=== PATIENT | female | born 1975 | race Caucasian/White ===

== ENCOUNTER → 2016-04-17 | Outpatient (REF) | payer OTHER | END | disposition home or self-care (01) | LOC: M SFHCCAPE 16:25 | PROVIDERS: ATTEND Physician Assistant | DX: G43.009 Migraine without aura, not intractable, without status migrainosus (principal) ==

== ENCOUNTER → 2016-04-24 | Outpatient (REF) | payer OTHER ==
[2016-04-24 10:05] LABS: BASO # 0.1 K/mm3 (0.0-0.2); BASO % 0.6 % (0.0-1.0); EOS # 0.4 K/mm3 (0.0-0.50); EOS % 4.2 % (0.0-3.0); LARGE UNSTAINED CELL # 0.1 K/mm3 (0.0-0.4); LARGE UNSTAINED CELL % 1.1 % (0.0-4.0); LYMPH # 2.1 K/mm3 (1.5-4.5); LYMPH % 18.8 % (24.0-44.0); MEAN CORPUSCULAR HEMOGLOBIN 28.7 pg (27.0-33.0); MEAN CORPUSCULAR HGB CONC 32.6 g/dl (32.0-36.5); MONO # 0.6 K/mm3 (0.0-0.8); MONO % 5.7 % (0.0-5.0); NEUTROPHILS # 7.2 K/mm3 (1.8-7.7); NEUTROPHILS % 69.6 % (36.0-66.0); PLATELET COUNT, AUTOMATED 357 k/mm3 (150-450); RED CELL DISTRIBUTION WIDTH 14.1 % (11.5-14.5); WHITE BLOOD COUNT 10.4 K/mm3 (4.0-10.0)
[2016-04-24 10:17] LABS: ALBUMIN 3.7 GM/DL (3.2-5.2); ALBUMIN/GLOBULIN RATIO 1.09 (1.00-1.93); ALKALINE PHOSPHATASE 107 U/L (45-117); ALT/SGPT 29 U/L (12-78); ANION GAP 7 MEQ/L (8-16); AST/SGOT 13 U/L (15-37); BILIRUBIN,TOTAL 0.2 MG/DL (0.2-1.0); BLOOD UREA NITROGEN 11 MG/DL (7-18); CARBON DIOXIDE LEVEL 26 MEQ/L (21-32); CHLORIDE LEVEL 108 MEQ/L (98-107); CREATININE FOR GFR 0.68 MG/DL (0.55-1.02); GLOMERULAR FILTRATION RATE > 60.0 (>58); GLUCOSE, FASTING 119 MG/DL (70-105); POTASSIUM SERUM 4.3 MEQ/L (3.5-5.1); SODIUM LEVEL 141 MEQ/L (136-145); TOTAL PROTEIN 7.1 GM/DL (6.4-8.2)
[2016-04-24 11:00] LABS: ERYTHROCYTE SEDIMENTATION RATE 12 mm/hr (0-20)
== END ==
LOC: M LABNEURO 09:04
PROVIDERS: ATTEND Psychiatry & Neurology Neurology
DX: R51 Headache (principal)

== ENCOUNTER → 2016-06-12 | Outpatient (REF) | payer OTHER ==
[2016-06-12 20:11] LABS: ALBUMIN 3.8 GM/DL (3.2-5.2); ALBUMIN/GLOBULIN RATIO 1.12 (1.00-1.93); ALKALINE PHOSPHATASE 99 U/L (45-117); ALT/SGPT 27 U/L (12-78); ANION GAP 8 MEQ/L (8-16); AST/SGOT 14 U/L (15-37); BILIRUBIN,TOTAL 0.3 MG/DL (0.2-1.0); BLOOD UREA NITROGEN 11 MG/DL (7-18); CALCIUM LEVEL 8.9 MG/DL (8.5-10.1); CARBON DIOXIDE LEVEL 25 MEQ/L (21-32); CHLORIDE LEVEL 108 MEQ/L (98-107); CHOLESTEROL LEVEL 189 MG/DL (<200); CREATININE FOR GFR 0.76 MG/DL (0.55-1.02); FREE T4 1.07 NG/DL (0.76-1.46); GLOMERULAR FILTRATION RATE > 60.0 (>58); GLUCOSE, FASTING 133 MG/DL (70-105); POTASSIUM SERUM 4.5 MEQ/L (3.5-5.1); SODIUM LEVEL 141 MEQ/L (136-145); TOTAL PROTEIN 7.2 GM/DL (6.4-8.2); TRIGLYCERIDES LEVEL 131 MG/DL (<150)
[2016-06-12 20:19] LABS: VITAMIN B12 LEVEL 796 PG/ML (247-911)
[2016-06-15 00:07] LABS: Lyme Disease IgG/IgM Antibodie <0.91 ISR (0.00-0.90); Lyme Disease IgM Ab Quantitati <0.80 index (0.00-0.79)
== END ==
LOC: M SFHCCAPE 07:46
PROVIDERS: ATTEND Physician Assistant
DX: E11.9 Type 2 diabetes mellitus without complications (principal); R41.3 Other amnesia

== ENCOUNTER → 2016-06-27 | Outpatient (CLI) | payer OTHER ==
--- NOTE | 2016-06-28 03:36 | REP ---
Clinical: Lumbago.. Technique: AP, lateral, bilateral oblique and coned-down views of the lumbosacral spine. Findings: Alignment and lordosis maintained. No acute fracture / compression injury or subluxation. Moderate degenerative disc osteophyte complex at the L5-L1 level and to a lesser extent the L4-5 level. Remainder examination appears relatively normal for age. No evidence for spondylolysis or spondylolisthesis. Impression: Age-related to moderate degenerative changes primarily involving the L5-L1 and L4-5 levels. Signed by Alvarez Newman MD 06/28/2016 12:44 A
--- NOTE | 2016-06-28 03:37 | REP ---
Clinical: Bilateral hip pain. Technique: AP view of the pelvis with neutral and frog lateral views of the right and left hip. Findings: Mild age-related changes including subtle increased sclerosis to the acetabular roof with marginal spurring identified bilaterally (right greater than left). No further arthritic degenerative changes noted. No acute fracture or dislocation. Impression: Mild age-related degenerative changes suggested. Signed by Alvarez Newman MD 06/28/2016 02:28 A
== END ==
LOC: M CLY 13:34
PROVIDERS: ATTEND Physician Assistant
DX: M54.42 Lumbago with sciatica, left side (principal); M54.41 Lumbago with sciatica, right side; M16.0 Bilateral primary osteoarthritis of hip; M47.816 Spondylosis without myelopathy or radiculopathy, lumbar region

== ENCOUNTER → 2016-10-02 | Outpatient (REF) | payer OTHER ==
[2016-10-02 18:19] LABS: ALBUMIN 3.7 GM/DL (3.2-5.2); ALBUMIN/GLOBULIN RATIO 1.03 (1.00-1.93); ALKALINE PHOSPHATASE 110 U/L (45-117); ALT/SGPT 34 U/L (12-78); ANION GAP 7 MEQ/L (8-16); AST/SGOT 15 U/L (15-37); BILIRUBIN,TOTAL 0.2 MG/DL (0.2-1.0); BLOOD UREA NITROGEN 12 MG/DL (7-18); CALCIUM LEVEL 8.5 MG/DL (8.5-10.1); CARBON DIOXIDE LEVEL 26 MEQ/L (21-32); CHLORIDE LEVEL 106 MEQ/L (98-107); CREATININE FOR GFR 0.81 MG/DL (0.55-1.02); GLOMERULAR FILTRATION RATE > 60.0 (>58); GLUCOSE, FASTING 137 MG/DL (70-105); POTASSIUM SERUM 4.5 MEQ/L (3.5-5.1); SODIUM LEVEL 139 MEQ/L (136-145); TOTAL PROTEIN 7.3 GM/DL (6.4-8.2)
== END ==
LOC: M SFHCCAPE 07:51
PROVIDERS: ATTEND Physician Assistant
DX: Z01.812 Encounter for preprocedural laboratory examination (principal); E11.9 Type 2 diabetes mellitus without complications

== ENCOUNTER → 2017-05-29 | Outpatient (REF) | payer OTHER ==
[2017-06-01 14:16] LABS: HPV LOW VOL RFLX Negative (Negative)
== END ==
LOC: M LAB REF 14:28
DX: Z12.4 Encounter for screening for malignant neoplasm of cervix (principal)

== ENCOUNTER → 2017-06-05 | Outpatient (CLI) | payer OTHER | LOC: M RAD 11:16 | DX: Z12.31 Encounter for screening mammogram for malignant neoplasm of breast (principal) | CPT/HCPCS: 77067 ==

== ENCOUNTER 2017-08-24 06:32 | Day surgery (SDC) | payer OTHER ==
[2017-08-24 07:04] LABS: HEMATOCRIT 40.8 % (36.0-47.0); HEMOGLOBIN 13.3 g/dl (12.0-15.5); MEAN CORPUSCULAR HEMOGLOBIN 27.9 pg (27.0-33.0); MEAN CORPUSCULAR HGB CONC 32.6 g/dl (32.0-36.5); MEAN CORPUSCULAR VOLUME 85.7 fl (80.0-96.0); PLATELET COUNT, AUTOMATED 367 10^3/uL (150-450); RED BLOOD COUNT 4.76 10^6/uL (4.00-5.40); RED CELL DISTRIBUTION WIDTH 13.3 % (11.5-14.5)
[2017-08-24 07:09] LABS: CONTROL LINE UCG INT CTR LINE PRESENT; URINE PREG TEST NEGATIVE (NEGATIVE)
[2017-08-24] MEDS ORDERED: PROPOFOL 200 MG/20 ML VIAL As Ordered (07:13)
[2017-08-24] MEDS ORDERED: KETOROLAC 60 MG/2 ML VIAL (J1885) As Ordered (07:13)
[2017-08-24] MEDS ORDERED: LIDOCAINE 2% INJ 100 MG/5 ML SDV (FOR ANES.) As Ordered (07:13)
[2017-08-24] MEDS ORDERED: ROCURONIUM BROMIDE 50 MG/5 ML VIAL As Ordered (07:13)
[2017-08-24] MEDS ORDERED: GLYCOPYRROLATE INJ 0.2 MG/ML 2 ML VIAL As Ordered (07:13)
[2017-08-24] MEDS ORDERED: dexameTHASONE 4 MG/ML 1ML VIAL (J1100) As Ordered (07:13)
[2017-08-24] MEDS ORDERED: NEOSTIGMINE 10 MG/10 ML VIAL (J2710) As Ordered (07:13)
[2017-08-24] MEDS ORDERED: ONDANSETRON 4MG/2ML VIAL (J2405) As Ordered (07:13)
[2017-08-24] MEDS ORDERED: HYDROmorphone HCL 2 MG/ML 1ML VIAL (J1170) As Ordered (07:14)
[2017-08-24] MEDS ORDERED: fentaNYL 100 MCG/2 ML INJECTION (J3010) As Ordered ×2 (07:14→08:33)
[2017-08-24] MEDS ORDERED: MIDAZOLAM INJ 2 MG/2 ML VIAL (J2250) As Ordered (07:14)
[2017-08-24] MEDS: LR 1,000 ML IV ×4 (07:15→17:19)
[2017-08-24] MEDS: METHYLENE BLUE 0.5% (5MG/ML) 10 ML AMP (PROVAYBLUE)(Q9968 PER 1MG) As Ordered (08:46)
[2017-08-24] MEDS ORDERED: LABETALOL HCL 100 MG/20 ML VIAL As Ordered ×2 (08:48→10:10)
[2017-08-24] MEDS: BUPIVACAINE HCL 0.25% 10 ML VIAL As Ordered (09:10)
[2017-08-24] MEDS ORDERED: PERCOCET 5MG/325MG TAB PO (10:00)
[2017-08-24] MEDS ORDERED: MORPHINE 4 MG/ML 1ML VIAL/SYRINGE (J2270) IV (10:00)
[2017-08-24] MEDS ORDERED: ONDANSETRON 4MG/2ML VIAL (J2405) IV ×2 (10:00→10:15)
[2017-08-24] MEDS ORDERED: HYDROMORPHONE HCL 0.5 MG/ 0.5 ML SYRINGE (J1170 PER 1) IV (10:00)
[2017-08-24] MEDS ORDERED: fentaNYL 100 MCG/2 ML INJECTION (J3010) IV (10:00)
[2017-08-24] MEDS: LABETALOL HCL 100 MG/20 ML VIAL IV (10:16)
[2017-08-24] MEDS: DOCUSATE SODIUM 100 MG CAP PO ×2 (11:20→21:26)
[2017-08-24] MEDS ORDERED: KETOROLAC 30 MG/ML VIAL (J1885) IV (13:00)
[2017-08-24 16:59] LABS: BEDSIDE GLUCOSE 267 MG/DL (70-105)
[2017-08-24 17:26] LABS: BASO % 0.1 % (0.0-1.0); HEMATOCRIT 36.5 % (36.0-47.0); HEMOGLOBIN 11.9 g/dl (12.0-15.5); IMMATURE GRANULOCYTE % 0.8 % (0-3.0); LYMPH # 1.2 10^3/uL (1.5-4.5); LYMPH % 5.3 % (24.0-44.0); MEAN CORPUSCULAR HEMOGLOBIN 27.9 pg (27.0-33.0); MEAN CORPUSCULAR HGB CONC 32.6 g/dl (32.0-36.5); MEAN CORPUSCULAR VOLUME 85.5 fl (80.0-96.0); MONO # 0.8 10^3/uL (0.0-0.8); MONO % 3.7 % (0.0-5.0); NEUTROPHILS # 19.7 10^3/uL (1.8-7.7); NEUTROPHILS % 90.1 % (36.0-66.0); PLATELET COUNT, AUTOMATED 337 10^3/uL (150-450); RED BLOOD COUNT 4.27 10^6/uL (4.00-5.40); RED CELL DISTRIBUTION WIDTH 13.2 % (11.5-14.5); WHITE BLOOD COUNT 21.9 10^3/uL (4.0-10.0)
[2017-08-24 17:57] LABS: FIBRINOGEN 382 MG/DL (221-452); INR 1.02; PARTIAL THROMBOPLASTIN TIME 26.9 SECONDS (26.8-37.9); PROTHROMBIN TIME 13.5 SECONDS (12.4-14.5)
[2017-08-24 17:58] LABS: ALBUMIN 3.4 GM/DL (3.2-5.2); ALKALINE PHOSPHATASE 123 U/L (45-117); ALT/SGPT 63 U/L (12-78); ANION GAP 12 MEQ/L (8-16); AST/SGOT 41 U/L (7-37); BILIRUBIN,TOTAL 0.4 MG/DL (0.2-1.0); BLOOD UREA NITROGEN 11 MG/DL (7-18); CARBON DIOXIDE LEVEL 21 MEQ/L (21-32); CHLORIDE LEVEL 103 MEQ/L (98-107); GLOMERULAR FILTRATION RATE > 60.0 (>58); GLUCOSE, FASTING 259 MG/DL (70-100); POTASSIUM SERUM 4.2 MEQ/L (3.5-5.1); SODIUM LEVEL 136 MEQ/L (136-145); TOTAL PROTEIN 6.8 GM/DL (6.4-8.2)
[2017-08-24] MEDS: PERCOCET 5MG/325MG TAB PO (22:36)
[2017-08-25] MEDS: LR 1,000 ML IV (02:00)
[2017-08-25] MEDS: DOCUSATE SODIUM 100 MG CAP PO (09:29)
[2017-08-25] MEDS: PERCOCET 5MG/325MG TAB PO (09:30)
== END 2017-08-25 09:35 | disposition home or self-care (01) ==
LOC: M SDC 06:32 → M PED 11:10
DX: N92.0 Excessive and frequent menstruation with regular cycle (principal); N72 Inflammatory disease of cervix uteri; D25.0 Submucous leiomyoma of uterus; E66.01 Morbid (severe) obesity due to excess calories; F17.210 Nicotine dependence, cigarettes, uncomplicated
CPT/HCPCS: 58571

== ENCOUNTER → 2017-10-25 | Outpatient (REF) | payer OTHER ==
[2017-10-25 16:24] LABS: BASO # 0.1 10^3/uL (0.0-0.2); BASO % 0.7 % (0.0-1.0); EOS # 0.5 10^3/uL (0.0-0.50); EOS % 4.4 % (0.0-3.0); HEMATOCRIT 39.2 % (36.0-47.0); HEMOGLOBIN 12.7 g/dl (12.0-15.5); IMMATURE GRANULOCYTE % 0.5 % (0-3.0); LYMPH # 2.6 10^3/uL (1.5-4.5); LYMPH % 24.6 % (24.0-44.0); MEAN CORPUSCULAR HGB CONC 32.4 g/dl (32.0-36.5); MEAN CORPUSCULAR VOLUME 86.3 fl (80.0-96.0); MONO # 0.7 10^3/uL (0.0-0.8); MONO % 6.6 % (0.0-5.0); NEUTROPHILS # 6.7 10^3/uL (1.8-7.7); NEUTROPHILS % 63.2 % (36.0-66.0); PLATELET COUNT, AUTOMATED 353 10^3/uL (150-450); RED BLOOD COUNT 4.54 10^6/uL (4.00-5.40); RED CELL DISTRIBUTION WIDTH 14.4 % (11.5-14.5); WHITE BLOOD COUNT 10.6 10^3/uL (4.0-10.0)
[2017-10-25 16:42] LABS: ESTIMATED AVERAGE GLUCOSE 200 MG/DL (60-110); HEMOGLOBIN A1c 8.6 %
[2017-10-25 16:43] LABS: TOTAL 25(OH) VITAMIN D 20.8 NG/ML (30.0-100.0)
[2017-10-25 16:44] LABS: ALBUMIN 3.5 GM/DL (3.2-5.2); ALBUMIN/GLOBULIN RATIO 0.95 (1.00-1.93); ALKALINE PHOSPHATASE 121 U/L (45-117); ALT/SGPT 22 U/L (12-78); ANION GAP 10 MEQ/L (8-16); AST/SGOT 11 U/L (7-37); BILIRUBIN,TOTAL 0.3 MG/DL (0.2-1.0); BLOOD UREA NITROGEN 15 MG/DL (7-18); CALCIUM LEVEL 8.2 MG/DL (8.5-10.1); CARBON DIOXIDE LEVEL 22 MEQ/L (21-32); CHLORIDE LEVEL 105 MEQ/L (98-107); CHOLESTEROL LEVEL 178 MG/DL (<200); CHOLESTEROL RISK RATIO 6.592 (<5); CREATININE FOR GFR 0.85 MG/DL (0.55-1.30); GLOMERULAR FILTRATION RATE > 60.0 (>58); GLUCOSE, FASTING 256 MG/DL (70-100); HDL CHOLESTEROL 27 MG/DL (>40); LDL CHOLESTEROL 112.6 MG/DL (<100); NON-HDL-C 151 MG/DL; POTASSIUM SERUM 4.3 MEQ/L (3.5-5.1); SODIUM LEVEL 137 MEQ/L (136-145); TOTAL PROTEIN 7.2 GM/DL (6.4-8.2); TRIGLYCERIDES LEVEL 192 MG/DL (<150)
[2017-10-25 17:22] LABS: MALB URINE SIEMENS 27.8 MG/L; MAU/CREAT RATIO 14.5 MCG/MG (0.0-30.0)
== END ==
LOC: M SFHCCAPE 07:23
DX: I10 Essential (primary) hypertension (principal); E11.9 Type 2 diabetes mellitus without complications; E78.2 Mixed hyperlipidemia; E55.9 Vitamin D deficiency, unspecified

== ENCOUNTER 2017-12-08 12:20 | Emergency (ER) | payer OTHER | END 2017-12-08 13:57 | disposition home or self-care (01) | LOC: M ED 12:20 | DX: M25.511 Pain in right shoulder (principal); I10 Essential (primary) hypertension; R51 Headache; E78.00 Pure hypercholesterolemia, unspecified; F17.210 Nicotine dependence, cigarettes, uncomplicated | CPT/HCPCS: 99282 ==

== ENCOUNTER → 2017-12-17 | Outpatient (REF) | payer OTHER ==
[2017-12-17 16:47] LABS: BASO # 0.1 10^3/uL (0.0-0.2); BASO % 0.5 % (0.0-1.0); EOS # 0.4 10^3/uL (0.0-0.50); EOS % 3.3 % (0.0-3.0); HEMATOCRIT 39.9 % (36.0-47.0); HEMOGLOBIN 12.9 g/dl (12.0-15.5); IMMATURE GRANULOCYTE % 0.3 % (0-3.0); LYMPH # 2.4 10^3/uL (1.5-4.5); LYMPH % 22.1 % (24.0-44.0); MEAN CORPUSCULAR HEMOGLOBIN 28.2 pg (27.0-33.0); MEAN CORPUSCULAR HGB CONC 32.3 g/dl (32.0-36.5); MEAN CORPUSCULAR VOLUME 87.3 fl (80.0-96.0); MONO # 0.6 10^3/uL (0.0-0.8); MONO % 5.7 % (0.0-5.0); NEUTROPHILS # 7.3 10^3/uL (1.8-7.7); NEUTROPHILS % 68.1 % (36.0-66.0); PLATELET COUNT, AUTOMATED 359 10^3/uL (150-450); RED BLOOD COUNT 4.57 10^6/uL (4.00-5.40); RED CELL DISTRIBUTION WIDTH 14.2 % (11.5-14.5); WHITE BLOOD COUNT 10.7 10^3/uL (4.0-10.0)
[2017-12-17 16:55] LABS: ESTIMATED AVERAGE GLUCOSE 183 MG/DL (60-110)
[2017-12-17 17:02] LABS: ALBUMIN 3.6 GM/DL (3.2-5.2); ALBUMIN/GLOBULIN RATIO 1.03 (1.00-1.93); ALKALINE PHOSPHATASE 114 U/L (45-117); ALT/SGPT 25 U/L (12-78); ANION GAP 8 MEQ/L (8-16); AST/SGOT 13 U/L (7-37); BILIRUBIN,TOTAL 0.2 MG/DL (0.2-1.0); BLOOD UREA NITROGEN 12 MG/DL (7-18); CALCIUM LEVEL 8.2 MG/DL (8.5-10.1); CARBON DIOXIDE LEVEL 24 MEQ/L (21-32); CHLORIDE LEVEL 109 MEQ/L (98-107); CREATININE FOR GFR 0.97 MG/DL (0.55-1.30); GLOMERULAR FILTRATION RATE > 60.0 (>58); GLUCOSE, FASTING 138 MG/DL (70-100); POTASSIUM SERUM 4.3 MEQ/L (3.5-5.1); SODIUM LEVEL 141 MEQ/L (136-145); THYROID STIMULATING HORMONE 0.765 uIU/ML (0.358-3.740); TOTAL PROTEIN 7.1 GM/DL (6.4-8.2)
== END ==
LOC: M SFHCCAPE 09:56
DX: I10 Essential (primary) hypertension (principal); E11.9 Type 2 diabetes mellitus without complications

== ENCOUNTER → 2018-03-18 | Outpatient (REF) | payer OTHER ==
[~2018-03-18] MED LIST: ATOR1TAB19; IBUP80TA PO; LISI10TA4; OMEP20CA3; OXYB10TA; PERC5TAB12 PO; PERCOCET PO; STEG5TAB; VITA50005
[2018-03-18 18:24] LABS: ALT/SGPT 21 U/L (12-78); BASO # 0.1 10^3/uL (0.0-0.2); BASO % 0.5 % (0.0-1.0); BILIRUBIN,TOTAL 0.4 MG/DL (0.2-1.0); BLOOD UREA NITROGEN 16 MG/DL (7-18); CALCIUM LEVEL 8.7 MG/DL (8.5-10.1); CARBON DIOXIDE LEVEL 23 MEQ/L (21-32); CHLORIDE LEVEL 105 MEQ/L (98-107); CHOLESTEROL LEVEL 129 MG/DL (<200); CHOLESTEROL RISK RATIO 4.777 (<5); CREATININE FOR GFR 0.81 MG/DL (0.55-1.30); EOS # 0.5 10^3/uL (0.0-0.50); EOS % 4.4 % (0.0-3.0); GLOMERULAR FILTRATION RATE > 60.0 (>58); GLUCOSE, FASTING 161 MG/DL (70-100); HDL CHOLESTEROL 27 MG/DL (>40); HEMATOCRIT 41.6 % (36.0-47.0); HEMOGLOBIN 13.3 g/dl (12.0-15.5); LDL CHOLESTEROL 73 MG/DL (<100); LYMPH # 2.2 10^3/uL (1.5-4.5); LYMPH % 20.3 % (24.0-44.0); MEAN CORPUSCULAR VOLUME 90.6 fl (80.0-96.0); MONO # 0.7 10^3/uL (0.0-0.8); MONO % 6.6 % (0.0-5.0); NEUTROPHILS # 7.2 10^3/uL (1.8-7.7); NEUTROPHILS % 67.9 % (36.0-66.0); NON-HDL-C 102 MG/DL; PLATELET COUNT, AUTOMATED 368 10^3/uL (150-450); POTASSIUM SERUM 4.2 MEQ/L (3.5-5.1); RED BLOOD COUNT 4.59 10^6/uL (4.00-5.40); SODIUM LEVEL 140 MEQ/L (136-145); TOTAL PROTEIN 7.4 GM/DL (6.4-8.2); TRIGLYCERIDES LEVEL 144 MG/DL (<150); WHITE BLOOD COUNT 10.6 10^3/uL (4.0-10.0)
[2018-03-18 19:08] LABS: HEMOGLOBIN A1c 6.9 %
[2018-03-18 19:32] LABS: CREATININE, URINE 20.3 MG/DL; MALB URINE SIEMENS < 5.0 MG/L; MAU/CREAT RATIO 24.6 MCG/MG (0.0-30.0)
== END ==
LOC: M SFHCCAPE 07:24
PROVIDERS: ATTEND Physician Assistant
DX: E11.9 Type 2 diabetes mellitus without complications (principal)

== ENCOUNTER → 2018-05-27 | Outpatient (REF) | payer OTHER ==
[2018-05-30 00:09] LABS: HPV HYBRID CAPTURE II Negative (Negative)
== END ==
LOC: M LAB REF 19:24
PROVIDERS: ATTEND Advanced Practice Midwife
DX: Z01.411 Encounter for gynecological examination (general) (routine) with abnormal findings (principal)

== ENCOUNTER → 2018-05-27 | Outpatient (CLI) | payer OTHER | LOC: M LAB 10:36 | PROVIDERS: ATTEND Advanced Practice Midwife | DX: Z13.71 Encounter for nonprocreative screening for genetic disease carrier status (principal) ==

== ENCOUNTER → 2018-06-06 | Outpatient (CLI) | payer OTHER ==
--- NOTE | 2018-06-06 12:44 | REPMRS ---
Patient History The patient states she had a clinical breast exam in May 2018. Family history of colorectal cancer under age 50 in paternal aunt. 3D TOMOSYNTHESIS WAS PERFORMED. Digital Mammo Screening Bilat: June 06, 2018 - Exam #: [id number] Bilateral CC and MLO view(s) were taken. Technologist: Erica Willis, Technologist Prior study comparison: June 05, 2017, bilateral digital mammo screening bilat performed at [facility]. FINDINGS: The breast tissue is heterogeneously dense. This may lower the sensitivity of mammography. There has been no change in the appearance of the mammogram from the prior studies. There is a moderate amount of residual fibroglandular tissue which is fairly symmetric. There is no interval development of dominant mass, areas of architectural distortion, or clustered microcalcification typical of malignancy. Assessment: BI-RADS/ACR category 1 mammogram. Negative Mammogram. Recommendation Routine screening mammogram in 1 year (for women over age 40). This mammogram was interpreted with the aid of an FDA-approved computer-aided dectection system. Electronically Signed By: Tani Awad MD 06/06/18 1606
== END ==
LOC: M RAD 12:09
PROVIDERS: ATTEND Specialist
DX: Z12.31 Encounter for screening mammogram for malignant neoplasm of breast (principal)

== ENCOUNTER → 2018-12-06 | Outpatient (REF) | payer OTHER ==
[~2018-12-06] MED LIST changes: -OMEP20CA3; +OMEP20CA4; -OXYB10TA; +OXYB10TA2
[2018-12-06 12:18] LABS: BASO # 0.1 10^3/uL (0.0-0.2); BASO % 0.7 % (0.0-1.0); EOS # 0.5 10^3/uL (0.0-0.5); EOS % 4.1 % (0.0-3.0); HEMATOCRIT 42.5 % (36.0-47.0); HEMOGLOBIN 13.9 g/dl (12.0-15.5); LYMPH # 2.7 10^3/uL (1.5-5.0); LYMPH % 24.2 % (24.0-44.0); MEAN CORPUSCULAR HEMOGLOBIN 30.4 pg (27.0-33.0); MEAN CORPUSCULAR HGB CONC 32.7 g/dl (32.0-36.5); MONO # 0.8 10^3/uL (0.0-0.8); MONO % 6.9 % (0.0-5.0); NEUTROPHILS # 7.1 10^3/uL (1.5-8.5); NEUTROPHILS % 63.6 % (36.0-66.0); PLATELET COUNT, AUTOMATED 336 10^3/uL (150-450); RED BLOOD COUNT 4.57 10^6/uL (4.00-5.40); WHITE BLOOD COUNT 11.1 10^3/uL (4.0-10.0)
[2018-12-06 13:03] LABS: TOTAL 25(OH) VITAMIN D 19.3 NG/ML (30.0-100.0)
[2018-12-06 13:06] LABS: ALBUMIN 3.7 GM/DL (3.2-5.2); ALT/SGPT 26 U/L (12-78); BILIRUBIN,TOTAL 0.4 MG/DL (0.2-1.0); BLOOD UREA NITROGEN 13 MG/DL (7-18); CALCIUM LEVEL 8.7 MG/DL (8.5-10.1); CARBON DIOXIDE LEVEL 26 MEQ/L (21-32); CHLORIDE LEVEL 103 MEQ/L (98-107); CHOLESTEROL LEVEL 134 MG/DL (<200); CHOLESTEROL RISK RATIO 4.466 (<5); CREATININE FOR GFR 0.75 MG/DL (0.55-1.30); GLOMERULAR FILTRATION RATE > 60.0 (>58); GLUCOSE, FASTING 212 MG/DL (70-100); HDL CHOLESTEROL 30 MG/DL (>40); LDL CHOLESTEROL 63 MG/DL (<100); NON-HDL-C 104 MG/DL; POTASSIUM SERUM 4.5 MEQ/L (3.5-5.1); SODIUM LEVEL 136 MEQ/L (136-145); THYROID STIMULATING HORMONE 0.729 uIU/ML (0.358-3.740); TOTAL PROTEIN 7.1 GM/DL (6.4-8.2); TRIGLYCERIDES LEVEL 206 MG/DL (<150)
[2018-12-06 13:44] LABS: HEMOGLOBIN A1c 8.1 %
== END ==
LOC: M SFHCCLAY 07:29
PROVIDERS: ATTEND Physician Assistant
DX: E11.9 Type 2 diabetes mellitus without complications (principal); E78.2 Mixed hyperlipidemia; E55.9 Vitamin D deficiency, unspecified

== ENCOUNTER → 2019-03-12 | Outpatient (REF) | payer OTHER ==
[~2019-03-12] MED LIST changes: +OMEP-172; -OMEP20CA4
[2019-03-12 17:04] LABS: BASO # 0.1 10^3/uL (0.0-0.2); BASO % 0.6 % (0.0-1.0); EOS # 0.7 10^3/uL (0.0-0.5); EOS % 7.2 % (0.0-3.0); HEMATOCRIT 42.8 % (36.0-47.0); HEMOGLOBIN 13.5 g/dl (12.0-15.5); LYMPH # 2.8 10^3/uL (1.5-5.0); LYMPH % 27.6 % (24.0-44.0); MEAN CORPUSCULAR HEMOGLOBIN 29.7 pg (27.0-33.0); MEAN CORPUSCULAR HGB CONC 31.5 g/dl (32.0-36.5); MEAN CORPUSCULAR VOLUME 94.1 fl (80.0-96.0); MONO # 0.7 10^3/uL (0.0-0.8); MONO % 7.2 % (0.0-5.0); NEUTROPHILS # 5.7 10^3/uL (1.5-8.5); NEUTROPHILS % 57.1 % (36.0-66.0); PLATELET COUNT, AUTOMATED 345 10^3/uL (150-450); RED BLOOD COUNT 4.55 10^6/uL (4.00-5.40)
[2019-03-12 17:05] LABS: ALBUMIN 3.9 GM/DL (3.2-5.2); ALT/SGPT 25 U/L (12-78); BILIRUBIN,TOTAL 0.3 MG/DL (0.2-1.0); BLOOD UREA NITROGEN 10 MG/DL (7-18); CARBON DIOXIDE LEVEL 22 MEQ/L (21-32); CHLORIDE LEVEL 110 MEQ/L (98-107); CREATININE FOR GFR 0.72 MG/DL (0.55-1.30); GLOMERULAR FILTRATION RATE > 60.0 (>58); GLUCOSE, FASTING 97 MG/DL (70-100); POTASSIUM SERUM 4.5 MEQ/L (3.5-5.1); SODIUM LEVEL 141 MEQ/L (136-145); TOTAL PROTEIN 7.2 GM/DL (6.4-8.2)
[2019-03-12 17:52] LABS: HEMOGLOBIN A1c 6.3 %
== END ==
LOC: M SFHCCAPE 07:24
PROVIDERS: ATTEND Physician Assistant
DX: D72.829 Elevated white blood cell count, unspecified (principal); E11.69 Type 2 diabetes mellitus with other specified complication

== ENCOUNTER 2019-07-05 17:57 | Emergency (ER) | payer OTHER ==
[~2019-07-05] VITALS: Ht 154.9 cm; Wt 85.9 kg
[~2019-07-05 17:57] MED LIST changes: -OMEP-172; +OMEP1CAP73; -OXYB10TA2; +OXYB10TA23
[2019-07-05] MEDS ORDERED: diphenhydrAMINE 50MG/ML VIAL (J1200) IV STA (18:56)
[2019-07-05] MEDS ORDERED: METOCLOPRAMIDE INJ 10MG/2ML VIAL (J2765 PER 1) IV ONE (19:00)
--- NOTE | 2019-07-05 19:27 | REP ---
Clinical: Chest pain and tightness . Comparison: 03/20/2015 Technique: PA and lateral. Findings: The mediastinum and cardiac silhouette are normal. The lung rowley are clear and without acute consolidation, effusion, or pneumothorax. The skeletal structures are intact and normal. Impression: 1. No acute cardiopulmonary process. Electronically Signed by Alvarez Newman MD 07/05/2019 07:18 P
[2019-07-05 19:28] LABS: BASO # 0.1 10^3/uL (0.0-0.2); BASO % 0.6 % (0.0-1.0); EOS # 0.5 10^3/uL (0.0-0.5); EOS % 4.4 % (0.0-3.0); HEMATOCRIT 41.6 % (36.0-47.0); HEMOGLOBIN 13.6 g/dl (12.0-15.5); MEAN CORPUSCULAR HGB CONC 32.7 g/dl (32.0-36.5); MEAN CORPUSCULAR VOLUME 91.8 fl (80.0-96.0); MONO # 0.9 10^3/uL (0.0-0.8); MONO % 7.3 % (0.0-5.0); NEUTROPHILS # 7.5 10^3/uL (1.5-8.5); NEUTROPHILS % 62.2 % (36.0-66.0); PLATELET COUNT, AUTOMATED 367 10^3/uL (150-450); RED BLOOD COUNT 4.53 10^6/uL (4.00-5.40); WHITE BLOOD COUNT 12.1 10^3/uL (4.0-10.0)
[2019-07-05] MEDS ORDERED: TRUL0.5I SC (19:33)
--- NOTE | 2019-07-05 19:44 | ECGEPIP ---
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
[2019-07-05 19:50] LABS: ERYTHROCYTE SEDIMENTATION RATE 11 mm/hr (0-20)
[2019-07-05 19:59] LABS: BLOOD UREA NITROGEN 11 MG/DL (7-18); C REACTIVE PROTEIN QUANTITATIV 0.33 MG/DL (0.00-0.30); CARBON DIOXIDE LEVEL 27 MEQ/L (21-32); CHLORIDE LEVEL 107 MEQ/L (98-107); CK-MB VALUE MASS < 1.0 NG/ML (<3.6); CPK CREATINE PHOSPHOKINASE 43 U/L (26-192); CREATININE FOR GFR 0.74 MG/DL (0.55-1.30); GLOMERULAR FILTRATION RATE > 60.0 (>58); GLUCOSE, FASTING 89 MG/DL (70-100); MB/CK RELATIVE INDEX 2.33 (< OR =4); SODIUM LEVEL 140 MEQ/L (136-145); TROPONIN I < 0.02 NG/ML (< 0.10)
[2019-07-05] MEDS ORDERED: ISOVUE-370 76% 100ML VIAL As Ordered ONE (20:14)
[2019-07-05] MEDS ORDERED: NS 1,000 ML IV ONE (20:15)
--- NOTE | 2019-07-05 21:01 | REPVR ---
PROCEDURE INFORMATION: Exam: CT Head Without Contrast Exam date and time: 07/05/2019 8:22 PM Age: 43 years old Clinical indication: Pain; Headache; Additional info: Dizziness, headache TECHNIQUE: Imaging protocol: Computed tomography of the head without contrast. Radiation optimization: All CT scans at this facility use at least one of these dose optimization techniques: automated exposure control; mA and/or kV adjustment per patient size (includes targeted exams where dose is matched to clinical indication); or iterative reconstruction. COMPARISON: No relevant prior studies available. FINDINGS: Brain: No intracranial mass, mass effect or midline shift. No acute intracranial hemorrhage. No CT evidence of acute cortical infarct. Ventricles: Ventricles, cisterns, and sulci are normal in size for age. Bones/joints: No calvarial fracture or destructive process. Sinuses: Imaged paranasal sinuses are clear. Mastoid air cells: Mastoid air cells are normally aerated. Orbits: Imaged orbits are unremarkable. Soft tissues: No focal extracranial soft tissue swelling. IMPRESSION: No acute or concerning focal intracranial abnormality. Electronically signed by: Jaren Camacho On 07/05/2019 21:01:03 PM
--- NOTE | 2019-07-05 21:02 | REPVR ---
PROCEDURE INFORMATION: Exam: CT Angiography Neck With Contrast Exam date and time: 07/05/2019 8:22 PM Age: 43 years old Clinical indication: Pain; Headache; Additional info: Dizziness, headache TECHNIQUE: Imaging protocol: Computed tomography angiography of the neck with intravenous contrast. 3D rendering: MIP and/or 3D reconstructed images were created by the technologist. Radiation optimization: All CT scans at this facility use at least one of these dose optimization techniques: automated exposure control; mA and/or kV adjustment per patient size (includes targeted exams where dose is matched to clinical indication); or iterative reconstruction. Contrast material: ISO 370; Contrast volume: 100 ml; Contrast route: IV; COMPARISON: No relevant prior studies available. FINDINGS: Right common carotid, cervical ICA and proximal ECA demonstrate contrast opacification with no occlusion, flow limiting stenosis, or intimal flap to suggest dissection. Left common carotid, cervical ICA and proximal ECA demonstrate contrast opacification, with no occlusion, flow limiting stenosis, or intimal flap to suggest dissection. Negligible calcified plaque, left carotid bulb. Vertebral arteries demonstrate normal course to the level of the skull base and show no occlusion, flow limiting stenosis or dissection. No flow limiting stenosis or anomaly of the great vessel origins. No concerning asymmetric neck soft tissue abnormality. Posterior nasopharynx soft tissues are unremarkable. Parapharyngeal soft tissue planes are normal and symmetric bilaterally. Parotid and minor salivary glands show no focal mass or asymmetry. Floor of the mouth and tongue base soft tissues are unremarkable. IMPRESSION: Unremarkable CT Angiogram of the neck. REFERENCES: NASCET CRITERIA. The degree of internal carotid artery stenosis is based on NASCET criteria. Normal is no stenosis. Mild is less than 50% stenosis. Moderate is 50-69% stenosis. Severe is 70% to 99% stenosis. Total occlusion is no detectable patent lumen. Electronically signed by: Jaren Camacho On 07/05/2019 21:02:18 PM
--- NOTE | 2019-07-05 21:05 | REPVR ---
PROCEDURE INFORMATION: Exam: CT Angiography Head With Contrast Exam date and time: 07/05/2019 8:22 PM Age: 43 years old Clinical indication: Pain; Headache; Additional info: Dizziness, headache TECHNIQUE: Imaging protocol: Computed tomography angiography of the head with intravenous contrast. 3D rendering: MIP and/or 3D reconstructed images were created by the technologist. Radiation optimization: All CT scans at this facility use at least one of these dose optimization techniques: automated exposure control; mA and/or kV adjustment per patient size (includes targeted exams where dose is matched to clinical indication); or iterative reconstruction. Contrast material: ISO 370; Contrast volume: 100 ml; Contrast route: IV COMPARISON: No relevant prior studies available. FINDINGS: Ventricles, cisterns and sulci are symmetric and appropriate for age. No intracranial mass or focal mass effect. No intracranial hemorrhage, midline shift or acute territorial infarct. Anterior circulation: Normal contrast opacification and luminal caliber in the petrous, cavernous and supraclinoid internal carotid arteries. Normal appearance of the anterior cerebral artery branches and middle cerebral artery branches through the MCA trifurcations. No occlusion, high-grade focal stenosis or dissection. No aneurysm. Posterior circulation: Normal distal vertebral arteries, with patent normal caliber basilar artery, and normal superior cerebellar and posterior cerebral arteries. No occlusion, high-grade stenosis or aneurysm. Dural sinuses enhance normally. Bony structures show no acute fracture or destructive process. IMPRESSION: Unremarkable CT Angiogram of the head and [place] of [place]. Electronically signed by: Jaren Camacho On 07/05/2019 21:05:11 PM
[2019-07-05 22:20] VITALS: BP 142/68
== END 2019-07-05 22:33 | disposition home or self-care (01) ==
LOC: M ED 17:57
DX: R42 Dizziness and giddiness (principal); I95.1 Orthostatic hypotension; E11.9 Type 2 diabetes mellitus without complications; I10 Essential (primary) hypertension; E78.9 Disorder of lipoprotein metabolism, unspecified; F17.210 Nicotine dependence, cigarettes, uncomplicated; Z88.5 Allergy status to narcotic agent; Z88.8 Allergy status to other drugs, medicaments and biological substances; Z79.899 Other long term (current) drug therapy; Z20.828 Contact with and (suspected) exposure to other viral communicable diseases
CPT/HCPCS: 70450; 70496; 70498; 71046; 80048; 82550; 82553; 85025; 85652; 86140; 93005; 96361; 96374; 96375; 99284; C9803; J1200; J2765; Q9967; U0002

== ENCOUNTER → 2019-07-16 | Outpatient (REF) | payer OTHER ==
[~2019-07-16] MED LIST changes: +TRUL0.5I SC
[2019-07-16 11:53] LABS: BASO # 0.1 10^3/uL (0.0-0.2); BASO % 0.5 % (0.0-1.0); EOS # 0.5 10^3/uL (0.0-0.5); EOS % 4.6 % (0.0-3.0); HEMATOCRIT 38.4 % (36.0-47.0); HEMOGLOBIN 12.3 g/dl (12.0-15.5); LYMPH # 2.7 10^3/uL (1.5-5.0); LYMPH % 25.2 % (24.0-44.0); MEAN CORPUSCULAR HEMOGLOBIN 29.9 pg (27.0-33.0); MEAN CORPUSCULAR VOLUME 93.4 fl (80.0-96.0); NEUTROPHILS # 6.4 10^3/uL (1.5-8.5); PLATELET COUNT, AUTOMATED 342 10^3/uL (150-450); RED BLOOD COUNT 4.11 10^6/uL (4.00-5.40); WHITE BLOOD COUNT 10.7 10^3/uL (4.0-10.0)
[2019-07-16 12:25] LABS: ALBUMIN 3.8 GM/DL (3.2-5.2); ALT/SGPT 30 U/L (12-78); BILIRUBIN,TOTAL 0.2 MG/DL (0.2-1.0); BLOOD UREA NITROGEN 15 MG/DL (7-18); CALCIUM LEVEL 8.9 MG/DL (8.5-10.1); CARBON DIOXIDE LEVEL 23 MEQ/L (21-32); CHLORIDE LEVEL 109 MEQ/L (98-107); CHOLESTEROL LEVEL 144 MG/DL (<200); CHOLESTEROL RISK RATIO 4.114 (<5); CREATININE FOR GFR 0.68 MG/DL (0.55-1.30); GLOMERULAR FILTRATION RATE > 60.0 (>58); GLUCOSE, FASTING 112 MG/DL (70-100); HDL CHOLESTEROL 35 MG/DL (>40); LDL CHOLESTEROL 82 MG/DL (<100); NON-HDL-C 109 MG/DL; POTASSIUM SERUM 4.5 MEQ/L (3.5-5.1); SODIUM LEVEL 139 MEQ/L (136-145); THYROID STIMULATING HORMONE 0.672 uIU/ML (0.358-3.740); TOTAL 25(OH) VITAMIN D 63.9 NG/ML (30.0-100.0); TOTAL PROTEIN 7.1 GM/DL (6.4-8.2); TRIGLYCERIDES LEVEL 137 MG/DL (<150)
[2019-07-16 12:32] LABS: CREATININE, URINE 58.1 MG/DL; MALB URINE SIEMENS < 5.0 MG/L; MAU/CREAT RATIO 8.6 MCG/MG (0.0-30.0)
[2019-07-16 13:18] LABS: HEMOGLOBIN A1c 6.6 %
== END ==
LOC: M SFHCCLAY 08:19
PROVIDERS: ATTEND Physician Assistant
DX: E11.69 Type 2 diabetes mellitus with other specified complication (principal); E66.9 Obesity, unspecified; E55.9 Vitamin D deficiency, unspecified

== ENCOUNTER → 2020-02-03 | Outpatient (CLI) | payer OTHER ==
[~2020-02-03] MED LIST changes: +DULO1CAP6 PO; +FAMO20TA PO; +LISI10TA4 PO; +MECL1TAB31 PO; +METH750T2 PO; +OXYB10TA23 PO; +PREG100CA PO; +VITA50005 PO
== END ==
LOC: M LABSMTC 12:07
PROVIDERS: ATTEND Family Medicine
DX: Z20.828 Contact with and (suspected) exposure to other viral communicable diseases (principal)

== ENCOUNTER → 2020-03-09 | Outpatient (REF) | payer BC, OTHER ==
[2020-03-09 11:30] LABS: BASO # 0.1 10^3/uL (0.0-0.2); BASO % 0.9 % (0.0-1.0); EOS # 0.5 10^3/uL (0.0-0.5); EOS % 5.2 % (0.0-3.0); HEMATOCRIT 39.3 % (36.0-47.0); HEMOGLOBIN 12.8 g/dl (12.0-15.5); LYMPH # 2.9 10^3/uL (1.5-5.0); LYMPH % 27.6 % (24.0-44.0); MEAN CORPUSCULAR HEMOGLOBIN 30.3 pg (27.0-33.0); MEAN CORPUSCULAR HGB CONC 32.6 g/dl (32.0-36.5); MEAN CORPUSCULAR VOLUME 93.1 fl (80.0-96.0); MONO # 0.8 10^3/uL (0.0-0.8); MONO % 7.9 % (0.0-5.0); NEUTROPHILS % 57.9 % (36.0-66.0); PLATELET COUNT, AUTOMATED 322 10^3/uL (150-450); RED BLOOD COUNT 4.22 10^6/uL (4.00-5.40); WHITE BLOOD COUNT 10.4 10^3/uL (4.0-10.0)
[2020-03-09 11:45] LABS: HEMOGLOBIN A1c 7.5 %
[2020-03-09 12:08] LABS: ALBUMIN 3.9 GM/DL (3.2-5.2); ALT/SGPT 27 U/L (12-78); BILIRUBIN,TOTAL 0.3 MG/DL (0.2-1.0); BLOOD UREA NITROGEN 17 MG/DL (7-18); CALCIUM LEVEL 9.1 MG/DL (8.5-10.1); CARBON DIOXIDE LEVEL 26 MEQ/L (21-32); CHLORIDE LEVEL 106 MEQ/L (98-107); CHOLESTEROL LEVEL 150 MG/DL (<200); CHOLESTEROL RISK RATIO 4.687 (<5); CREATININE FOR GFR 0.73 MG/DL (0.55-1.30); FREE T4 1.08 NG/DL (0.76-1.46); GLOMERULAR FILTRATION RATE > 60.0 (>58); GLUCOSE, FASTING 161 MG/DL (70-100); HDL CHOLESTEROL 32 MG/DL (>40); LDL CHOLESTEROL 83 MG/DL (<100); MAU/CREAT RATIO 7.6 MCG/MG (0.0-30.0); NON-HDL-C 118 MG/DL; POTASSIUM SERUM 4.4 MEQ/L (3.5-5.1); SODIUM LEVEL 137 MEQ/L (136-145); TOTAL 25(OH) VITAMIN D 25.6 NG/ML (30.0-100.0); TOTAL PROTEIN 7.1 GM/DL (6.4-8.2); TRIGLYCERIDES LEVEL 177 MG/DL (<150)
== END ==
LOC: M SFHCCLAY 07:35
PROVIDERS: ATTEND Physician Assistant
DX: D72.829 Elevated white blood cell count, unspecified (principal); I10 Essential (primary) hypertension; E11.69 Type 2 diabetes mellitus with other specified complication; E55.9 Vitamin D deficiency, unspecified

== ENCOUNTER → 2020-06-24 | Outpatient (REF) | payer BC, OTHER ==
[~2020-06-24] MED LIST changes: +LISI10TA22; +LISI10TA22 PO; -LISI10TA4; -LISI10TA4 PO; +METH-1165 PO; -METH750T2 PO
[2020-06-24 16:24] LABS: BASO # 0.1 10^3/uL (0.0-0.2); EOS # 0.7 10^3/uL (0.0-0.5); EOS % 5.8 % (0.0-3.0); HEMATOCRIT 43.4 % (36.0-47.0); HEMOGLOBIN 13.7 g/dl (12.0-15.5); LYMPH # 2.4 10^3/uL (1.5-5.0); LYMPH % 21.9 % (24.0-44.0); MEAN CORPUSCULAR HEMOGLOBIN 29.6 pg (27.0-33.0); MEAN CORPUSCULAR HGB CONC 31.6 g/dl (32.0-36.5); MEAN CORPUSCULAR VOLUME 93.7 fl (80.0-96.0); MONO # 0.7 10^3/uL (0.0-0.8); MONO % 6.6 % (2.0-8.0); NEUTROPHILS # 7.2 10^3/uL (1.5-8.5); NEUTROPHILS % 64.3 % (36.0-66.0); PLATELET COUNT, AUTOMATED 368 10^3/uL (150-450); RED BLOOD COUNT 4.63 10^6/uL (4.00-5.40); WHITE BLOOD COUNT 11.2 10^3/uL (4.0-10.0)
[2020-06-24 16:31] LABS: HEMOGLOBIN A1c 8.1 %
[2020-06-24 16:56] LABS: ALBUMIN 3.9 GM/DL (3.2-5.2); ALT/SGPT 46 U/L (12-78); BILIRUBIN,TOTAL 0.4 MG/DL (0.2-1.0); BLOOD UREA NITROGEN 16 MG/DL (7-18); CALCIUM LEVEL 9.1 MG/DL (8.5-10.1); CARBON DIOXIDE LEVEL 26 MEQ/L (21-32); CHLORIDE LEVEL 104 MEQ/L (98-107); CHOLESTEROL LEVEL 175 MG/DL (<200); CHOLESTEROL RISK RATIO 5.147 (<5); CREATININE FOR GFR 0.66 MG/DL (0.55-1.30); GLOMERULAR FILTRATION RATE > 60.0 (>58); GLUCOSE, FASTING 203 MG/DL (70-100); HDL CHOLESTEROL 34 MG/DL (>40); LDL CHOLESTEROL 97 MG/DL (<100); NON-HDL-C 141 MG/DL; POTASSIUM SERUM 4.4 MEQ/L (3.5-5.1); SODIUM LEVEL 135 MEQ/L (136-145); THYROID STIMULATING HORMONE 0.464 uIU/ML (0.358-3.740); TOTAL 25(OH) VITAMIN D 49.2 NG/ML (30.0-100.0); TOTAL PROTEIN 7.3 GM/DL (6.4-8.2); TRIGLYCERIDES LEVEL 222 MG/DL (<150)
== END ==
LOC: M SFHCCAPE 07:00
PROVIDERS: ATTEND Physician Assistant
DX: E78.2 Mixed hyperlipidemia (principal); E11.69 Type 2 diabetes mellitus with other specified complication; E55.9 Vitamin D deficiency, unspecified

== ENCOUNTER → 2020-08-12 | Outpatient (REF) | payer BC, MEDICAID ==
[2020-08-12 16:37] LABS: BASO # 0.1 10^3/uL (0.0-0.2); BASO % 0.7 % (0.0-1.0); EOS # 0.5 10^3/uL (0.0-0.5); EOS % 5.1 % (0.0-3.0); HEMATOCRIT 41.5 % (36.0-47.0); HEMOGLOBIN 13.5 g/dl (12.0-15.5); LYMPH # 2.4 10^3/uL (1.5-5.0); MEAN CORPUSCULAR HGB CONC 32.5 g/dl (32.0-36.5); MEAN CORPUSCULAR VOLUME 92.2 fl (80.0-96.0); MONO # 0.7 10^3/uL (0.0-0.8); MONO % 7.1 % (2.0-8.0); NEUTROPHILS # 6.2 10^3/uL (1.5-8.5); NEUTROPHILS % 62.5 % (36.0-66.0); PLATELET COUNT, AUTOMATED 364 10^3/uL (150-450); WHITE BLOOD COUNT 9.9 10^3/uL (4.0-10.0)
[2020-08-12 17:03] LABS: ALBUMIN 3.9 GM/DL (3.2-5.2); ALT/SGPT 38 U/L (12-78); BILIRUBIN,TOTAL 0.3 MG/DL (0.2-1.0); BLOOD UREA NITROGEN 16 MG/DL (7-18); CALCIUM LEVEL 8.8 MG/DL (8.5-10.1); CARBON DIOXIDE LEVEL 25 MEQ/L (21-32); CHLORIDE LEVEL 106 MEQ/L (98-107); CHOLESTEROL LEVEL 134 MG/DL (<200); CHOLESTEROL RISK RATIO 4.322 (<5); CREATININE FOR GFR 0.68 MG/DL (0.55-1.30); GLOMERULAR FILTRATION RATE > 60.0 (>58); GLUCOSE, FASTING 205 MG/DL (70-100); HDL CHOLESTEROL 31 MG/DL (>40); LDL CHOLESTEROL 68 MG/DL (<100); NON-HDL-C 103 MG/DL; POTASSIUM SERUM 4.6 MEQ/L (3.5-5.1); SODIUM LEVEL 138 MEQ/L (136-145); TOTAL PROTEIN 7.3 GM/DL (6.4-8.2); TRIGLYCERIDES LEVEL 175 MG/DL (<150)
[2020-08-12 17:09] LABS: TOTAL 25(OH) VITAMIN D 59.8 NG/ML (30.0-100.0)
[2020-08-12 20:12] LABS: HEMOGLOBIN A1c 9.7 %
== END ==
LOC: M SFHCCAPE 07:16
PROVIDERS: ATTEND Physician Assistant
DX: I10 Essential (primary) hypertension (principal); E11.69 Type 2 diabetes mellitus with other specified complication; E78.2 Mixed hyperlipidemia; E55.9 Vitamin D deficiency, unspecified

== ENCOUNTER → 2020-10-06 | Outpatient (CLI) | payer BC, MEDICAID ==
[~2020-10-06] MED LIST changes: +ERGO500029 PO; -VITA50005 PO
== END ==
LOC: M SLEEP HO 10:39
PROVIDERS: ATTEND Internal Medicine Cardiovascular Disease
DX: G47.9 Sleep disorder, unspecified (principal); R06.83 Snoring; R60.9 Edema, unspecified

== ENCOUNTER → 2020-11-15 | Outpatient (REF) | payer BC, MEDICAID ==
[2020-11-15 15:54] LABS: BASO # 0.1 10^3/uL (0.0-0.2); BASO % 0.8 % (0.0-1.0); EOS # 0.5 10^3/uL (0.0-0.5); EOS % 4.5 % (0.0-3.0); HEMATOCRIT 40.1 % (36.0-47.0); HEMOGLOBIN 12.9 g/dl (12.0-15.5); LYMPH # 2.8 10^3/uL (1.5-5.0); LYMPH % 23.5 % (24.0-44.0); MEAN CORPUSCULAR HEMOGLOBIN 30.4 pg (27.0-33.0); MEAN CORPUSCULAR HGB CONC 32.2 g/dl (32.0-36.5); MEAN CORPUSCULAR VOLUME 94.6 fl (80.0-96.0); MONO # 0.7 10^3/uL (0.0-0.8); MONO % 5.9 % (2.0-8.0); NEUTROPHILS # 7.6 10^3/uL (1.5-8.5); NEUTROPHILS % 64.9 % (36.0-66.0); PLATELET COUNT, AUTOMATED 403 10^3/uL (150-450); RED BLOOD COUNT 4.24 10^6/uL (4.00-5.40); WHITE BLOOD COUNT 11.7 10^3/uL (4.0-10.0)
[2020-11-15 17:07] LABS: MAU/CREAT RATIO 7.8 MCG/MG (0.0-30.0)
[2020-11-15 17:23] LABS: ALBUMIN 3.5 GM/DL (3.2-5.2); ALT/SGPT 33 U/L (12-78); BILIRUBIN,TOTAL 0.3 MG/DL (0.2-1.0); BLOOD UREA NITROGEN 14 MG/DL (7-18); CALCIUM LEVEL 8.7 MG/DL (8.5-10.1); CARBON DIOXIDE LEVEL 25 MEQ/L (21-32); CHLORIDE LEVEL 107 MEQ/L (98-107); CHOLESTEROL LEVEL 119 MG/DL (<200); CREATININE FOR GFR 0.79 MG/DL (0.55-1.30); GLOMERULAR FILTRATION RATE > 60.0 (>58); GLUCOSE, FASTING 183 MG/DL (70-100); HDL CHOLESTEROL 34 MG/DL (>40); LDL CHOLESTEROL 60 MG/DL (<100); NON-HDL-C 85 MG/DL; POTASSIUM SERUM 4.4 MEQ/L (3.5-5.1); SODIUM LEVEL 139 MEQ/L (136-145); TRIGLYCERIDES LEVEL 127 MG/DL (<150)
[2020-11-15 17:25] LABS: HEMOGLOBIN A1c 7.2 %; TOTAL 25(OH) VITAMIN D 78.3 NG/ML (30.0-100.0)
== END ==
LOC: M SFHCCAPE 07:17
PROVIDERS: ATTEND Physician Assistant
DX: E78.2 Mixed hyperlipidemia (principal); E55.9 Vitamin D deficiency, unspecified; E11.69 Type 2 diabetes mellitus with other specified complication; R74.8 Abnormal levels of other serum enzymes

== ENCOUNTER → 2020-12-16 | Outpatient (REF) | payer BC, MEDICAID | LOC: M LAB REF 17:01 | PROVIDERS: ATTEND Otolaryngology | DX: H60.8X1 Other otitis externa, right ear (principal) ==

== ENCOUNTER 2021-01-05 09:58 | Emergency (ER) | payer BC, MEDICAID ==
[~2021-01-05] VITALS: Ht 154.9 cm; Wt 96.8 kg
--- OUTSIDE RECORDS SUMMARY | 2021-01-05 10:06 | CCD ---
Author Author [facility] [employer] Organization [facility] [employer] Address Unknown Phone Unavailable Care Team Providers Care Creeler Name Role Phone Zoe Fletcher Unavailable PROBLEMS Type Condition ICD9-CM Code SLJ22-WV Code Onset Dates Condition S tatus W/U Status Risk SNOMED Code Notes Problem BMI 38.0-38.9,adult Z68.38 Active confirmed 294397889 Problem Essential hypertension I10 Active confirmed 02386758 Problem Migraine without aura and without status migrain osus, not intractable G43.009 Active confirmed 376382154 Problem Mixed hyperlipidemia E78.2 Active confirmed 761219497 Problem Lumbago with sciatica, left side M54.42 Active confirmed 324532910 Problem BMI 39.0-39.9,adult Z68.39 Active confirmed 647970635 Problem Gastroesophageal reflux disease, esophagitis pre sence not specified K21.9 Active confirmed 273815678 Problem Allergic rhinitis, unspecified seasonality, unspecifie d trigger J30.9 Active confirmed 97077661 Problem Type 2 diabetes mellitus with other specified complication E11.69 Active confirmed 70822414 Problem Type 2 diabetes mellitus wit h hyperglycemia, without long-term current use of insulin E11.65 Active confirmed 02810731 Problem Other chronic pain G89.29 Active confirmed 8 3584081 Problem Vitamin D insufficiency E55.9 Active confirmed 65593850 Problem Lumbago with sciatica, right side M54.41 Active confirmed 351528169 Problem Vitamin D deficiency E55.9 Active confirmed 45174132 Problem Leukocytosis, unspecified type D72.829 Active confi rmed 753439045 Problem Arthritis of left ankle M19.072 Active confirmed 3976931975115062 Problem Cigarette nicotine dependence without complication F17.210 Active confirmed 92599988 ALLERGIES Allergen (clinical drug ingredient) Drug/Non Drug Allergy do cumented on EMR Reaction Allergy Type Onset Date Status ertugliflozin Steglatro([facility] Code:[address]-05) yeast infections Drug Allergy Active metformin Metformin HCl([facility] Code:[address]-13) diarrhea/headach es Drug Allergy Active codeine Codeine Hives Drug Allergy Active meloxicam Meloxicam([facility] Code:[address]-96) Hives Drug Allergy Active gabapentin Gabapentin([facility] Code:[address]-14) Fatig ue/ "sleepiness"/ "unable to function" Drug Allergy Active ENCOUNTERS from 1975 to 2021-01-03 Encounter Location Date Provider Diagnosis [address] [place] [address] 12 Dec, 2020 Zoe Fletcher Non-recurrent acute serous otitis media of right ear H65.01 and Postauricular pain R51.9 IMMUNIZATIONS Vaccine Route Administration Date Status Influenza 6mo & up Fluzone Unknown Jan 03, 2016 Refus ed SOCIAL HISTORY Tobacco Use: Social History Observation Description Date Details (start date - stop date) Current Smoker Sex Assigned At : Social History Observation Description Sex Assigned At Unknown Taoist: Question Answer Notes Taoist No episcopal prefere nces that would impact healthcare Sexual Hx: Question Answer Notes Had sex in the last 12 months (vaginal, oral, or anal)? Yes LMP: 09/29/2016 Have you ever had an STD? No with Men only Use protection? No Alcohol Screening: Question Answer Notes Did you have a drink containing alcohol in the past year? No Points 0 Interpretation Negative BMI Care Goal Follow-Up Question Answer Notes Above Normal BMI Follow-Up Dietary management educatio n, guidance, and counseling Tobacco Use: Question Answer Notes Are you a: current smoker Additional Findings: Tobacco User none Smoking Cessation Information Given 03/15/2020 Patient counseled on the dangers of tobacco use and urged to quit: 03/15/2020 How many cigarettes a day do you smoke? 6-10 Are you interested in quitting? Not ready to quit Counseled the patient on smoking effects, education provided 03/15/2020 REASON FOR REFERRAL No Information VITAL SIGNS Weight 217 lbs lbs Dec, Weight-kg 98.43 kg Dec, Height 62 in Dec, BMI 39.69 kg/m2 Dec, Heart Rate 91 /min Dec, Respiratory Rate 18 /min Dec, Temperature 98.4 degrees Fahrenheit Dec, Oximetry 97%ra Dec, Blood pressure systolic 133 mm Hg Dec, Blood pressure diastolic 79 mm Hg Dec, MEDICATIONS Medication SIG (Take, Route, Frequency, Duration) Notes Start Da te End Date Status FreeStyle Ezra [place] - as directed subcutaneously f our times a day for 90 day(s) Aug, Active Alcohol Prep 70 % as directed Three times a day as needed Active Debrox 6.5 % 5 drops into affected ear Otic Twice a day for 4 day(s) May, Active Pen [place] 31G X 5 MM as directed subcutaneously daily for 90 d ay(s) Aug, Active Meclizine HCl 25 mg 1 tablet as needed Orally three times daily for 90 days Active Nitroglycerin 0.3 MG as directed Sublingual 1 tab sublingually, may repeat in 5 minutes. May have three tabs in 15 minutes for 10 day(s) prn Mar Active Omeprazole 20 MG 1 capsule Orally Once a day for 90 days Active Glucometer as directed Three times a day Active Famotidine 20 MG 1 tablet at bedtime as needed Orally Once a day for 90 days Active Amoxicillin-Pot Clavulanate 875-125 MG 1 tablet Orally every 12 hrs for 10 day(s) Dec, Active Lisinopril 10 MG 1 tablet Orally Once a day Active [place] 6 MG/0.5ML prn headache Subcutaneous Ma x dose is 2 doses in 24 hours for 2 days prn Apr, Active Blood Glucose Test - as directed In Vitro twice daily for 90 days Not-Taking Blood Glucose Test - as directed In Vitro Three times daily as needed Active OmniPod Dash System - as directed for 90 day(s) Sep, Active Lyrica 100 MG 1 capsule Orally bid A ctive Atorvastatin Calcium 20 MG 1 tablet Orally Once a day Active OmniPod Dash 5 Pack Pods - as directed Replace pod car tridge every 72 hours 6 packs of 5 per 90 days for 90 day(s) Sep, Active FreeStyle Ezra Sensor System - as directed subcutaneo usly Check blood sugars Four times a day, Change sensor every 14 days for 90 days Aug Active Ventolin HFA 108 (90 Base) MCG/ACT 1-2 puffs as needed Inhalation every 6 hrs for 30 day(s) Feb, Active Vitamin D (Ergocalciferol) 39999 UNIT 1 capsule Orally once weekly Active CeleBREX 100 MG 1 capsule with food Orally Twice a day Active Lancets - as directed Three times a day as needed for 90 day(s) Dec, Not-Taking Lantus SoloStar 100 UNIT/ML Take 18 units QHS Subcutaneous Daily Aug, Active Trulicity 3 MG/0.5ML 3 mg once weekly Subcutaneous Once a week Active Amlodipine Besylate 5 MG 1 tablet Orally Once a day Jun Active Aleve 220 MG 1 tablet as needed Orally every 12 hrs Not-Taking PROCEDURES No Information RESULTS No Results REASON FOR VISIT continued right ear pain MEDICAL (GENERAL) HISTORY Type Description Date Medical History migraine headache Medical History diabetes mallitus Medical History Sciatica of left side Medical History Tobacco use Medical History Obesity Medical History Hypertension Medical History Shingles Medical History Echocardiogram 05/24/2015 Medical History treadmill stress test 05/04/2015 Medical History Noc Ox 04/21/2015 Medical History Chronic Right Shoulder Pain S/P RC repair x 2, ACJ fusion, and subsequent OZ Medical History Right shoulder bone lesion followed by [facility] Oncology 12/2017 Medical History Diabetic Eye Exam- 04/2020 Medical History Diabetic Foot Exam 06/28/20 Surgical History Tubal ligation 1997 Surgical History right elbow: ulnar neurve release 2001 Surgical History right carpal tunnel release 2001 Surgical History Gallbladder removal 2005 Surgical History right shoulder surgery 2010 Surgical History TVH, both ovaries remain: Dr. Soliz 2017 Surgical History left ankle repair 11/2020 Hospitalization History Surgery related Goals Section No Information Health Concerns No Information MEDICAL EQUIPMENT No Information MENTAL STATUS No Information FUNCTIONAL STATUS No Information ASSESSMENTS Encounter Date Diagnosis Assessment Notes Treatment Notes Treatm ent Clinical Notes Dec, Non-recurrent acute serous o titis media of right ear (ICD-10 - H65.01) Patient education was given regarding differential diagnosis, diagnosis, medications, treatments, and expected outcomes. Parent educated on risks, SE/AE, benefits, alternatives of regimen.Patient advised to return to clinic or call office for further evaluation if if symptoms persist, worsen, do not improve with the use of medication, or if he/she experiences any issues with prescribed medication. Discussed warning signs and symptoms to seek immediate/emergent medical attention for. Patient expressed an understanding of these recommendations. All questions answered. Dec, Postauricular pain (ICD-10 - R51.9) Recrrent ear pain. Referral to ENT. PLAN OF TREATMENT Medication Medication Name Sig Start Date Stop Date Amoxicillin-Pot Clavulanate 875-125 MG 1 tablet Orally every 12 hrs for 10 day(s) Dec, Treatment Notes Assessment Notes Clinical Notes Non-recurrent acute serous otitis media of right ear Patient education was given regarding differential diagnosis, diagnosis, medications, treatments, and expected outcomes. Parent educated on risks, SE/AE, benefits, alternatives of regimen.Patient advised to return to clinic or call office for further evaluation if if symptoms persist, worsen, do not improve with the use of medication, or if he/she experiences any issues with prescribed medication. Dis cussed warning signs and symptoms to seek immediate/emergent medical attention for. Patient expressed an understanding of these recommendations. All questions answered. Postauricular pain Recrrent ear pain. R eferral to ENT. Next Appt Details 1 Week Reason: Provider Name:Erica Ayala, 2021-01-06 01:00:00 PM, [address] [facility], , [place], [address], Provider Name:Zoe Fletcher, 2021-02 07:15:00 AM, [address] [place] [address], , [place], [address], Provider Name:Zoe Fletcher, 2021-02 08:00:00 AM, [address] [place] [address], , [place], [address], Insurance Providers Payer Name Payer Address Payer Phone Insured Name Patient Relati onship to Insured Coverage Start Date Coverage End Date MEDICAID [employer] [address] [place] [id number] COLT RENNER self [phone] [facility] [address] COLT RENNER [id number]
--- OUTSIDE RECORDS SUMMARY | 2021-01-05 10:06 | CCD | Continuity of Care Document ---
Author Author Donita VILLAR MD Organization Unknown Address [address] [facility], [address] [place] [address] Phone [phone] Care Team Providers Care Saloon Keeper Name Role Phone Zoe Fletcher-Mauricoi AUTM Problems Active Problems Provider Date Right temporomendibular joint disorder Elmo Villar MD O nset: 12/16/2020 Chronic otitis externa Elmo Villar MD Onset: 12/16/2020 Social History Type Date Description Comments Sex Unknown ETOH Use Never used alcohol Recreational Drug Use Denies Drug Use Tobacco Use Start: Unknown Patient is a current smoker, smo kes every day Tobacco Use Start: Unknown Smokes 1/2 Pack A Day Exercise Type/Frequency Does not exercise Allergies and adverse reactions Description No Known Drug Allergies Medications Active Medications SIG Qnty Indications Ordering Provide r Date Levofloxacin 500mg Tablets 1 by mouth every day for 4 days 7tabs H60.8x1 Elmo Villar MD 12/23/2020 Ciprofloxacin-Dexamethasone 0.3-0.1% Suspension instill 4 drops into affected ear twice daily for 7 days 7.500ml H60.8x1 Elmo Villar MD 12/16/2020 Levofloxacin 500mg Tablets 1 by mouth every day for 7 dyas 7tabs H60.8x1 Elmo Villar MD 12/16/2020 Oxybutynin Chloride ER 10mg Tablets ER 24HR 1 by mouth every day 30tabs Sukumar Soliz MD 04/2017 Lisinopril 10mg Tablets Zoe Fletcher, P.A. Vitamin D (Ergocalciferol) 1.25mg (24655 Ut) Capsules Zoe Fletcher, P.A. Famotidine 20mg Tablets Zoe Fletcher, P.A. Trulicity 3mg/0.5ML Solution Pen-Inject Zoe Fletcher, P.A. Pregabalin 150mg Capsules Anila Barakat WOOL CARDER Meclizine HCL 25mg Tablets Zoe Fletcher, P.A. Omeprazole 20mg Capsules Zoe Lyman, P.A. Lantus Solostar 100U nit/ML Solution Pen-Inject 20 unites/ night Zoe Fletcher, P.A . Celecoxib 100mg Capsules Anila Barakat WOOL CARDER Duloxetine HCL 60mg Caps Anila Herrera WOOL CARDER Amlodipine Besylate 5mg Tablets Zoe Fletcher, P.A. Atorvastatin Calcium 40mg Tablets Christian Silva M.D. Amoxicillin/Clavulanate Potassium 875-125mg Tablets Zoe Fletcher, P.A. Immunizations Description No Information Available Vital Signs Date Vital Result Comment 12/23/2020 3:31pm BP Systolic 124 mmHg BP Diastolic 72 mmHg Heart Rate 94 /min O2 % BldC Oximetry 98 % Height 61 inches 5'1" Weight 214.00 lb BMI (Body Mass Index) 40.4 kg/m2 [place] Body Weight 105 lb Weight 97.070 kg BSA (Body Surface Area) 1.94 m2 12/16/2020 3:32pm BP Systolic 133 mmHg BP Diastolic 86 mmHg Heart Rate 94 /min O2 % BldC Oximetry 96 % Height 61 inches 5'1" Weight 213.00 lb BMI (Body Mass Index) 40.2 kg/m2 [place] Body Weight 105 lb Weight 96.617 kg BSA (Body Surface Area) 1.94 m2 Results Test Acquired Date Facility Test Result H/L Range Note Laboratory test finding 12/16/2020 [facility] Main Lab 0 [place] [address] [phone] Ear Culture FULL REPORT IN L <SEE NOTE> Normal 1 1 FULL REPORT IN LAB NOTES (eC W and Medent). NORMAL LISA PRESENT ORGANISM 1: STAPHYLOCOCCUS AUREUS QUANTITY OF GROWTH MODERATE ORGANISM 1: STAPHYLOCOCCUS AUREUS STAPHYLOCOCCUS AUREUS: REACTION ICR (INDUCIBLE CC RESISTANCE) IV ICR TEST RESULT TETRACYCLINE PO 250 mg qid <=1 S PENICILLIN G IV 1 mu q6H >=0.5 R PENICILLIN G IV 1 mu q6h >=0.5 R PENICILLIN G PO 250mg q6h fasting >=0.5 R TRIMETHOPRIM/SULFAMETHOXAZOLE IV 160mg TMP & 800mg SMXq6h <=10 S TRIMETHOPRIM/SULFAMETHOXAZOLE PO Bactrim DS Bid <=10 S ERYTHROMYCIN IV 500mg q6h <=0.25 S ERYTHROMYCIN PO 500mg q6h <=0.25 S GENTAMICIN IV 80mg q8h <=0.5 S CLINDAMYCIN IV 600mg q6h 0.25 S CLINDAMYCIN PO 150mg q6h 0.25 S OXACILLIN IV 500mg q6h 0.5 S VANCOMYCIN IV 500mg q8h <=0.5 S LINEZOLID (ZYVOX) IV 600MG Q12HR 2 S LINEZOLID (ZYVOX) PO 600MG Q12HR 2 S An isolate with a (+) POSITIVE ICR test is considered CLINDAMYCIN RESISTANT; however, clindamycin may still be effective in some patients. An isolate with a (-) NEGATIVE ICR test is considered CLIDAMYCIN SENSITIVE. Oxacillin result predicts susceptibility to all penicillinase-stable penicillins (Nafcillin, Dicloxacilin), Cephalosporins, Carbapenems, Amoxicillin/Clavulanate & Ampicillin/Sulbactam per CSLI standards. Procedures Date Code Description Status 12/23/2020 20714 Office/Outpatient Established Lo w MDM 20-29 Min Completed 12/16/2020 46999 Office/Outpatient New Moderate M DM 45-59 Minutes Completed 06/06/2018 [id number] Mammogram Completed 06/05/2017 [id number] Mammogram Completed Medical Devices Description No Information Available Encounters Type Date Location Provider Dx Diagnosis Office Visit 12/23/2020 3:45p [facility] Elian Field H60.8x1 Other otitis externa, right ear Assessments Date Code Description Provider 12/23/2020 H60.8x1 Other otitis externa, right ear Elmo Villar MD 12/16/2020 H60.8x1 Other otitis externa, right ear Elmo Villar MD 12/16/2020 M26.601 Right temporomandibular joint di sorder, unspecified Elmo Villar MD Plan of Treatment Future Appointment(s):* 12/30/2020 1:30 pm - Mateo Ayala II, PA-C at [facility] Functional Status Description No Information Available Mental Status Description No Information Available Referrals Refer to Dr Reason for Referral Status Appt Elmo Villar M.D. urgent referral for otitis media in t he right ear Scheduled 12/16/2020 [address] [facility] [address] [place] [address] [phone]
--- OUTSIDE RECORDS SUMMARY | 2021-01-05 10:06 | CCD | Continuity of Care Document ---
Author Author Donita AYALA II-C Organization Unknown Address [address] [facility], [address] [place] [address] Phone [phone] Care Team Providers Care Certified Veterinary Technician Name Role Phone Zoe Fletcher P.A.-C AUTM Problems Active Problems Provider Date Right [...] Zoe Fletcher, P.A. Vitamin D (Ergocalciferol) 1.25mg (47887 Ut) Capsules Zoe Fletcher, P.A. Famotidine 20mg Tablets Zoe Fletcher, P.A. Trulicity 3mg/0.5ML Solution Pen-Inject Zoe Fletcher, P.A. Pregabalin 150mg Capsules Anila Barakat DERRICK BARGE OPERATOR Meclizine HCL 25mg Tablets Zoe Fletcher, P.A. Omeprazole 20mg Capsules Zoe Lyman, P.A. Lantus Solostar 100U nit/ML Solution Pen-Inject 20 unites/ night Zoe Fletcher, P.A . Celecoxib 100mg Capsules Anila Barakat DERRICK BARGE OPERATOR Duloxetine HCL 60mg Caps Anila Herrera NP Amlodipine Besylate 5mg Tablets Zoe Fletcher, P.A. Atorvastatin Calcium 40mg Tablets Christian Silva M.D. Amoxicillin/Clavulanate Potassium 875-125mg Tablets Zoe Fletcher, P.A. Immunizations Description No Information Available Vital Signs Date Vital Result Comment 12/30/2020 1:37pm Height 61 inches 5'1" Weight 214.00 lb BMI (Body Mass Index) 40.4 kg/m2 [place] Body Weight 105 lb Weight 97.070 kg BSA (Body Surface Area) 1.94 m2 12/23/2020 3:31pm BP Systolic 124 mmHg BP Diastolic 72 mmHg Heart Rate 94 /min O2 % BldC Oximetry 98 % Height 61 inches 5'1" Weight 214.00 lb BMI (Body Mass Index) 40.4 kg/m2 [place] Body Weight 105 lb Weight 97.070 kg BSA (Body Surface Area) 1.94 m2 Results Test Acquired Date Facility Test Result H/L Range Note Laboratory test finding 12/16/2020 [facility] Main Lab [address] [place] [address] [phone] Ear Culture FULL REPORT IN L <SEE [...] standards. Procedures Date Code Description Status 12/23/2020 53869 Office/Outpatient Established Lo w MDM 20-29 Min Completed 12/16/2020 13014 Office/Outpatient New Moderate M DM 45-59 Minutes Completed 06/06/2018 [id number] Mammogram Completed 06/05/2017 [id number] Mammogram Completed Medical Devices Description No Information Available Encounters Type Date Location Provider Dx Diagnosis Office Visit 12/23/2020 3:45p [facility] Elian Field H60.8x1 Other otitis externa, right ear Assessments Date Code Description Provider 12/30/2020 H60.8x1 Other otitis externa, right ear Mateo Ayala II, PA-C 12/30/2020 M26.601 Right temporomandibular joint di sorder, unspecified Mateo Ayala II, PA-C 12/23/2020 H60.8x1 Other otitis externa, right ear Elmo Villar MD 12/16/2020 H60.8x1 Other otitis externa, right ear Elmo Villar MD 12/16/2020 M26.601 Right temporomandibular joint di sorder, unspecified Elmo Villar MD Plan of Treatment 12/30/2020 - Mateo Ayala II, PA-C* H60.8x1 Other otitis externa, right ear* Comments:* Resolved. Normal exam of the ear. No evidence of abscess. Return if there are concerns * Follow up:* PRN * M26.601 Right temporomandibular joint disorder, unspecified Functional Status Description No Information Available Mental Status Description No Information Available Referrals Refer to Reason for Referral Status Appt Date Elmo Villar M.D. urgent referral for otitis media in t he right ear Closed 12/16/[address] [address] [phone]
--- OUTSIDE RECORDS SUMMARY | 2021-01-05 10:06 | CCD | Continuity of Care Document ---
Author Author Donita AYALA II-C Organization Unknown Address [address] [facility], [address] [place] [address] Phone [phone] Care Team Providers Care Bakeshop Cleaner Name Role Phone Zoe Fletcher P.A.-C AUTM [phone] Problems Active Problems Provider Date Right temporomendibular joint disorder Elmo Villar MD O nset: 12/16/2020 Chronic otitis externa Elmo Vlilar MD Onset: 12/16/2020 Social History Type Date [...] SIG Qnty Indications Ordering Provide r Date Oxybutynin Chloride ER 10mg Tablets ER 24HR 1 by mouth every day 30tabs Sukumar Soliz MD 04/2017 Amoxicillin/Clavulanate Potassium 875-125mg Tablets Zoe Fletcher, P.A. Lisinopril 10mg Tablets Zoe Fletcher, P.A. Vitamin D (Ergocalciferol) 1.25mg (81208 Ut) Capsules Zoe Fletcher, P.A. Famotidine 20mg Tablets Zoe Fletcher, P.A. Trulicity 3mg/0.5ML Solution Pen-Inject Zoe Fletcher, P.A. Pregabalin 150mg Capsules Anila Barakat NP Meclizine HCL 25mg Tablets Zoe Fletcher, P.A. Omeprazole 20mg Capsules Zoe Lyman, P.A. Lantus Solostar 100U nit/ML Solution Pen-Inject 20 unites/ night Zoe Fletcher, P.A . Celecoxib 100mg Capsules Anila Barakat DETONATOR ASSEMBLER Duloxetine HCL 60mg Caps Anila Herrera DETONATOR ASSEMBLER Amlodipine Besylate 5mg Tablets Zoe Fletcher, P.A. Atorvastatin Calcium 40mg Tablets Christian Silva M.D. History Medications Levofloxacin 500mg Tablets 1 by mouth every day for 4 days 7tabs H60.8x1 Elmo Villar MD 12/23/2020 - 12/31/2020 Ciprofloxacin-Dexamethasone 0.3-0.1% Suspension instill 4 drops into affected ear twice daily for 7 days 7.500ml H60.8x1 Elmo Villar MD 12/16/2020 - 12/31/2020 Levofloxacin 500mg Tablets 1 by mouth every day for 7 dyas 7tabs H60.8x1 Elmo Villar MD 12/16/2020 - 12/31/2020 Immunizations Description No Information Available Vital Signs Date Vital Result Comment 12/30/2020 1:37pm Height 61 inches 5'1" Weight 214.00 lb BMI (Body Mass Index) 40.4 kg/m2 [place] Body Weight 105 lb Weight 97.070 kg BSA (Body Surface Area) 1.94 m2 12/23/2020 3:31pm BP Systolic 124 mmHg BP Diastolic 72 mmHg Heart Rate 94 /min O2 % BldC Oximetry 98 % Height 61 inches 5'1" Weight 214.00 lb BMI (Body Mass Index) 40.4 kg/m2 [place] Body Weight 105 lb Weight 97.070 kg BSA (Body Surface Area) 1.94 m2 Results Test Acquired Date Facility Test Result H/L Range Note Laboratory test finding 12/16/2020 [facility] Main Lab 0 [place], [place] [id number] [phone] Ear Culture FULL REPORT IN L <SEE [...] CSLI standards. Procedures Date Code Description Status 12/30/2020 65070 Office/Outpatient Established Lo w MDM 20-29 Min Completed 12/23/2020 66611 Office/Outpatient Established Lo w MDM 20-29 Min Completed 12/16/2020 32513 Office/Outpatient New Moderate M DM 45-59 Minutes Completed 06/06/2018 [id number] Mammogram Completed 06/05/2017 [id number] Mammogram Completed Medical Devices Description No Information Available Encounters Type Date Location Provider Dx Diagnosis Office Visit 12/30/2020 1:30p [facility] Mateo Ayala II, PA-C H60.8x1 Other otitis externa, right ear M26.601 Right temporomandibular join t disorder, unspecified Office Visit 12/23/2020 3:45p [facility] Elian Field H60.8x1 Other [...] ear* Comments:* Resolved. Normal exam of the ear with no evidence of abscess or folliculitis if of the canal. Return if there are concerns * Follow up:* PRN * M26.601 Right temporomandibular joint disorder, unspecified Functional Status Description No Information Available Mental Status Description No Information Available Referrals Refer to Reason for Referral Status Appt Elmo Babin M.D. urgent referral for otitis media in t he right ear Closed 12/16/[address] [address] [phone]
--- OUTSIDE RECORDS SUMMARY | 2021-01-05 10:06 | CCD | Continuity of Care Document ---
Author Author Donita AYALA II-C Organization Unknown Address [address] [facility], [address] [place] [address] Phone [phone] Care Team Providers Care Boring Machine Operator Vertical Name Role Phone Zoe Fletcher P.A.-C AUTM [...] Zoe Fletcher, P.A. Vitamin D (Ergocalciferol) 1.25mg (24072 Ut) Capsules Zoe Fletcher, P.A. Famotidine 20mg Tablets Zoe Fletcher, P.A. Trulicity 3mg/0.5ML Solution Pen-Inject Zoe Fletcher, P.A. Pregabalin 150mg Capsules Anila Barakat MARKETING COMMUNICATIONS ASSISTANT Meclizine HCL 25mg Tablets Zoe Fletcher, P.A. Omeprazole 20mg Capsules Zoe Lyman, P.A. Lantus Solostar 100U nit/ML Solution Pen-Inject 20 unites/ night Zoe Fletcher, P.A . Celecoxib 100mg Capsules Anila Barakat MARKETING COMMUNICATIONS ASSISTANT Duloxetine HCL 60mg Caps Anila Herrera NP Amlodipine Besylate 5mg Tablets Zoe Fletcher, P.A. Atorvastatin Calcium 40mg Tablets Christian Silva M.D. Amoxicillin/Clavulanate Potassium 875-125mg Tablets Zoe Fletcher, P.A. Immunizations Description No Information Available Vital Signs Date Vital Result Comment 12/30/2020 1:37pm Height 61 inches 5'1" Weight 214.00 lb BMI (Body Mass Index) 40.4 kg/m2 [place] Body Weight 105 lb Weight 97.070 kg BSA (Body Surface Area) 1.94 m2 12/23/2020 3:31pm BP Systolic 124 mmHg BP Diastolic 72 mmHg Heart Rate 94 /min O2 % BldC Oximetry 98 % Height 61 inches 5'1" Weight 214.00 lb BMI (Body Mass Index) 40.4 kg/m2 [place] Body Weight 105 lb Weight 97.070 kg BSA (Body Surface Area) 1.94 m2 Results Test Acquired Date Facility Test Result H/L Range Note Laboratory test finding 12/16/2020 [facility] Main Lab [address] [place] [address] [phone] Ear Culture FULL REPORT IN L <SEE [...] standards. Procedures Date Code Description Status 12/23/2020 15010 Office/Outpatient Established Lo w MDM 20-29 Min Completed 12/16/2020 87630 Office/Outpatient New Moderate M DM 45-59 Minutes Completed 06/06/2018 [id number] Mammogram Completed 06/05/2017 [id number] Mammogram Completed Medical Devices Description No Information Available Encounters Type Date Location Provider Dx Diagnosis Office Visit 12/23/2020 3:45p [facility] Elian Field H60.8x1 Other otitis [...] t he right ear Closed 12/16/[address] [address] [phone]
--- OUTSIDE RECORDS SUMMARY | 2021-01-05 10:06 | CCD | Continuity of Care Document ---
Author Author Donita AYALA II-C Organization Unknown Address [address] [facility], [address] [place] [address] Phone [phone] Care Team Providers Care Supervisor Beehive Kiln Name Role Phone Zoe Fletcher P.A.-C AUTM [...] Zoe Fletcher, P.A. Vitamin D (Ergocalciferol) 1.25mg (31851 Ut) Capsules Zoe Fletcher, P.A. Famotidine 20mg Tablets Zoe Fletcher, P.A. Trulicity 3mg/0.5ML Solution Pen-Inject Zoe Fletcher, P.A. Pregabalin 150mg Capsules Anila Barakat HOOK AND EYE SEWING MACHINE OPERATOR Meclizine HCL 25mg Tablets Zoe Fletcher, P.A. Omeprazole 20mg Capsules Zoe Lyman, P.A. Lantus Solostar 100U nit/ML Solution Pen-Inject 20 unites/ night Zoe Fletcher, P.A . Celecoxib 100mg Capsules Anila Barakat HOOK AND EYE SEWING MACHINE OPERATOR Duloxetine HCL 60mg Caps Anila Herrera NP Amlodipine Besylate 5mg Tablets Zoe Fletcher, P.A. Atorvastatin Calcium 40mg Tablets Christian Silva M.D. Amoxicillin/Clavulanate Potassium 875-125mg Tablets Zoe Fletcher, P.A. Immunizations Description No Information Available Vital Signs Date Vital Result Comment 12/30/2020 1:37pm Height 61 inches 5'1" Weight 214.00 lb BMI (Body Mass Index) 40.4 kg/m2 [place] Body Weight 105 lb Weight 97.070 kg BSA (Body Surface Area) 1.94 m2 12/23/2020 3:31pm BP Systolic 124 mmHg BP Diastolic 72 mmHg Heart Rate 94 /min O2 % BldC Oximetry 98 % Height 61 inches 5'1" Weight 214.00 lb BMI (Body Mass Index) 40.4 kg/m2 [place] Body Weight 105 lb Weight 97.070 kg BSA (Body Surface Area) 1.94 m2 Results Test Acquired Date Facility Test Result H/L Range Note Laboratory test finding 12/16/2020 [facility] Main Lab [address] [place] [address] [phone] Ear Culture FULL REPORT IN L <SEE [...] standards. Procedures Date Code Description Status 12/23/2020 07801 Office/Outpatient Established Lo w MDM 20-29 Min Completed 12/16/2020 60401 Office/Outpatient New Moderate M DM 45-59 Minutes Completed 06/06/2018 [id number] Mammogram Completed 06/05/2017 [id number] Mammogram Completed Medical Devices Description No Information Available Encounters Type Date Location Provider Dx Diagnosis Office Visit 12/23/2020 3:45p [facility] Elian Field H60.8x1 Other [...] t he right ear Closed 12/16/[address] [address] [phone]
--- OUTSIDE RECORDS SUMMARY | 2021-01-05 10:06 | CCD | Continuity of Care Document ---
Author Author Donita VILLAR MD Organization Unknown Address [address] [facility], [address] [place] [address] Phone [phone] Care Team Providers Care Family Law Legal Assistant Name Role Phone Zoe Fletcher-Mauricio AUTM [phone] Problems Active Problems Provider Date Right [...] Zoe Fletcher, P.A. Vitamin D (Ergocalciferol) 1.25mg (17226 Ut) Capsules Zoe Fletcher, P.A. Famotidine 20mg Tablets Zoe Fletcher, P.A. Trulicity 3mg/0.5ML Solution Pen-Inject Zoe Fletcher, P.A. Pregabalin 150mg Capsules Anila Barakat REDUCTION FURNACE OPERATOR HELPER Meclizine HCL 25mg Tablets Zoe Fletcher, P.A. Omeprazole 20mg Capsules Zoe Lyman, P.A. Lantus Solostar 100U nit/ML Solution Pen-Inject 20 unites/ night Zoe Fletcher, P.A . Celecoxib 100mg Capsules Anila Barakat REDUCTION FURNACE OPERATOR HELPER Duloxetine HCL 60mg Caps Anila Herrera REDUCTION FURNACE OPERATOR HELPER Amlodipine Besylate 5mg Tablets Zoe Fletcher, P.A. [...] lb BMI (Body Mass Index) 40.4 kg/m2 [place] Body Weight 105 lb Weight 97.070 kg BSA (Body Surface Area) 1.94 m2 12/16/2020 3:32pm BP Systolic 133 mmHg BP Diastolic 86 mmHg Heart Rate 94 /min O2 % BldC Oximetry 96 % Height 61 inches 5'1" Weight 213.00 lb BMI (Body Mass Index) 40.2 kg/m2 [place] Body Weight 105 lb Weight 96.617 kg BSA (Body Surface Area) 1.94 m2 Results Test Acquired Date Facility Test Result H/L Range Note Laboratory test finding 12/16/2020 [facility] Main Lab [address] [place] [address] [phone] Ear Culture FULL REPORT IN L <SEE [...] standards. Procedures Date Code Description Status 12/23/2020 52620 Office/Outpatient Established Lo w MDM 20-29 Min Completed 12/16/2020 76504 Office/Outpatient New Moderate M DM 45-59 Minutes Completed 06/06/2018 [id number] Mammogram Completed 06/05/2017 [id number] Mammogram Completed Medical Devices Description No Information Available Encounters Type Date Location Provider Dx Diagnosis Office Visit 12/23/2020 3:45p [facility] Elian Field H60.8x1 Other otitis externa, right ear Assessments Date Code Description Provider 12/23/2020 H60.8x1 Other otitis externa, right ear Elmo Villar MD 12/16/2020 H60.8x1 Other otitis externa, right ear Elmo Villar MD 12/16/2020 M26.601 Right temporomandibular joint di sorder, unspecified Elmo Villar MD Plan of Treatment Future Appointment(s):* 12/30/2020 1:30 pm - Mateo Ayala II, PA-C at [facility] Functional Status Description No Information Available Mental Status Description No Information Available Referrals Refer to Dr Reason for Referral Status Appt Date Elmo Villar M.D. urgent referral for otitis media in t he right ear Closed 12/16/2020 [address] [facility] [address] [place] [address] [phone]
--- OUTSIDE RECORDS SUMMARY | 2021-01-05 10:06 | CCD | Continuity of Care Document ---
Author Author Donita VILLAR MD Organization Unknown Address [address] [facility], [address] [place] [address] Phone [phone] Care Team Providers Care Contract Engineer Name Role Phone Zoe Fletcher-Mauricio AUTM [phone] Problems Active Problems Provider Date Right temporomendibular [...] Zoe Fletcher, P.A. Vitamin D (Ergocalciferol) 1.25mg (70638 Ut) Capsules Zoe Fletcher, P.A. Famotidine 20mg Tablets Zoe Fletcher, P.A. Trulicity 3mg/0.5ML Solution Pen-Inject Zoe Fletcher, P.A. Pregabalin 150mg Capsules Anila Barakat EKG MANAGER Meclizine HCL 25mg Tablets Zoe Fletcher, P.A. Omeprazole 20mg Capsules Zoe Lyman, P.A. Lantus Solostar 100U nit/ML Solution Pen-Inject 20 unites/ night Zoe Fletcher, P.A . Celecoxib 100mg Capsules Anila Barakat EKG MANAGER Duloxetine HCL 60mg Caps Anila Herrera EKG MANAGER Amlodipine Besylate 5mg Tablets Zoe Fletcher, P.A. [...] lb BMI (Body Mass Index) 40.4 kg/m2 [place] Body Weight 105 lb Weight 97.070 kg BSA (Body Surface Area) 1.94 m2 12/16/2020 3:32pm BP Systolic 133 mmHg BP Diastolic 86 mmHg Heart Rate 94 /min O2 % BldC Oximetry 96 % Height 61 inches 5'1" Weight 213.00 lb BMI (Body Mass Index) 40.2 kg/m2 [place] Body Weight 105 lb Weight 96.617 kg BSA (Body Surface Area) 1.94 m2 Results Test Acquired Date Facility Test Result H/L Range Note Laboratory test finding 12/16/2020 [facility] Main Lab [address] [place] [address] [phone] Ear Culture FULL REPORT IN L <SEE [...] standards. Procedures Date Code Description Status 12/23/2020 91587 Office/Outpatient Established Lo w MDM 20-29 Min Completed 12/16/2020 40201 Office/Outpatient New Moderate M DM 45-59 Minutes Completed 06/06/2018 [id number] Mammogram Completed 06/05/2017 [id number] Mammogram Completed Medical Devices Description No Information Available Encounters Type Date Location Provider Dx Diagnosis Office Visit 12/23/2020 3:45p [facility] Elian Field H60.8x1 Other otitis externa, right ear Assessments Date Code Description Provider 12/23/2020 H60.8x1 Other otitis externa, right ear Elmo Villar MD 12/16/2020 H60.8x1 Other otitis externa, right ear Elmo Villar MD 12/16/2020 M26.601 Right temporomandibular joint di sorder, unspecified Elmo Villar MD Plan of Treatment Future Appointment(s):* 12/30/2020 1:30 pm - Mateo Ayala II, PA-C at [facility] Functional Status Description No Information Available Mental Status Description No Information Available Referrals Refer to Dr Reason for Referral Status Appt Date Elmo Villar M.D. urgent referral for otitis media in t he right ear Closed 12/16/2020 826 [facility] [address] [place] [address] [phone]
--- OUTSIDE RECORDS SUMMARY | 2021-01-05 10:06 | CCD | Continuity of Care Document ---
Author Author Donita AYALA II-C Organization Unknown Address [address], [address] [place] [address] Phone [phone] Care Team Providers Care Baffle Mounter Name Role Phone Zoe Fletcher P.A.-C AUTM [...] Zoe Fletcher, P.A. Vitamin D (Ergocalciferol) 1.25mg (48984 Ut) Capsules Zoe Fletcher, P.A. Famotidine 20mg Tablets Zoe Fletcher, P.A. Trulicity 3mg/0.5ML Solution Pen-Inject Zoe Fletcher, P.A. Pregabalin 150mg Capsules Anila Barakat NP Meclizine HCL 25mg Tablets Zoe Fletcher, P.A. Omeprazole 20mg Capsules Zoe Lyman, P.A. Lantus Solostar 100U nit/ML Solution Pen-Inject 20 unites/ night Zoe Fletcher, P.A . Celecoxib 100mg Capsules Anila Barakat EAP CLINICIAN Duloxetine HCL 60mg Caps Anila Herrera EAP CLINICIAN Amlodipine Besylate 5mg Tablets Zoe Fletcher, P.A. [...] lb BMI (Body Mass Index) 40.4 kg/m2 [place] Body Weight 105 lb Weight 97.070 kg BSA (Body Surface Area) 1.94 m2 12/23/2020 3:31pm BP Systolic 124 mmHg BP Diastolic 72 mmHg Heart Rate 94 /min O2 % BldC Oximetry 98 % Height 61 inches 5'1" Weight 214.00 lb BMI (Body Mass Index) 40.4 kg/m2 [place] Body Weight 105 lb Weight 97.070 kg BSA (Body Surface Area) 1.94 m2 Results Test Acquired Date Facility Test Result H/L Range Note Laboratory test finding 12/16/2020 [facility] Main Lab 0 [place], [place] [id number] [phone] Ear Culture FULL REPORT IN L <SEE [...] standards. Procedures Date Code Description Status 12/30/2020 47233 Office/Outpatient Established Lo w MDM 20-29 Min Completed 12/23/2020 38593 Office/Outpatient Established Lo w MDM 20-29 Min Completed 12/16/2020 39801 Office/Outpatient New Moderate M DM 45-59 Minutes Completed 06/06/2018 [id number] Mammogram Completed 06/05/2017 [id number] Mammogram Completed Medical Devices Description No Information Available Encounters Type Date Location Provider Dx Diagnosis Office Visit 12/30/2020 1:30p [facility] Mateo Ayala II, PA-C H60.8x1 Other otitis externa, right ear M26.601 Right temporomandibular join t disorder, unspecified Office Visit 12/23/2020 3:45p [facility] [...] M26.601 Right temporomandibular joint di sorder, unspecified lEmo Villar MD Plan of Treatment 12/30/2020 - [...] t he right ear Closed 12/16/[address] [address] [phone]
--- OUTSIDE RECORDS SUMMARY | 2021-01-05 10:07 | CCD ---
Author Author [facility] [employer] [facility] Organization [facility] [employer] [facility] Address Unknown Phone Unavailable Care Team Providers Care Chair Name Role Phone Zoe Fletcher Unavailable PROBLEMS Type Condition ICD9-CM Code [id number] Code Onset Dates Condition S tatus W/U Status Risk SNOMED Code Notes Problem BMI 38.0-38.9,adult Z68.38 Active confirmed 525325874 Problem Essential hypertension I10 Active confirmed 40138758 Problem Migraine without aura and without status migrain osus, not intractable G43.009 Active confirmed 871145257 Problem Mixed hyperlipidemia E78.2 Active confirmed 380484861 Problem Lumbago with sciatica, left side M54.42 Active confirmed 722265556 Problem BMI 39.0-39.9,adult Z68.39 Active confirmed 410283735 Problem Gastroesophageal reflux disease, esophagitis pre sence not specified K21.9 Active confirmed 246346456 Problem Allergic rhinitis, unspecified seasonality, unspecifie d trigger J30.9 Active confirmed 61348736 Problem Type 2 diabetes mellitus with other specified complication E11.69 Active confirmed 15319056 Problem Type 2 diabetes mellitus wit h hyperglycemia, without long-term current use of insulin E11.65 Active confirmed 76628055 Problem Other chronic pain G89.29 Active confirmed 8 2510210 Problem Vitamin D insufficiency E55.9 Active confirmed 51580562 Problem Lumbago with sciatica, right side M54.41 Active confirmed 685910128 Problem Vitamin D deficiency E55.9 Active confirmed 99392061 Problem Leukocytosis, unspecified type D72.829 Active confi rmed 394049509 Problem Arthritis of left ankle M19.072 Active confirmed 3000952069954766 Problem Cigarette nicotine dependence without complication F17.210 Active confirmed 31022074 ALLERGIES Allergen (clinical drug ingredient) Drug/Non Drug Allergy do cumented on EMR Reaction Allergy Type Onset Date Status gabapentin Gabapentin([facility] Code:[address]-95) Fatig ue/ "sleepiness"/ "unable to function" Drug Allergy Active ertugliflozin Steglatro([facility] Code:[address]-19) yeast infections Drug Allergy Active metformin Metformin HCl([facility] Code:[address]-12) diarrhea/headach es Drug Allergy Active meloxicam Meloxicam([facility] Code:[address]-84) Hives Drug Allergy Active codeine Codeine Hives Drug Allergy Active ENCOUNTERS from 1975 to 2020-11-15 Encounter Location Date Provider Diagnosis [address] [place] [address] 08 Nov, 2020 Zoe Fletcher Mixed hyperlipidemia E78.2 ; Essential hypertension I10 ; Vitamin D insufficiency E55.9 ; Type 2 diabetes mellitus with other specified complication E11.69 and Elevated alkaline phosphatase level R74 .8 IMMUNIZATIONS Vaccine Route Administration Date Status Influenza 6mo & up Fluzone Unknown Jan 03, 2016 Refus ed SOCIAL HISTORY Tobacco Use: Social History Observation Description Date Details (start date - stop date) Current Smoker Sex Assigned At : Social History Observation Description Sex Assigned At Unknown Scientology: Question Answer Notes Scientology No islam prefere nces that would impact healthcare Sexual [...] REASON FOR REFERRAL No Information VITAL SIGNS No information MEDICATIONS Medication SIG (Take, Route, Frequency, Duration) Notes Start Da te End Date Status Omeprazole 20 MG 1 capsule Orally Once a day for 90 days Active Glucometer as directed Three times a day Active OmniPod Dash System - as directed for 90 day(s) Sep, Active Alcohol Prep 70 % as directed Three times a day as needed Active Nitroglycerin 0.3 MG as directed Sublingual 1 tab sublingually, may repeat in 5 minutes. May have three tabs in 15 minutes for 10 day(s) prn Mar Active Ventolin HFA 108 (90 Base) MCG/ACT 1-2 puffs as needed Inhalation every 6 hrs for 30 day(s) Feb, Active Lyrica 100 MG 1 capsule Orally bid A ctive Debrox 6.5 % 5 drops into affected ear Otic Twice a day for 4 day(s) May, Active CeleBREX 100 MG 1 capsule with food Orally Twice a day Active Atorvastatin Calcium 20 MG 1 tablet Orally Once a day for 90 days Active OmniPod [employer]atech 5 Pack Pods - as directed Replace pod car tridge every 72 hours 6 packs of 5 per 90 days for 90 day(s) Sep, Active FreeStyle Ezra Pierce - as directed subcutaneously f our times a day for 90 day(s) Aug, Active Lisinopril 10 MG 1 tablet Orally Once a day for 90 days Active Blood Glucose Test - as directed In Vitro Three times daily as needed Active Trulicity 3 MG/0.5ML 3 mg once weekly Subcutaneous Once a week for 30 days Active FreeStyle Ezra Sensor System - as directed subcutaneo usly Check blood sugars Four times a day, Change sensor every 14 days for 90 days Aug Active Alsuma 6 MG/0.5ML prn headache Subcutaneous Ma x dose is 2 doses in 24 hours for 2 days prn Apr, Active Amlodipine Besylate 5 MG 1 tablet Orally Once a day for 90 days Jun, Active Aleve 220 MG 1 tablet as needed Orally every 12 hrs Not-Taking Pen [place] 31G X 5 MM as directed subcutaneously daily for 90 d ay(s) Aug, Active Lancets - as directed Three times a day as needed for 90 day(s) Dec, Not-Taking Blood Glucose Test - as directed In Vitro twice daily for 90 days Not-Taking Famotidine 20 MG 1 tablet at bedtime as needed Orally Once a day for 90 days Active Lantus SoloStar 100 UNIT/ML Take 18 units QHS Subcutaneous Daily for 30 Days Aug, Active Meclizine HCl 25 mg 1 tablet as needed Orally three times daily for 90 days Active Vitamin D (Ergocalciferol) 78375 UNIT 1 capsule Orally once weekly for 90 days Active PROCEDURES No Information RESULTS No Results REASON FOR VISIT lab orders MEDICAL (GENERAL) HISTORY Type Description Date Medical [...] Notes Treatment Notes Treatm ent Clinical Notes Nov, Mixed hyperlipidemia (ICD-10 - E78.2) Nov, Essential hypertension (ICD-10 - I10) Nov, Vitamin D insufficiency (ICD-10 - E55.9) Nov, Type 2 diabetes mellitus wit h other specified complication (ICD-10 - E11.69) Nov, Elevated alkaline phosphatase level (ICD-10 - R7 4.8) PLAN OF TREATMENT Medication Medication Name Sig Start Date Stop Date FreeStyle Ezra Pierce - as directed subcutaneously f our times a day for 90 day(s) Aug, Lantus SoloStar 100 UNIT/ML Take 18 units QHS Subcutaneous D aily for 30 Days Aug, OmniPod Dash 5 Pack Pods - as directed Replace pod car tridge every 72 hours 6 packs of 5 per 90 days for 90 day(s) Sep, Trulicity 3 MG/0.5ML 3 mg once weekly Subcutaneous Once a week f or 30 days Pen [place] 31G X 5 MM as directed subcutaneously daily for 90 day(s) Aug, FreeStyle Ezra Sensor System - as directed subcutaneo usly Check blood sugars Four times a day, Change sensor every 14 days for 90 days Aug, Amlodipine Besylate 5 MG 1 tablet Orally Once a day for 90 days Jun, OmniPod Dash System - as directed for 90 day(s) Sep, Treatment Notes Test Name Order Date HEMOGLOBIN A1c 2020-11-10 VITAMIN D 25-HYDROXY 2020-11-10 Comprehensive Metabolic Profile (CMP) 2020-11-10 GAMMA GLUTAMYLTRANSPEPTIDASE 2020-11-10 MICROALBUMIN RANDOM 2020-11-10 TSH 2020-11-10 LIPID PANEL (CARDIAC RISK) 2020-11-10 CBC with Differential 2020-11-10 Next Appt Details Provider Name:Zoe Fletcher, 2020-11 01:30:00 PM, [address] [place] [address], , [place], [address], Insurance Providers Payer Name Payer Address Payer Phone Insured Name Patient Relati onship to Insured Coverage Start Date Coverage End Date BCBS [place] PPO [id number] MAN [facility] [employer] [facility] [place] [address] [address] [id number] [facility] [address] [facility] [address] [address] [place] self
--- OUTSIDE RECORDS SUMMARY | 2021-01-05 10:07 | CCD | Continuity of Care Document ---
Author Author Donita VILLAR MD Organization Unknown Address [address] [facility] [address], [address] [place] [address] Phone [phone] Care Team Providers Care Recruiting Internship Name Role Phone Zoe Fletcher P.A.-C AUTM [...] SIG Qnty Indications Ordering Provide r Date Ciprofloxacin-Dexamethasone 0.3-0.1% Suspension instill 4 drops into affected ear twice daily for 7 days 7.500ml H60.8x1 Elmo Villar MD 12/16/2020 Levofloxacin 500mg Tablets 1 by mouth every day for 7 dyas 7tabs H60.8x1 Elmo Villar MD 12/16/2020 Oxybutynin Chloride ER 10mg Tablets ER 24HR 1 by mouth every day 30tabs Sukumar Soliz MD 04/2017 Amoxicillin/Clavulanate Potassium 875-125mg Tablets Zoe Fletcher, P.A. Atorvastatin Calcium 40mg Tablets Christian Silva M.D. Amlodipine Besylate 5mg Tablets Zoe Fletcher, P.A. Duloxetine HCL 60mg Caps Anila Herrera NP Celecoxib 100mg Capsules Anila Barakat CARPET OR RUG LAYER HELPER Lantus Solostar 100U nit/ML Solution Pen-Inject 20 unites/ night Zoe Fletcher, P.A . Omeprazole 20mg Capsules Zoe Lyman, P.A. Meclizine HCL 25mg Tablets Zoe Fletcher, P.A. Pregabalin 150mg Capsules Anila Barakat CARPET OR RUG LAYER HELPER Trulicity 3mg/0.5ML Solution Pen-Inject Zoe Fletcher, P.A. Famotidine 20mg Tablets Zoe Fletcher, P.A. Vitamin D (Ergocalciferol) 1.25mg (51587 Ut) Capsules Zoe Fletcher, P.A. Lisinopril 10mg Tablets Zoe Fletcher, P.A. Immunizations Description No Information Available Vital Signs Date Vital Result Comment 12/16/2020 3:32pm BP Systolic 133 mmHg BP Diastolic 86 mmHg Heart Rate 94 /min O2 % BldC Oximetry 96 % Height 61 inches 5'1" Weight 213.00 lb BMI (Body Mass Index) 40.2 kg/m2 [place] Body Weight 105 lb Weight 96.617 kg BSA (Body Surface Area) 1.94 m2 05/27/2018 9:59am BP Systolic 118 mmHg BP Diastolic 78 mmHg Height 61 inches 5'1" Weight 214.00 lb BMI (Body Mass Index) 40.4 kg/m2 [place] Body Weight 105 lb Weight 97.070 kg BSA (Body Surface Area) 1.94 m2 Results Test Acquired Date Facility Test Result H/L Range Note Laboratory test finding 12/16/2020 [facility] Main Lab 0 [place] [address] [phone] Ear Culture <pending> Procedures Date Code Description Status 12/16/2020 30317 Office/Outpatient New Moderate M DM 45-59 Minutes Completed 06/06/2018 [id number] Mammogram Completed 06/05/2017 [id number] Mammogram Completed Medical Devices Description No Information Available Encounters Type Date Location Provider Dx Diagnosis Office Visit 12/16/2020 3:45p [facility] Elian Field H60.8x1 Other otitis externa, right ear M26.601 Right temporomandibular join t disorder, unspecified Assessments Date Code Description Provider 12/16/2020 H60.8x1 Other otitis externa, right ear Elmo Villar MD 12/16/2020 M26.601 Right temporomandibular joint di sorder, unspecified Elmo Villar MD Plan of Treatment Future Appointment(s):* 12/23/2020 3:45 pm - Elmo Villar MD at [facility] Functional Status Description No Information Available Mental Status Description No Information Available Referrals Refer to Dr Reason for Referral Status Appt Elmo Villar M.D. urgent referral for otitis media in t he right ear Scheduled 12/16/[address] [address] [phone]
--- OUTSIDE RECORDS SUMMARY | 2021-01-05 10:07 | CCD ---
Author Author [facility] Organization [facility] Address Unknown Phone Unavailable Care Team Providers Care Glassware Defect Repairer Name Role Phone Zoe Fletcher Unavailable PROBLEMS Type Condition ICD9-CM Code YYP88-PM Code Onset Dates Condition S tatus W/U Status Risk SNOMED Code Notes Problem BMI 38.0-38.9,adult Z68.38 Active confirmed 086400047 Problem Essential hypertension I10 Active confirmed 77538533 Problem Migraine without aura and without status migrain osus, not intractable G43.009 Active confirmed 171560281 Problem Mixed hyperlipidemia E78.2 Active confirmed 146484448 Problem Lumbago with sciatica, left side M54.42 Active confirmed 120602809 Problem BMI 39.0-39.9,adult Z68.39 Active confirmed 091862629 Problem Gastroesophageal reflux disease, esophagitis pre sence not specified K21.9 Active confirmed 506680748 Problem Allergic rhinitis, unspecified seasonality, unspecifie d trigger J30.9 Active confirmed 70342650 Problem Type 2 diabetes mellitus with other specified complication E11.69 Active confirmed 06432496 Problem Type 2 diabetes mellitus wit h hyperglycemia, without long-term current use of insulin E11.65 Active confirmed 01675439 Problem Other chronic pain G89.29 Active confirmed 8 4615188 Problem Vitamin D insufficiency E55.9 Active confirmed 30631646 Problem Lumbago with sciatica, right side M54.41 Active confirmed 931316463 Problem Vitamin D deficiency E55.9 Active confirmed 46049012 Problem Leukocytosis, unspecified type D72.829 Active confi rmed 209048614 Problem Arthritis of left ankle M19.072 Active confirmed 0093858785187363 Problem Cigarette nicotine dependence without complication F17.210 Active confirmed 19938123 ALLERGIES Allergen (clinical drug ingredient) Drug/Non Drug Allergy do cumented on EMR Reaction Allergy Type Onset Date Status Codeine Codeine Hives Non Drug Allergy Active ertugliflozin Steglatro([facility] Code:[address]-87) yeast infections Drug Allergy Active metformin Metformin HCl([facility] Code:[address]-67) diarrhea/headach es Drug Allergy Active meloxicam Meloxicam([facility] Code:[address]-34) Hives Drug Allergy Active gabapentin Gabapentin([facility] Code:[address]-00) Fatig ue/ "sleepiness"/ "unable to function" Drug Allergy Active ENCOUNTERS from 1975 to 2020-12-06 Encounter Location Date Provider Diagnosis [address] [place] [address] Nov, Zoe Fletcher Mixed hyperlipidemia E78.2 ; Essential [...] History Observation Description Sex Assigned At Unknown Latter Day: Question Answer Notes Latter Day No jewish prefere nces that would impact healthcare Sexual [...] Information VITAL SIGNS Weight 217 lbs lbs Nov, Weight-kg 98.43 kg Nov, Height 62 in Nov, BMI 39.69 kg/m2 Nov, Heart Rate 87 /min Nov, Respiratory Rate 18 /min Nov, Temperature 99.1 degrees Fahrenheit Nov, Oximetry 97%ra Nov, Blood pressure systolic 125 mm Hg Nov, Blood pressure diastolic 81 mm Hg Nov, MEDICATIONS Medication SIG (Take, Route, Frequency, Duration) Notes Start Da te End Date Status Blood Glucose Test - as directed In Vitro Three times daily as needed Active Atorvastatin Calcium 20 MG 1 tablet Orally Once a day Active Debrox 6.5 % 5 drops into affected ear Otic Twice a day for 4 day(s) May, Active Lantus SoloStar 100 UNIT/ML Take 18 units QHS Subcutaneous Daily Aug, Active Vitamin D (Ergocalciferol) 42820 UNIT 1 capsule Orally once weekly Active Lisinopril 10 MG 1 tablet Orally Once a day Active Glucometer as directed Three times a day Active Omeprazole 20 MG 1 capsule Orally Once a day for 90 days Active Alcohol Prep 70 % as directed Three times a day as needed Active Blood Glucose Test - as directed In Vitro twice daily for 90 days Not-Taking CeleBREX 100 MG 1 capsule with food Orally Twice a day Active Nitroglycerin 0.3 MG as directed Sublingual 1 tab sublingually, may repeat in 5 minutes. May have three tabs in 15 minutes for 10 day(s) prn Mar Active Lancets - as directed Three times a day as needed for 90 day(s) Dec, Not-Taking Trulicity 3 MG/0.5ML 3 mg once weekly Subcutaneous Once a week Active Alsuma 6 MG/0.5ML prn headache Subcutaneous Ma x dose is 2 doses in 24 hours for 2 days prn Apr, Active Lyrica 100 MG 1 capsule Orally bid A ctive Famotidine 20 MG 1 tablet at bedtime as needed Orally Once a day for 90 days Active Meclizine HCl 25 mg 1 tablet as needed Orally three times daily for 90 days Active OmniPod Dash 5 Pack Pods - as directed Replace pod car tridge every 72 hours 6 packs of 5 per 90 days for 90 day(s) Sep, Active Ventolin HFA 108 (90 Base) MCG/ACT 1-2 puffs as needed Inhalation every 6 hrs for 30 day(s) Feb, Active Aleve 220 MG 1 tablet as needed Orally every 12 hrs Not-Taking OmniPod Dash System - as directed for 90 day(s) Sep, Active Amlodipine Besylate 5 MG 1 tablet Orally Once a day Jun Active FreeStyle Ezra Sensor System - as directed subcutaneo usly Check blood sugars Four times a day, Change sensor every 14 days for 90 days Aug Active Pen [place] 31G X 5 MM as directed subcutaneously daily for 90 d ay(s) Aug, Active FreeStyle Ezra Morris - as directed subcutaneously f our times a day for 90 day(s) Aug, Active PROCEDURES No Information RESULTS No Results REASON FOR VISIT 3 month follow up after labs MEDICAL (GENERAL) HISTORY Type Description Date Medical [...] Right shoulder bone lesion followed by [facility] 12/2017 Medical History Diabetic Eye Exam- [...] h other specified complication (ICD-10 - E11.69) 14 Nov, 2020 Elevated alkaline phosphatase level (ICD-10 - R7 4.8) PLAN OF TREATMENT Medication Medication Name Sig Start Date Stop Date Vitamin D (Ergocalciferol) 70693 UNIT 1 capsule Orally once week ly Amlodipine Besylate 5 MG 1 tablet Orally Once a day Jun, Lantus SoloStar 100 UNIT/ML Take 18 units QHS Subcutaneous Daily 15 Aug, 2020 Trulicity 3 MG/0.5ML 3 mg once weekly Subcutaneous Once a week Lisinopril 10 MG 1 tablet Orally Once a day Atorvastatin Calcium 20 MG 1 tablet Orally Once a day Next Appt Details 3 Months Reason: Provider Name:Zoe Fletcher, 2021-02 07:15:00 AM, [address] [place] [address], , [place], [address], Provider Name:Zoe Fletcher, 2021-02 08:00:00 AM, [address] [place] [address], , [place], [address], Insurance Providers Payer Name Payer Address Payer Phone Insured Name Patient Relati onship to Insured Coverage Start Date Coverage End Date [facility] [id number] [facility] [id number] [address] [id number] MEDICAID [facility] [address] [facility] [address] [address] [place] self
--- OUTSIDE RECORDS SUMMARY | 2021-01-05 10:07 | CCD | Continuity of Care Document ---
Author Author Donita VILLAR MD Organization Unknown Address [address] [facility], [address] [place] [address] Phone [phone] Care Team Providers Care Blade Worker Name Role Phone Zoe Fletcher P.A.-C AUTM [phone] Problems Active Problems Provider Date Right temporomendibular [...] Herrera NP Celecoxib 100mg Capsules Anila Barakat MATERIALS RECYCLER Lantus Solostar 100U nit/ML Solution Pen-Inject 20 unites/ night Zoe Fletcher, P.A . Omeprazole 20mg Capsules Zoe Lyman, P.A. Meclizine HCL 25mg Tablets Zoe Fletcher, P.A. Pregabalin 150mg Capsules Anila Barakat MATERIALS RECYCLER Trulicity 3mg/0.5ML Solution Pen-Inject Zoe Fletcher, P.A. Famotidine 20mg Tablets Zoe Fletcher, P.A. Vitamin D (Ergocalciferol) 1.25mg (06739 Ut) Capsules Zoe Fletcher, P.A. Lisinopril 10mg Tablets Zoe Fletcher, P.A. Immunizations Description No Information Available Vital Signs Date Vital Result Comment 12/16/2020 3:32pm BP Systolic 133 mmHg BP Diastolic 86 mmHg Heart Rate 94 /min O2 % BldC Oximetry 96 % Height 61 inches 5'1" Weight 213.00 lb BMI (Body Mass Index) 40.2 kg/m2 [place] Body Weight 105 lb Weight 96.617 kg BSA (Body Surface Area) 1.94 m2 05/27/2018 9:59am BP Systolic 118 mmHg BP Diastolic 78 mmHg Height 61 inches 5'1" Weight 214.00 lb BMI (Body Mass Index) 40.4 kg/m2 [place] Body Weight 105 lb Weight 97.070 kg BSA (Body Surface Area) 1.94 m2 Results Test Acquired Date Facility Test Result H/L Range Note Laboratory test finding 12/16/2020 [facility] Main Lab 0 [place] [address] [phone] Ear Culture <pending> Procedures Date Code Description Status 12/16/2020 43277 Office/Outpatient New Moderate M DM 45-59 Minutes Completed 06/06/2018 [id number] Mammogram Completed 06/05/2017 [id number] Mammogram Completed Medical Devices Description No Information Available Encounters Type Date Location Provider Dx Diagnosis Office Visit 12/16/2020 3:45p [facility] Elian Field H60.8x1 Other otitis externa, right ear M26.601 Right temporomandibular join t disorder, unspecified Assessments Date Code Description Provider 12/16/2020 H60.8x1 Other otitis externa, right ear Elmo Villar MD 12/16/2020 M26.601 Right temporomandibular joint di sorder, unspecified Elmo Villar MD Plan of Treatment Future Appointment(s):* 12/23/2020 3:45 pm - Elmo Villar MD at [facility] Functional Status Description No Information Available Mental Status Description No Information Available Referrals Refer to Dr Reason for Referral Status Appt Elmo Villar M.D. urgent referral for otitis media in t he right ear Scheduled 12/16/[address] [address] [phone]
--- OUTSIDE RECORDS SUMMARY | 2021-01-05 10:07 | CCD | Continuity of Care Document ---
Author Author Donita VILLAR MD Organization Unknown Address [address] [facility] [facility] [address], [address] [place] [address] Phone [phone] Care Team Providers Care Greensman Name Role Phone Zoe Fletcher-Mauricio AUTM Problems Active Problems Provider Date Right [...] Zoe Fletcher, P.A. Vitamin D (Ergocalciferol) 1.25mg (09399 Ut) Capsules Zoe Fletcher, P.A. Famotidine 20mg Tablets Zoe Fletcher, P.A. Trulicity 3mg/0.5ML Solution Pen-Inject Zoe Fletcher, P.A. Pregabalin 150mg Capsules Anila Barakat OPERATOR TECHNICIAN Meclizine HCL 25mg Tablets Zoe Fletcher, P.A. Omeprazole 20mg Capsules Zoe Lyman, P.A. Lantus Solostar 100U nit/ML Solution Pen-Inject 20 unites/ night Zoe Fletcher, P.A . Celecoxib 100mg Capsules Anila Barakat OPERATOR TECHNICIAN Duloxetine HCL 60mg Caps Anila Herrera OPERATOR TECHNICIAN Amlodipine Besylate 5mg Tablets Zoe Fletcher, P.A. [...] lb BMI (Body Mass Index) 40.4 kg/m2 [place] Body Weight 105 lb Weight 97.070 kg BSA (Body Surface Area) 1.94 m2 12/16/2020 3:32pm BP Systolic 133 mmHg BP Diastolic 86 mmHg Heart Rate 94 /min O2 % BldC Oximetry 96 % Height 61 inches 5'1" Weight 213.00 lb BMI (Body Mass Index) 40.2 kg/m2 [place] Body Weight 105 lb Weight 96.617 kg BSA (Body Surface Area) 1.94 m2 Results Test Acquired Date Facility Test Result H/L Range Note Laboratory test finding 12/16/2020 [facility] [address] [place] [address] [phone] Ear Culture FULL REPORT IN L <SEE [...] standards. Procedures Date Code Description Status 12/23/2020 96809 Office/Outpatient Established Lo w MDM 20-29 Min Completed 12/16/2020 72230 Office/Outpatient New Moderate M DM 45-59 Minutes Completed 06/06/2018 [id number] Mammogram Completed 06/05/2017 [id number] Mammogram Completed Medical Devices Description No Information Available Encounters Type Date Location Provider Dx Diagnosis Office Visit 12/23/2020 3:45p [facility] Elian Field H60.8x1 Other otitis externa, right ear Assessments Date Code Description Provider 12/23/2020 H60.8x1 Other otitis externa, right ear Elmo Villar MD 12/16/2020 H60.8x1 Other otitis externa, right ear Elmo Villar MD 12/16/2020 M26.601 Right temporomandibular joint di sorder, unspecified Elmo Villar MD Plan of Treatment Future Appointment(s):* 12/30/2020 1:30 pm - Mateo Ayala II, PA-C at [facility] ENT [facility] Functional Status Description No Information Available Mental Status Description No Information Available Referrals Refer to Dr Reason for Referral Status Appt Elmo Villar M.D. urgent referral for otitis media in t he right ear Scheduled 12/16/2020 [address] [facility] [address] [place] [address] [phone]
--- OUTSIDE RECORDS SUMMARY | 2021-01-05 10:07 | CCD | Continuity of Care Document ---
Author Author Donita VILLAR MD Organization Unknown Address [address] [facility], [address] [place] [address] Phone [phone] Care Team Providers Care Operational Intelligence Officer Name Role Phone Zoe Fletcher P.A.-C AUTM [...] Herrera NP Celecoxib 100mg Capsules Anila Barakat VISCOSITY INSPECTOR Lantus Solostar 100U nit/ML Solution Pen-Inject 20 unites/ night Zoe Fletcher, P.A . Omeprazole 20mg Capsules Zoe Lyman, P.A. Meclizine HCL 25mg Tablets Zoe Fletcher, P.A. Pregabalin 150mg Capsules Anila Barakat VISCOSITY INSPECTOR Trulicity 3mg/0.5ML Solution Pen-Inject Zoe Fletcher, P.A. Famotidine 20mg Tablets Zoe Fletcher, P.A. Vitamin D (Ergocalciferol) 1.25mg (41996 Ut) Capsules Zoe Fletcher, P.A. Lisinopril 10mg Tablets Zoe Fletcher, P.A. Immunizations Description No Information Available Vital Signs Date Vital Result Comment 12/16/2020 3:32pm BP Systolic 133 mmHg BP Diastolic 86 mmHg Heart Rate 94 /min O2 % BldC Oximetry 96 % Height 61 inches 5'1" Weight 213.00 lb BMI (Body Mass Index) 40.2 kg/m2 [place] Body Weight 105 lb Weight 96.617 kg BSA (Body Surface Area) 1.94 m2 05/27/2018 9:59am BP Systolic 118 mmHg BP Diastolic 78 mmHg Height 61 inches 5'1" Weight 214.00 lb BMI (Body Mass Index) 40.4 kg/m2 [place] Body Weight 105 lb Weight 97.070 kg BSA (Body Surface Area) 1.94 m2 Results Test Acquired Date Facility Test Result H/L Range Note Laboratory test finding 12/16/2020 [facility] Main [facility] [address] [place] [address] [phone] Ear Culture <pending> Procedures Date Code Description Status 12/16/2020 44007 Office/Outpatient New Moderate M DM 45-59 Minutes Completed 06/06/2018 [id number] Mammogram Completed 06/05/2017 [id number] Mammogram Completed Medical Devices Description No Information Available Encounters Type Date Location Provider Dx Diagnosis Office Visit 12/16/2020 3:45p [facility] Elian Filed H60.8x1 Other otitis externa, right ear M26.601 Right temporomandibular join t disorder, unspecified Assessments Date Code Description Provider 12/16/2020 H60.8x1 Other otitis externa, right ear Elmo Villar MD 12/16/2020 M26.601 Right temporomandibular joint di sorder, unspecified Elmo Villar MD Plan of Treatment Future Appointment(s):* 12/23/2020 3:45 pm - Elmo Villar MD at [facility] Functional Status Description No Information Available Mental Status Description No Information Available Referrals Refer to Dr Reason for Referral Status Appt Elmo Villar M.D. urgent referral for otitis media in t he right ear Scheduled 12/16/[address] [address] [phone]
--- OUTSIDE RECORDS SUMMARY | 2021-01-05 10:07 | CCD | Summary of Care ---
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 Pes planus of both feet Posterior tibial tendinitis of left lower extremity Scheduling Instructions L1902 PTTD Brace Electronically signed by Tani CASANOVA at * Physical Therapy (Routine) Referred By Contact Referred To Contact Status Reason Specialty Diagnoses / Procedures Tani Ryan PA [address] [place] [address] Email: [email or web address] Open Diagnoses 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 Pes planus of both feet Posterior tibial tendinitis of left lower extremity P rocedures Physical Therapy Electronically signed by Tani CASANOVA at Reason for Visit * Reason Comments Follow-up left ankle pain Encounter Details Care Team Description Date Type Department Tani Ryan PA [address] [place], [place] [id number] Arthritis of ankle (Primary Dx); Osteochondral defect of talus; Pes planus of both feet; Posterior tibial tendinitis of left lower extremity 11/29/2020 Office Visit [facility] [address] [phone] Allergies Comments Active Allergy Reactions Severity Noted Date Other reaction(s): Vomiting Codeine Hives, Nausea 11/27/2018 Only Codeine Phosphate Hives, Nausea 10/27/2014 And Vomiting Other reaction(s): Fatigue/ "sleepiness"/ "unable to function" Gabapentin 08/16/2020 Meloxicam Hives Medium 04/10/2012 Other reaction(s): diarrhea/headaches Metformin Hcl 08/16/2020 documented as of this encounter (statuses as of 11/29/2020) Medications End Date Status Medication Sig Dispensed Refills Start Date Active atorvastatin (LIPITOR) 10 Take 10 mg by 2 12/04 MG tablet mouth daily 8 Active oxybutynin (DITROPAN-XL) 0 10 MG 24 hr tablet 8 Active lisinopril Take 10 mg by 5 (PRINIVIL,ZESTRIL) 10 MG mouth daily 8 tablet Active omeprazole (PRILOSEC) 20 0 MG capsule 8 Active celecoxib (CELEBREX) 100 Take 100 mg 0 MG capsule by mouth Two Times Daily Active Vitamin D 0 (Ergocalciferol) 1.25 MG 0 (53465 UT) Oral Capsule (ERGOCALCIFEROL) Active DULoxetine HCl 60 MG Oral Take 60 mg by 0 03/06 Capsule Delayed Release mouth daily 0 Particles (CYMBALTA) Active Alcohol Prep Pad TEST THREE 0 TIMES A DAY 0 NEEDED DIRECTED Active Famotidine 20 MG Oral famotidine 0 Tablet (PEPCID) 20 mg tabs Active Meclizine HCl 25 MG Oral TAKE ONE 0 09/15 Tablet (ANTIVERT) TABLET BY 0 MOUTH THREE TIMES A DAY NEEDED FOR 10 DAYS Active Pregabalin 150 MG Oral TAKE ONE 0 02 Capsule (LYRICA) CAPSULE BY 0 MOUTH THREE TIMES A DAY MAX 3CAPS.DAY Active Albuterol Sulfate HFA 108 INHALE 1 2 0 /0 (90 Base) MCG/ACT PUFFS BY 0 Inhalation Aerosol MOUTH EVERY 6 Solution (PROVENTIL HFA) HOURS NEEDED Active Trulicity 1.5 MG/0.5ML INJECT 0 02 Subcutaneous Solution DIRECTED ONCE 1 Pen-injector WEEKLY UNDER THE SKIN Active Acetaminophen 500 MG Oral Take by mouth 0 09/02 Tablet (TYLENOL) 1 Active amLODIPine Besylate 5 MG 0 Oral Tablet (NORVASC) 1 Active Aspirin 325 MG Oral aspirin 325 0 Tablet Delayed Release mg tablet,delaye d release TAKE ONE TABLET BY MOUTH EVERY DAY Active FreeStyle Ezra 14 Day 0 [place] Device 1 Active FreeStyle Ezra 14 Day 0 Sensor 1 Active Blood Glucose Test In as directed 0 Vitro Strip Active OmniPod Dash 5 Pack Pods 0 1 Active Lantus SoloStar 100 0 UNIT/ML Subcutaneous 1 Solution Pen-injector Active PenTips 31G X 5 MM Use as 0 directed. 1 documented as of this encounter (statuses as of 11/29/2020) Active Problems Problem Noted Date Right shoulder pain 02/12/2012 documented as of this encounter (statuses as of 11/29/2020) Immunizations Name Administration Dates Next Due documented as of this encounter Social History Date Tobacco Use Types Packs/Day Years Used Current Every Day Smoker 0.5 24 Smokeless Tobacco: Never Used Comments Alcohol Use Standard Drinks/Week No 0 (1 standard drink = 0.6 o z pure alcohol) Sex Assigned at Date Recorded Not on file Industry Job Start Date Occupation Not on file Not on file Not on file Date Recorded COVID-19 Exposure Response 11/29/2020 11:03 AM EDT In the last month, have you been in contact with No / Unsure someone who was confirmed or suspected to have Coronavirus / COVID-19? documented as of this encounter Last Filed Vital Signs Not on filedocumented in this encounter Progress Notes * Tani Ryan PA - 11/29/2020 11:15 AM EDT Chief Complaint Patient presents with Follow-up left ankle pain HPI: Donita was seen on behalf of Dr. Conklin for follow up evaluation of their left ankle. Patient comes in for routine follow-up. I last saw her 6 wee ks ago. She is status post remote arthroscopy debridement microfracture about 8 months ago. She was doing relatively well until she had a tension jim from an awning hit her in her ankle. Since that time she has had increased pain. Pains on the medial anterior and portions of the ankle as well as dorsum of the foot. States the boot did help initially. But just does not think it is helping now. She denies numbness, tingling. No mechanical complaints. PHYSICAL EXAM: Medical history, family history, social history and review of sys tems are documented in the chart and reviewed today with Donita. Vitals: There were no vitals taken for this visit. alert oriented x3 in no acute distress. Left ankle shows no substantial swelling. There is exquisite tenderness over th e anterior aspect of the ankle joint. There is tenderness over the post tib ten don. Decent motion with no crepitus. Pain with resisted plantarflexion and inv ersion. Calf is soft and supple XRAYS: Multiple views of the left ankle were Reviewed in the office today. Norm al x-rays ASSESSMENT: Left ankle pain in the setting of prior microfracture for OCD lesion with post tib tendinitis and anterior ankle joint pain PLAN: Treatment options were discussed. The natural history of the patient's pr oblem was discussed with Donita. I offered her an injection. I offered her phy sical therapy. I offered her an airlift brace. She like to try the brace and t herapy. She can ice and take anti-inflammatories. We will check her back in th e office in 2 months to assess her progress. patient will call the office for any increasing troubles. F/U Xrays: none "This document was dictated using StyleChat by [employer] software. A reasonable attempt at proof reading has been made to minimize errors. Please c all our office if you have any questions." * Selina rPater - 11/29/2020 11:15 AM EDT Left Lower Extremity Orthosis Patient was prescribed a pttd brace for this visit's encounter diagnosis. The p atient is ambulatory but has weakness and/or instability of their LEFT LOWER EXT REMITY which requires stabilization from this semi-rigid/rigid orthosis to impro ve their function. documented in this encounter Plan of Treatment Care Team Description Date Type Specialty Tani Ryan PA [address] [place] [address] [phone] 01/26/2021 Office Visit Orthopedic Surgery Order Schedule Name Type Priority Associated Diag noses Ordered: 11/29/2020 PTTD Brace Outpatient Routine Arthritis of an kle Referral Osteochondral defect of talus Pes planus of both feet Posterior tibial tendinitis of left lower extremity Health Maintenance Due Date Last Done Comments MMR Vaccines (1 of - 09/22/1976 Standard series) Varicella Vaccines (1 of 09/22/1976 2 - 2-dose childhood series) Pneumococcal Vaccine: 65+ 09/22/1981 Years (1 of 2 - PPSV23) Pneumococcal Vaccine: 09/22/1981 Pediatrics (0 to 5 Years) and At-Risk Patients (6 to 64 Years) (1 of 2 - PPSV23) DTaP,Tdap,and Td Vaccines 09/22/1982 (1 - Tdap) HIV Screening 09/22/1988 Cervical Cancer Screening 09/22/1996 5 years Influenza Vaccine 12/03/2020 COVID-19 Vaccine Completed 06/02/2020, 05/12/2020 HIB Vaccines Aged Out No longer eligible based on patient's age to complete this topic Hepatitis A Vaccines Aged Out No longer eligibl e based on patient's age to complete this topic Hepatitis B Vaccines Aged Out No longer eligibl e based on patient's age to complete this topic IPV Vaccines Aged Out No longer eligible based on patient's age to complete this topic documented as of this encounter Results Not on filedocumented in this encounter Visit Diagnoses Diagnosis Arthritis of ankle - Primary Unspecified arthropathy, ankle and foot Osteochondral defect of talus Acquired musculoskeletal deformity of o ther specified site Pes planus of both feet Posterior tibial tendinitis of left low er extremity documented in this encounter
--- OUTSIDE RECORDS SUMMARY | 2021-01-05 10:07 | CCD | Continuity of Care Document ---
Author Author Donita PINEDA Organization Unknown Address [address] [facility], [place] [address] Phone [phone] Care Team Providers Care Business Services Analyst Name Role Phone Zoe Fletcher PA-C AUTM [phone] Problems Active Problems Provider Date Precordial pain Christian Silva MD Onset: 04/16/2015 Dyspnea Christian Silva MD Onset: 04/16/2015 Palpitations Christian Silva MD Onset: 04/16/2015 Essential hypertension Christian Silva MD Onset: 04/16/2015 Disturbance in sleep behavior Christian Silva MD Onset: 02/2016 Obesity Christian Silva MD Onset: 04/16/2015 Dizziness and giddiness Christian Silva MD Onset: 6 Edema Christian Silva MD Onset: 09/13/2020 Heart murmur Christian Silva MD Onset: 09/13/2020 Benign hypertensive heart disease without congestive h eart failure Christian Silva MD Onset: 09/13/2020 Hyperlipidemia Christian Silva MD Onset: 09/13/2020 Social History Type Date Description Comments Sex Unknown ETOH Use Does not consume alcohol Tobacco Use Start: Unknown Patient is a current smoker, smo kes every day started at age 16, at most 1/2 ppd Smoking Status Reviewed: 09/13/20 Patient is a current smoker, smokes every day started at age 16, at most 1/2 ppd Exercise Type/Frequency Does not exercise curren tly Exercise Limitations Joint Pain left ankle Allergies, Adverse Reactions, Alerts Active Allergies Criticality Reaction | Severity Comments Date Codeine Unable to assess criticality 04/16/2015 Medications Active Medications SIG Qnty Indications Ordering Provide r Date Atorvastatin Calcium 40mg Tablets 1 by mouth every night at bedtime 30tabs Christian Silva MD 09/13/2020 Lisinopril 10mg Tablets 1 by mouth every day Unknown 09/12/2020 Aspirin 325mg Tablets 1 by mouth every day Unknown 09/12/2020 Acetaminophen Extra Strength 500mg Tablets 1-2 by mouth at bedtime Unknown 09/02 Meclizine HCL 25mg Tablets 1 by mouth three times daily as needed Unknown 09/02 Pregabalin 150mg Capsules 1 by mouth tid Unknown 09/12/2020 Amlodipine Besylate 5mg Tablets 1 by mouth every day Unknown 09/12/2020 Celebrex 100mg Capsules 1 by mouth twice a day Unknown 09/12/2020 Vitamin D (Ergocalciferol) 1.25mg (23551 Ut) Capsules 1 by mouth every weekly Unknown 09/[address] 1 by mouth every day Unknown 09/12/2020 Famotidine 20mg Tablets 1 tab by mouth every day at bedtime Unknown 09/12/2020 Duloxetine HCL 60mg Caps DR Part 1 by mouth every day Unknown 09/12/2020 Lantus Solostar 100U nit/ML Solution Pen-Inject as directed by primary Unknown 09/12 Trulicity 3mg/0.5ML Solution Pen-I nject 1 injection weekly as directed Unknown 01/2021 Nitrostat 0.3mg Tablets Sub 1 tab s/l every 5 min. when necessary for chest discomfort Unknown 04/15/2015 History Medications Atorvastatin Calcium 20mg Tablets 1 by mouth every night at bedtime Unknown 01/2021 - 09/13/2020 Immunizations Description No Information Available Vital Signs Date Vital Result Comment 09/13/2020 9:42am Weight 220.00 lb Height 61 inches 5'1" BMI (Body Mass Index) 41.6 kg/m2 Heart Rate 80 /min regular Respiratory Rate 18 /min BP Systolic Sitting 140 mmHg large cuff, Ra; 135/ 80 LA BP Diastolic Sitting 82 mmHg large cuff, Ra; 135 /80 LA BP Systolic Lying Down 136 mmHg Ra BP Diastolic Lying Down 76 mmHg Ra 04/16/2015 9:03am Weight 213.00 lb Home Weight 214lb Height 61 inches 5'1" BMI (Body Mass Index) 40.2 kg/m2 Heart Rate 80 /min regular Respiratory Rate 18 /min BP Systolic Sitting 142 mmHg Ra; 134/74 LA BP Diastolic Sitting 80 mmHg Ra; 134/74 LA BP Systolic Lying Down 146 mmHg Medium cuff, Ra BP Diastolic Lying Down 82 mmHg Medium cuff, Ra Results Test Acquired Date Facility Test Result H/L Range Note CMP 06/24/2020 [facility] - not interfaced (315)- - Albumin Serum/Plasma 3.9 Alt - SGPT 46 Calcium Ser/Plasma Mass/Vol 9.1 Carbon Dioxide Ser/Plasm 26 Chloride Serum/Plasma 104 Alkaline Phosphatase 124 Potassium 4.4 Protein Total 7.3 Sodium 135 Ast - Sgot 30 BUN - Urea Nitrogen 16 Glucose 203 High 70-100 Creatinine For GFR 0.66 Lipid Profile/Cardiac Risk Pro 06/24/2020 [facility] - not interfaced (315)- - Triglycerides 222 High <150 Cholesterol 175 <200 HDL 34 Low >40.0 LDL Cholesterol 97 Chol/HDL Ratio 5.147 High <5 Laboratory test finding 06/24/2020 [facility] - not interf aced (315)- - Thyroid Stimulating Hormone 0.464 Hemoglobin A1c 06/24/2020 [facility] - not interfaced (315)- - Hemoglobin A1c 8.1 CBC without Differential 06/24/2020 [facility] - not inter faced (315)- - White Blood Count 11.2 High 4.0-10.0 Red Blood Count 4.63 4.00-5.40 Platelets 368 150-450 Hemoglobin 13.7 Hematocrit 43.4 Procedures Date Code Description Status 11/30/2020 65265 Echocardiogram 2-D Doppler Color Completed 09/13/2020 33054 Office/Outpatient New Moderate M DM 45-59 Minutes Completed 09/13/2020 98619 ECG 12-Lead Completed Medical Devices Description No Information Available Encounters Type Date Location Provider Dx Diagnosis Office Visit 09/13/2020 9:30a Main Office Christian Silva MD R07.2 Precordial pain R06.02 Shortness of breath I11.9 Hypertensive heart disease w ithout heart failure R60.0 Localized edema R01.1 Cardiac murmur, unspecified G47.9 Sleep disorder, unspecified E78.5 Hyperlipidemia, unspecified Assessments Date Code Description Provider 11/30/2020 R06.02 Shortness of breath ECHO 11/30/2020 R94.31 Abnormal electrocardiogram [ECG] [EKG] ECHO 11/30/2020 R07.2 Precordial pain ECHO 09/13/2020 R07.2 Precordial pain Christian Silva MD 09/13/2020 R06.02 Shortness of breath Christian villaseñor MD 09/13/2020 I11.9 Hypertensive heart disease witho ut heart failure Christian Silva MD 09/13/2020 R60.0 Localized edema Christian Silva MD 09/13/2020 R01.1 Cardiac murmur, unspecified Carlito Silva MD 09/13/2020 G47.9 Sleep disorder, unspecified Carlito Silva MD 09/13/2020 E78.5 Hyperlipidemia, unspecified Carlito Silva MD 07/19/2020 R07.2 Precordial pain Christian Silva MD 07/19/2020 I10 Essential (primary) hypertension Christian Silva MD Plan of Treatment 09/13/2020 - Christian Silva MD* R07.2 Precordial pain* Recommendations:* From her description, she provides multiple nonanginal features and has chest wall tenderness in keeping with costochondritis as well as intercostal muscle stra in. Also has a history of gastroesophageal reflux. However, in light of her multiple coronary risk factors, it would be prudent to reassess her coronary prognosis objectively. In light of her prior treadmill study showing ST/T wave abnormalities, we have recommended a follow-up treadmill supplemented by myocardial perfusion imaging. Emphasized the importance of smoking cessation. Currently taking protective combination lisinopril, atorvastatin, and aspirin. Has Tylenol and Celebrex for use as necessary. Also encouraged compliance with antireflux measures including avoiding caffeinated beverages, nicotine, and alcohol as well as avoiding eating or drinking within 3 hours of lying down. Remains on combination omeprazole and famotidine. * R06.02 Shortness of breath* Recommendations:* Suspected to be on the basis of her weight problem, physical deconditioning, and long-standing smoking. However, prior echocardiogram did show a degree of left ventricular diastolic dysfunction with enlarged left atrium. Have requested a follow-up echocardiogram/Doppler study to reassess cardiac chamber sizes and function. Pulmonary uptake of Cardiolite is related to pulmonary venous pressure. If a component of dyspnea is cardiogenic we would expect increased pulmonary uptake immediately post exercise with treadmill Cardiolite heart scan. Weight redu ction and regular graded aerobic exercise has been encouraged along with smoking cessation. * I11.9 Hypertensive heart disease without heart failure* Recommendations:* As per assessment #2. Her current blood pressure would be considered reasonably well controlled. Blood work last June showed electrolyte balance with normal renal function. Again encouraged dietary measures including salt and caloric restriction along with low level aerobic exercise i.e. walking at her own pace for at least 30 minutes daily. For the time being no change has been made to her combination lisinopril and amlodipine. * R60.0 Localized edema* Recommendations:* In light of her current normal neck vein elevation, I suspect this is related to a degree of peripheral venous insufficiency with her weight problem as well as Celebrex and amlodipine. Her echocardiogram/Doppler study will allow us to assess right heart chamber sizes, pulmonary arterial as well as central venous pressures. * R01.1 Cardiac murmur, unspecified* Recommendations:* Believed to be a flow phenomenon but with her chest discomfort and edema, a follow-up echocardiogram/Doppler study has been ordered abdomen will allow us to rule out any structural or functional valvular abnormality in addition to other pot ential cardiac causes of chest pain including pericarditis and pulmonary hypertension. * G47.9 Sleep disorder, unspecified* Recommendations:* With her weight problem, sleep disturbance and dependent edema, we have requested a home sleep study to rule out obstructive sleep apnea. * E78.5 Hyperlipidemia, unspecified* Recommendations:* In light of her weight problem, diabetes, and recent lipid profile, have recommended increasing her atorvastatin dosage to 40 mg daily. The crucial importance of smoking cessation has again been emphasized along with her dietary measures. * All * New Medication:* Atorvastatin Calcium 40 mg - 1 by mouth every night at bedtime * Comments:* I will ensure that the aforementioned test findings are reported to you along with any further recommendations. Thank you for allowing me to participate in the care of your patient. Best regards. * Follow up:* Clinic visit post testing Functional Status Functional Condition Comment Date Status Independent with all ADL's Activ e Mental Status Description No Information Available Referrals Refer to Reason for Referral Status Appt Date Christian Silva MD ECHO AUTH EMR-EXPIRES 12/21/20. [place] Created [address], [facility] [id number] [phone] Christian Silva MD [facility] auth emr-expires 10/14/20. [place] Created [address] [facility] [address] [phone]
--- OUTSIDE RECORDS SUMMARY | 2021-01-05 10:07 | CCD | Continuity of Care Document ---
Author Author Donita VILLAR MD Organization Unknown Address [address] [facility], [address] [place] [address] Phone [phone] Care Team Providers Care Lead Caregiver Name Role Phone Zoe Fletcher P.A.-C AUTM [...] Herrera NP Celecoxib 100mg Capsules Anila Barakat PET WALKER Lantus Solostar 100U nit/ML Solution Pen-Inject 20 unites/ night Zoe Fletcher, P.A . Omeprazole 20mg Capsules Zoe Lyman, P.A. Meclizine HCL 25mg Tablets Zoe Fletcher, P.A. Pregabalin 150mg Capsules Anila Barakat PET WALKER Trulicity 3mg/0.5ML Solution Pen-Inject Zoe Fletcher, P.A. Famotidine 20mg Tablets Zoe Fletcher, P.A. Vitamin D (Ergocalciferol) 1.25mg (64217 Ut) Capsules Zoe Fletcher, P.A. Lisinopril 10mg Tablets Zoe Fletcher, P.A. Immunizations Description No Information Available Vital Signs Date Vital Result Comment 12/16/2020 3:32pm BP Systolic 133 mmHg BP Diastolic 86 mmHg Heart Rate 94 /min O2 % BldC Oximetry 96 % Height 61 inches 5'1" Weight 213.00 lb BMI (Body Mass Index) 40.2 kg/m2 [place] Body Weight 105 lb Weight 96.617 kg BSA (Body Surface Area) 1.94 m2 05/27/2018 9:59am BP Systolic 118 mmHg BP Diastolic 78 mmHg Height 61 inches 5'1" Weight 214.00 lb BMI (Body Mass Index) 40.4 kg/m2 [place] Body Weight 105 lb Weight 97.070 kg BSA (Body Surface Area) 1.94 m2 Results Test Acquired Date Facility Test Result H/L Range Note Laboratory test finding 12/16/2020 [facility] Main Lab [address] [place] [address] [phone] Ear Culture <pending> Procedures Date Code Description Status 12/16/2020 94770 Office/Outpatient New Moderate M DM 45-59 Minutes Completed 06/06/2018 82906487 Mammogram Completed 06/05/2017 99267872 Mammogram Completed Medical Devices Description No Information Available Encounters Type Date Location Provider Dx Diagnosis Office Visit 12/16/2020 3:45p [facility] Elian Field H60.8x1 Other otitis externa, right ear M26.601 Right temporomandibular join t disorder, unspecified Assessments Date Code Description Provider 12/16/2020 H60.8x1 Other otitis externa, right ear Elmo Villar MD 12/16/2020 M26.601 Right temporomandibular joint di sorder, unspecified Elmo Villar MD Plan of Treatment Future Appointment(s):* 12/23/2020 3:45 pm - Elmo Villar MD at [facility] Functional Status Description No Information Available Mental Status Description No Information Available Referrals Refer to Dr Reason for Referral Status Appt Elmo Villar M.D. urgent referral for otitis media in t he right ear Scheduled 12/16/[address] [address] [phone]
--- OUTSIDE RECORDS SUMMARY | 2021-01-05 10:07 | CCD ---
Author Author [facility] [employer] Organization [facility] [employer] Address Unknown Phone Unavailable Care Team Providers Care Mailroom Clerk Name Role Phone Zoe Fletcher Unavailable PROBLEMS Type Condition ICD9-CM Code VFH19-KM Code Onset Dates Condition S tatus W/U Status Risk SNOMED Code Notes Problem BMI 38.0-38.9,adult Z68.38 Active confirmed 476535821 Problem Essential hypertension I10 Active confirmed 80921973 Problem Migraine without aura and without status migrain osus, not intractable G43.009 Active confirmed 292169942 Problem Mixed hyperlipidemia E78.2 Active confirmed 126637776 Problem Lumbago with sciatica, left side M54.42 Active confirmed 282668516 Problem BMI 39.0-39.9,adult Z68.39 Active confirmed 555375580 Problem Gastroesophageal reflux disease, esophagitis pre sence not specified K21.9 Active confirmed 677662149 Problem Allergic rhinitis, unspecified seasonality, unspecifie d trigger J30.9 Active confirmed 25326773 Problem Type 2 diabetes mellitus with other specified complication E11.69 Active confirmed 71179303 Problem Type 2 diabetes mellitus wit h hyperglycemia, without long-term current use of insulin E11.65 Active confirmed 73711314 Problem Other chronic pain G89.29 Active confirmed 8 9057250 Problem Vitamin D insufficiency E55.9 Active confirmed 90282406 Problem Lumbago with sciatica, right side M54.41 Active confirmed 674847795 Problem Vitamin D deficiency E55.9 Active confirmed 03584689 Problem Leukocytosis, unspecified type D72.829 Active confi rmed 887874898 Problem Arthritis of left ankle M19.072 Active confirmed 2883804384793558 Problem Cigarette nicotine dependence without complication F17.210 Active confirmed 87278702 ALLERGIES Allergen (clinical drug ingredient) Drug/Non Drug Allergy do cumented on EMR Reaction Allergy Type Onset Date Status Codeine Codeine Hives Non Drug Allergy Active ertugliflozin Steglatro([facility] Code:[address]-06) yeast infections Drug Allergy Active metformin Metformin HCl([facility] Code:[address]-28) diarrhea/headach es Drug Allergy Active meloxicam Meloxicam([facility] Code:[address]-04) Hives Drug Allergy Active gabapentin Gabapentin([facility] Code:[address]-20) Fatig ue/ "sleepiness"/ "unable to function" Drug Allergy Active ENCOUNTERS from 1975 to 2020-12-03 Encounter Location Date Provider Diagnosis [place] [address] [facility] [phone] [place] [address] 30 Nov, 2020 Zoe Fletcher IMMUNIZATIONS Vaccine Route Administration Date Status Influenza 6mo & up Fluzone Unknown Jan 03, 2016 Refus ed SOCIAL HISTORY Tobacco Use: Social History Observation Description Date Details (start date - stop date) Current Smoker Sex Assigned At : Social History Observation Description Sex Assigned At Unknown Judaism: Question Answer Notes Judaism No synagogue prefere nces that would impact healthcare Sexual [...] Notes Start Da te End Date Status Ventolin HFA 108 (90 Base) MCG/ACT 1-2 puffs as needed Inhalation every 6 hrs for 30 day(s) Feb, Active Atorvastatin Calcium 20 MG 1 tablet Orally Once a day for 90 days Active Lancets - as directed Three times a day as needed for 90 day(s) Dec, Not-Taking Meclizine HCl 25 mg 1 tablet as needed Orally three times daily for 90 days Active Blood Glucose Test - as directed In Vitro Three times daily as needed Active Lisinopril 10 MG 1 tablet Orally Once a day for 90 days Active Debrox 6.5 % 5 drops into affected ear Otic Twice a day for 4 day(s) May, Active Omeprazole 20 MG 1 capsule Orally Once a day for 90 days Active Glucometer as directed Three times a day Active Aleve 220 MG 1 tablet as needed Orally every 12 hrs Not-Taking Al[place] 6 MG/0.5ML prn headache Subcutaneous Ma x dose is 2 doses in 24 hours for 2 days prn Apr, Active Amlodipine Besylate 5 MG 1 tablet Orally Once a day for 90 days Jun, Active Blood Glucose Test - as directed In Vitro twice daily for 90 days Not-Taking Vitamin D (Ergocalciferol) 94131 UNIT 1 capsule Orally once weekly for 90 days Active Nitroglycerin 0.3 MG as directed Sublingual 1 tab sublingually, may repeat in 5 minutes. May have three tabs in 15 minutes for 10 day(s) prn Mar Active CeleBREX 100 MG 1 capsule with food Orally Twice a day Active Alcohol Prep 70 % as directed Three times a day as needed Active Famotidine 20 MG 1 tablet at bedtime as needed Orally Once a day for 90 days Active OmniPod Dash System - as directed for 90 day(s) Sep, Active Lyrica 100 MG 1 capsule Orally bid A ctive OmniPod Dash 5 Pack Pods - as directed Replace pod car tridge every 72 hours 6 packs of 5 per 90 days for 90 day(s) Sep, Active Lantus SoloStar 100 UNIT/ML Take 18 units QHS Subcutaneous Daily for 30 Days Aug, Active FreeStyle Ezra Sensor System - as directed subcutaneo usly Check blood sugars Four times a day, Change sensor every 14 days for 90 days Aug Active Trulicity 3 MG/0.5ML 3 mg once weekly Subcutaneous Once a week for 30 days Active Pen [place] 31G X 5 MM as directed subcutaneously daily for 90 d ay(s) Aug, Active FreeStyle Ezra Walls - as directed subcutaneously f our times a day for 90 day(s) Aug, Active PROCEDURES No Information RESULTS No Results REASON FOR VISIT R ear pain MEDICAL (GENERAL) HISTORY Type Description [...] repair x 2, ACJ fusion, and subsequent ZO Medical History Right shoulder bone lesion followed [...] No Information FUNCTIONAL STATUS No Information ASSESSMENTS No Information PLAN OF TREATMENT Next Appt Details Provider Name:Zoe Fletcher, 2021-02 07:15:00 AM, [address] [place] [address], , [place], [address], Provider Name:Zoe Fletcher, 2021-02 08:00:00 AM, [address] [place] [address], , [place], [address], Insurance Providers Payer Name Payer Address Payer Phone Insured Name Patient Relati onship to Insured Coverage Start Date Coverage End Date [employer] PPO [id number] [facility] PodPoster [facility] [place] [id number] [address] JULY [id number] MEDICAID [id number] [address] [facility] [address] [address] [place] self
--- OUTSIDE RECORDS SUMMARY | 2021-01-05 10:07 | CCD | Continuity of Care Document ---
Author Author Donita VILLAR MD Organization Unknown Address [address] [facility], [address] [place] [address] Phone [phone] Care Team Providers Care Power Supply Engineer Name Role Phone Zoe Fletcher-Mauricio AUTM [phone] Problems Active Problems Provider Date Right temporomendibular [...] daily for 7 days 7.500ml H60.8x1 Elmo iVllar MD 12/16/2020 Levofloxacin 500mg Tablets 1 by mouth every day for 7 dyas 7tabs H60.8x1 Elmo Villar MD 12/16/2020 Oxybutynin Chloride ER 10mg Tablets ER 24HR 1 by mouth every day 30tabs Sukumar Soliz MD 04/2017 Lisinopril 10mg Tablets Zoe Fletcher, P.A. Vitamin D (Ergocalciferol) 1.25mg (76889 Ut) Capsules Zoe Fletcher, P.A. Famotidine 20mg Tablets Zoe Fletcher, P.A. Trulicity 3mg/0.5ML Solution Pen-Inject Zoe Fletcher, P.A. Pregabalin 150mg Capsules Anila Barakat CLASSROOM INSTRUCTOR Meclizine HCL 25mg Tablets Zoe Fletcher, P.A. Omeprazole 20mg Capsules Zoe Lyman, P.A. Lantus Solostar 100U nit/ML Solution Pen-Inject 20 unites/ night Zoe Fletcher, P.A . Celecoxib 100mg Capsules Anila Barakat CLASSROOM INSTRUCTOR Duloxetine HCL 60mg Caps Anila Herrera CLASSROOM INSTRUCTOR Amlodipine Besylate 5mg Tablets Zoe Fletcher, P.A. [...] lb BMI (Body Mass Index) 40.4 kg/m2 [place] Body Weight 105 lb Weight 97.070 kg BSA (Body Surface Area) 1.94 m2 12/16/2020 3:32pm BP Systolic 133 mmHg BP Diastolic 86 mmHg Heart Rate 94 /min O2 % BldC Oximetry 96 % Height 61 inches 5'1" Weight 213.00 lb BMI (Body Mass Index) 40.2 kg/m2 [place] Body Weight 105 lb Weight 96.617 kg BSA (Body Surface Area) 1.94 m2 Results Test Acquired Date Facility Test Result H/L Range Note Laboratory test finding 12/16/2020 [facility] Main Lab [address] [place] [address] [phone] Ear Culture FULL REPORT IN L <SEE [...] standards. Procedures Date Code Description Status 12/23/2020 81650 Office/Outpatient Established Lo w MDM 20-29 Min Completed 12/16/2020 86577 Office/Outpatient New Moderate M DM 45-59 Minutes Completed 06/06/2018 54116386 Mammogram Completed 06/05/2017 [id number] Mammogram Completed Medical Devices Description No Information Available Encounters Type Date Location Provider Dx Diagnosis Office Visit 12/23/2020 3:45p [facility] Elian Field H60.8x1 Other otitis externa, right ear Assessments Date Code Description Provider 12/23/2020 H60.8x1 Other otitis externa, right ear Elmo Villar MD 12/16/2020 H60.8x1 Other otitis externa, right ear Elmo Villar MD 12/16/2020 M26.601 Right temporomandibular joint di sorder, unspecified Elmo Villar MD Plan of Treatment Future Appointment(s):* 12/30/2020 1:30 pm - Mateo Ayala II, PA-C at [facility] Functional Status Description No Information Available Mental Status Description No Information Available Referrals Refer to Dr Reason for Referral Status Appt Elom Villar M.D. urgent referral for otitis media in t he right ear Scheduled 12/16/2020 [address] [facility] [address] [place] [address] [phone]
--- OUTSIDE RECORDS SUMMARY | 2021-01-05 10:07 | CCD | Continuity of Care Document ---
Author Author Donita PINEDA Organization Unknown Address [address] [facility], [place] [address] Phone [phone] Care Team Providers Care Didactic Instructor Name Role Phone Zoe Fletcher PA-C AUTM [phone] Problems Active Problems Provider Date Precordial pain [...] day Unknown 09/12/2020 Vitamin D (Ergocalciferol) 1.25mg (62144 Ut) Capsules 1 by mouth every weekly [...] Test Result H/L Range Note CMP 06/24/2020 [facility] - not interfaced (315)- - Albumin Serum/Plasma 3.9 Alt - SGPT 46 Calcium Ser/Plasma Mass/Vol 9.1 Carbon Dioxide Ser/Plasm 26 Chloride Serum/Plasma 104 Alkaline Phosphatase 124 Potassium 4.4 Protein Total 7.3 Sodium 135 Ast - Sgot 30 BUN - Urea Nitrogen 16 Glucose 203 High 70-100 Creatinine For GFR 0.66 Lipid Profile/Cardiac Risk Pro 06/24/2020 [facility] - not interfaced (315)- - Triglycerides 222 High <150 Cholesterol 175 <200 HDL 34 Low >40.0 LDL Cholesterol 97 Chol/HDL Ratio 5.147 High <5 Laboratory test finding 06/24/2020 [facility] - not interf aced (315)- - Thyroid Stimulating Hormone 0.464 Hemoglobin A1c 06/24/2020 [facility] - not interfaced (315)- - Hemoglobin A1c 8.1 CBC without Differential 06/24/2020 [facility] - not inter faced (315)- - White Blood Count 11.2 High 4.0-10.0 Red Blood Count 4.63 4.00-5.40 Platelets 368 150-450 Hemoglobin 13.7 Hematocrit 43.4 Procedures Date Code Description Status 11/30/2020 95102 Echocardiogram 2-D Doppler Color Completed 09/13/2020 08401 Office/Outpatient New Moderate M DM 45-59 Minutes Completed 09/13/2020 33386 ECG 12-Lead Completed Medical Devices Description No [...] MD ECHO AUTH EMR-EXPIRES 12/21/20. [place] Created [address], [facility] [id number] [phone] Christian Silva MD [facility] auth emr-expires 10/14/20. [place] Created [address] [facility] [address] [phone]
--- OUTSIDE RECORDS SUMMARY | 2021-01-05 10:07 | CCD ---
Author Author [facility] Organization [facility] Address Unknown Phone Unavailable Care Team Providers Care Electric Brain Wave Equipment Mechanic Name Role Phone Zoe Fletcher Unavailable PROBLEMS Type Condition ICD9-CM Code [id number] Code Onset Dates Condition S tatus W/U Status Risk SNOMED Code Notes Problem BMI 38.0-38.9,adult Z68.38 Active confirmed 598094596 Problem Essential hypertension I10 Active confirmed 01634636 Problem Migraine without aura and without status migrain osus, not intractable G43.009 Active confirmed 995626215 Problem Mixed hyperlipidemia E78.2 Active confirmed 740645756 Problem Lumbago with sciatica, left side M54.42 Active confirmed 481995102 Problem BMI 39.0-39.9,adult Z68.39 Active confirmed 898604582 Problem Gastroesophageal reflux disease, esophagitis pre sence not specified K21.9 Active confirmed 668700540 Problem Allergic rhinitis, unspecified seasonality, unspecifie d trigger J30.9 Active confirmed 45292739 Problem Type 2 diabetes mellitus with other specified complication E11.69 Active confirmed 98000051 Problem Type 2 diabetes mellitus wit h hyperglycemia, without long-term current use of insulin E11.65 Active confirmed 16835091 Problem Other chronic pain G89.29 Active confirmed 8 6364169 Problem Vitamin D insufficiency E55.9 Active confirmed 02724029 Problem Lumbago with sciatica, right side M54.41 Active confirmed 271021214 Problem Vitamin D deficiency E55.9 Active confirmed 74299988 Problem Leukocytosis, unspecified type D72.829 Active confi rmed 086244376 Problem Arthritis of left ankle M19.072 Active confirmed 8855975338011185 Problem Cigarette nicotine dependence without complication F17.210 Active confirmed 51065115 ALLERGIES Allergen (clinical drug ingredient) Drug/Non Drug Allergy do cumented on EMR Reaction Allergy Type Onset Date Status Codeine Codeine Hives Non Drug Allergy Active ertugliflozin Steglatro([facility] Code:[address]-30) yeast infections Drug Allergy Active metformin Metformin HCl([facility] Code:[address]-21) diarrhea/headach es Drug Allergy Active meloxicam Meloxicam([facility] Code:[address]-21) Hives Drug Allergy Active gabapentin Gabapentin([facility] Code:[address]-84) Fatig ue/ "sleepiness"/ "unable to function" Drug Allergy Active ENCOUNTERS from 1975 to 2020-11-23 Encounter Location Date Provider Diagnosis [address] [place] [address] 13 Nov, 2020 Zoe Fletcher IMMUNIZATIONS Vaccine Route Administration Date Status Influenza 6mo & up Fluzone Unknown Jan 03, 2016 Refus ed SOCIAL HISTORY Tobacco Use: Social History Observation Description Date Details (start date - stop date) Current Smoker Sex Assigned At : Social History Observation Description Sex Assigned At Unknown Yazidi: Question Answer Notes Yazidi No confucianism prefere nces that would impact healthcare Sexual [...] for 90 days Not-Taking Vitamin D (Ergocalciferol) 60238 UNIT 1 capsule Orally once weekly for [...] a week for 30 days Active [place] 31G X 5 MM as directed subcutaneously daily for 90 d ay(s) Aug, Active FreeStyle Ezra [place] - as directed subcutaneously f our times a day for 90 day(s) Aug, Active PROCEDURES No Information RESULTS No Results REASON FOR VISIT labs MEDICAL (GENERAL) HISTORY Type Description Date [...] Details Provider Name:Zoe Fletcher, 2021-02 07:15:00 AM, [address] [place] [address], , [place], [address], Provider Name:Zoe Fletcher, 2021-02 08:00:00 AM, [address] [place] [address], , [place], [address], Insurance Providers Payer Name Payer Address Payer Phone Insured Name Patient Relati onship to Insured Coverage Start Date Coverage End Date [employer] [phone] [facility] LocalView [facility] [place] [address] [place] JULY [id number] MEDICAID [employer] [address] [facility] [id number] [place] self
--- OUTSIDE RECORDS SUMMARY | 2021-01-05 10:10 | CCD ---
Author Author [facility] Organization [facility] Address Unknown Phone Unavailable Care Team Providers Care Heater Engineer Helper Name Role Phone Yadira CARLIN MD Unavailable Unavailable Yadira CARLIN MD Unavailable Unavailable Yadira CARLIN MD Unavailable Unavailable Yadira CARLIN MD Unavailable Unavailable Yadira CARLIN MD Unavailable Unavailable Yadira CARLIN MD Unavailable Unavailable Yadira CARLIN MD Unavailable Unavailable Yadira CARLIN MD Unavailable Unavailable Yadira CARLIN MD Unavailable Unavailable Yadira CARLIN MD Unavailable Unavailable Yadira CARLIN MD Unavailable Unavailable Yadira CARLIN MD Unavailable Unavailable Yadira CARLIN MD Unavailable Unavailable Yadira CARLIN MD Unavailable Unavailable Yadira CARLIN MD Unavailable Unavailable Yadira CARLIN MD Unavailable Unavailable Yadira CARLIN MD Unavailable Unavailable Yadira CARLIN MD Unavailable Unavailable Yadira CARLIN MD Unavailable Unavailable Yadira CARLIN MD Unavailable Unavailable Yadira CARLIN MD Unavailable Unavailable Yadira CARLIN MD Unavailable Unavailable Yadira CARLIN MD Unavailable Unavailable Yadira CARLIN MD Unavailable Unavailable Yadira CARLIN MD Unavailable Unavailable Yadira CARLIN MD Unavailable Unavailable Yadira CARLIN MD Unavailable Unavailable Yadira CARLIN MD Unavailable Unavailable Yadira CARLIN MD Unavailable Unavailable Yadira CARLIN MD Unavailable Unavailable Yadira CARLIN MD Unavailable Unavailable Yadira CARLIN MD Unavailable Unavailable Yadira CARLIN MD Unavailable Unavailable Yadira CARLIN MD Unavailable Unavailable Yadira CARLIN MD Unavailable Unavailable Yadira CARLIN MD Unavailable Unavailable Yadira CARLIN MD Unavailable Unavailable Yadira CARLIN MD Unavailable Unavailable Yadira CARLIN MD Unavailable Unavailable Yadira CARLIN MD Unavailable Unavailable Yadira CARLIN MD Unavailable Unavailable Yadira CARLIN MD Unavailable Unavailable Yadira CARLIN MD Unavailable Unavailable Yadira CARLIN MD Unavailable Unavailable Yadira CARLIN MD Unavailable Unavailable Yadira CARLIN MD Unavailable Unavailable Yadira CALRIN MD Unavailable Unavailable Yadira CARLIN MD Unavailable Unavailable Yadira CARLIN MD Unavailable Unavailable Yadira CARLIN MD Unavailable Unavailable Yadira CARLIN MD Unavailable Unavailable Yadira CARLIN MD Unavailable Unavailable Yadira CARLIN MD Unavailable Unavailable Yadira CARLIN MD Unavailable Unavailable Fletcher, Kitty Zoe PA Unavailable Unavailable Fletcher, Kitty Zoe PA Unavailable Unavailable Fletcher, Kitty Zoe PA Unavailable Unavailable Fletcher, Kitty Zoe PA Unavailable Unavailable Fletcher, Iktty Zoe PA Unavailable Unavailable Fletcher, Kitty Zoe PA Unavailable Unavailable Fletcher, Kitty Zoe PA Unavailable Unavailable Fletcher, Kitty Zoe PA Unavailable Unavailable Fletcher, Kitty Zoe PA Unavailable Unavailable Fletcher, Kitty Zoe PA Unavailable Unavailable Fletcher, Kitty Zoe PA Unavailable Unavailable Fletcher, Kitty Zoe PA Unavailable Unavailable Fletcher, Kitty Zoe PA Unavailable Unavailable Fletcher, Kitty Zoe PA Unavailable Unavailable Fletcher, Kitty Zoe PA Unavailable Unavailable Fletcher, Kitty Zoe PA Unavailable Unavailable Fletcher, Kitty Zoe PA Unavailable Unavailable Fletcher, Kitty Zoe PA Unavailable Unavailable Fletcher, Kitty Zoe PA Unavailable Unavailable Fletcher, Kitty Zoe PA Unavailable Unavailable Fletcher, Kitty Zoe PA Unavailable Unavailable Fletcher, Kitty Zoe PA Unavailable Unavailable Fletcher, Kitty Zoe PA Unavailable Unavailable Fletcher, Kitty Zoe PA Unavailable Unavailable Kitty Fletchere PA Unavailable Unavailable Kitty Fletchere PA Unavailable Unavailable Kitty Fletcher PA Unavailable Unavailable Kitty Fletcher PA Unavailable Unavailable Kitty Fletchere PA Unavailable Unavailable Kitty Fletchere PA Unavailable Unavailable Kitty Fletchere PA Unavailable Unavailable Kitty Fletchere PA Unavailable Unavailable Kitty Fletchere PA Unavailable Unavailable Kitty Fletchere PA Unavailable Unavailable Kitty Fletchere PA Unavailable Unavailable Kitty Fletchere PA Unavailable Unavailable Kitty Fletchere PA Unavailable Unavailable Kitty Fletchere PA Unavailable Unavailable Kitty Fletchere PA Unavailable Unavailable Kitty Fletchere PA Unavailable Unavailable Kitty Fletchere PA Unavailable Unavailable Kitty Fletchere PA Unavailable Unavailable Kitty Fletchere PA Unavailable Unavailable Chance, Kitty Suareze PA Unavailable Unavailable Kitty Fletchere PA Unavailable Unavailable Kitty Fletchere PA Unavailable Unavailable Kitty Fletchere PA Unavailable Unavailable Kitty Fletchere PA Unavailable Unavailable Kitty Fletchere PA Unavailable Unavailable DAVIDSON, R NICOLE FLIGHT KITCHEN MANAGER Unavailable Unavailable DAVIDSON, R NICOLE FLIGHT KITCHEN MANAGER Unavailable Unavailable DAVIDSON, R NICOLE FLIGHT KITCHEN MANAGER Unavailable Unavailable DAVIDSON, R NICOLE FLIGHT KITCHEN MANAGER Unavailable Unavailable DAVIDSON, R NICOLE FLIGHT KITCHEN MANAGER Unavailable Unavailable DAVIDSON, R NICOLE FLIGHT KITCHEN MANAGER Unavailable Unavailable DAVIDSON, R NICOLE FLIGHT KITCHEN MANAGER Unavailable Unavailable DAVIDSON, R NICOLE FLIGHT KITCHEN MANAGER Unavailable Unavailable DAVIDSON, R NICOLE FLIGHT KITCHEN MANAGER Unavailable Unavailable DAVIDSON, R NICOLE FLIGHT KITCHEN MANAGER Unavailable Unavailable DAVIDSON, R NICOLE FLIGHT KITCHEN MANAGER Unavailable Unavailable DAVIDSON, R NICOLE FLIGHT KITCHEN MANAGER Unavailable Unavailable DAVIDSON, R NICOLE FLIGHT KITCHEN MANAGER Unavailable Unavailable DAVIDSON, R NICOLE FLIGHT KITCHEN MANAGER Unavailable Unavailable DAVIDSON, R NICOLE FLIGHT KITCHEN MANAGER Unavailable Unavailable DAVIDSON, R NICOLE FLIGHT KITCHEN MANAGER Unavailable Unavailable DAVIDSON, R NICOLE FLIGHT KITCHEN MANAGER Unavailable Unavailable DAVIDSON, R NICOLE FLIGHT KITCHEN MANAGER Unavailable Unavailable DAVIDSON, R NICOLE FLIGHT KITCHEN MANAGER Unavailable Unavailable DAVIDSON, R NICOLE FLIGHT KITCHEN MANAGER Unavailable Unavailable DAVIDSON, R NICOLE FLIGHT KITCHEN MANAGER Unavailable Unavailable DAVIDSON, R NICOLE FLIGHT KITCHEN MANAGER Unavailable Unavailable DAVIDSON, R NICOLE FLIGHT KITCHEN MANAGER Unavailable Unavailable DAVIDSON, R NICOLE FLIGHT KITCHEN MANAGER Unavailable Unavailable DAVIDSON, R NICOLE FLIGHT KITCHEN MANAGER Unavailable Unavailable DAVIDSON, R NICOLE FLIGHT KITCHEN MANAGER Unavailable Unavailable DAVIDSON, R NICOLE FLIGHT KITCHEN MANAGER Unavailable Unavailable DAVIDSON, R NICOLE FLIGHT KITCHEN MANAGER Unavailable Unavailable DAVIDSON, R NICOLE FLIGHT KITCHEN MANAGER Unavailable Unavailable DAVIDSON, R NICOLE FLIGHT KITCHEN MANAGER Unavailable Unavailable DAVIDSON, R NICOLE FLIGHT KITCHEN MANAGER Unavailable Unavailable DAVIDSON, R NICOLE FLIGHT KITCHEN MANAGER Unavailable Unavailable DAVIDSON, R NICOLE FLIGHT KITCHEN MANAGER Unavailable Unavailable DAVIDSON, R NICOLE FLIGHT KITCHEN MANAGER Unavailable Unavailable DAVIDSON, R NICOLE FLIGHT KITCHEN MANAGER Unavailable Unavailable DAVIDSON, R NICOLE FLIGHT KITCHEN MANAGER Unavailable Unavailable DAVIDSON, R NICOLE FLIGHT KITCHEN MANAGER Unavailable Unavailable DAVIDSON, R NICOLE FLIGHT KITCHEN MANAGER Unavailable Unavailable DAVIDSON, R NICOLE FLIGHT KITCHEN MANAGER Unavailable Unavailable DAVIDSON, R NICOLE FLIGHT KITCHEN MANAGER Unavailable Unavailable DAVIDSON, R NICOLE FLIGHT KITCHEN MANAGER Unavailable Unavailable DAVIDSON, R NICOLE FLIGHT KITCHEN MANAGER Unavailable Unavailable DAVIDSON, R NICOLE FLIGHT KITCHEN MANAGER Unavailable Unavailable DAVIDSON, R NICOLE FLIGHT KITCHEN MANAGER Unavailable Unavailable SYMENOW, G CHRISTOPHER PA Unavailable Unavailable SYMENOW, G CHRISTOPHER PA Unavailable Unavailable SYMENOW, G CHRISTOPHER PA Unavailable Unavailable SYMENOW, G CHRISTOPHER PA Unavailable Unavailable SYMENOW, G CHRISTOPHER PA Unavailable Unavailable SYMENOW, G CHRISTOPHER PA Unavailable Unavailable SYMENOW, G CHRISTOPHER PA Unavailable Unavailable SYMENOW, G CHRISTOPHER PA Unavailable Unavailable SYMENOW, G CHRISTOPHER PA Unavailable Unavailable SYMENOW, G CHRISTOPHER PA Unavailable Unavailable SYMENOW, G CHRISTOPHER PA Unavailable Unavailable SYMENOW, G CHRISTOPHER PA Unavailable Unavailable SYMENOW, G CHRISTOPHER PA Unavailable Unavailable SYMENOW, G CHRISTOPHER PA Unavailable Unavailable SYMENOW, G CHRISTOPHER PA Unavailable Unavailable SYMENOW, G CHRISTOPHER PA Unavailable Unavailable Rydberg, Sammie PA Unavailable Unavailable Rydberg, Sammie PA Unavailable Unavailable Rydberg, Sammie PA Unavailable Unavailable Rydberg, Sammie PA Unavailable Unavailable Rydberg, Sammie PA Unavailable Unavailable Rydberg, Sammie PA Unavailable Unavailable Rydberg, Sammie PA Unavailable Unavailable Rydberg, Sammie PA Unavailable Unavailable Rydberg, Sammie PA Unavailable Unavailable Rydberg, Sammie PA Unavailable Unavailable Rydberg, Sammie PA Unavailable Unavailable Rydberg, Sammie PA Unavailable Unavailable Rydberg, Sammie PA Unavailable Unavailable Rydberg, Sammie PA Unavailable Unavailable Rydberg, Sammie PA Unavailable Unavailable Rydberg, Sammie PA Unavailable Unavailable Rydberg, Sammie PA Unavailable Unavailable Rydberg, Sammie PA Unavailable Unavailable Rydberg, Sammie PA Unavailable Unavailable Rydberg, Sammie PA Unavailable Unavailable Rydberg, Sammie PA Unavailable Unavailable Rydberg, Sammie PA Unavailable Unavailable Rydberg, Sammie PA Unavailable Unavailable MOSQUERA, W VIANCA PA Unavailable Unavailable MOSQUERA, W VIANCA PA Unavailable Unavailable MOSQUERA, W VIANCA PA Unavailable Unavailable MOSQUERA, W VIANCA PA Unavailable Unavailable MOSQUERA, W VIANCA PA Unavailable Unavailable MOSQUERA, W VIANCA PA Unavailable Unavailable MOSQUERA, W VIANCA PA Unavailable Unavailable MOSQUERA, W VIANCA PA Unavailable Unavailable MOSQUERA, W VIANCA PA Unavailable Unavailable MOSQUERA, W VIANCA PA Unavailable Unavailable MOSQUERA, W VIANCA PA Unavailable Unavailable MOSQUERA, W VIANCA PA Unavailable Unavailable MOSQUERA, W VIANCA PA Unavailable Unavailable MOSQUERA, W VIANCA PA Unavailable Unavailable MOSQUERA, W VIANCA PA Unavailable Unavailable Jumalon, M Anila MEDICAL PHYSICS TEACHER Unavailable Unavailable Jumalon, M Anila MEDICAL PHYSICS TEACHER Unavailable Unavailable Jumalon, M Anila MEDICAL PHYSICS TEACHER Unavailable Unavailable Jumalon, M Anila MEDICAL PHYSICS TEACHER Unavailable Unavailable Jumalon, M Anila MEDICAL PHYSICS TEACHER Unavailable Unavailable Jumalon, M Anila MEDICAL PHYSICS TEACHER Unavailable Unavailable Jumalon, M Anila MEDICAL PHYSICS TEACHER Unavailable Unavailable Jumalon, M Anila MEDICAL PHYSICS TEACHER Unavailable Unavailable Jumalon, M Anila MEDICAL PHYSICS TEACHER Unavailable Unavailable Jumalon, M Anila MEDICAL PHYSICS TEACHER Unavailable Unavailable Jumalon, M Anila MEDICAL PHYSICS TEACHER Unavailable Unavailable Jumalon, M Anila MEDICAL PHYSICS TEACHER Unavailable Unavailable Jumalon, M Anila MEDICAL PHYSICS TEACHER Unavailable Unavailable Jumalon, M Anila MEDICAL PHYSICS TEACHER Unavailable Unavailable Jumalon, M Anila MEDICAL PHYSICS TEACHER Unavailable Unavailable Jumalon, M Anila MEDICAL PHYSICS TEACHER Unavailable Unavailable Jumalon, M Anila MEDICAL PHYSICS TEACHER Unavailable Unavailable Jumalon, M Anila MEDICAL PHYSICS TEACHER Unavailable Unavailable Jumalon, M Anila MEDICAL PHYSICS TEACHER Unavailable Unavailable Jumalon, M Anila MEDICAL PHYSICS TEACHER Unavailable Unavailable Jumalon, M Anila MEDICAL PHYSICS TEACHER Unavailable Unavailable Jumalon, M Anila MEDICAL PHYSICS TEACHER Unavailable Unavailable Jumalon, M Anila MEDICAL PHYSICS TEACHER Unavailable Unavailable Jumalon, M Anila MEDICAL PHYSICS TEACHER Unavailable Unavailable Jumalon, M Anila MEDICAL PHYSICS TEACHER Unavailable Unavailable Jumalon, M Anila MEDICAL PHYSICS TEACHER Unavailable Unavailable Jumalon, M Anila MEDICAL PHYSICS TEACHER Unavailable Unavailable Jumalon, M Anila MEDICAL PHYSICS TEACHER Unavailable Unavailable Jumalon, M Anila MEDICAL PHYSICS TEACHER Unavailable Unavailable Jumalon, M Anila MEDICAL PHYSICS TEACHER Unavailable Unavailable DEMARTINI, M MARCY PA Unavailable Unavailable DEMARTINI, M MARCY PA Unavailable Unavailable DEMARTINI, M MARCY PA Unavailable Unavailable DEMARTINI, M MARCY PA Unavailable Unavailable DEMARTINI, M MARCY PA Unavailable Unavailable DEMARTINI, M MARCY PA Unavailable Unavailable DEMARTINI, M MARCY PA Unavailable Unavailable DEMARTINI, M MARCY PA Unavailable Unavailable DEMARTINI, M MARCY PA Unavailable Unavailable DEMARTINI, M MARCY PA Unavailable Unavailable DEMARTINI, M MARCY PA Unavailable Unavailable DEMARTINI, M MARCY PA Unavailable Unavailable DEMARTINI, M MARCY PA Unavailable Unavailable DEMARTINI, M MARCY PA Unavailable Unavailable DEMARTINI, M MARCY PA Unavailable Unavailable DEMARTINI, M MARCY PA Unavailable Unavailable DEMARTINI, M MARCY PA Unavailable Unavailable DEMARTINI, M MARCY PA Unavailable Unavailable DEMARTINI, M MARCY PA Unavailable Unavailable DEMARTINI, M MARCY PA Unavailable Unavailable DEMARTINI, M MARCY PA Unavailable Unavailable DEMARTINI, M MARCY PA Unavailable Unavailable DEMARTINI, M MARCY PA Unavailable Unavailable DEMARTINI, M MARCY PA Unavailable Unavailable DEMARTINI, M MARCY PA Unavailable Unavailable DEMARTINI, M MARCY PA Unavailable Unavailable DEMARTINI, M MARCY PA Unavailable Unavailable DEMARTINI, M MARCY PA Unavailable Unavailable DEMARTINI, M MARCY PA Unavailable Unavailable DEMARTINI, M MARCY PA Unavailable Unavailable DEMARTINI, M MARCY PA Unavailable Unavailable DEMARTINI, M MARCY PA Unavailable Unavailable DEMARTINI, M MARCY PA Unavailable Unavailable DEMARTINI, M MARCY PA Unavailable Unavailable DEMARTINI, M MARCY PA Unavailable Unavailable DEMARTINI, M MARCY PA Unavailable Unavailable DEMARTINI, M MARCY PA Unavailable Unavailable DEMARTINI, M MARCY PA Unavailable Unavailable DEMARTINI, M MARCY PA Unavailable Unavailable DEMARTINI, M MARCY PA Unavailable Unavailable DEMARTINI, M MARCY PA Unavailable Unavailable DEMARTINI, M MARCY PA Unavailable Unavailable DEMARTINI, M MARCY PA Unavailable Unavailable DEMARTINI, M MARCY PA Unavailable Unavailable DEMARTINI, M MARCY PA Unavailable Unavailable FAIZAN, JASON ELPIDIO PA Unavailable Unavailable FAIZAN, JASON EPLIDIO PA Unavailable Unavailable FAIZAN, JASON ELPIDIO PA Unavailable Unavailable FAIZAN, JASON ELPIDIO PA Unavailable Unavailable FAIZAN, JASON ELPIDIO PA Unavailable Unavailable FAIZAN, JASON ELPIDIO PA Unavailable Unavailable FAIZAN, JASON ELPIDIO PA Unavailable Unavailable FAIZAN, JASON ELPIDIO PA Unavailable Unavailable FAIZAN, JASON ELPIDIO PA Unavailable Unavailable FAIZAN, JASON ELPIDIO PA Unavailable Unavailable FAIZAN, JASON ELPIDIO PA Unavailable Unavailable FAIZAN, JASON ELPIDIO PA Unavailable Unavailable FAIZAN, JASON ELPIDIO PA Unavailable Unavailable FAIZAN, JASON ELPIDIO PA Unavailable Unavailable FAIZAN, JASON ELPIDIO PA Unavailable Unavailable FAIZAN, JASON ELPIDIO PA Unavailable Unavailable FAIZAN, JASON ELPIDIO PA Unavailable Unavailable FAIZAN, JASON ELPIDIO PA Unavailable Unavailable FAIZAN, JASON ELPIDIO PA Unavailable Unavailable FAIZAN, JASON ELPIDIO PA Unavailable Unavailable FAIZAN, JASON ELPIDIO PA Unavailable Unavailable FAIZAN, JASON ELPIDIO PA Unavailable Unavailable Lucy II, Mateo PA Unavailable Unavailable Lucy II, Mateo PA Unavailable Unavailable Lucy II, Mateo PA Unavailable Unavailable Lucy II, Mateo PA Unavailable Unavailable Lucy II, Mateo PA Unavailable Unavailable Lucy II, Mateo PA Unavailable Unavailable Lucy II, Mateo PA Unavailable Unavailable Lucy II, Mateo PA Unavailable Unavailable Lucy II, Mateo PA Unavailable Unavailable Lucy II, Mateo PA Unavailable Unavailable Lucy II, Mateo PA Unavailable Unavailable Lucy II, Mateo PA Unavailable Unavailable Lucy II, Mateo PA Unavailable Unavailable Lucy II, Mateo PA Unavailable Unavailable Lucy II, Mateo PA Unavailable Unavailable Lucy II, Mateo PA Unavailable Unavailable Lucy II, Mateo PA Unavailable Unavailable Lucy II, Mateo PA Unavailable Unavailable Lucy II, Mateo PA Unavailable Unavailable Parul, Juanjo Ojedae MEDICAL PHYSICS TEACHER-C Unavailable Unavailabl e Parul, Juanjo Ojedae MEDICAL PHYSICS TEACHER-C Unavailable Unavailabl e Parul, Juanjo Ojedae MEDICAL PHYSICS TEACHER-C Unavailable Unavailabl e Parul, Juanjo Ojedae MEDICAL PHYSICS TEACHER-C Unavailable Unavailabl e Parul, Reggen Newtonyce MEDICAL PHYSICS TEACHER-C Unavailable Unavailabl e Parul, Juanjo W Kelly MEDICAL PHYSICS TEACHER-C Unavailable Unavailabl e Parul, Juanjo W Kelly MEDICAL PHYSICS TEACHER-C Unavailable Unavailabl e Parul, Juanjo W Kelly MEDICAL PHYSICS TEACHER-C Unavailable Unavailabl e Parul, Juanjo W Kelly MEDICAL PHYSICS TEACHER-C Unavailable Unavailabl e Parul, Reggen W Kelly MEDICAL PHYSICS TEACHER-C Unavailable Unavailabl e Parul, Reggen W Kelly MEDICAL PHYSICS TEACHER-C Unavailable Unavailabl e Parul, Juanjo W Kelly MEDICAL PHYSICS TEACHER-C Unavailable Unavailabl e Parul, Juanjo W Kelly MEDICAL PHYSICS TEACHER-C Unavailable Unavailabl e Parul, Juanjo W Kelly MEDICAL PHYSICS TEACHER-C Unavailable Unavailabl e Parul, Juanjo Mendoza MEDICAL PHYSICS TEACHER-C Unavailable Unavailabl e Parul, Juanjo W Kelly MEDICAL PHYSICS TEACHER-C Unavailable Unavailabl e Parul, Juanjo Mendoza MEDICAL PHYSICS TEACHER-C Unavailable Unavailabl e Parul, Juanjo Mendoza MEDICAL PHYSICS TEACHER-C Unavailable Unavailabl e Parul, Juanjo W Kelly MEDICAL PHYSICS TEACHER-C Unavailable Unavailabl e Parul, Juanjo W Kelly MEDICAL PHYSICS TEACHER-C Unavailable Unavailabl e Parul, Juanjo W Kelly MEDICAL PHYSICS TEACHER-C Unavailable Unavailabl e Parul, Juanjo W Kelly MEDICAL PHYSICS TEACHER-C Unavailable Unavailabl e Parul, Regmelissa W Kelly MEDICAL PHYSICS TEACHER-C Unavailable Unavailabl e Parul, Regmelissa W Kelly MEDICAL PHYSICS TEACHER-C Unavailable Unavailabl e Parul, Reggen W Kelly MEDICAL PHYSICS TEACHER-C Unavailable Unavailabl e Parul, Regmelissa W Kelly MEDICAL PHYSICS TEACHER-C Unavailable Unavailabl e Parul, Regmelissa W Kelly MEDICAL PHYSICS TEACHER-C Unavailable Unavailabl e Parul, Regmelissa W Kelly MEDICAL PHYSICS TEACHER-C Unavailable Unavailabl e Parul, Regmelissa W Kelly MEDICAL PHYSICS TEACHER-C Unavailable Unavailabl e Parul, Regmelissa W Kelly MEDICAL PHYSICS TEACHER-C Unavailable Unavailabl e Parul, Regmelissa W Kelly MEDICAL PHYSICS TEACHER-C Unavailable Unavailabl e Parul, Reginah W Kelly MEDICAL PHYSICS TEACHER-C Unavailable Unavailabl e Bolmasoud, Dante Guerrero MD Unavailable Unavailable Bolla, Dante Guerrero MD Unavailable Unavailable Bolla, Dante Guerrero MD Unavailable Unavailable Bolla, Dante Guerrero MD Unavailable Unavailable Bolla, Dante Guerrero MD Unavailable Unavailable Bolla, Dante Guerrero MD Unavailable Unavailable Bolla, Dante Guerrero MD Unavailable Unavailable Bolla, Dante Guerrero MD Unavailable Unavailable Bolla, Dante Guerrero MD Unavailable Unavailable Bolla, Dante Guerrero MD Unavailable Unavailable Bolla, Dante Guerrero MD Unavailable Unavailable Bolla, Dante Guerrero MD Unavailable Unavailable Bolla, Dante Guerrero MD Unavailable Unavailable Bolla, Dante Guerrero MD Unavailable Unavailable Bolla, Dante Guerrero MD Unavailable Unavailable Bolla, Dante Guerrero MD Unavailable Unavailable Bolla, Dante Guerrero MD Unavailable Unavailable [place], Dante Guerrero MD Unavailable Unavailable Bolla, Dante Guerrero MD Unavailable Unavailable Bolla, Dante Guerrero MD Unavailable Unavailable Bolla, Dante Guerrero MD Unavailable Unavailable Bolla, Dante Guerrero MD Unavailable Unavailable Bolla, Dante Guerrero MD Unavailable Unavailable [place], Dante Guerrero MD Unavailable Unavailable Bolla, Dante Guerrero MD Unavailable Unavailable [place], Dante Guerrero MD Unavailable Unavailable Bolla, Dante Guerrero MD Unavailable Unavailable [place], Dante Guerrero MD Unavailable Unavailable Bolla, Dante Guerrero MD Unavailable Unavailable [place], Dante Guerrero MD Unavailable Unavailable [place], Dante Guerrero MD Unavailable Unavailable [place], Dante Guerrero MD Unavailable Unavailable Bolla, Dante Guerrero MD Unavailable Unavailable [place], Dante Guerrero MD Unavailable Unavailable [place], Dante Guerrero MD Unavailable Unavailable Bolla, Dante Guerrero MD Unavailable Unavailable [place], Dante Guerrero MD Unavailable Unavailable [place], Dante Guerrero MD Unavailable Unavailable [place], Dante Guerrero MD Unavailable Unavailable Bolla, Dante Guerrero MD Unavailable Unavailable [place], Dante Guerrero MD Unavailable Unavailable [place], Dante Guerrero MD Unavailable Unavailable [place], Dante Guerrero MD Unavailable Unavailable [place], Dante Guerrero MD Unavailable Unavailable Bolla, Dante Guerrero MD Unavailable Unavailable [place], Dante Guerrero MD Unavailable Unavailable Bolla, Dante Guerrero MD Unavailable Unavailable [place], Dante Guerrero MD Unavailable Unavailable Bolla, Dante Guerrero MD Unavailable Unavailable IDA, Pamler ESCALONA Unavailable Unavailable John Mosquera PA-C Unavailable John Mosquera PA-C Unavailable John Mosquera PA-C Unavailable John Mosquera PA-C Unavailable Chaparro John PA-C Unavailable OZIEL, L KIMBERLY PA Unavailable Unavailable OZIEL, L KIMBERLY PA Unavailable Unavailable OZIEL, L KIMBERLY PA Unavailable Unavailable OZIEL, L KIMBERLY PA Unavailable Unavailable OZIEL, L KIMBERLY PA Unavailable Unavailable OZIEL, L KIMBERLY PA Unavailable Unavailable OZIEL, L KIMBERLY PA Unavailable Unavailable OZIEL, L KIMBERLY PA Unavailable Unavailable OZIEL, L KIMBERLY PA Unavailable Unavailable OZIEL, L KIMBERLY PA Unavailable Unavailable OZIEL, L KIMBERLY PA Unavailable Unavailable OZIEL, L KIMBERLY PA Unavailable Unavailable OZIEL, L KIMBERLY PA Unavailable Unavailable OZIEL, L KIMBERLY PA Unavailable Unavailable OZIEL, L KIMBERLY PA Unavailable Unavailable OZIEL, L KIMBERLY PA Unavailable Unavailable OZIEL, L KIMBERLY PA Unavailable Unavailable OZIEL, L KIMBERLY PA Unavailable Unavailable OZIEL, L KIMBERLY PA Unavailable Unavailable OZIEL, L KIMBERLY PA Unavailable Unavailable OZIEL, L KIMBERLY PA Unavailable Unavailable OZIEL, L KIMBERLY PA Unavailable Unavailable Jackson, W Billy RPA-C Unavailable Unavailable Jackson, W Billy RPA-C Unavailable Unavailable Jackson, W Billy RPA-C Unavailable Unavailable Jackson, W Billy RPA-C Unavailable Unavailable Jackson, W Billy RPA-C Unavailable Unavailable Jackson, W Billy RPA-C Unavailable Unavailable Jackson, W Billy RPA-C Unavailable Unavailable Jackson, W Billy RPA-C Unavailable Unavailable Jackson, W Billy RPA-C Unavailable Unavailable Jackson, W Billy RPA-C Unavailable Unavailable Jackson, W Billy RPA-C Unavailable Unavailable Jackson, W Billy RPA-C Unavailable Unavailable Jackson, W Billy RPA-C Unavailable Unavailable Jackson, W Billy RPA-C Unavailable Unavailable Jackson, W Billy RPA-C Unavailable Unavailable Jackson, W Billy RPA-C Unavailable Unavailable Jackson, W Billy RPA-C Unavailable Unavailable Elian TRUJILLO MD Unavailable Unavailable Elian TRUJILLO MD Unavailable Unavailable CASSANDRA, Elian BLANCO MD Unavailable Unavailable Elian TRUJILLO MD Unavailable Unavailable Elian TRUJILLO MD Unavailable Unavailable Elian TRUJILLO MD Unavailable Unavailable Elian TRUJILLO MD Unavailable Unavailable Elian TRUJILLO MD Unavailable Unavailable VANVALKENBURG, Elian BLANCO MD Unavailable Unavailable VANVALKENBURG, Elian BLANCO MD Unavailable Unavailable VANVALKENBURG, M FRANCIS HAMLIN Unavailable Unavailable VANVALKENBURG, Elian BLANCO MD Unavailable Unavailable VANVALKENBURG, Elian BLANCO MD Unavailable Unavailable VANVALKENBURG, M FRANCIS HAMLIN Unavailable Unavailable VANVALKENBURG, Elian BLANCO MD Unavailable Unavailable VANVALKENBURG, Elian BLANCO MD Unavailable Unavailable VANVALKENBURG, Elian BLANCO MD Unavailable Unavailable VANVALKENBURG, Elian BLANCO MD Unavailable Unavailable VANVALKENBURG, Elian BLANCO MD Unavailable Unavailable VANVALKENBURG, M FRANCIS HAMLIN Unavailable Unavailable VANVALKENBURG, M FRANCIS HAMLIN Unavailable Unavailable VANVALKENBURG, M FRANCIS HAMLIN Unavailable Unavailable VANVALKENBURG, M FRANCIS HAMLIN Unavailable Unavailable VANVALKENBURG, M FRANCIS HAMLIN Unavailable Unavailable VANVALKENBURG, M FRANCIS HAMLIN Unavailable Unavailable VANVALKENBURG, M FRANCIS HAMLIN Unavailable Unavailable VANVALKENBURG, Elian BLANCO MD Unavailable Unavailable VANVALKENBURG, Elian BLANCO MD Unavailable Unavailable VANVALKENBURG, Elian BLANCO MD Unavailable Unavailable VANVALKENBURG, Elian BLANCO MD Unavailable Unavailable VANVALKENBURG, Elian BLANCO MD Unavailable Unavailable VANVALKENBURG, M FRANCIS HAMLIN Unavailable Unavailable VANVALKENBURG, Elian BLANCO MD Unavailable Unavailable VANVALKENBURG, Elian BLANCO MD Unavailable Unavailable VANVALKENBURG, Elian BLANCO MD Unavailable Unavailable VANVALKENBURG, Elian BLANCO MD Unavailable Unavailable VANVALKENBURG, Elian BLANCO MD Unavailable Unavailable VANVALKENBURG, Elian BLANCO MD Unavailable Unavailable VANVALKENBURG, Elian BLANCO MD Unavailable Unavailable VANVALKENBURG, Elian BLANCO MD Unavailable Unavailable VANVALKENBURG, Elian BLANCO MD Unavailable Unavailable VANVALKENBURG, Elian BLANCO MD Unavailable Unavailable VANVALKENBURG, Elian BLANCO MD Unavailable Unavailable VANVALKENBURG, Elian BLANCO MD Unavailable Unavailable VANVALKENBURG, Elian BLANCO MD Unavailable Unavailable VANVALKENBURG, Elian BLANCO MD Unavailable Unavailable VANVALKENBURG, Elian BLANCO MD Unavailable Unavailable VANVALKENBURG, Elian BLANCO MD Unavailable Unavailable VANVALKENBURG, Elian BLANCO MD Unavailable Unavailable VANVALKENBURG, Elian BLANCO MD Unavailable Unavailable VANVALKENBURG, Elian BLANCO MD Unavailable Unavailable VANVALKENBURG, Elian BLANCO MD Unavailable Unavailable VANVALKENBURG, Elian BLANCO MD Unavailable Unavailable VANVALKENBURG, Elian BLANCO MD Unavailable Unavailable VANVALKENBURG, Elina BLANCO MD Unavailable Unavailable VANVALKENBURG, Elian BLANCO MD Unavailable Unavailable VANVALKENBURG, Elian BLANCO MD Unavailable Unavailable VANVALKENBURG, Elian BLANCO MD Unavailable Unavailable VANVALKENBURG, Elian BLANCO MD Unavailable Unavailable VANVALKENBURG, M FRANCIS HAMLIN Unavailable Unavailable VANVALKENBURG, M FRANCIS HAMLIN Unavailable Unavailable VANVALKENBURG, M FRANCIS HAMLIN Unavailable Unavailable VANVALKENBURG, M FRANCIS HAMLIN Unavailable Unavailable VANVALKENBURG, M FRANCIS HAMLIN Unavailable Unavailable VANVALKENBURG, M FRANCIS HAMLIN Unavailable Unavailable VANVALKENBURG, M FRANCIS HAMLIN Unavailable Unavailable VANVALKENBURG, M FRANCIS HAMLIN Unavailable Unavailable VANVALKENBURG, M FRANCIS HAMLIN Unavailable Unavailable VANVALKENBURG, M FRANCIS HAMLIN Unavailable Unavailable VANVALKENBURG, M FRANCIS HAMLIN Unavailable Unavailable VANVALKENBURG, M FRANCIS HAMLIN Unavailable Unavailable Jian, Mauricio Borrego PH.D., M.D. Unavailable Unavailable Jian, Mauricio Borrego PH.D., M.D. Unavailable Unavailable Jian, Mauricio Borrego PH.D., M.D. Unavailable Unavailable Jian, Mauricio Borrego PH.D., M.D. Unavailable Unavailable Jian, Mauricio Borrego PH.D., M.D. Unavailable Unavailable Jian, Mauricio Borrego PH.D., M.D. Unavailable Unavailable Jian, Mauricio Borrego PH.D., M.D. Unavailable Unavailable Jian, Mauricio Borrego PH.D., M.D. Unavailable Unavailable Jian, Mauricio Borrego PH.D., M.D. Unavailable Unavailable Jian, Mauricio Borrego PH.D., M.D. Unavailable Unavailable Jian, Mauricio Borrego PH.D., M.D. Unavailable Unavailable Jian, Mauricio Borrego PH.D., M.D. Unavailable Unavailable Jian, Mauricio Borrego PH.D., M.D. Unavailable Unavailable Jian, Mauricio Borrego PH.D., M.D. Unavailable Unavailable Jian, Mauricio Borrego PH.D., M.D. Unavailable Unavailable Jian, Mauricio Borrego PH.D., M.D. Unavailable Unavailable Jian, Mauricio Borrego PH.D., M.D. Unavailable Unavailable Jian, Mauricio Borrego PH.D., M.D. Unavailable Unavailable Jian, Mauricio Borrego PH.D., M.D. Unavailable Unavailable Jian, Mauricio Borrego PH.D., M.D. Unavailable Unavailable Jian, Mauricio Borrego PH.D., M.D. Unavailable Unavailable Jian, Mauricio Borrego PH.D., M.D. Unavailable Unavailable Jian, Mauricio Borrego PH.D., M.D. Unavailable Unavailable Jian, Mauricio Borrego PH.D., M.D. Unavailable Unavailable Jian, Mauricio Borrego PH.D., M.D. Unavailable Unavailable Jian, C Elmo PH.D., M.D. Unavailable Unavailable Jian, C Elmo PH.D., M.D. Unavailable Unavailable Jian, C Elmo PH.D., M.D. Unavailable Unavailable Jian, C Elmo PH.D., M.D. Unavailable Unavailable Jian, C Elmo PH.D., M.D. Unavailable Unavailable Jian, C Elmo PH.D., M.D. Unavailable Unavailable Jian, C Elmo PH.D., M.D. Unavailable Unavailable Jian, C Elmo PH.D., M.D. Unavailable Unavailable Jian, C Elmo PH.D., M.D. Unavailable Unavailable Jian, C Elmo PH.D., M.D. Unavailable Unavailable Jian, C Elmo PH.D., M.D. Unavailable Unavailable Jian, C Elmo PH.D., M.D. Unavailable Unavailable Jian, C Elmo PH.D., M.D. Unavailable Unavailable Jian, C Elmo PH.D., M.D. Unavailable Unavailable Jian, C Elmo PH.D., M.D. Unavailable Unavailable Jian, C Elmo PH.D., M.D. Unavailable Unavailable Jian, C Elmo PH.D., M.D. Unavailable Unavailable Jian, C Elmo PH.D., M.D. Unavailable Unavailable Jian, C Elmo PH.D., M.D. Unavailable Unavailable Jian, C Elmo PH.D., M.D. Unavailable Unavailable Jian, C Elmo PH.D., M.D. Unavailable Unavailable Jian, C Elmo PH.D., M.D. Unavailable Unavailable Jian, C Elmo PH.D., M.D. Unavailable Unavailable Jian, C Elmo PH.D., M.D. Unavailable Unavailable Jian, C Elmo PH.D., M.D. Unavailable Unavailable Jian, C Elmo PH.D., M.D. Unavailable Unavailable Jian, C Elmo PH.D., M.D. Unavailable Unavailable Jian, C Elmo PH.D., M.D. Unavailable Unavailable Jian, C Elmo PH.D., M.D. Unavailable Unavailable Jian, C Elmo PH.D., M.D. Unavailable Unavailable Jian, C Elmo PH.D., M.D. Unavailable Unavailable Jian, C Elmo PH.D., M.D. Unavailable Unavailable Jian, C Elmo PH.D., M.D. Unavailable Unavailable Jian, C Elmo PH.D., M.D. Unavailable Unavailable Jian, Mauricio Borrego PH.D., M.D. Unavailable Unavailable Jian, Mauricio Borrego PH.D., M.D. Unavailable Unavailable Jian, Mauricio Borrego PH.D., M.D. Unavailable Unavailable Jian, Mauricio Borrego PH.D., M.D. Unavailable Unavailable Jian, Mauricio Borrego PH.D., M.D. Unavailable Unavailable Jian, Mauricio Borrego PH.D., M.D. Unavailable Unavailable Jian, Mauricio Borrego PH.D., M.D. Unavailable Unavailable Jian, Mauricio Borrego PH.D., M.D. Unavailable Unavailable Jian, Mauricio Borrego PH.D., M.D. Unavailable Unavailable Jian, Mauricio Borrego PH.D., M.D. Unavailable Unavailable Jian, Mauricio Borrego PH.D., M.D. Unavailable Unavailable Jian, Mauricio Borrego PH.D., M.D. Unavailable Unavailable Jian, Mauricio Borrego PH.D., M.D. Unavailable Unavailable Jian, Mauricio Borrego PH.D., M.D. Unavailable Unavailable Jian, Mauricio Borrego PH.D., M.D. Unavailable Unavailable Jian, Mauricio Borrego PH.D., M.D. Unavailable Unavailable Jian, Mauricio Borrego PH.D., M.D. Unavailable Unavailable Jian, Mauricio Borrego PH.D., M.D. Unavailable Unavailable Jian, Mauricio Borrego PH.D., M.D. Unavailable Unavailable Jian, Mauricio Borrego PH.D., M.D. Unavailable Unavailable Jian, Mauricio Borrego PH.D., M.D. Unavailable Unavailable Jian, Mauricio Borrego PH.D., M.D. Unavailable Unavailable Jian, Mauricio Borrego PH.D., M.D. Unavailable Unavailable Re-disclosure Warning The records that you are about to access may contain information from federally-assisted alcohol or drug abuse programs. If such information is present, then the following federally mandated warning applies: This information has been disclosed to you from records protected by federal confidentiality rules (42 CFR part 2). The federal rules prohibit you from making any further disclosure of this information unless further disclosure is expressly permitted by the written consent of the person to whom it pertains or as otherwise permitted by 42 CFR part 2. A general authorization for the release of medical or other information is NOT sufficient for this purpose. The Federal rules restrict any use of the information to criminally investigate or prosecute any alcohol or drug abuse patient.The records that you are about to access may contain highly sensitive health information, the redisclosure of which is protected by Article 27-F of the [facility] Public Health law. If you continue you may have access to information: Regarding HIV / AIDS; Provided by facilities licensed or operated by the [facility] Office of Mental Health; or Provided by the [facility] Office for People With Developmental Disabilities. If such information is present, then the following [facility] mandated warning applies: This information has been disclosed to you from confidential records which are protected by state law. State law prohibits you from making any further disclosure of this information without the specific written consent of the person to whom it pertains, or as otherwise permitted by law. Any unauthorized further disclosure in violation of state law may result in a fine or fdc sentence or both. A general authorization for the release of medical or other information is NOT sufficient authorization for further disc losure. Allergies and Adverse Reactions Type Description Substance Reaction Status Data Source(s ) Drug allergy METFORMIN HCL METFORMIN HCL [facility] Propensity to adverse reactions GABAPENTIN GABAPENTIN Family History Family Member Name Family Member Gender Family Member Status Date o f Status Description Data Source(s) Unknown Unknown Problem [facility] ([facility] Unknown Female Problem [facility] Unknown Female Problem [facility] Encounters Encounter Providers Location Date Indications Data Source(s ) Outpatient Attender: MARCY CASANOVA 01/26/2021 12:00: 00 AM [facility] Outpatient Attender: Mateo Shepherd/Lexis/Terrance/Rein dl 12/30/2020 01:30:00 PM EDT [facility] ([facility]) Outpatient Attender: Elmo Villar PH.D., Kendall Shepherd/Lexis/Mnoi rubio/Jefferson 12/23/2020 03:45:00 PM EDT [facility] ([facility]) Outpatient Attender: Elmo Villar PH.Darryn, Kendall Olivarez/Moni rubio/Reinnorris 12/16/2020 03:45:00 PM EDT [facility] ([facility] Outpatient [facility] [address] 12/14/2020 12:00:00 AM EDT eCW1 [facility] Outpatient Attender: Kelly SCHREIBERP-Mauricio 12/02/2020 02:35:0 0 PM [facility] [place] [address] [facility] [address] 12/02/2020 12:00:00 AM EDT eCW1 ([facility]) Outpatient Attender: MARCY CASANOVA [id number] 11/29/2020 12:00:00 AM [facility] Outpatient Attender: NICOLE DAVIDSON NPReferrer: NICOLE DAVIDSON NP 11/17/2020 12:00:00 AM [facility] [place] [address] [facility] [address] 11/16/2020 12:00:00 AM EDT eCW1 ([facility]) [place] [address] [facility] [address] 11/15/2020 12:00:00 AM EDT eCW1 ([facility]) Outpatient Referrer: NICOLE DAVIDSON NP 11/10/2020 1 2:00:00 AM EDT Pain in right shoulder Pain in right shoulder Outpatient Referrer: NICOLE DAVIDSON NP 11/10/2020 12:00:0 0 AM [facility] [place] [address] [facility] [address] 11/10/2020 12:00:00 AM EDT eCW1 ([facility]) Outpatient Referrer: NICOLE DAVIDSON NP 11/10/2020 12:00:0 0 AM [facility] Outpatient Referrer: NICOLE DAVIDSON NP 10/19/2020 1 2:00:00 AM EDT Pain, unspecified Pain, unspecified Outpatient Attender: NICOLE DAVIDSON NP [id number] 10/19/2020 1 2:00:00 AM [facility] Outpatient Attender: MARCY CASANOVA [id number] 10/11/2020 12:00:00 AM EDT Cesar Mahajan MD: [id number], [address], [place] [address], Ph. Attender: Cesar Mahajan MD [place] - [facility] - Main Office 10/04/2020 12:00:00 AM EDT HORACIO ([facility]) Anila Barakat, FLIGHT KITCHEN MANAGER: [address], [address], [place] [address], Ph. Attender: Anila Barakat [facility] - [facility] - [facility] Office 09/20/2020 12:00:00 AM EDT ATHE NA ([facility]) Anila Barakat, FLIGHT KITCHEN MANAGER: [address], [address], [place] [address], Ph. Attender: Anila Barakat [facility] - [facility] - [facility] Office 09/20/2020 12:00:00 AM EDT ATHE NA ([facility]) Outpatient Attender: HILTON CARLIN MD Main Office 09/13/2020 09:30:00 AM EDT [facility] ([facility]) [place] [address] [address] 09/09/2020 12:00:00 AM EDT eCW1 ([facility]) [place] [address] [address] 09/07/2020 12:00:00 AM EDT eCW1 ([facility]) Emergency Attender: John CASANOVA-CReferrer: Zoe CASANOVA 08/31/2020 06:08:00 PM EDT - 08/31/2020 06:48:00 PM EDT [facility] Patient discharged. [place] [address] [address] 08/31/2020 12:00:00 AM EDT eCW1 ([facility]) [place] [address] [address] 08/31/2020 12:00:00 AM EDT eCW1 ([facility]) Anila Barakat, FLIGHT KITCHEN MANAGER: [address], [place] [address], Ph. Attender: Anila Barakat [facility] - [facility] - [facility] 08/30/2020 12:00:00 AM EDT ATHE NA ([facility]) Anila Barakat, FLIGHT KITCHEN MANAGER: [address], [place] [address], Ph. Attender: Anila Barakat [facility] - [facility] 08/30/2020 12:00:00 AM EDT ATHYadira NA ([facility]) Anila Barakat, FLIGHT KITCHEN MANAGER: [address], [place] [address], Ph. Attender: Anila Barakat [facility] - [facility] 08/30/2020 12:00:00 AM EDT ATHE NA ([facility]) [place] [address] [address] 08/17/2020 12:00:00 AM EDT eCW1 ([facility]) [place] [address] [address] 08/16/2020 12:00:00 AM EDT eCW1 ([facility]) Emergency Attender: KIMBERLY Church: Main CASANOVA EMERGENCY ROOM-ER 08/13/2020 09:09:00 AM EDT - 08/13/2020 11:12:00 AM EDT [facility] Patient discharged. [place] [address] [address] 08/12/2020 12:00:00 AM EDT eCW1 ([facility]) [place] [address] [address] 08/11/2020 12:00:00 AM EDT eCW1 ([facility]) [place] [address] [address] 08/03/2020 12:00:00 AM EDT eCW1 ([facility]) [place] [address] [address] 07/15/2020 12:00:00 AM EDT eCW1 ([facility]) Anila Barakat, FLIGHT KITCHEN MANAGER: [address], [place] [address], Ph. Attender: Anila Barakat [facility] 07/14/2020 12:00:00 AM EDT ATHE NA ([facility]) Anilabayron Barakat, FLIGHT KITCHEN MANAGER: [address], [place] [address], Ph. Attender: Anila Barakat [facility] 07/14/2020 12:00:00 AM EDT ATHE NA ([facility]) Anila Barakat, FLIGHT KITCHEN MANAGER: [address], [place] [address], Ph. Attender: Anilayadira Barakat [facility] 07/14/2020 12:00:00 AM EDT ATHE NA ([facility]) Anila Barakat, FLIGHT KITCHEN MANAGER: [address], [place] [address], Ph. 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 Outpatient Attender: MARCY CASANOVA 07/03/2020 04:29: 00 PM [facility] Unknown [address] [address] 06/29/2020 12:00:00 AM EDT eCW1 ([facility]) [place] [address] [address] 06/28/2020 12:00:00 AM EDT eCW1 ([facility]) Outpatient [address] [address] 06/24/2020 12:00:00 AM EDT eCW1 ([facility]) Outpatient Attender: MARCY CASANOVA 06/16/2020 12:00: 00 AM [facility] Outpatient Attender: MARCY CASANOVA 06/15/2020 12:00: 00 AM [facility] Outpatient Attender: MARCY CASANOVA 09:49:00 AM EDT - 06/29/2020 04:29:00 PM [facility] Patient discharged. Cesar Mahajan MD: [address], [place] [address], Ph. Attender: Cesar Mahajan MD [place] - [facility] 05/31/2020 12:00:00 AM EDT HORACIO ([facility]) Cesar Mahajan MD: [address], [place] [address], Ph. Attender: Cesar MOREIRA - [facility] 05/31/2020 12:00:00 AM EDT HORACIO ([facility]) Cesar Mahajan MD: [address], [facility] [place] [address], Ph. Attender: Cesar Mahajan MD [place] - [facility] 05/31/2020 12:00:00 AM EDT HORACIO ([facility]) Cesar Mahajan MD: [address], [place] [address], Ph. Attender: Cesar Mahajan MD [place] - [facility] 05/31/2020 12:00:00 AM EDT HORACIO ([facility]) Cesar Mahajan MD: [address], [place] [address], Ph. Attender: Cesar Mahajan MD [place] - [facility] 05/31/2020 12:00:00 AM EDT HORACIO ([facility]) Unknown [address] [facility] [address] 05/17/2020 12:00:00 AM EDT eCW1 ([facility]) Unknown [address] [facility] [place] [address] 05/17/2020 12:00:00 AM EDT eCW1 ([facility]) Outpatient Attender: MARCY CASANOVA 02:30:00 PM EST - 06/01/2020 09:49:00 AM EDT [facility] Patient discharged. Anila Barakat, FLIGHT KITCHEN MANAGER: [address], [place] [address], Ph. Attender: Anila Barakat [facility] - [facility] 05/11/2020 12:00:00 AM EST ATHE NA ([facility]) Anila Barakat, FLIGHT KITCHEN MANAGER: [address], [place] [address], Ph. Attender: Anila Barakat [facility] - [facility] 05/11/2020 12:00:00 AM EST ATHE NA ([facility]) Anila Barakat, FLIGHT KITCHEN MANAGER: [address], [place] [address], Ph. Attender: Anila Barakat [facility] 05/11/2020 12:00:00 AM EST ATHE NA ([facility]) Anila Barakat, FLIGHT KITCHEN MANAGER: [address], [place] [address], Ph. Attender: Anila Barakat [facility] 05/11/2020 12:00:00 AM EST ATHE NA ([facility]) Anila Barakat, FLIGHT KITCHEN MANAGER: [address], [place] [address], Ph. Attender: Anila Barakat [facility] 05/11/2020 12:00:00 AM EST ATHE NA ([facility]) Anila Barakat, FLIGHT KITCHEN MANAGER: [address], [place] [address], Ph. 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 Attender: Anila Barakat [facility] 04/21/2020 12:00:00 AM EST ATHE NA ([facility]) Anila Barakat, FLIGHT KITCHEN MANAGER: [address], [place] [address], Ph. Attender: Anila Barakat [facility] - [facility] 04/21/2020 12:00:00 AM EST ATHE NA ([facility]) Anila Barakat, FLIGHT KITCHEN MANAGER: [address], [place] [address], Ph. Attender: Anila Barakat [facility] - [facility] 04/21/2020 12:00:00 AM EST ATHE NA ([facility]) Anila Barakat, FLIGHT KITCHEN MANAGER: [address], [facility] [place] [address], Ph. Attender: Anila Barakat [facility] - [facility] 04/21/2020 12:00:00 AM EST ATHE NA ([facility]) Anila Barakat, FLIGHT KITCHEN MANAGER: [address], [place] [address], Ph. Attender: Anila Barakat [facility] - [facility] 04/21/2020 12:00:00 AM EST ATHE NA ([facility]) Anila Barakat, FLIGHT KITCHEN MANAGER: [address], [place] [address], Ph. Attender: Anila Barakat [facility] - [facility] 04/21/2020 12:00:00 AM EST ATHE NA ([facility]) Anila Barakat, FLIGHT KITCHEN MANAGER: [address], [place] [address], Ph. Attender: [facility] 04/21/2020 12:00:00 AM EST ATHE NA ([facility]) Outpatient Attender: FRANCIS TRUJILLO MD [id number] 04/07/2020 12:00:00 AM EST Other [facility] Other specified acquired deformities of musculoskeletal system Cesar Mahajan MD: [address], [place], [place] [address], Ph. Attender: Cesar Mahajan MD [place] - [facility] 04/06/2020 12:00:00 AM EST HORACIO ([facility]) Cesar Mahajan MD: [address], [place] [address], Ph. Attender: Cesar MOREIRA - [facility] 04/06/2020 12:00:00 AM EST HORACIO ([facility]) Cesar Mahajan MD: [address], [place] [address], Ph. Attender: Cesar MOREIRA - [facility] 04/06/2020 12:00:00 AM EST HORACIO ([facility]) Cesar Mahajan MD: [address], [place] [address], Ph. Attender: Cesar Mahajan MD [place] - [facility] 04/06/2020 12:00:00 AM EST HORACIO ([facility]) Cesar Mahajan MD: [address], [place] [address], Ph. Attender: Cesar Mahajan MD [place] - [facility] 04/06/2020 12:00:00 AM EST HORACIO ([facility]) Cesar Mahajan MD: [address] [facility] [address], [place] [address], Ph. Attender: Cesar Mahajan MD [place] - [facility] Office 04/06/2020 12:00:00 AM EST HORACIO ([facility] [facility]) Cesar Mahajan MD: [address], [place] [address], Ph. Attender: Cesar Mahajan MD [place] - [facility] Office 04/06/2020 12:00:00 AM EST HORACIO ([facility]) Cesar Mahajan MD: [id number] [facility] [address], [place] [address], Ph. Attender: Cesar Mahajan MD ME - [facility] 04/06/2020 12:00:00 AM EST HORACIO ([facility]) Unknown [address] [facility] [address] 04/05/2020 12:00:00 AM EST eCW1 ([facility]) Outpatient Attender: POLA PRIETOReferrer: FRANCIS GARCIA MD [id number] 03/19/2020 12:00:00 AM EST - 03/20/2020 12:00:00 AM EST Outpatient [address] [facility] [address] 03/15/2020 12:00:00 AM EST eCW1 ([facility]) Anila Barakat, FLIGHT KITCHEN MANAGER: [address], [place] [address], Ph. [facility]: [facility] 03/10/2020 12:00:00 AM EST ATHE NA ([facility]) Anila Barakat, FLIGHT KITCHEN MANAGER: [address], [place] [address], Ph. Attender: Anila Barakat [facility] - [facility] 03/10/2020 12:00:00 AM EST ATHE NA ([facility]) Anila Barakat, FLIGHT KITCHEN MANAGER: [address], [place] [address], Ph. Attender: Anila Barakat [facility] - [facility] 03/10/2020 12:00:00 AM EST ATHE NA ([facility]) Anila Barakat, FLIGHT KITCHEN MANAGER: [address], [place] [address], Ph. Attender: Anila Barakat [facility] - [facility] 03/10/2020 12:00:00 AM EST ATHE NA ([facility]) Anila Barakat, FLIGHT KITCHEN MANAGER: [address], [place] [address], Ph. Attender: Anila Barakat [facility] - [facility] 03/10/2020 12:00:00 AM EST ATHE NA ([facility]) Anila Barakat, FLIGHT KITCHEN MANAGER: [address], [place] [address], Ph. Attender: Anila Barakat [facility] - [facility] 03/10/2020 12:00:00 AM EST ATHE NA ([facility]) Anila Barakat, FLIGHT KITCHEN MANAGER: [address], [place] [address], Ph. Attender: Anila Barakat [facility] - [facility] 03/10/2020 12:00:00 AM EST ATHE NA ([facility]) Anila Barakat, FLIGHT KITCHEN MANAGER: [address], [place] [address], Ph. Attender: Anila Barakat [facility] - [facility] 03/10/2020 12:00:00 AM EST ATHE NA ([facility]) Anila Barakat, FLIGHT KITCHEN MANAGER: [address], [place] [address], Ph. Attender: Anila Barakat [facility] - [facility] 03/10/2020 12:00:00 AM EST ATHE NA ([facility]) Unknown [address] [facility] [address] 03/08/2020 12:00:00 AM EST eCW1 ([facility]) Outpatient Attender: FRANCIS TRUJILLO MD [id number] 02/25/2020 12:00:00 AM EST Other specified acquired deformities of musculoskeleta l [facility] Other specified acquired deformities of musculoskeletal system Cesar Mahajan MD: [address], [facility] [place] [address], Ph. Attender: Cesar Mahajan MD ME - [facility] 02/17/2020 12:00:00 AM EST HORACIO ([facility]) Cesar Mahajan MD: [address], [place] [address], Ph. Attender: Cesar Mahajan MD [place] - [facility] 02/17/2020 12:00:00 AM EST HORACIO ([facility]) Cesar Mahajan MD: [address], [place] [address], Ph. Attender: Cesar Mahajan MD ME - [facility] 02/17/2020 12:00:00 AM EST HORACIO ([facility]) Cesar Mahajan MD: [address], [place] [address], Ph. Attender: Cesar MOREIRA - [facility] 02/17/2020 12:00:00 AM EST HORACIO ([facility]) Cesar Mahajan MD: [address], [address], [place] [address], Ph. Attender: Cesar MOREIRA - [facility] 02/17/2020 12:00:00 AM EST HORACIO ([facility]) Cesar Mahajan MD: [address], [place] [address], Ph. Attender: Cesar MOREIRA - [facility] 02/17/2020 12:00:00 AM EST HORACIO ([facility]) Cesar Mahajan MD: [address], [place] [address], Ph. Attender: Cesar MOREIRA - [facility] 02/17/2020 12:00:00 AM EST HORACIO ([facility]) Cesar Mahajan MD: [address], [address], [place] [address], Ph. Attender: Cesar MOREIRA - [facility] 02/17/2020 12:00:00 AM EST HORACIO ([facility]) Cesar Mahajan MD: [address], [address], [place] [address], Ph. Attender: Cesar Mahajan MD ME - [facility] 02/17/2020 12:00:00 AM EST HORACIO ([facility]) eCsar Mahajan MD: [address], [place] [address], Ph. Attender: Cesar Mahajan MD ME - [facility] 02/17/2020 12:00:00 AM EST HORACIO ([facility]) Anila Hurdmanjosue, FLIGHT KITCHEN MANAGER: [address], [address], [place] [address], Ph. Attender: Anila Winjosue [facility] 02/11/2020 12:00:00 AM EST ATHE NA ([facility]) Anila Malloy Vannessadavi, FLIGHT KITCHEN MANAGER: [address], [address], [place] [address], Ph. Attender: Anila Winjosue [facility] 02/11/2020 12:00:00 AM EST ATHE NA ([facility]) Anila Barakat, FLIGHT KITCHEN MANAGER: [address], [address], [place] [address], Ph. Attender: Anila Barakat [facility] 02/11/2020 12:00:00 AM EST ATHE NA ([facility]) Anila Barakat, FLIGHT KITCHEN MANAGER: [address], [address], [place] [address], Ph. Attender: Anila Barakat [facility] 02/11/2020 12:00:00 AM EST ATHE NA ([facility]) Anilayadira Barakat, FLIGHT KITCHEN MANAGER: [address], [address], [place] [address], Ph. Attender: Anila Barakat [facility] - [facility] 02/11/2020 12:00:00 AM EST ATHE NA ([facility]) Anila Barakat, FLIGHT KITCHEN MANAGER: [address], [facility] [place] [address], Ph. Attender: Anila Barakat [facility] - [facility] 02/11/2020 12:00:00 AM EST ATHE NA ([facility]) Anila Barakat, FLIGHT KITCHEN MANAGER: [address], [facility] [place] [address], Ph. Attender: Anila Barakat [facility] - [facility] 02/11/2020 12:00:00 AM EST ATHE NA ([facility]) Anila Barakat, FLIGHT KITCHEN MANAGER: [address], [place] [address], Ph. Attender: Anila Barakat [facility] - [facility] 02/11/2020 12:00:00 AM EST ATHE NA ([facility]) Anila Barakat, FLIGHT KITCHEN MANAGER: [address], [facility] [place] [address], Ph. Attender: Anila Barakat [facility] - [facility] 02/11/2020 12:00:00 AM EST ATHE NA ([facility]) Anila Barakat, FLIGHT KITCHEN MANAGER: [address], [place] [address], Ph. Attender: Anila Barakat [facility] - [facility] 02/11/2020 12:00:00 AM EST ATHE NA ([facility]) Anila Barakat, FLIGHT KITCHEN MANAGER: [address], [place] [address], Ph. Attender: Anila Barakat [facility] - [facility] 02/11/2020 12:00:00 AM EST ATHE NA ([facility]) Outpatient [address] [facility] [address] 02/05/2020 12:00:00 AM EST eCW1 ([facility]) Unknown [address] [facility] [address] 02/05/2020 12:00:00 AM EST eCW1 ([facility]) Outpatient Attender: MARCY CASANOVA [id number] 01/28/2020 12:00:00 AM EST Unknown [address] [facility] [place] [address] 01/05/2020 12:00:00 AM EST eCW1 ([facility]) Outpatient Attender: MARCY CASANOVA 01/04/2020 09:39: 00 AM [facility], FLIGHT KITCHEN MANAGER: [address], [place] [address], Ph. Attender: Anila Roshni [facility] 12/24/2019 12:00:00 AM EDT ATHE NA ([facility]) Anila Stuart Roshni, FLIGHT KITCHEN MANAGER: [address], [place] [address], Ph. Attender: Anilabayron Barakat [facility] 12/24/2019 12:00:00 AM EDT ATHE NA ([facility]) [facility]ila [facility], FLIGHT KITCHEN MANAGER: [address], [place] [address], Ph. Attender: Anila Barakat [facility] - [facility] 12/24/2019 12:00:00 AM EDT ATHE NA ([facility]) Anila Barakat, FLIGHT KITCHEN MANAGER: [address], [place] [address], Ph. Attender: Anila Barakat [facility] - [facility] 12/24/2019 12:00:00 AM EDT ATHE NA ([facility]) Anila Barakat, FLIGHT KITCHEN MANAGER: [address], [place] [address], Ph. Attender: Anila Barakat [facility] - [facility] 12/24/2019 12:00:00 AM EDT ATHE NA ([facility]) Anila Barakat, FLIGHT KITCHEN MANAGER: [address], [place] [address], Ph. Attender: Anila Barakat [facility] - [facility] 12/24/2019 12:00:00 AM EDT ATHE NA ([facility]) Anila Barakat, FLIGHT KITCHEN MANAGER: [address], [place] [address], Ph. Attender: Anila Barakat [facility] - [facility] 12/24/2019 12:00:00 AM EDT ATHE NA ([facility]) Anila Barakat, FLIGHT KITCHEN MANAGER: [address], [place] [address], Ph. Attender: Anila Barakat [facility] - [facility] 12/24/2019 12:00:00 AM EDT ATHE NA ([facility]) Anila Malloy Vannessadavi, FLIGHT KITCHEN MANAGER: [address], [place] [address], Ph. Attender: Anila Barakat [facility] 12/24/2019 12:00:00 AM EDT ATHE NA ([facility]) Anila Barakat, FLIGHT KITCHEN MANAGER: [address], [place] [address], Ph. Attender: Anila Barakat [facility] 12/24/2019 12:00:00 AM EDT ATHE NA ([facility]) Anila Barakat, FLIGHT KITCHEN MANAGER: [address], [place] [address], Ph. Attender: Anila Barakat [facility] 12/24/2019 12:00:00 AM EDT ATHE NA ([facility]) Anila Barakat, FLIGHT KITCHEN MANAGER: [address], [place] [address], Ph. 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 Outpatient Referrer: MARCY CASANOVA 12/17/2019 12:00:00 AM EDT Strain of other muscle(s) and tendon(s) at lower leg level, left leg, initial encounter Strain of other muscle(s) and tendon(s) at lower leg level, left leg, initial encounter Outpatient Attender: MARCY CASANOVA 12/17/2019 12:00: 00 AM EDT Outpatient [address] [facility] [address] 12/16/2019 12:00:00 AM EDT eCW1 ([facility]) Unknown [address] [facility] [address] 12/16/2019 12:00:00 AM EDT eCW1 ([facility]) Unknown [address] [facility] [address] 12/16/2019 12:00:00 AM EDT eCW1 ([facility]) Outpatient Attender: MARCY CASANOVA 03:51:00 PM EDT - 12/31/2019 09:39:00 AM [facility] Patient discharged. Outpatient Attender: Sammie CASANOVA 11/24/2019 02:30:00 PM [facility], FLIGHT KITCHEN MANAGER: [address], [place] [address], Ph. Attender: Anila Barakat [facility] 11/12/2019 12:00:00 AM EDT ATHE NA ([facility]) [facility], FLIGHT KITCHEN MANAGER: [address], [place] [address], Ph. [facility]: [facility] 11/12/2019 12:00:00 AM EDT ATHE NA ([facility]) [facility], FLIGHT KITCHEN MANAGER: [address], [place] [address], Ph. Att[facility]: [facility] 11/12/2019 12:00:00 AM EDT ATHE NA ([facility]) [facility], FLIGHT KITCHEN MANAGER: [address], [place] [address], Ph. Attender: Anila Barakat [facility] - [facility] 11/12/2019 12:00:00 AM EDT ATHE NA ([facility]) Anila Barakat, FLIGHT KITCHEN MANAGER: [address], [place] [address], Ph. Attender: Anila Barakat [facility] - [facility] 11/12/2019 12:00:00 AM EDT ATHE NA ([facility]) Anila Barakat, FLIGHT KITCHEN MANAGER: [address], [place] [address], Ph. Attender: Anila Barakat [facility] - [facility] 11/12/2019 12:00:00 AM EDT ATHE NA ([facility]) Anila Barakat, FLIGHT KITCHEN MANAGER: [address], [place] [address], Ph. Attender: Anila Barakat [facility] - [facility] 11/12/2019 12:00:00 AM EDT ATHE NA ([facility]) Anila Barakat, FLIGHT KITCHEN MANAGER: [address], [place] [address], Ph. Attender: Anila Barakat [facility] - [facility] 11/12/2019 12:00:00 AM EDT ATHE NA ([facility]) Anila Barakat, FLIGHT KITCHEN MANAGER: [address], [place] [address], Ph. Attender: Ainla Barakat [facility] - [facility] 11/12/2019 12:00:00 AM EDT ATHE NA ([facility]) Anila Barakat, FLIGHT KITCHEN MANAGER: [address], [place] [address], Ph. Attender: Anila Barakat [facility] 11/12/2019 12:00:00 AM EDT ATHE NA ([facility]) Anila Barakat, FLIGHT KITCHEN MANAGER: [address], [place] [address], Ph. Attender: Anila Barakat [facility] 11/12/2019 12:00:00 AM EDT ATHYadira NA ([facility]) Anila Barakat, FLIGHT KITCHEN MANAGER: [address], [place] [address], Ph. Attender: Anila Barakat [facility] 11/12/2019 12:00:00 AM EDT ATHE NA ([facility]) Anila Barakat, FLIGHT KITCHEN MANAGER: [address], [place] [address], Ph. Attender: Anila Barakat [facility] 11/12/2019 12:00:00 AM EDT ATHE NA ([facility]) Outpatient Attender: MARCY CASANOVA 02:32:00 PM EDT - 12/03/2019 03:51:00 PM EDT [facility] Patient discharged. Emergency Attender: EMILY MADRID PAReferrer: Zoe CASANOVA 10/10/2018 09:28:00 PM EDT - 10/10/2018 10:32:00 PM EDT [facility] Patient discharged. Emergency Attender: EMILY CASANOVA 10/24/2017 05:44:00 PM EDT - 10/24/2017 06:54:00 PM T [facility] Emergency Attender: ELPIDIO CASANOVA 09:05:00 PM EDT - 09/08/2016 04:34:00 PM [facility] Emergency Attender: VIANCA CASANOVA 03/19/19 17 02:31:00 PM EST - 03/19/2016 02:53:00 PM [facility] Emergency Attender: Billy Jackson RPA-C 12:48:00 PM EDT - 10/16/2015 09:25:00 PM [facility] Emergency Attender: VIANCA CASANOVA 10/15/19 16 12:40:00 AM EDT - 09/15/2015 07:42:00 PM [facility] Immunizations Vaccine Date Status Description Data Source(s) COVID-19 VACCINE Pfizer 12/08/2020 12:00:00 AM EDT completed [facility] Vaccine Series Complete: YESThis Data wa s Submitted to [facility] [employer]. COVID-19 VACC, MRNA(GridCure)/PF 12/08/2020 12:00:00 AM EDT completed [facility] COVID-19 VACCINE Pfizer 06/02/2020 12:00:00 AM EDT completed [facility] Vaccine Series Complete: YESThis Data wa s Submitted to [facility] [employer]. COVID-19 VACCINE Pfizer 05/12/2020 12:00:00 AM EST completed [facility] Vaccine Series Complete: NOThis Data was Submitted to [facility] [employer]. Medications Medication Brand Name Start Date Product Form Dose Route Admi nistrative Instructions Pharmacy Instructions Status Indications Reaction Description Data Source(s) Levofloxacin 500 MG Oral Tablet Levofloxacin 12/23/2020 12:00:00 AM E DT ORAL completed [facility] ([facility], ) Levofloxacin 500 MG Oral Tablet Levofloxacin 12/16/2020 12:00:00 AM E DT ORAL completed [facility] ([facility], ) Ciprofloxacin 3 MG/ML / Dexamethasone 1 MG/ML Otic [employer] Ciprofloxacin-Dexamethasone 12/16/2020 12:00:00 AM EDT completed [facility] ([facility], ) Amoxicillin 875 MG / Clavulanate 125 MG Oral Tablet Amoxicillin-Pot Clavulanate 875-125 MG Amoxicillin-Pot Clavulanate 875-125 MG 12/14/2020 12:00:00 AM ED T 1.0 {tablet} active Amoxicillin-Pot Cla vulanate 875-125 MG eCW1 ([facility]) 20 mg 12/02/2020 12:00:00 AM EDT tablet 10 TAKE TWO TABLETS BY MOUTH EVERY DAY WITH FOOD OR MILK FOR 5 DAYS TAKE TWO TABLETS BY MOUTH EVERY DAY WITH FOOD OR MILK FOR 5 DAYS SOLD: 12/02/2020 [facility] methylPREDNISolone acetate (DEPO-MEDROL) injection 40 mg [id number] 10/11/2020 11:45:00 AM EDT 40 mg Intra-articular completed 40 mg, Intra- articular, Once, On Sun10/11/20 at 1145, For 1 dose
DEPO-MEDROL 1 cc - [id number]
Medication administered onsite atorvastatin 40 MG Oral Tablet Atorvastatin Calcium 09/13/2020 1 2:00:00 AM EDT ORAL active [facility] ( [facility]) Acetaminophen 500 MG Oral Tablet Acetaminophen 500 MG Oral Tablet (TYLENOL) Acetaminophen 500 MG Oral Tablet (TYLENOL) 09/12/2020 12:00:00 AM EDT Oral active Take by mouth [facility] 09/12/2020 12:00:00 AM EDT act martin MEDENT ([facility]) Amlodipine 5 MG Oral Tablet Amlodipine Besylate 09/12/2020 12:00:00 A M EDT ORAL active [facility] atorvastatin 20 MG Oral Tablet Atorvastatin Calcium 09/12/2020 1 2:00:00 AM EDT ORAL completed [facility] ([facility]) celecoxib 100 MG Oral Capsule [Celebrex] Celebrex 09/12/2020 12 :00:00 AM EDT ORAL active [facility] ([facility]) Ergocalciferol 27810 UNT Oral Capsule Vitamin D (Ergocalcife rol) 09/12/2020 12:00:00 AM EDT ORAL active M EDENT ([facility]) Omeprazole 20 MG Delayed Release Oral Capsule Omeprazole 09/12/2020 12:00:00 AM EDT ORAL active [facility] ([facility] Famotidine 20 MG Oral Tablet Famotidine 09/12/2020 12:00:00 AM EDT ORAL active [facility] ([facility]) duloxetine 60 MG Delayed Release Oral Capsule Duloxetine HCL 09/12/2020 12:00:00 AM EDT ORAL active [facility] ([facility]) 3 ML Insulin Glargine 100 UNT/ML Pen Injector [Lantus] Lantu s Solostar 09/12/2020 12:00:00 AM EDT active [facility] ([facility]) pregabalin 150 MG Oral Capsule Pregabalin 09/12/2020 12:00:00 AM EDT ORAL active [facility] ([facility]) Acetaminophen 500 MG Oral Tablet Acetaminophen Extra Strengt h 09/12/2020 12:00:00 AM EDT ORAL active M EDENT ([facility]) Meclizine Hydrochloride 25 MG Oral Tablet Meclizine HCL 09/12/2020 12:00:00 AM EDT ORAL active [facility] ([facility]) Lisinopril 10 MG Oral Tablet Lisinopril 09/12/2020 12:00:00 AM EDT ORAL active [facility] ([facility]) Aspirin 325 MG Oral Tablet Aspirin 09/12/2020 12:00:00 AM EDT ORAL active [facility] ([facility]) OmniPod Dash 5 Pack Pods - OmniPod Dash 5 Pack Pods - 2020 12:00:00 AM EDT active OmniPod Dash 5 Pa ck Pods - eCW1 ([facility]) OmniPod Dash System - OmniPod Dash System - 09/09/2020 12:00:00 AM EDT active Om[employer] Dash System - eCW1 ( [facility]) OmniPod Dash System - OmniPod Dash System - 09/09/2020 12:00:00 AM EDT active [employer] Dash System - eCW1 ( [facility]) OmniPod Dash 5 Pack Pods - OmniPod Dash 5 Pack Pods - 2020 12:00:00 AM EDT active OmniPod Dash 5 Pa ck Pods - eCW1 ([facility]) OmniPod Dash System - OmniPod Dash System - 09/09/2020 12:00:00 AM EDT active Om[employer] Dash System - eCW1 ( [facility]) OmniPod Dash 5 Pack Pods - OmniPod Dash 5 Pack Pods - 2020 12:00:00 AM EDT active OmniPod Dash 5 Pa ck Pods - eCW1 ([facility]) OmniPod Dash 5 Pack Pods - OmniPod Dash 5 Pack Pods - 2020 12:00:00 AM EDT active OmniPod Dash 5 Pa ck Pods - eCW1 ([facility]) OmniPod Dash 5 Pack Pods 8507-09/09/2020 12:00:00 AM EDT active [facility] OmniPod Dash System - Om[employer]Pod Dash System - 09/09/2020 12:00:00 AM EDT active Om[employer] Dash System - eCW1 ( [facility]) OmniPod Dash 5 Pack Pods - OmniPod Dash 5 Pack Pods - 2020 12:00:00 AM EDT active OmniPod Dash 5 Pa ck Pods - eCW1 ([facility]) OmniPod Dash System - OmniPod Dash System - 09/09/2020 12:00:00 AM EDT active OmniPod Dash System - eCW1 ( [facility]) OmniPod Dash 5 Pack Pods - OmniPod Dash 5 Pack Pods - 2020 12:00:00 AM EDT active OmniPod Dash 5 Pa ck Pods - eCW1 ([facility]) OmniPod Dash System - OmniPod Dash System - 09/09/2020 12:00:00 AM EDT active OmniPod Dash System - eCW1 ( [facility]) Amlodipine 5 MG Oral Tablet amLODIPine Besylate 5 MG O ral Tablet (NORVASC) amLODIPine Besylate 5 MG Oral Tablet (NORVASC) 09/07/2020 12:00:00 AM EDT active [facility] 3 ML Insulin Glargine 100 UNT/ML Pen Inj maki [Lantus] Lantus SoloStar 100 UNIT/ML Lantus SoloStar 100 UNIT/ML 08/17/2020 12:00:00 AM EDT active Lantus SoloStar 100 UNIT/ML eCW1 ([facility]ly [facility]) 3 ML Insulin Glargine 100 UNT/ML Pen Inj maki [Lantus] Lantus SoloStar 100 UNIT/ML Lantus SoloStar 100 UNIT/ML 08/17/2020 12:00:00 AM EDT active Lantus SoloStar 100 UNIT/ML eCW1 ([facility]ly [facility]) [place] 31G X 5 MM [place] 31G X 5 MM 08/17/2020 12:00:00 AM E DT active [place] 31G X 5 MM eC W1 ([facility]) 3 ML Insulin Glargine 100 UNT/ML Pen Inj maki [Lantus] Lantus SoloStar 100 UNIT/ML Lantus SoloStar 100 UNIT/ML 08/17/2020 12:00:00 AM EDT active Lantus SoloStar 100 UNIT/ML eCW1 ([facility]ly [facility]) 3 ML Insulin Glargine 100 UNT/ML Pen Inj maki [Lantus] Lantus SoloStar 100 UNIT/ML Lantus SoloStar 100 UNIT/ML 08/17/2020 12:00:00 AM EDT active Lantus SoloStar 100 UNIT/ML eCW1 ([facility]ly [facility]) [place] 31G X 5 MM [place] 31G X 5 MM 08/17/2020 12:00:00 AM E DT active [place] 31G X 5 MM eC W1 ([facility]) 3 ML Insulin Glargine 100 UNT/ML Pen Inj maki [Lantus] Lantus SoloStar 100 UNIT/ML Lantus SoloStar 100 UNIT/ML 08/17/2020 12:00:00 AM EDT active Lantus SoloStar 100 UNIT/ML eCW1 ([facility]) 3 ML Insulin Glargine 100 UNT/ML Pen Inj maki [Lantus] Lantus SoloStar 100 UNIT/ML Lantus SoloStar 100 UNIT/ML 08/17/2020 12:00:00 AM EDT active Lantus SoloStar 100 UNIT/ML eCW1 ([facility]) [place] 31G X 5 MM [place] 31G X 5 MM 08/17/2020 12:00:00 AM E DT active [place] 31G X 5 MM eC W1 ([facility]) [place] 31G X 5 MM [place] 31G X 5 MM 08/17/2020 12:00:00 AM E DT active [place] 31G X 5 MM eC W1 ([facility]) [place] 31G X 5 MM [place] 31G X 5 MM 08/17/2020 12:00:00 AM E DT active [place] 31G X 5 MM eC W1 ([facility]) 3 ML Insulin Glargine 100 UNT/ML Pen Inj maki [Lantus] Lantus SoloStar 100 UNIT/ML Lantus SoloStar 100 UNIT/ML 08/17/2020 12:00:00 AM EDT active Lantus SoloStar 100 UNIT/ML eCW1 ([facility]) 3 ML Insulin Glargine 100 UNT/ML Pen Inj maki [Lantus] Lantus SoloStar 100 UNIT/ML Lantus SoloStar 100 UNIT/ML 08/17/2020 12:00:00 AM EDT active Lantus SoloStar 100 UNIT/ML eCW1 ([facility]) PenTips 31G X 5 MM [id number] 08/17/2020 12:00:00 AM EDT active Use as directed. 3 ML Insulin Glargine 100 UNT/ML Pen Inj maki [Lantus] Lantus SoloStar 100 UNIT/ML Subcutaneous Solution Pen-injector Lantus SoloStar 100 UNIT/ML Subcutaneous Solution Pen-injector 08/17/2020 12:00:00 AM EDT active [facility] [place] 31G X 5 MM [place] 31G X 5 MM 08/17/2020 12:00:00 AM E DT active [place] 31G X 5 MM eC W1 ([facility]) 3 ML Insulin Glargine 100 UNT/ML Pen Inj maki [Lantus] Lantus SoloStar 100 UNIT/ML Lantus SoloStar 100 UNIT/ML 08/17/2020 12:00:00 AM EDT active Lantus SoloStar 100 UNIT/ML eCW1 ([facility]) 3 ML Insulin Glargine 100 UNT/ML Pen Inj maki [Lantus] Lantus SoloStar 100 UNIT/ML Lantus SoloStar 100 UNIT/ML 08/17/2020 12:00:00 AM EDT active Lantus SoloStar 100 UNIT/ML eCW1 ([facility]) [place] 31G X 5 MM [place] 31G X 5 MM 08/17/2020 12:00:00 AM E DT active [place] 31G X 5 MM eC W1 ([facility]) 3 ML Insulin Glargine 100 UNT/ML Pen Inj maki [Lantus] Lantus SoloStar 100 UNIT/ML Lantus SoloStar 100 UNIT/ML 08/17/2020 12:00:00 AM EDT active Lantus SoloStar 100 UNIT/ML eCW1 ([facility]) [place] 31G X 5 MM Pen [place] 31G X 5 MM 08/17/2020 12:00:00 AM E DT active [place] 31G X 5 MM eC W1 ([facility]) Pen [place] 31G X 5 MM Pen [place] 31G X 5 MM 08/17/2020 12:00:00 AM E DT active [place] 31G X 5 MM eC W1 ([facility]) Pen [place] 31G X 5 MM Pen [place] 31G X 5 MM 08/17/2020 12:00:00 AM E DT active [place] 31G X 5 MM eC W1 ([facility]) [place] 31G X 5 MM [place] 31G X 5 MM 08/17/2020 12:00:00 AM E DT active [place] 31G X 5 MM eC W1 ([facility]) [employer]Style Ez[employer] Sensor System - [employer]Style Ezra Sensor Syste m - 08/16/2020 12:00:00 AM EDT active [employer] System - eCW1 ([facility]) [employer]ra [place] - [employer] [place] - 08/16/2020 12:00: 00 AM EDT active [employer] [place] - eCW1 ([facility]) [employer] S[employer] System - [employer] Sensor Syste m - 08/16/2020 12:00:00 AM EDT active [employer] System - eCW1 ([facility]) [employer]Style Ezra [place] - [employer] [place] - 08/16/2020 12:00: 00 AM EDT active [employer] [place] - eCW1 ([facility]) [employer] [place] - [employer] [place] - 08/16/2020 12:00: 00 AM EDT active [employer] [place] - eCW1 ([facility]) [employer] Sensor System - [employer]Style Ezra Sensor Syste m - 08/16/2020 12:00:00 AM EDT active [employer] System - eCW1 ([facility]) [employer] [place] - [employer] [place] - 08/16/2020 12:00: 00 AM EDT active [employer] [place] - eCW1 ([facility]) [employer] Sensor System - FreeStyle Ezra Sensor Syste m - 08/16/2020 12:00:00 AM EDT active [employer] S[employer] System - eCW1 ([facility]) [employer] [place] - [employer] [place] - 08/16/2020 12:00: 00 AM EDT active [employer] [place] - eCW1 ([facility]) [employer] Sensor System - [employer]Style Ezra Sensor Syste m - 08/16/2020 12:00:00 AM EDT active [employer]Sty[employer] Ezra Sensor System - eCW1 ([facility]) [employer]Style Ezra [place] - [employer] [place] - 08/16/2020 12:00: 00 AM EDT active [employer] [place] - eCW1 ([facility]) [employer]Style [employer] Sensor System - FreeStyle Ezra Sensor Syste m - 08/16/2020 12:00:00 AM EDT active [employer] System - eCW1 ([facility]) Insulin Glargine 100 UNT/ML Injectable Solution [Lantu s] Lantus 100 UNIT/ML Lantus 100 UNIT/ML 08/16/2020 12:00:00 AM EDT active Lantus 100 UNIT/ML eCW1 ([facility]) [employer] Sensor System - FreeStyle Ezra Sensor Syste m - 08/16/2020 12:00:00 AM EDT active [employer]Sty[employer] System - eCW1 ([facility]) [employer]Style Ez[employer] Sensor System - FreeStyle Ezra Sensor Syste m - 08/16/2020 12:00:00 AM EDT active [employer] System - eCW1 ([facility]) [employer] Sensor System - FreeStyle Ezra Sensor Syste m - 08/16/2020 12:00:00 AM EDT active [employer] System - eCW1 ([facility]) FreeStyle Ezra 14 Day Sensor [id number] 08/16/2020 12:00:00 AM EDT active [facility] FreeStyle Ezra 14 Day [place] Device [id number] 08/16/2020 12:00: 00 AM EDT active [facility] FreeStyle Ezra Sensor System - UNK 08/16/2020 12:00:00 AM EDT active FreeStyle Ezra Sensor System - eCW1 ([facility]) [employer]Style Ez[employer] [place] - [employer] [place] - 08/16/2020 12:00: 00 AM EDT active [employer] Ez[employer] [place] - eCW1 ([facility]) [employer]Style Ez[employer] [place] - [employer] [place] - 08/16/2020 12:00: 00 AM EDT active [employer] [place] - eCW1 ([facility]) [employer] Sensor System - FreeStyle Ezra Sensor Syste m - 08/16/2020 12:00:00 AM EDT active [employer]Sty[employer] Ezra Sensor System - eCW1 ([facility]) [employer]Style Ezra Sensor System - FreeStyle Ezra Sensor Syste m - 08/16/2020 12:00:00 AM EDT active [employer] Sensor System - eCW1 ([facility]) [employer]Style [employer] [place] - [employer] [place] - 08/16/2020 12:00: 00 AM EDT active [employer] [place] - eCW1 ([facility]) FreeStyle Ezra [place] - [employer] [place] - 08/16/2020 12:00: 00 AM EDT active [employer] [place] - eCW1 ([facility]) [employer]Style [employer] [place] - FreeStyle [employer]ra [place] - 08/16/2020 12:00: 00 AM EDT active [employer]Style Ezra [place] - eCW1 ([facility]) FreeStyle Ezra [place] - [employer] [place] - 08/16/2020 12:00: 00 AM EDT active FreeStyle Ezra [place] - eCW1 ([facility]) 100 mg 07/27/2020 12:00:00 AM EDT capsule 60 TAKE ONE CAPSULE BY MOUTH TWICE A DAY NEEDED TAKE ONE CAPSULE BY MOUTH TWICE A DAY NEEDED SOLD: 07/28/2020 [facility] Famotidine 20 MG Oral Tablet FAMOTIDINE 07/25/2020 12:00:00 AM EDT tab let 30 TAKE ONE TABLET BY MOUTH AT BEDTIME NEEDED TAKE ONE TABLET BY MOUTH AT BEDTIME NEEDED SOLD: 07/25/2020 [facility] Meclizine Hydrochloride 25 MG Oral Tablet MECLIZINE HCL 07/16/2020 12:00:00 AM EDT tablet 90 TAKE ONE TABLET BY MOUTH THR EE TIMES A DAY NEEDED TAKE ONE TABLET BY MOUTH THREE TIMES A DAY NEEDED SOLD: 07/17/2020 [facility] 60 mg 07/09/2020 12:00:00 AM EDT capsule,delayed release (DR/EC) 30 TAKE ONE CAPSULE BY MOUTH EVERY DAY TAKE ONE CAPSULE BY MOUTH EVERY DAY SOLD: 07/10/2020 [facility] 1,250 mcg (50,000 unit) 07/08/2020 12:00:00 AM EDT capsule 4 TAKE 1 CAPSULE BY MOUTH ONCE WEEKLY TAKE 1 CAPSULE BY MOUTH ONCE WEEKLY SOLD: 07/10/2020 [facility] Famotidine 20 MG Oral Tablet FAMOTIDINE 06/30/2020 12:00:00 AM EDT tab let 30 TAKE ONE TABLET BY MOUTH AT BEDTIME NEEDED TAKE ONE TABLET BY MOUTH AT BEDTIME NEEDED SOLD: 07/01/2020 [facility] 150 mg 06/30/2020 12:00:00 AM EDT capsule 90 TAKE ONE CAPSULE BY MOUTH THREE TIMES A DAY MAXIMUM DAILY DOSE = 3 CAPSULES TAKE ONE CAPSULE BY MOUTH THREE TIMES A DAY MAXIMUM DAILY DOSE = 3 CAPSULES SOLD: 07/01/2020 [facility] 100 mg 06/30/2020 12:00:00 AM EDT capsule 60 TAKE ONE CAPSULE BY MOUTH TWICE A DAY NEEDED TAKE ONE CAPSULE BY MOUTH TWICE A DAY NEEDED SOLD: 07/01/2020 [facility] 3 mg/0.5 mL 06/29/2020 12:00:00 AM EDT pen injector 2 INJECT 3MG UNDER THE SKIN ONCE A WEEK DIRECTED INJECT 3MG UNDER THE SKIN ONCE A WEEK DIRECTED SOLD: 06/30/2020 [facility] Amlodipine 5 MG Oral Tablet Amlodipine Besylate 5 MG Amlodip ine Besylate 5 MG 06/28/2020 12:00:00 AM EDT 1.0 {tablet} active Amlodipine Besylate 5 MG eCW1 ([facility]) Amlodipine 5 MG Oral Tablet Amlodipine Besylate 5 MG Amlodip ine Besylate 5 MG 06/28/2020 12:00:00 AM EDT 1.0 {tablet} active Amlodipine Besylate 5 MG eCW1 ([facility]) Amlodipine 5 MG Oral Tablet Amlodipine Besylate 5 MG Amlodip ine Besylate 5 MG 06/28/2020 12:00:00 AM EDT 1.0 {tablet} active Amlodipine Besylate 5 MG eCW1 ([facility]) 5 mg 06/28/2020 12:00:00 AM EDT tablet 30 TAKE ONE TABLET BY MOUTH EVERY DAY TAKE ONE TABLET BY MOUTH EVERY DAY SOLD: 07/28/2020 [facility] Amlodipine 5 MG Oral Tablet Amlodipine Besylate 5 MG Amlodip ine Besylate 5 MG 06/28/2020 12:00:00 AM EDT 1.0 {tablet} active Amlodipine Besylate 5 MG eCW1 ([facility]) Amlodipine 5 MG Oral Tablet Amlodipine Besylate 5 MG Amlodip ine Besylate 5 MG 06/28/2020 12:00:00 AM EDT 1.0 {tablet} active Amlodipine Besylate 5 MG eCW1 ([facility]) Amlodipine 5 MG Oral Tablet Amlodipine Besylate 5 MG Amlodip ine Besylate 5 MG 06/28/2020 12:00:00 AM EDT 1.0 {tablet} active Amlodipine Besylate 5 MG eCW1 ([facility]) Amlodipine 5 MG Oral Tablet Amlodipine Besylate 5 MG Amlodip ine Besylate 5 MG 06/28/2020 12:00:00 AM EDT 1.0 {tablet} active Amlodipine Besylate 5 MG eCW1 ([facility]) Amlodipine 5 MG Oral Tablet Amlodipine Besylate 5 MG Amlodip ine Besylate 5 MG 06/28/2020 12:00:00 AM EDT 1.0 {tablet} active Amlodipine Besylate 5 MG eCW1 ([facility]) Amlodipine 5 MG Oral Tablet Amlodipine Besylate 5 MG Amlodip ine Besylate 5 MG 06/28/2020 12:00:00 AM EDT 1.0 {tablet} active Amlodipine Besylate 5 MG eCW1 ([facility]) Amlodipine 5 MG Oral Tablet Amlodipine Besylate 5 MG Amlodip ine Besylate 5 MG 06/28/2020 12:00:00 AM EDT 1.0 {tablet} active Amlodipine Besylate 5 MG eCW1 ([facility]) Amlodipine 5 MG Oral Tablet Amlodipine Besylate 5 MG Amlodip ine Besylate 5 MG 06/28/2020 12:00:00 AM EDT 1.0 {tablet} active Amlodipine Besylate 5 MG eCW1 ([facility]) Amlodipine 5 MG Oral Tablet Amlodipine Besylate 5 MG Amlodip ine Besylate 5 MG 06/28/2020 12:00:00 AM EDT 1.0 {tablet} active Amlodipine Besylate 5 MG eCW1 ([facility]) Amlodipine 5 MG Oral Tablet Amlodipine Besylate 5 MG Amlodip ine Besylate 5 MG 06/28/2020 12:00:00 AM EDT 1.0 {tablet} active Amlodipine Besylate 5 MG eCW1 ([facility]) Amlodipine 5 MG Oral Tablet Amlodipine Besylate 5 MG Amlodip ine Besylate 5 MG 06/28/2020 12:00:00 AM EDT 1.0 {tablet} active Amlodipine Besylate 5 MG eCW1 ([facility]) Amlodipine 5 MG Oral Tablet Amlodipine Besylate 5 MG Amlodip ine Besylate 5 MG 06/28/2020 12:00:00 AM EDT 1.0 {tablet} active Amlodipine Besylate 5 MG eCW1 ([facility]) Amlodipine 5 MG Oral Tablet Amlodipine Besylate 5 MG Amlodip ine Besylate 5 MG 06/28/2020 12:00:00 AM EDT 1.0 {tablet} active Amlodipine Besylate 5 MG eCW1 ([facility]) Amlodipine 5 MG Oral Tablet Amlodipine Besylate 5 MG Amlodip ine Besylate 5 MG 06/28/2020 12:00:00 AM EDT 1.0 {tablet} active Amlodipine Besylate 5 MG eCW1 ([facility]) Amlodipine 5 MG Oral Tablet Amlodipine Besylate 5 MG Amlodip ine Besylate 5 MG 06/28/2020 12:00:00 AM EDT 1.0 {tablet} active Amlodipine Besylate 5 MG eCW1 ([facility]) 20 mg 05/31/2020 12:00:00 AM EDT tablet 30 TAKE ONE TABLET BY MOUTH AT BEDTIME NEEDED TAKE ONE TABLET BY MOUTH AT BEDTIME NEEDED SOLD: [facility] 100 mg 05/27/2020 12:00:00 AM EDT capsule 60 TAKE ONE CAPSULE BY MOUTH TWICE A DAY NEEDED TAKE ONE CAPSULE BY MOUTH TWICE A DAY NEEDED SOLD: 06/04/2020 [facility] Nitroglycerin 0.3 MG Sublingual Tablet NITROGLYCERIN 12:00:00 AM EDT tablet, sublingual 100 PLACE ONE TABLET UND ER THE TONGUE EVERY 5 MINUTES FOR UP TO 3 DOSES NEEDED FOR CHEST PAIN. IF CHEST PAIN STILL PERSISTS CONTACT [address] ONE TABLET UNDER THE TONGUE EVERY 5 MINUTES FOR UP TO 3 DOSES NEEDED FOR CHEST PAIN. IF CHEST PAIN STILL PERSISTS CONTACT 911 SOLD: 05/18/2020 [facility] carbamide peroxide 65 MG/ML Otic Solution [Debrox] Debrox 6. 5 % Debrox 6.5 % 05/17/2020 12:00:00 AM EDT 5.0 {drops_into_affected_ear} active Debrox 6.5 % eCW1 ([facility]) carbamide peroxide 65 MG/ML Otic Solution [Debrox] Debrox 6. 5 % Debrox 6.5 % 05/17/2020 12:00:00 AM EDT 5.0 {drops_into_affected_ear} active Debrox 6.5 % eCW1 ([facility]) carbamide peroxide 65 MG/ML Otic Solution [Debrox] Debrox 6. 5 % Debrox 6.5 % 05/17/2020 12:00:00 AM EDT 5.0 {drops_into_affected_ear} active Debrox 6.5 % eCW1 ([facility]) carbamide peroxide 65 MG/ML Otic Solution [Debrox] Debrox 6. 5 % Debrox 6.5 % 05/17/2020 12:00:00 AM EDT 5.0 {drops_into_affected_ear} active Debrox 6.5 % eCW1 ([facility]) carbamide peroxide 65 MG/ML Otic Solution [Debrox] Debrox 6. 5 % Debrox 6.5 % 05/17/2020 12:00:00 AM EDT 5.0 {drops_into_affected_ear} active Debrox 6.5 % eCW1 ([facility]) carbamide peroxide 65 MG/ML Otic Solution [Debrox] Debrox 6. 5 % Debrox 6.5 % 05/17/2020 12:00:00 AM EDT 5.0 {drops_into_affected_ear} active Debrox 6.5 % eCW1 ([facility]) carbamide peroxide 65 MG/ML Otic Solution [Debrox] Debrox 6. 5 % Debrox 6.5 % 05/17/2020 12:00:00 AM EDT 5.0 {drops_into_affected_ear} active Debrox 6.5 % eCW1 ([facility]) carbamide peroxide 65 MG/ML Otic Solution [Debrox] Debrox 6. 5 % Debrox 6.5 % 05/17/2020 12:00:00 AM EDT 5.0 {drops_into_affected_ear} active Debrox 6.5 % eCW1 ([facility]) carbamide peroxide 65 MG/ML Otic Solution [Debrox] Debrox 6. 5 % Debrox 6.5 % 05/17/2020 12:00:00 AM EDT 5.0 {drops_into_affected_ear} active Debrox 6.5 % eCW1 ([facility]) carbamide peroxide 65 MG/ML Otic Solution [Debrox] Debrox 6. 5 % Debrox 6.5 % 05/17/2020 12:00:00 AM EDT 5.0 {drops_into_affected_ear} active Debrox 6.5 % eCW1 ([facility]) carbamide peroxide 65 MG/ML Otic Solution [Debrox] Debrox 6. 5 % Debrox 6.5 % 05/17/2020 12:00:00 AM EDT 5.0 {drops_into_affected_ear} active Debrox 6.5 % eCW1 ([facility]) carbamide peroxide 65 MG/ML Otic Solution [Debrox] Debrox 6. 5 % Debrox 6.5 % 05/17/2020 12:00:00 AM EDT 5.0 {drops_into_affected_ear} active Debrox 6.5 % eCW1 ([facility]) carbamide peroxide 65 MG/ML Otic Solution [Debrox] Debrox 6. 5 % Debrox 6.5 % 05/17/2020 12:00:00 AM EDT 5.0 {drops_into_affected_ear} active Debrox 6.5 % eCW1 ([facility]) 150 mg 05/17/2020 12:00:00 AM EDT capsule 90 TAKE ONE CAPSULE BY MOUTH THREE TIMES A DAY MAXIMUM DAILY DOSE = 3 CAPSULES TAKE ONE CAPSULE BY MOUTH THREE TIMES A DAY MAXIMUM DAILY DOSE = 3 CAPSULES SOLD: 05/18/2020 [facility] carbamide peroxide 65 MG/ML Otic Solution [Debrox] Debrox 6. 5 % Debrox 6.5 % 05/17/2020 12:00:00 AM EDT 5.0 {drops_into_affected_ear} active Debrox 6.5 % eCW1 ([facility]) carbamide peroxide 65 MG/ML Otic Solution [Debrox] Debrox 6. 5 % Debrox 6.5 % 05/17/2020 12:00:00 AM EDT 5.0 {drops_into_affected_ear} active Debrox 6.5 % eCW1 ([facility]) carbamide peroxide 65 MG/ML Otic Solution [Debrox] Debrox 6. 5 % Debrox 6.5 % 05/17/2020 12:00:00 AM EDT 5.0 {drops_into_affected_ear} active Debrox 6.5 % eCW1 ([facility]) carbamide peroxide 65 MG/ML Otic Solution [Debrox] Debrox 6. 5 % Debrox 6.5 % 05/17/2020 12:00:00 AM EDT 5.0 {drops_into_affected_ear} active Debrox 6.5 % eCW1 ([facility]) carbamide peroxide 65 MG/ML Otic Solution [Debrox] Debrox 6. 5 % Debrox 6.5 % 05/17/2020 12:00:00 AM EDT 5.0 {drops_into_affected_ear} active Debrox 6.5 % eCW1 ([facility]) carbamide peroxide 65 MG/ML Otic Solution [Debrox] Debrox 6. 5 % Debrox 6.5 % 05/17/2020 12:00:00 AM EDT 5.0 {drops_into_affected_ear} active Debrox 6.5 % eCW1 ([facility]) carbamide peroxide 65 MG/ML Otic Solution [Debrox] Debrox 6. 5 % Debrox 6.5 % 05/17/2020 12:00:00 AM EDT 5.0 {drops_into_affected_ear} active Debrox 6.5 % eCW1 ([facility]) 60 mg 05/10/2020 12:00:00 AM EST capsule,delayed release (DR/EC) 30 TAKE ONE CAPSULE BY MOUTH EVERY DAY TAKE ONE CAPSULE BY MOUTH EVERY DAY SOLD: 05/11/2020 [facility] 60 mg 05/10/2020 12:00:00 AM EST capsule,delayed release (DR/EC) 30 TAKE ONE CAPSULE BY MOUTH EVERY DAY TAKE ONE CAPSULE BY MOUTH EVERY DAY SOLD: 06/14/2020 [facility] Famotidine 20 MG Oral Tablet FAMOTIDINE 04/19/2020 12:00:00 AM EST tab let 30 TAKE ONE TABLET BY MOUTH AT BEDTIME NEEDED TAKE ONE TABLET BY MOUTH AT BEDTIME NEEDED SOLD: 04/21/2020 [facility] 0.5 ML dulaglutide 3 MG/ML Auto-Injector [Trulicity] Trulicity 1.5 MG/0.5ML Subcutaneous Solution Pen-injector Trulicity 1.5 MG/0.5ML Subcutaneous Solu tion Pen-injector 04/11/2020 12:00:00 AM EST activ e INJECT DIRECTED ONCE WEEKLY UNDER THE [facility] 150 mg 04/09/2020 12:00:00 AM EST capsule 90 TAKE ONE CAPSULE BY MOUTH THREE TIMES A DAY MAXIMUM DAILY DOSE = 3 TAKE ONE CAPSULE BY MOUTH THREE TIMES A DAY MAXIMUM DAILY DOSE = 3 SOLD: 04/11/2020 [facility] 100 mg 04/06/2020 12:00:00 AM EST capsule 30 TAKE ONE CAPSULE BY MOUTH TWICE A DAY NEEDED TAKE ONE CAPSULE BY MOUTH TWICE A DAY NEEDED SOLD: 04/27/2020 [facility] 100 mg 04/06/2020 12:00:00 AM EST capsule 30 TAKE ONE CAPSULE BY MOUTH TWICE A DAY NEEDED TAKE ONE CAPSULE BY MOUTH TWICE A DAY NEEDED SOLD: 04/06/2020 [facility] 60 mg 04/06/2020 12:00:00 AM EST capsule,delayed release (DR/EC) 30 TAKE ONE CAPSULE BY MOUTH EVERY DAY TAKE ONE CAPSULE BY MOUTH EVERY DAY SOLD: 04/06/2020 [facility] Meclizine Hydrochloride 25 MG Oral Tablet MECLIZINE HCL 04/05/2020 12:00:00 AM EST tablet 90 TAKE ONE TABLET BY MOUTH THR EE TIMES A DAY NEEDED TAKE ONE TABLET BY MOUTH THREE TIMES A DAY NEEDED SOLD: 04/06/2020 [facility] Meclizine Hydrochloride 25 MG Oral Tablet MECLIZINE HCL 04/05/2020 12:00:00 AM EST tablet 90 TAKE ONE TABLET BY MOUTH THR EE TIMES A DAY NEEDED TAKE ONE TABLET BY MOUTH THREE TIMES A DAY NEEDED SOLD: 05/14/2020 [facility] 325 mg 03/22/2020 12:00:00 AM EST tablet,delayed release (DR/EC) 30 TAKE ONE TABLET BY MOUTH EVERY DAY TAKE ONE TABLET BY MOUTH EVERY DAY SOLD: 03/22/2020 [facility] 100 mg 03/22/2020 12:00:00 AM EST capsule 20 TAKE ONE CAPSULE BY MOUTH TWICE A DAY FOR 10 DAYS TAKE ONE CAPSULE BY MOUTH TWICE A DAY FOR 10 DAYS SOLD : 03/22/2020 [facility] Aspirin 325 MG Delayed Release Oral Tabl et Aspirin EC 325 MG Oral Tablet Delayed Release Aspirin EC 325 MG Oral Tablet Delayed Release 03/22/19 12:00:00 AM EST 325 mg Oral active Take 1 tablet by mouth daily for 30 doses 5 mg 03/22/2020 12:00:00 AM EST tablet 30 TAKE ONE TABLET BY MOUTH EVERY 4 HOURS NEEDED FOR UP TO 10 DAYS MAX=6TABS/DAY TAKE ONE TABLET BY MOUTH EVERY 4 HOURS NEEDED FOR UP TO 10 DAYS MAX=6TABS/DAY SOLD: 03/22/2020 [facility] 8 mg 03/22/2020 12:00:00 AM EST tablet 20 TAKE ONE TABLET BY MOUTH EVERY 8 HOURS NEEDED FOR NAUSEA AND VOMITING FOR UP TO 7 DAYS TAKE ONE TABLET BY MOUTH EVERY 8 HOURS NEEDED FOR NAUSEA AND VOMITING FOR UP TO 7 DAYS SOLD: 03/22/2020 [facility] 20 mg 03/18/2020 12:00:00 AM EST tablet 30 TAKE ONE TABLET BY MOUTH AT BEDTIME NEEDED TAKE ONE TABLET BY MOUTH AT BEDTIME NEEDED SOLD: [facility] 1,250 mcg (50,000 unit) 03/15/2020 12:00:00 AM EST capsule 4 TAKE ONE CAPSULE BY MOUTH ONCE WEEKLY TAKE ONE CAPSULE BY MOUTH ONCE WEEKLY SOLD: 05/14/2020 [facility] 1,250 mcg (50,000 unit) 03/15/2020 12:00:00 AM EST capsule 4 TAKE ONE CAPSULE BY MOUTH ONCE WEEKLY TAKE ONE CAPSULE BY MOUTH ONCE WEEKLY SOLD: 03/15/2020 [facility] 1,250 mcg (50,000 unit) 03/15/2020 12:00:00 AM EST capsule 4 TAKE ONE CAPSULE BY MOUTH ONCE WEEKLY TAKE ONE CAPSULE BY MOUTH ONCE WEEKLY SOLD: 04/21/2020 [facility] 1.5 mg/0.5 mL 03/15/2020 12:00:00 AM EST pen injector 2 INJECT DIRECTED ONCE WEEKLY UNDER THE SKIN INJECT DIRECTED ONCE WEEKLY UNDER THE SKIN SOLD: 05/18/2020 [facility] 1.5 mg/0.5 mL 03/15/2020 12:00:00 AM EST pen injector 2 INJECT DIRECTED ONCE WEEKLY UNDER THE SKIN INJECT DIRECTED ONCE WEEKLY UNDER THE SKIN SOLD: 04/11/2020 [facility] 1.5 mg/0.5 mL 03/15/2020 12:00:00 AM EST pen injector 2 INJECT DIRECTED ONCE WEEKLY UNDER THE SKIN INJECT DIRECTED ONCE WEEKLY UNDER THE SKIN SOLD: 03/15/2020 [facility] 150 mg 03/10/2020 12:00:00 AM EST capsule 90 TAKE ONE CAPSULE BY MOUTH THREE TIMES A DAY MAXIMUM DAILY DOSE = 3 CAPS TAKE ONE CAPSULE BY MOUTH THREE TIMES A DAY MAXIMUM DAILY DOSE = 3 CAPS SOLD: 03/11/2020 [facility] 100 mg 03/10/2020 12:00:00 AM EST capsule 60 TAKE ONE CAPSULE BY MOUTH TWICE A DAY NEEDED TAKE ONE CAPSULE BY MOUTH TWICE A DAY NEEDED SOLD: 03/11/2020 [facility] 20 mg 02/09/2020 12:00:00 AM EST tablet 30 TAKE ONE TABLET BY MOUTH AT BEDTIME NEEDED TAKE ONE TABLET BY MOUTH AT BEDTIME NEEDED SOLD: [facility] 200 ACTUAT Albuterol 0.09 MG/ACTUAT Mete red Dose Inhaler [Ventolin] Ventolin HFA 108 (90 Base) MCG/ACT Ventolin HFA 108 (90 Base) MCG/ACT 02/05/2020 12:00:00 AM EST active Ventolin HFA 108 (90 Base) MCG/ACT eCW1 ([facility]) 200 ACTUAT Albuterol 0.09 MG/ACTUAT Mete red Dose Inhaler [Ventolin] Ventolin HFA 108 (90 Base) MCG/ACT Ventolin HFA 108 (90 Base) MCG/ACT 02/05/2020 12:00:00 AM EST active Ventolin HFA 108 (90 Base) MCG/ACT eCW1 ([facility]) 0.3 % 02/05/2020 12:00:00 AM EST drops 5 INSTILL 10 DROPS INTO THE RIGHT EAR ONCE DAILY FOR 7 DAYS INSTILL 10 DROPS INTO THE RIGHT EAR ONCE DAILY FOR 7 DAYS SOLD: 02/05/2020 [facility] 200 ACTUAT Albuterol 0.09 MG/ACTUAT Mete red Dose Inhaler [Ventolin] Ventolin HFA 108 (90 Base) MCG/ACT Ventolin HFA 108 (90 Base) MCG/ACT 02/05/2020 12:00:00 AM EST active Ventolin HFA 108 (90 Base) MCG/ACT eCW1 ([facility]) 200 ACTUAT Albuterol 0.09 MG/ACTUAT Mete red Dose Inhaler [Ventolin] Ventolin HFA 108 (90 Base) MCG/ACT Ventolin HFA 108 (90 Base) MCG/ACT 02/05/2020 12:00:00 AM EST active Ventolin HFA 108 (90 Base) MCG/ACT eCW1 ([facility]) Augmentin 875-125 MG UNK 02/05/2020 12:00:00 AM EST 1.0 {tablet } active Augmentin 875-125 MG eCW1 ([facility]) Augmentin 875-125 MG UNK 02/05/2020 12:00:00 AM EST 1.0 {tab let} suspended Augmentin 875-125 MG eCW1 ([facility]) 875-125 mg 02/05/2020 12:00:00 AM EST tablet 20 TAKE ONE TABLET BY MOUTH EVERY 12 HOURS FOR 10 DAYS TAKE ONE TABLET BY MOUTH EVERY 12 HOURS FOR 10 DAYS SOLD: 02/05/2020 [facility] Augmentin 875-125 MG UNK 02/05/2020 12:00:00 AM EST 1.0 {tablet } active Augmentin 875-125 MG eCW1 ([facility]) Ofloxacin 3 MG/ML Ophthalmic Solution Ofloxacin 0.3 % Ofloxa radha 0.3 % 02/05/2020 12:00:00 AM EST active Ofloxac in 0.3 % eCW1 ([facility]) 200 ACTUAT Albuterol 0.09 MG/ACTUAT Mete red Dose Inhaler [Ventolin] Ventolin HFA 108 (90 Base) MCG/ACT Ventolin HFA 108 (90 Base) MCG/ACT 02/05/2020 12:00:00 AM EST active Ventolin HFA 108 (90 Base) MCG/ACT eCW1 ([facility]) 200 ACTUAT Albuterol 0.09 MG/ACTUAT Mete red Dose Inhaler [Ventolin] Ventolin HFA 108 (90 Base) MCG/ACT Ventolin HFA 108 (90 Base) MCG/ACT 02/05/2020 12:00:00 AM EST active Ventolin HFA 108 (90 Base) MCG/ACT eCW1 ([facility]) 200 ACTUAT Albuterol 0.09 MG/ACTUAT Mete red Dose Inhaler [Ventolin] Ventolin HFA 108 (90 Base) MCG/ACT Ventolin HFA 108 (90 Base) MCG/ACT 02/05/2020 12:00:00 AM EST active Ventolin HFA 108 (90 Base) MCG/ACT eCW1 ([facility]) 200 ACTUAT Albuterol 0.09 MG/ACTUAT Mete red Dose Inhaler [Ventolin] Ventolin HFA 108 (90 Base) MCG/ACT Ventolin HFA 108 (90 Base) MCG/ACT 02/05/2020 12:00:00 AM EST active Ventolin HFA 108 (90 Base) MCG/ACT eCW1 ([facility]) 200 ACTUAT Albuterol 0.09 MG/ACTUAT Mete red Dose Inhaler [Ventolin] Ventolin HFA 108 (90 Base) MCG/ACT Ventolin HFA 108 (90 Base) MCG/ACT 02/05/2020 12:00:00 AM EST active Ventolin HFA 108 (90 Base) MCG/ACT eCW1 ([facility]) 200 ACTUAT Albuterol 0.09 MG/ACTUAT Mete red Dose Inhaler [Ventolin] Ventolin HFA 108 (90 Base) MCG/ACT Ventolin HFA 108 (90 Base) MCG/ACT 02/05/2020 12:00:00 AM EST active Ventolin HFA 108 (90 Base) MCG/ACT eCW1 ([facility]) 90 mcg/actuation 02/05/2020 12:00:00 AM EST HFA aerosol inha ler 18 INHALE 1- 2 PUFFS BY MOUTH EVERY 6 HOURS NEEDED INHALE 1-2 PUFFS BY MOUTH EVERY 6 HOURS NEEDED SOLD: 02/05/2020 [facility] Ofloxacin 3 MG/ML Ophthalmic Solution Ofloxacin 0.3 % Ofloxa radha 0.3 % 02/05/2020 12:00:00 AM EST suspended Oflo xacin 0.3 % eCW1 ([facility]) 200 ACTUAT Albuterol 0.09 MG/ACTUAT Mete red Dose Inhaler [Ventolin] Ventolin HFA 108 (90 Base) MCG/ACT Ventolin HFA 108 (90 Base) MCG/ACT 02/05/2020 12:00:00 AM EST active Ventolin HFA 108 (90 Base) MCG/ACT eCW1 ([facility]) Albuterol Sulfate HFA 108 (90 Base) MCG/ ACT Inhalation Aerosol Solution (PROVENTIL HFA) 8190-4996-26 02/05/2020 12:00:00 AM EST active INHALE 1 2 PUFFS BY MOUTH EVERY 6 HOURS NEEDED 200 ACTUAT Albuterol 0.09 MG/ACTUAT Mete red Dose Inhaler [Ventolin] Ventolin HFA 108 (90 Base) MCG/ACT Ventolin HFA 108 (90 Base) MCG/ACT 02/05/2020 12:00:00 AM EST active Ventolin HFA 108 (90 Base) MCG/ACT eCW1 ([facility]) 200 ACTUAT Albuterol 0.09 MG/ACTUAT Mete red Dose Inhaler [Ventolin] Ventolin HFA 108 (90 Base) MCG/ACT Ventolin HFA 108 (90 Base) MCG/ACT 02/05/2020 12:00:00 AM EST active Ventolin HFA 108 (90 Base) MCG/ACT eCW1 ([facility]) 200 ACTUAT Albuterol 0.09 MG/ACTUAT Mete red Dose Inhaler [Ventolin] Ventolin HFA 108 (90 Base) MCG/ACT Ventolin HFA 108 (90 Base) MCG/ACT 02/05/2020 12:00:00 AM EST active Ventolin HFA 108 (90 Base) MCG/ACT eCW1 ([facility]) 200 ACTUAT Albuterol 0.09 MG/ACTUAT Mete red Dose Inhaler [Ventolin] Ventolin HFA 108 (90 Base) MCG/ACT Ventolin HFA 108 (90 Base) MCG/ACT 02/05/2020 12:00:00 AM EST active Ventolin HFA 108 (90 Base) MCG/ACT eCW1 ([facility]) 200 ACTUAT Albuterol 0.09 MG/ACTUAT Mete red Dose Inhaler [Ventolin] Ventolin HFA 108 (90 Base) MCG/ACT Ventolin HFA 108 (90 Base) MCG/ACT 02/05/2020 12:00:00 AM EST active Ventolin HFA 108 (90 Base) MCG/ACT eCW1 ([facility]) 200 ACTUAT Albuterol 0.09 MG/ACTUAT Mete red Dose Inhaler [Ventolin] Ventolin HFA 108 (90 Base) MCG/ACT Ventolin HFA 108 (90 Base) MCG/ACT 02/05/2020 12:00:00 AM EST active Ventolin HFA 108 (90 Base) MCG/ACT eCW1 ([facility]) Augmentin 875-125 MG UNK 02/05/2020 12:00:00 AM EST 1.0 {tab let} suspended Augmentin 875-125 MG eCW1 ([facility]) Ofloxacin 3 MG/ML Ophthalmic Solution Ofloxacin 0.3 % Ofloxa radha 0.3 % 02/05/2020 12:00:00 AM EST active Ofloxac in 0.3 % eCW1 ([facility]) 200 ACTUAT Albuterol 0.09 MG/ACTUAT Mete red Dose Inhaler [Ventolin] Ventolin HFA 108 (90 Base) MCG/ACT Ventolin HFA 108 (90 Base) MCG/ACT 02/05/2020 12:00:00 AM EST active Ventolin HFA 108 (90 Base) MCG/ACT eCW1 ([facility]) Augmentin 875-125 MG UNK 02/05/2020 12:00:00 AM EST 1.0 {tablet } active Augmentin 875-125 MG eCW1 ([facility]) Ofloxacin 3 MG/ML Ophthalmic Solution Ofloxacin 0.3 % Ofloxa radha 0.3 % 02/05/2020 12:00:00 AM EST suspended Oflo xacin 0.3 % eCW1 ([facility]) Ofloxacin 3 MG/ML Ophthalmic Solution Ofloxacin 0.3 % Ofloxa radha 0.3 % 02/05/2020 12:00:00 AM EST active Ofloxac in 0.3 % eCW1 ([facility]) 200 ACTUAT Albuterol 0.09 MG/ACTUAT Mete red Dose Inhaler [Ventolin] Ventolin HFA 108 (90 Base) MCG/ACT Ventolin HFA 108 (90 Base) MCG/ACT 02/05/2020 12:00:00 AM EST active Ventolin HFA 108 (90 Base) MCG/ACT eCW1 ([facility]) 200 ACTUAT Albuterol 0.09 MG/ACTUAT Mete red Dose Inhaler [Ventolin] Ventolin HFA 108 (90 Base) MCG/ACT Ventolin HFA 108 (90 Base) MCG/ACT 02/05/2020 12:00:00 AM EST active Ventolin HFA 108 (90 Base) MCG/ACT eCW1 ([facility]) 200 ACTUAT Albuterol 0.09 MG/ACTUAT Mete red Dose Inhaler [Ventolin] Ventolin HFA 108 (90 Base) MCG/ACT Ventolin HFA 108 (90 Base) MCG/ACT 02/05/2020 12:00:00 AM EST active Ventolin HFA 108 (90 Base) MCG/ACT eCW1 ([facility]) 200 ACTUAT Albuterol 0.09 MG/ACTUAT Mete red Dose Inhaler [Ventolin] Ventolin HFA 108 (90 Base) MCG/ACT Ventolin HFA 108 (90 Base) MCG/ACT 02/05/2020 12:00:00 AM EST active Ventolin HFA 108 (90 Base) MCG/ACT eCW1 ([facility]) 200 ACTUAT Albuterol 0.09 MG/ACTUAT Mete red Dose Inhaler [Ventolin] Ventolin HFA 108 (90 Base) MCG/ACT Ventolin HFA 108 (90 Base) MCG/ACT 02/05/2020 12:00:00 AM EST active Ventolin HFA 108 (90 Base) MCG/ACT eCW1 ([facility]) 200 ACTUAT Albuterol 0.09 MG/ACTUAT Mete red Dose Inhaler [Ventolin] Ventolin HFA 108 (90 Base) MCG/ACT Ventolin HFA 108 (90 Base) MCG/ACT 02/05/2020 12:00:00 AM EST active Ventolin HFA 108 (90 Base) MCG/ACT eCW1 ([facility]) 200 ACTUAT Albuterol 0.09 MG/ACTUAT Mete red Dose Inhaler [Ventolin] Ventolin HFA 108 (90 Base) MCG/ACT Ventolin HFA 108 (90 Base) MCG/ACT 02/05/2020 12:00:00 AM EST active Ventolin HFA 108 (90 Base) MCG/ACT eCW1 ([facility]) 60 mg 02/04/2020 12:00:00 AM EST capsule,delayed release (DR/EC) 30 TAKE ONE CAPSULE BY MOUTH EVERY DAY TAKE ONE CAPSULE BY MOUTH EVERY DAY SOLD: 02/05/2020 [facility] 60 mg 02/04/2020 12:00:00 AM EST capsule,delayed release (DR/EC) 30 TAKE ONE CAPSULE BY MOUTH EVERY DAY TAKE ONE CAPSULE BY MOUTH EVERY DAY SOLD: 03/05/2020 [facility] 20 mg 02/03/2020 12:00:00 AM EST capsule,delayed release (DR/EC) 30 TAKE ONE CAPSULE BY MOUTH DAILY TAKE ONE CAPSULE BY MOUTH DAILY SOLD: 07/22/2020 [facility] atorvastatin 10 MG Oral Tablet ATORVASTATIN CALCIUM 02/03/2020 1 2:00:00 AM EST tablet 30 TAKE ONE TABLET BY MOUTH DAILY TAKE ONE T ABLET BY MOUTH DAILY SOLD: 02/04/2020 [facility] 20 mg 02/03/2020 12:00:00 AM EST capsule,delayed release (DR/EC) 30 TAKE ONE CAPSULE BY MOUTH DAILY TAKE ONE CAPSULE BY MOUTH DAILY SOLD: 03/15/2020 [facility] 20 mg 02/03/2020 12:00:00 AM EST capsule,delayed release (DR/EC) 30 TAKE ONE CAPSULE BY MOUTH DAILY TAKE ONE CAPSULE BY MOUTH DAILY SOLD: 04/27/2020 [facility] 20 mg 02/03/2020 12:00:00 AM EST capsule,delayed release (DR/EC) 30 TAKE ONE CAPSULE BY MOUTH DAILY TAKE ONE CAPSULE BY MOUTH DAILY SOLD: 06/24/2020 [facility] 20 mg 02/03/2020 12:00:00 AM EST capsule,delayed release (DR/EC) 30 TAKE ONE CAPSULE BY MOUTH DAILY TAKE ONE CAPSULE BY MOUTH DAILY SOLD: 02/04/2020 [facility] atorvastatin 10 MG Oral Tablet ATORVASTATIN CALCIUM 02/03/2020 1 2:00:00 AM EST tablet 30 TAKE ONE TABLET BY MOUTH DAILY TAKE ONE T ABLET BY MOUTH DAILY SOLD: 04/27/2020 [facility] atorvastatin 10 MG Oral Tablet ATORVASTATIN CALCIUM 02/03/2020 1 2:00:00 AM EST tablet 30 TAKE ONE TABLET BY MOUTH DAILY TAKE ONE T ABLET BY MOUTH DAILY SOLD: 03/15/2020 [facility] atorvastatin 10 MG Oral Tablet ATORVASTATIN CALCIUM 02/03/2020 1 2:00:00 AM EST tablet 30 TAKE ONE TABLET BY MOUTH DAILY TAKE ONE T ABLET BY MOUTH DAILY SOLD: 06/24/2020 [facility] 100 mg 02/02/2020 12:00:00 AM EST capsule 60 TAKE ONE CAPSULE BY MOUTH TWICE A DAY NEEDED TAKE ONE CAPSULE BY MOUTH TWICE A DAY NEEDED SOLD: 02/04/2020 [facility] pregabalin 150 MG Oral Capsule Pregabalin 150 MG Oral Capsule (LYRICA) Pregabalin 150 MG Oral Capsule (LYRICA) 02/02/2020 12:00:00 AM EST active TAKE ONE CAPSULE BY MOUTH THREE TIMES A DAY MAX 3CAPS.DAY 150 mg 02/02/2020 12:00:00 AM EST capsule 90 TAKE ONE CAPSULE BY MOUTH THREE TIMES A DAY MAX=3CAPS.DAY TAKE ONE CAPSULE BY MOUTH THREE TIMES A DAY MAX=3CAPS.DAY SOLD: 02/04/2020 [facility] 10 mg 01/14/2020 12:00:00 AM EST tablet 30 TAKE ONE TABLET BY MOUTH EVERY DAY TAKE ONE TABLET BY MOUTH EVERY DAY SOLD: 05/14/2020 [facility] 10 mg 01/14/2020 12:00:00 AM EST tablet 30 TAKE ONE TABLET BY MOUTH EVERY DAY TAKE ONE TABLET BY MOUTH EVERY DAY SOLD: 07/10/2020 [facility] 10 mg 01/14/2020 12:00:00 AM EST tablet 30 TAKE ONE TABLET BY MOUTH EVERY DAY TAKE ONE TABLET BY MOUTH EVERY DAY SOLD: 01/16/2020 [facility] 10 mg 01/14/2020 12:00:00 AM EST tablet 30 TAKE ONE TABLET BY MOUTH EVERY DAY TAKE ONE TABLET BY MOUTH EVERY DAY SOLD: 03/05/2020 [facility] 20 mg 01/14/2020 12:00:00 AM EST tablet 30 TAKE ONE TABLET BY MOUTH AT BEDTIME NEEDED TAKE ONE TABLET BY MOUTH AT BEDTIME NEEDED SOLD: [facility] 10 mg 01/14/2020 12:00:00 AM EST tablet 30 TAKE ONE TABLET BY MOUTH EVERY DAY TAKE ONE TABLET BY MOUTH EVERY DAY SOLD: 04/06/2020 [facility] 150 mg 12/24/2019 12:00:00 AM EDT capsule 90 TAKE ONE CAPSULE BY MOUTH THREE TIMES A DAY TAKE ONE CAPSULE BY MOUTH THREE TIMES A DAY SOLD: 12/24/2019 [facility] methylPREDNISolone acetate (DEPO-MEDROL) injection 40 mg [id number] 12/17/2019 03:00:00 PM EDT 40 mg Intra-articular completed 40 mg, Intra- articular, Once, Sun12/17/19 at 1500, For 1 dose
DEPO-MEDROL 1 cc - [id number]
Medication administered onsite Meclizine Hydrochloride 25 MG Oral Tablet Meclizine HC l 25 MG Meclizine HCl 25 MG 12/16/2019 12:00:00 AM EDT 1.0 {tablet_as_needed} active Meclizine HCl 25 MG eCW1 ([facility]) Ciprofloxacin 2 MG/ML Otic Solution Ciprofloxacin HCl 0.2 % Ciprofloxacin HCl 0.2 % 12/16/2019 12:00:00 AM EDT 0.25 {ml_into_affected_ear} active Ciprofloxacin HCl 0.2 % eCW1 ([facility]) Ofloxacin 3 MG/ML Ophthalmic Solution Ofloxacin 0.3 % Ofloxa radha 0.3 % 12/16/2019 12:00:00 AM EDT 10.0 {drops_into_affected_ear} active Ofloxacin 0.3 % eCW1 ([facility]) Meclizine Hydrochloride 25 MG Oral Tablet Meclizine HC l 25 MG Meclizine HCl 25 MG 12/16/2019 12:00:00 AM EDT 1.0 {tablet_as_needed} active Meclizine HCl 25 MG eCW1 ([facility]) Amoxicillin 875 MG / Clavulanate 125 MG Oral Tablet Amoxicillin-Pot Clavulanate 875-125 MG Amoxicillin-Pot Clavulanate 875-125 MG 12/16/2019 12:00:00 AM ED T 1.0 {tablet} active Amoxicillin-Pot Cla vulanate 875-125 MG eCW1 ([facility]) Ciprofloxacin 2 MG/ML Otic Solution Ciprofloxacin HCl 0.2 % Ciprofloxacin HCl 0.2 % 12/16/2019 12:00:00 AM EDT 0.25 {ml_into_affected_ear} active Ciprofloxacin HCl 0.2 % eCW1 ([facility]) Meclizine Hydrochloride 25 MG Oral Tablet Meclizine HC l 25 MG Meclizine HCl 25 MG 12/16/2019 12:00:00 AM EDT 1.0 {tablet_as_needed} active Meclizine HCl 25 MG eCW1 ([facility]) Meclizine Hydrochloride 25 MG Oral Tablet Meclizine HC l 25 MG Meclizine HCl 25 MG 12/16/2019 12:00:00 AM EDT 1.0 {tablet_as_needed} active Meclizine HCl 25 MG eCW1 ([facility]) 875-125 mg 12/16/2019 12:00:00 AM EDT tablet 20 TAKE ONE TABLET BY MOUTH EVERY 12 HOURS FOR 10 DAYS TAKE ONE TABLET BY MOUTH EVERY 12 HOURS FOR 10 DAYS SOLD: 12/16/2019 [facility] Amoxicillin 875 MG / Clavulanate 125 MG Oral Tablet Amoxicillin-Pot Clavulanate 875-125 MG Oral Tablet (AUGMENTIN) Amoxicillin-Pot Clavulanate 875-125 MG O ral Tablet (AUGMENTIN) 12/16/2019 12:00:00 AM EDT [facility] Ofloxacin 3 MG/ML Otic Solution Ofloxacin 0.3 % Otic S olution (FLOXIN) Ofloxacin 0.3 % Otic Solution (FLOXIN) 12/16/2019 12:00:00 AM EDT [facility] Meclizine Hydrochloride 25 MG Oral Tablet Meclizine HC l 25 MG Meclizine HCl 25 MG 12/16/2019 12:00:00 AM EDT 1.0 {tablet_as_needed} active Meclizine HCl 25 MG eCW1 ([facility]) Meclizine Hydrochloride 25 MG Oral Tablet Meclizine HC l 25 MG Meclizine HCl 25 MG 12/16/2019 12:00:00 AM EDT 1.0 {tablet_as_needed} active Meclizine HCl 25 MG eCW1 ([facility]) Amoxicillin 875 MG / Clavulanate 125 MG Oral Tablet Amoxicillin-Pot Clavulanate 875-125 MG Amoxicillin-Pot Clavulanate 875-125 MG 12/16/2019 12:00:00 AM ED T 1.0 {tablet} active Amoxicillin-Pot Cla vulanate 875-125 MG eCW1 ([facility]) Amoxicillin 875 MG / Clavulanate 125 MG Oral Tablet Amoxicillin-Pot Clavulanate 875-125 MG Amoxicillin-Pot Clavulanate 875-125 MG 12/16/2019 12:00:00 AM ED T 1.0 {tablet} active Amoxicillin-Pot Cla vulanate 875-125 MG eCW1 ([facility]) Amoxicillin 875 MG / Clavulanate 125 MG Oral Tablet Amoxicillin-Pot Clavulanate 875-125 MG Amoxicillin-Pot Clavulanate 875-125 MG 12/16/2019 12:00:00 AM ED T 1.0 {tablet} active Amoxicillin-Pot Cla vulanate 875-125 MG eCW1 ([facility]) Ofloxacin 3 MG/ML Ophthalmic Solution Ofloxacin 0.3 % Ofloxa radha 0.3 % 12/16/2019 12:00:00 AM EDT 10.0 {drops_into_affected_ear} active Ofloxacin 0.3 % eCW1 ([facility]) Meclizine Hydrochloride 25 MG Oral Tablet Meclizine HC l 25 MG Meclizine HCl 25 MG 12/16/2019 12:00:00 AM EDT 1.0 {tablet_as_needed} active Meclizine HCl 25 MG eCW1 ([facility]) Meclizine Hydrochloride 25 MG Oral Tablet Meclizine HC l 25 MG Meclizine HCl 25 MG 12/16/2019 12:00:00 AM EDT 1.0 {tablet_as_needed} active Meclizine HCl 25 MG eCW1 ([facility]) Meclizine Hydrochloride 25 MG Oral Tablet Meclizine HC l 25 MG Meclizine HCl 25 MG 12/16/2019 12:00:00 AM EDT 1.0 {tablet_as_needed} active Meclizine HCl 25 MG eCW1 ([facility]) Meclizine Hydrochloride 25 MG Oral Tablet MECLIZINE HCL 12/16/2019 12:00:00 AM EDT tablet 90 TAKE ONE TABLET BY MOUTH THR EE TIMES A DAY NEEDED TAKE ONE TABLET BY MOUTH THREE TIMES A DAY NEEDED SOLD: 01/30/2020 [facility] Ciprofloxacin 2 MG/ML Otic Solution Ciprofloxacin HCl 0.2 % Ciprofloxacin HCl 0.2 % 12/16/2019 12:00:00 AM EDT 0.25 {ml_into_affected_ear} active Ciprofloxacin HCl 0.2 % eCW1 ([facility]) Meclizine Hydrochloride 25 MG Oral Tablet Meclizine HC l 25 MG Meclizine HCl 25 MG 12/16/2019 12:00:00 AM EDT 1.0 {tablet_as_needed} active Meclizine HCl 25 MG eCW1 ([facility]) Ofloxacin 3 MG/ML Ophthalmic Solution Ofloxacin 0.3 % Ofloxa radha 0.3 % 12/16/2019 12:00:00 AM EDT 10.0 {drops_into_affected_ear} active Ofloxacin 0.3 % eCW1 ([facility]) Meclizine Hydrochloride 25 MG Oral Tablet MECLIZINE HCL 12/16/2019 12:00:00 AM EDT tablet 90 TAKE ONE TABLET BY MOUTH THR EE TIMES A DAY NEEDED TAKE ONE TABLET BY MOUTH THREE TIMES A DAY NEEDED SOLD: 12/16/2019 [facility] Ciprofloxacin 2 MG/ML Otic Solution Ciprofloxacin HCl 0.2 % Ciprofloxacin HCl 0.2 % 12/16/2019 12:00:00 AM EDT 0.25 {ml_into_affected_ear} active Ciprofloxacin HCl 0.2 % eCW1 ([facility]) Meclizine Hydrochloride 25 MG Oral Tablet Meclizine HC l 25 MG Meclizine HCl 25 MG 12/16/2019 12:00:00 AM EDT 1.0 {tablet_as_needed} active Meclizine HCl 25 MG eCW1 ([facility]) Meclizine Hydrochloride 25 MG Oral Tablet Meclizine HC l 25 MG Meclizine HCl 25 MG 12/16/2019 12:00:00 AM EDT 1.0 {tablet_as_needed} active Meclizine HCl 25 MG eCW1 ([facility]) Meclizine Hydrochloride 25 MG Oral Tablet Meclizine HC l 25 MG Meclizine HCl 25 MG 12/16/2019 12:00:00 AM EDT 1.0 {tablet_as_needed} active Meclizine HCl 25 MG eCW1 ([facility]) Meclizine Hydrochloride 25 MG Oral Tablet Meclizine HC l 25 MG Meclizine HCl 25 MG 12/16/2019 12:00:00 AM EDT 1.0 {tablet_as_needed} active Meclizine HCl 25 MG eCW1 ([facility]) 0.3 % 12/16/2019 12:00:00 AM EDT drops 5 INSTILL 10 DROPS INTO THE AFFECTED EAR ONCE DAILY FOR 7 DAYS INSTILL 10 DROPS INTO THE AFFECTED EAR O NCE DAILY FOR 7 DAYS SOLD: 12/16/2019 [facility] Ofloxacin 3 MG/ML Ophthalmic Solution Ofloxacin 0.3 % Ofloxa radha 0.3 % 12/16/2019 12:00:00 AM EDT 10.0 {drops_into_affected_ear} active Ofloxacin 0.3 % eCW1 ([facility]) 0.75 mg/0.5 mL 12/02/2019 12:00:00 AM EDT pen injector 6 INJECT DIRECTED ONCE WEEKLY INJECT DIRECTED ONCE WEEKLY SOLD: 02/19/2020 [facility] 0.75 mg/0.5 mL 12/02/2019 12:00:00 AM EDT pen injector 6 INJECT DIRECTED ONCE WEEKLY INJECT DIRECTED ONCE WEEKLY SOLD: 12/03/2019 [facility] Meclizine Hydrochloride 25 MG Oral Tablet MECLIZINE HCL 11/26/2019 12:00:00 AM EDT tablet 30 TAKE ONE TABLET BY MOUTH THREE TIMES A DAY NEEDED FOR 10 DAYS TAKE ONE TABLET BY MOUTH THREE TIMES A DAY NEEDED F OR 10 DAYS SOLD: 11/27/2019 [facility] 100 mg 11/12/2019 12:00:00 AM EDT capsule 90 TAKE ONE CAPSULE BY MOUTH THREE TIMES A DAY MAX=3CAPS/DAY TAKE ONE CAPSULE BY MOUTH THREE TIMES A DAY MAX=3CAPS/DAY SOLD: 11/13/2019 [facility] 60 mg 11/08/2019 12:00:00 AM EDT capsule,delayed release (DR/EC) 30 TAKE ONE CAPSULE BY MOUTH EVERY DAY TAKE ONE CAPSULE BY MOUTH EVERY DAY SOLD: 12/24/2019 [facility] 60 mg 11/08/2019 12:00:00 AM EDT capsule,delayed release (DR/EC) 30 TAKE ONE CAPSULE BY MOUTH EVERY DAY TAKE ONE CAPSULE BY MOUTH EVERY DAY SOLD: 11/23/2019 [facility] Famotidine 20 MG Oral Tablet FAMOTIDINE 11/07/2019 12:00:00 AM EDT tab let 30 TAKE ONE TABLET BY MOUTH AT BEDTIME NEEDED TAKE ONE TABLET BY MOUTH AT BEDTIME NEEDED SOLD: 11/08/2019 [facility] Famotidine 20 MG Oral Tablet FAMOTIDINE 11/07/2019 12:00:00 AM EDT tab let 30 TAKE ONE TABLET BY MOUTH AT BEDTIME NEEDED TAKE ONE TABLET BY MOUTH AT BEDTIME NEEDED SOLD: 12/12/2019 [facility] Meclizine Hydrochloride 25 MG Oral Tablet MECLIZINE HCL 10/08/2019 12:00:00 AM EDT tablet 30 TAKE ONE TABLET BY MOUTH THREE TIMES A DAY NEEDED FOR 10 DAYS TAKE ONE TABLET BY MOUTH THREE TIMES A DAY NEEDED F OR 10 DAYS SOLD: 11/08/2019 [facility] pregabalin 100 MG Oral Capsule Pregabalin 100 MG Oral Capsule (LYRICA) Pregabalin 100 MG Oral Capsule (LYRICA) 09/03/2019 12:00:00 AM EDT aborted TAKE ONE CAPSULE BY MOUTH THREE TIMES A DAY 10 mg 08/07/2019 12:00:00 AM EDT tablet 30 TAKE ONE TABLET BY MOUTH EVERY DAY TAKE ONE TABLET BY MOUTH EVERY DAY SOLD: 12/16/2019 [facility] 10 mg 08/07/2019 12:00:00 AM EDT tablet 30 TAKE ONE TABLET BY MOUTH EVERY DAY TAKE ONE TABLET BY MOUTH EVERY DAY SOLD: 11/08/2019 [facility] 20 mg 07/15/2019 12:00:00 AM EDT capsule,delayed release (DR/EC) 30 TAKE ONE CAPSULE BY MOUTH EVERY DAY TAKE ONE CAPSULE BY MOUTH EVERY DAY SOLD: 11/27/2019 [facility] atorvastatin 10 MG Oral Tablet ATORVASTATIN CALCIUM 07/15/2019 1 2:00:00 AM EDT tablet 30 TAKE ONE TABLET BY MOUTH EVERY D AY TAKE ONE TABLET BY MOUTH EVERY DAY SOLD: 12/24/2019 [facility] atorvastatin 10 MG Oral Tablet ATORVASTATIN CALCIUM 07/15/2019 1 2:00:00 AM EDT tablet 30 TAKE ONE TABLET BY MOUTH EVERY D AY TAKE ONE TABLET BY MOUTH EVERY DAY SOLD: 11/27/2019 [facility] 20 mg 07/15/2019 12:00:00 AM EDT capsule,delayed release (DR/EC) 30 TAKE ONE CAPSULE BY MOUTH EVERY DAY TAKE ONE CAPSULE BY MOUTH EVERY DAY SOLD: 12/24/2019 [facility] oxybutynin chloride er 10 mg tb24 completed oxybutynin chloride er 10 mg tb24 [facility]AC[facility] ([facility]) duloxetine hydrochloride 60 mg cpep completed duloxetine hydrochloride 60 mg cpep [facility] ([facility]) famotidine 20 mg tabs completed famotidine 20 mg tabs H[facility]AC[facility] ([facility]) pregabalin 100 MG Oral Capsule pregabalin 100 mg capsu le pregabalin 100 mg capsule completed pregabalin 100 MG Oral Capsule [facility] ([facility]) pregabalin 100 MG Oral Capsule pregabalin 100 mg capsu le pregabalin 100 mg capsule completed pregabalin 100 MG Oral Capsule [facility] ([facility]) Methocarbamol 750 MG Oral Tablet methoca rbamol 750 mg tablet TAKE ONE TABLET BY MOUTH THREE TIMES A DAY NEEDED methocarbamol 750 mg tablet TAKE ONE TAB LET BY MOUTH THREE TIMES A DAY NEEDED com pleted methocarbamol 750 MG Oral Tablet [facility] ([facility]) pregabalin 100 MG Oral Capsule pregabalin 100 mg capsu le pregabalin 100 mg capsule completed pregabalin 100 MG Oral Capsule [facility] ([facility]) atorvastatin calcium 10 mg tabs completed atorvastatin calcium 10 mg tabs [facility] ([facility]) Steglatro 5 mg tablet [id number] completed ertugliflozin 5 MG Oral Tablet [Steglatro] [facility] ([facility]) Methocarbamol 500 MG Oral Tablet methocarbamol 500 mg tablet methocarbamol 500 mg tablet completed methocarbamo l 500 MG Oral Tablet [facility] ([facility]) steglatro 5 mg tabs completed steglatro 5 mg tabs [facility] ([facility]) Methocarbamol 500 MG Oral Tablet methocarbamol 500 mg tablet methocarbamol 500 mg tablet completed methocarbamo l 500 MG Oral Tablet [facility] ([facility]) famotidine 20 mg tabs completed famotidine 20 mg tabs [facility] ([facility]) celecoxib 100 mg caps completed celecoxib 100 mg caps [facility] ([facility]) gabapentin 300 mg caps completed gabapentin 300 mg caps [facility] ([facility]) celecoxib 100 mg caps completed celecoxib 100 mg caps [facility] ([facility]) methocarbamol 500 mg tabs compl eted methocarbamol 500 mg tabs [facility] ([facility]) steglatro 5 mg tabs completed steglatro 5 mg tabs [place] ([facility]) celecoxib 200 mg caps completed celecoxib 200 mg caps [facility] ([facility]) lisinopril 10 mg tabs completed lisinopril 10 mg tabs [facility] ([facility]) Famotidine 20 MG Oral Tablet famotidine 20 mg tablet famotidine 20 mg tablet completed famotidine 20 MG Oral Tablet [facility] ([facility]) oxybutynin chloride er 10 mg tb24 completed oxybutynin chloride er 10 mg tb24 [facility] ([facility]) steglatro 5 mg tabs completed steglatro 5 mg tabs [facility] ([facility]) famotidine 20 mg tabs completed famotidine 20 mg tabs [facility] ([facility]) pregabalin 75 MG Oral Capsule pregabalin 75 mg capsule prega balin 75 mg capsule completed pregabalin 75 MG Oral Capsule [facility] ([facility]) pregabalin 100 mg caps completed pregabalin 100 mg caps [facility] ([facility]) pregabalin 100 mg caps completed pregabalin 100 mg caps [facility] ([facility]) oxybutynin chloride er 10 mg tb24 completed oxybutynin chloride er 10 mg tb24 [facility] ([facility]) pregabalin 100 MG Oral Capsule pregabalin 100 mg capsu le pregabalin 100 mg capsule completed pregabalin 100 MG Oral Capsule [facility] ([facility]) Steglatro 5 mg tablet [id number] completed ertugliflozin 5 MG Oral Tablet [Steglatro] [facility] ([facility]) steglatro 5 mg tabs completed steglatro 5 mg tabs [facility] ([facility]) Methocarbamol 500 MG Oral Tablet methocarbamol 500 mg tablet methocarbamol 500 mg tablet completed methocarbamo l 500 MG Oral Tablet [facility] ([facility]) pregabalin 75 MG Oral Capsule pregabalin 75 mg capsule prega balin 75 mg capsule completed pregabalin 75 MG Oral Capsule [facility] ([facility]) fluticasone propionate 50 mcg/actuation nasal spray,suspension SPRAY ONE SPRAY IN EACH NOSTRIL DAILY [id number] completed fluticasone propionate 0.05 MG/ACTUAT Metered Dose Nasal [place] [facility] ([facility]) duloxetine hydrochloride 60 mg cpep completed duloxetine hydrochloride 60 mg cpep [place] ([facility]) methocarbamol 500 mg tabs compl eted methocarbamol 500 mg tabs [facility] ([facility]) Steglatro 5 mg tablet [id number] completed ertugliflozin 5 MG Oral Tablet [Steglatro] [facility] ([facility]) pregabalin 75 MG Oral Capsule pregabalin 75 mg capsule prega balin 75 mg capsule completed pregabalin 75 MG Oral Capsule [facility] ([facility]) celecoxib 200 mg caps completed celecoxib 200 mg caps [facility] ([facility]) oxybutynin chloride er 10 mg tb24 completed oxybutynin chloride er 10 mg tb24 [facility] ([facility]) pregabalin 75 mg caps completed pregabalin 75 mg caps [facility] ([facility]) atorvastatin calcium 10 mg tabs completed atorvastatin calcium 10 mg tabs [facility] ([facility]) celecoxib 100 mg caps completed celecoxib 100 mg caps [facility] ([facility]) fluticasone propionate 50 mcg/act susp completed fluticasone propionate 50 mcg/act susp [facility] ([facility]) famotidine 20 mg tabs completed famotidine 20 mg tabs [facility] ([facility]) pregabalin 100 mg caps completed pregabalin 100 mg caps [facility] ([facility]) celecoxib 200 mg caps completed celecoxib 200 mg caps [facility] ([facility]) lisinopril 10 mg tabs completed lisinopril 10 mg tabs [facility] ([facility]) duloxetine hydrochloride 60 mg cpep completed duloxetine hydrochloride 60 mg cpep [facility] ([facility]) omeprazole 20 mg cpdr completed omeprazole 20 mg cpdr [facility] ([facility]) methocarbamol 750 mg tabs compl eted methocarbamol 750 mg tabs [facility] ([facility]) celecoxib 100 mg caps completed celecoxib 100 mg caps [facility] ([facility]) atorvastatin calcium 10 mg tabs completed atorvastatin calcium 10 mg tabs [facility] ([facility]) Amoxicillin 875 MG / Clavulanate 125 MG Oral Tablet amoxicillin 875 mg-potassium clavulanate 125 mg tablet TAKE ONE TABLET BY MOUTH EVERY 12 HOURS FOR 10 DAYS amoxicillin 875 mg-potassium clavulanate 125 mg tablet TAKE ONE TABLET BY MOUTH EVERY 12 HOURS FOR 10 DAYS completed amoxicillin 875 MG / clavulanate 125 MG Oral Tablet [facility] ([facility]) Steglatro 5 mg tablet [id number] completed ertugliflozin 5 MG Oral Tablet [Steglatro] [facility] ([facility]) Methocarbamol 750 MG Oral Tablet methoca rbamol 750 mg tablet TAKE ONE TABLET BY MOUTH THREE TIMES A DAY NEEDED methocarbamol 750 mg tablet TAKE ONE TAB LET BY MOUTH THREE TIMES A DAY NEEDED com pleted methocarbamol 750 MG Oral Tablet [facility] ([facility]) trulicity 0.75 mg/0.5ml sopn co mpleted trulicity 0.75 mg/0.5ml sopn [facility] ([facility]) pregabalin 75 mg caps completed pregabalin 75 mg caps [facility] ([facility]) duloxetine hcl 30 mg cpep compl eted duloxetine hcl 30 mg cpep [facility] ([facility]) fluticasone propionate 50 mcg/act susp completed fluticasone propionate 50 mcg/act susp [facility] ([facility]) pregabalin 100 MG Oral Capsule pregabalin 100 mg [place] pregabalin 100 mg capsule completed pregabalin 100 MG Oral Capsule [facility] ([facility]) duloxetine hcl 30 mg cpep compl eted duloxetine hcl 30 mg cpep [facility] ([facility]) pregabalin 75 mg caps completed pregabalin 75 mg caps [facility] ([facility]) famotidine 20 mg tabs completed famotidine 20 mg tabs [facility] ([facility]) duloxetine hcl 30 mg cpep compl eted duloxetine hcl 30 mg cpep [facility] ([facility]) omeprazole 20 mg cpdr completed omeprazole 20 mg cpdr [facility]) atorvastatin calcium 10 mg tabs completed atorvastatin calcium 10 mg tabs [facility] ([facility]) Amoxicillin 875 MG / Clavulanate 125 MG Oral Tablet amoxicillin 875 mg-potassium clavulanate 125 mg tablet TAKE ONE TABLET BY MOUTH EVERY 12 HOURS FOR 10 DAYS amoxicillin 875 mg-potassium clavulanate 125 mg tablet TAKE ONE TABLET BY MOUTH EVERY 12 HOURS FOR 10 DAYS completed amoxicillin 875 MG / clavulanate 125 MG Oral Tablet [facility] ([facility]) meclizine hcl 25 mg tabs completed meclizine hcl 25 mg tabs [facility] ([facility]) omeprazole 20 mg cpdr completed omeprazole 20 mg cpdr [facility] ([facility]) Amoxicillin 875 MG / Clavulanate 125 MG Oral Tablet amoxicillin 875 mg-potassium clavulanate 125 mg tablet TAKE ONE TABLET BY MOUTH EVERY 12 HOURS FOR 10 DAYS amoxicillin 875 mg-potassium clavulanate 125 mg tablet TAKE ONE TABLET BY MOUTH EVERY 12 HOURS FOR 10 DAYS completed amoxicillin 875 MG / clavulanate 125 MG Oral Tablet [facility] ([facility]) duloxetine hydrochloride 60 mg cpep completed duloxetine hydrochloride 60 mg cpep [facility] ([facility]) trulicity 0.75 mg/0.5ml sopn co mpleted trulicity 0.75 mg/0.5ml sopn [facility] ([facility]) omeprazole 20 mg cpdr completed omeprazole 20 mg cpdr [facility] ([facility]) atorvastatin 10 MG Oral Tablet atorvasta tin 10 mg tablet TAKE ONE TABLET BY MOUTH EVERY DAY atorvastatin 10 mg tablet TAKE ONE TABLET BY MOUTH EVERY DAY completed atorvastatin 1 0 MG Oral Tablet [facility] ([facility]) omeprazole 20 mg cpdr completed omeprazole 20 mg cpdr [facility] ([facility]) meclizine hcl 25 mg tabs completed meclizine hcl 25 mg tabs [facility] ([facility]) celecoxib 100 mg caps completed celecoxib 100 mg caps [facility] ([facility]) pregabalin 75 MG Oral Capsule pregabalin 75 mg capsule prega balin 75 mg capsule completed pregabalin 75 MG Oral Capsule [facility] ([facility]) Amoxicillin 875 MG / Clavulanate 125 MG Oral Tablet amoxicillin 875 mg-potassium clavulanate 125 mg tablet TAKE ONE TABLET BY MOUTH EVERY 12 HOURS FOR 10 DAYS amoxicillin 875 mg-potassium clavulanate 125 mg tablet TAKE ONE TABLET BY MOUTH EVERY 12 HOURS FOR 10 DAYS completed amoxicillin 875 MG / clavulanate 125 MG Oral Tablet [facility] ([facility]) pregabalin 100 MG Oral Capsule pregabalin 100 mg capsu le pregabalin 100 mg capsule completed pregabalin 100 MG Oral Capsule [facility] ([facility]) celecoxib 100 mg caps completed celecoxib 100 mg caps [facility] ([facility]) trulicity 0.75 mg/0.5ml sopn co mpleted trulicity 0.75 mg/0.5ml sopn [facility] ([facility]) duloxetine hydrochloride 60 mg cpep completed duloxetine hydrochloride 60 mg cpep [facility] ([facility]) meclizine hcl 25 mg tabs completed meclizine hcl 25 mg tabs [facility] ([facility]) Methocarbamol 750 MG Oral Tablet methoca rbamol 750 mg tablet TAKE ONE TABLET BY MOUTH THREE TIMES A DAY NEEDED methocarbamol 750 mg tablet TAKE ONE TAB LET BY MOUTH THREE TIMES A DAY NEEDED com pleted methocarbamol 750 MG Oral Tablet [facility] ([facility]) methocarbamol 750 mg tabs compl eted methocarbamol 750 mg tabs [facility] ([facility]) Steglatro 5 mg tablet [id number] completed ertugliflozin 5 MG Oral Tablet [Steglatro] [facility] ([facility]) steglatro 5 mg tabs completed steglatro 5 mg tabs [facility] ([facility]) Amoxicillin 875 MG / Clavulanate 125 MG Oral Tablet amoxicillin 875 mg-potassium clavulanate 125 mg tablet TAKE ONE TABLET BY MOUTH EVERY 12 HOURS FOR 10 DAYS amoxicillin 875 mg-potassium clavulanate 125 mg tablet TAKE ONE TABLET BY MOUTH EVERY 12 HOURS FOR 10 DAYS completed amoxicillin 875 MG / clavulanate 125 MG Oral Tablet [facility] ([facility]) methocarbamol 500 mg tabs compl eted methocarbamol 500 mg tabs [facility] ([facility]) celecoxib 200 mg caps completed celecoxib 200 mg caps [facility] ([facility]) famotidine 20 mg tabs completed famotidine 20 mg tabs [facility] ([facility]) trulicity 0.75 mg/0.5ml sopn co mpleted trulicity 0.75 mg/0.5ml sopn [facility] ([facility]) Oxycodone Hydrochloride 5 MG Oral Tablet oxycodone 5 mg tablet TAKE ONE TABLET BY MOUTH EVERY 4 HOURS NEEDED FOR UP TO 10 DAYS MAX 6TABS/DAY oxycodone 5 mg tablet TAKE ONE TABLET BY MOUTH EVERY 4 HOURS NEEDED FOR UP TO 10 DAYS MAX 6TABS/DAY completed oxycodone hy drochloride 5 MG Oral Tablet [facility] ([facility]) pregabalin 100 mg caps completed pregabalin 100 mg caps [facility] ([facility]) trulicity 0.75 mg/0.5ml sopn co mpleted trulicity 0.75 mg/0.5ml sopn [facility] ([facility]) methocarbamol 750 mg tabs compl eted methocarbamol 750 mg tabs [facility] ([facility]) trulicity 0.75 mg/0.5ml sopn co mpleted trulicity 0.75 mg/0.5ml sopn [facility] ([facility]) meclizine hcl 25 mg tabs completed meclizine hcl 25 mg tabs [facility] ([facility]) pregabalin 100 mg caps completed pregabalin 100 mg caps [facility] ([facility]) fluticasone propionate 50 mcg/act susp completed fluticasone propionate 50 mcg/act susp [facility] ([facility]) lisinopril 10 mg tabs completed lisinopril 10 mg tabs [facility] ([facility]) 0.5 ML dulaglutide 1.5 MG/ML Auto-Inject or [Trulicity] Trulicity 0.75 mg/0.5 mL subcutaneous pen injector INJECT DIRECTED ONCE WEEKLY Trulicity 0.75 mg/0.5 mL subcutaneous pen injector INJECT DIRECTED ONCE WEEKLY completed 0.5 ML dulaglutide 1.5 MG/ML Aut o-Injector [Trulicity] [facility] ([facility]) oxybutynin chloride er 10 mg tb24 completed oxybutynin chloride er 10 mg tb24 [facility] ([facility]) fluticasone propionate 50 mcg/actuation nasal spray,suspension SPRAY ONE SPRAY IN EACH NOSTRIL DAILY [id number] completed fluticasone propionate 0.05 MG/ACTUAT Metered Dose Nasal [place] [facility] ([facility]) gabapentin 300 mg caps completed gabapentin 300 mg caps [facility] ([facility]) pregabalin 75 MG Oral Capsule pregabalin 75 mg capsule prega balin 75 mg capsule completed pregabalin 75 MG Oral Capsule [facility] ([facility]) pregabalin 75 MG Oral Capsule pregabalin 75 mg capsule prega balin 75 mg capsule completed pregabalin 75 MG Oral Capsule [facility] ([facility]) methocarbamol 500 mg tabs compl eted methocarbamol 500 mg tabs [facility] ([facility]) Steglatro 5 mg tablet [id number] completed ertugliflozin 5 MG Oral Tablet [Steglatro] [facility] ([facility]) omeprazole 20 mg cpdr completed omeprazole 20 mg cpdr [facility] ([facility]) Methocarbamol 500 MG Oral Tablet methocarbamol 500 mg tablet methocarbamol 500 mg tablet completed methocarbamo l 500 MG Oral Tablet [facility] ([facility]) gabapentin 300 mg caps completed gabapentin 300 mg caps [facility] ([facility]) trulicity 0.75 mg/0.5ml sopn co mpleted trulicity 0.75 mg/0.5ml sopn [facility] ([facility]) methocarbamol 500 mg tabs compl eted methocarbamol 500 mg tabs [facility] ([facility]) pregabalin 75 MG Oral Capsule pregabalin 75 mg capsule prega balin 75 mg capsule completed pregabalin 75 MG Oral Capsule [facility] ([facility]) gabapentin 300 mg caps completed gabapentin 300 mg caps [facility] ([facility]) omeprazole 20 mg cpdr completed omeprazole 20 mg cpdr [facility] ([facility]) duloxetine hydrochloride 60 mg cpep completed duloxetine hydrochloride 60 mg cpep [facility] ([facility]) famotidine 20 mg tabs completed famotidine 20 mg tabs [facility] ([facility]) pregabalin 100 mg caps completed pregabalin 100 mg caps [facility] ([facility]) gabapentin 300 mg caps completed gabapentin 300 mg caps [facility] ([facility]) fluticasone propionate 50 mcg/actuation nasal spray,suspension SPRAY ONE SPRAY IN EACH NOSTRIL DAILY [id number] completed fluticasone propionate 0.05 MG/ACTUAT Metered Dose Nasal [place] ([facility]) Methocarbamol 750 MG Oral Tablet methoca rbamol 750 mg tablet TAKE ONE TABLET BY MOUTH THREE TIMES A DAY NEEDED methocarbamol 750 mg tablet TAKE ONE TAB LET BY MOUTH THREE TIMES A DAY NEEDED com pleted methocarbamol 750 MG Oral Tablet [facility] ([facility]) Methocarbamol 500 MG Oral Tablet methocarbamol 500 mg tablet methocarbamol 500 mg tablet completed methocarbamo l 500 MG Oral Tablet [facility] ([facility]) 0.5 ML dulaglutide 1.5 MG/ML Auto-Inject or [Trulicity] Trulicity 0.75 mg/0.5 mL subcutaneous pen injector INJECT DIRECTED ONCE WEEKLY Trulicity 0.75 mg/0.5 mL subcutaneous pen injector INJECT DIRECTED ONCE WEEKLY completed 0.5 ML dulaglutide 1.5 MG/ML Aut o-Injector [Trulicity] [facility] ([facility]) oxybutynin chloride er 10 mg tb24 completed oxybutynin chloride er 10 mg tb24 [place] ([facility]) gabapentin 300 mg caps completed gabapentin 300 mg caps [place] ([facility]) pregabalin 100 mg caps completed pregabalin 100 mg caps [facility] ([facility]) steglatro 5 mg tabs completed steglatro 5 mg tabs [facility] ([facility]) Methocarbamol 500 MG Oral Tablet methocarbamol 500 mg tablet methocarbamol 500 mg tablet completed methocarbamo l 500 MG Oral Tablet [facility] ([facility]) duloxetine hcl 30 mg cpep compl eted duloxetine hcl 30 mg cpep [facility] ([facility]) trulicity 0.75 mg/0.5ml sopn co mpleted trulicity 0.75 mg/0.5ml sopn [facility] ([facility]) lisinopril 10 mg tabs completed lisinopril 10 mg tabs [facility] ([facility]) lisinopril 10 mg tabs completed lisinopril 10 mg tabs [facility] ([facility]) lisinopril 10 mg tabs completed lisinopril 10 mg tabs [facility] ([facility]) methocarbamol 750 mg tabs compl eted methocarbamol 750 mg tabs [facility] ([facility]) Oxycodone Hydrochloride 5 MG Oral Tablet oxycodone 5 mg tablet TAKE ONE TABLET BY MOUTH EVERY 4 HOURS NEEDED FOR UP TO 10 DAYS MAX 6TABS/DAY oxycodone 5 mg tablet TAKE ONE TABLET BY MOUTH EVERY 4 HOURS NEEDED FOR UP TO 10 DAYS MAX 6TABS/DAY completed oxycodone hy drochloride 5 MG Oral Tablet [facility] ([facility]) lisinopril 10 mg tabs completed lisinopril 10 mg tabs [facility] ([facility]) pregabalin 75 mg caps completed pregabalin 75 mg caps [place] ([facility]) fluticasone propionate 50 mcg/actuation nasal spray,suspension SPRAY ONE SPRAY IN EACH NOSTRIL DAILY [id number] completed fluticasone propionate 0.05 MG/ACTUAT Metered Dose Nasal [place] [facility] ([facility]) methocarbamol 750 mg tabs compl eted methocarbamol 750 mg tabs [facility] ([facility]) meclizine hcl 25 mg tabs completed meclizine hcl 25 mg tabs [facility] ([facility]) duloxetine hydrochloride 60 mg cpep completed duloxetine hydrochloride 60 mg cpep [facility] ([facility]) methocarbamol 750 mg tabs compl eted methocarbamol 750 mg tabs [facility] ([facility]) pregabalin 75 mg caps completed pregabalin 75 mg caps [facility] ([facility]) gabapentin 300 mg caps completed gabapentin 300 mg caps [facility] ([facility]) celecoxib 200 mg caps completed celecoxib 200 mg caps [facility] ([facility]) methocarbamol 750 mg tabs compl eted methocarbamol 750 mg tabs [facility] ([facility]) Amoxicillin 875 MG / Clavulanate 125 MG Oral Tablet amoxicillin 875 mg-potassium clavulanate 125 mg tablet TAKE ONE TABLET BY MOUTH EVERY 12 HOURS FOR 10 DAYS amoxicillin 875 mg-potassium clavulanate 125 mg tablet TAKE ONE TABLET BY MOUTH EVERY 12 HOURS FOR 10 DAYS completed amoxicillin 875 MG / clavulanate 125 MG Oral Tablet [facility] ([facility]) fluticasone propionate 50 mcg/actuation nasal spray,suspension SPRAY ONE SPRAY IN EACH NOSTRIL DAILY [id number] completed fluticasone propionate 0.05 MG/ACTUAT Metered Dose Nasal [place] [facility] ([facility]) Methocarbamol 500 MG Oral Tablet methocarbamol 500 mg tablet methocarbamol 500 mg tablet completed methocarbamo l 500 MG Oral Tablet [facility] ([facility]) Steglatro 5 mg tablet [id number] completed ertugliflozin 5 MG Oral Tablet [Steglatro] [facility] ([facility]) celecoxib 200 mg caps completed celecoxib 200 mg caps [facility] ([facility]) fluticasone propionate 50 mcg/act susp completed fluticasone propionate 50 mcg/act susp [facility] ([facility]) pregabalin 75 mg caps completed pregabalin 75 mg caps [facility] ([facility]) fluticasone propionate 50 mcg/act susp completed fluticasone propionate 50 mcg/act susp [facility] ([facility]) duloxetine hydrochloride 60 mg cpep completed duloxetine hydrochloride 60 mg cpep [facility] ([facility]) methocarbamol 750 mg tabs compl eted methocarbamol 750 mg tabs [facility] ([facility]) methocarbamol 750 mg tabs compl eted methocarbamol 750 mg tabs [facility] ([facility]) fluticasone propionate 50 mcg/act susp completed fluticasone propionate 50 mcg/act susp [facility] ([facility]) methocarbamol 500 mg tabs compl eted methocarbamol 500 mg tabs [facility] ([facility]) gabapentin 300 mg caps completed gabapentin 300 mg caps [facility] ([facility]) Amoxicillin 875 MG / Clavulanate 125 MG Oral Tablet amoxicillin 875 mg-potassium clavulanate 125 mg tablet TAKE ONE TABLET BY MOUTH EVERY 12 HOURS FOR 10 DAYS amoxicillin 875 mg-potassium clavulanate 125 mg tablet TAKE ONE TABLET BY MOUTH EVERY 12 HOURS FOR 10 DAYS completed amoxicillin 875 MG / clavulanate 125 MG Oral Tablet [facility] ([facility]) atorvastatin 20 MG Oral Tablet atorvastatin 20 mg tabl et atorvastatin 20 mg tablet completed atorvastatin 20 MG Oral Tablet [facility] ([facility]) methocarbamol 500 mg tabs compl eted methocarbamol 500 mg tabs [facility] ([facility]) lisinopril 10 mg tabs completed lisinopril 10 mg tabs [facility] ([facility]) lisinopril 10 mg tabs completed lisinopril 10 mg tabs [facility] ([facility]) steglatro 5 mg tabs completed steglatro 5 mg tabs [facility] ([facility]) meclizine hcl 25 mg tabs completed meclizine hcl 25 mg tabs [facility] ([facility]) pregabalin 75 mg caps completed pregabalin 75 mg caps [facility] ([facility]) methocarbamol 750 mg tabs compl eted methocarbamol 750 mg tabs [facility] ([facility]) fluticasone propionate 50 mcg/actuation nasal spray,suspension SPRAY ONE SPRAY IN EACH NOSTRIL DAILY [id number] completed fluticasone propionate 0.05 MG/ACTUAT Metered Dose Nasal [place] [facility] ([facility]) Methocarbamol 750 MG Oral Tablet methoca rbamol 750 mg tablet TAKE ONE TABLET BY MOUTH THREE TIMES A DAY NEEDED methocarbamol 750 mg tablet TAKE ONE TAB LET BY MOUTH THREE TIMES A DAY NEEDED com pleted methocarbamol 750 MG Oral Tablet [facility] ([facility]) Methocarbamol 750 MG Oral Tablet methoca rbamol 750 mg tablet TAKE ONE TABLET BY MOUTH THREE TIMES A DAY NEEDED methocarbamol 750 mg tablet TAKE ONE TAB LET BY MOUTH THREE TIMES A DAY NEEDED com pleted methocarbamol 750 MG Oral Tablet [facility] ([facility]) lisinopril 10 mg tabs completed lisinopril 10 mg tabs [facility] ([facility]) meclizine hcl 25 mg tabs completed meclizine hcl 25 mg tabs [facility] ([facility]) Steglatro 5 mg tablet [id number] completed ertugliflozin 5 MG Oral Tablet [Steglatro] [facility] ([facility]) fluticasone propionate 50 mcg/actuation nasal spray,suspension SPRAY ONE SPRAY IN EACH NOSTRIL DAILY [id number] completed fluticasone propionate 0.05 MG/ACTUAT Metered Dose Nasal [place] [facility] ([facility]) duloxetine hydrochloride 60 mg cpep completed duloxetine hydrochloride 60 mg cpep [facility] ([facility]) famotidine 20 mg tabs completed famotidine 20 mg tabs [facility] ([facility]) methocarbamol 750 mg tabs compl eted methocarbamol 750 mg tabs [facility] ([facility]) meclizine hcl 25 mg tabs completed meclizine hcl 25 mg tabs [facility] ([facility]) pregabalin 75 mg caps completed pregabalin 75 mg caps [facility] ([facility]) pregabalin 100 MG Oral Capsule pregabalin 100 mg capsu le pregabalin 100 mg capsule completed pregabalin 100 MG Oral Capsule [facility] ([facility]) fluticasone propionate 50 mcg/actuation nasal spray,suspension SPRAY ONE SPRAY IN EACH NOSTRIL DAILY [id number] completed fluticasone propionate 0.05 MG/ACTUAT Metered Dose Nasal [place] [facility] ([facility]) celecoxib 100 mg caps completed celecoxib 100 mg caps [facility] ([facility]) pregabalin 75 MG Oral Capsule pregabalin 75 mg capsule prega balin 75 mg capsule completed pregabalin 75 MG Oral Capsule [facility] ([facility]) fluticasone propionate 50 mcg/actuation nasal spray,suspension SPRAY ONE SPRAY IN EACH NOSTRIL DAILY [id number] completed fluticasone propionate 0.05 MG/ACTUAT Metered Dose Nasal [place] [facility] ([facility]) methocarbamol 500 mg tabs compl eted methocarbamol 500 mg tabs [facility] ([facility]) atorvastatin 10 MG Oral Tablet atorvasta tin 10 mg tablet TAKE ONE TABLET BY MOUTH DAILY atorvastatin 10 mg tablet TAKE ONE TABLET BY MOUTH DAILY completed atorvastatin 10 MG Oral Tabl et [facility] ([facility]) omeprazole 20 mg cpdr completed omeprazole 20 mg cpdr [facility] ([facility]) Methocarbamol 750 MG Oral Tablet methoca rbamol 750 mg tablet TAKE ONE TABLET BY MOUTH THREE TIMES A DAY NEEDED methocarbamol 750 mg tablet TAKE ONE TAB LET BY MOUTH THREE TIMES A DAY NEEDED com pleted methocarbamol 750 MG Oral Tablet [facility] ([facility]) Methocarbamol 500 MG Oral Tablet methocarbamol 500 mg tablet methocarbamol 500 mg tablet completed methocarbamo l 500 MG Oral Tablet [facility] ([facility]) pregabalin 75 mg caps completed pregabalin 75 mg caps [facility] ([facility]) atorvastatin 20 MG Oral Tablet atorvastatin 20 mg tabl et atorvastatin 20 mg tablet completed atorvastatin 20 MG Oral Tablet [facility] ([facility]) atorvastatin 10 MG Oral Tablet atorvasta tin 10 mg tablet TAKE ONE TABLET BY MOUTH DAILY atorvastatin 10 mg tablet TAKE ONE TABLET BY MOUTH DAILY completed atorvastatin 10 MG Oral Tabl et [facility] ([facility]) meclizine hcl 25 mg tabs completed meclizine hcl 25 mg tabs [facility] ([facility]) lisinopril 10 mg tabs completed lisinopril 10 mg tabs [facility] ([facility]) oxybutynin chloride er 10 mg tb24 completed oxybutynin chloride er 10 mg tb24 [facility] ([facility]) fluticasone propionate 50 mcg/actuation nasal spray,suspension SPRAY ONE SPRAY IN EACH NOSTRIL DAILY [id number] completed fluticasone propionate 0.05 MG/ACTUAT Metered Dose Nasal [place] [facility] ([facility]) celecoxib 100 mg caps completed celecoxib 100 mg caps [facility] ([facility]) Amoxicillin 875 MG / Clavulanate 125 MG Oral Tablet amoxicillin 875 mg-potassium clavulanate 125 mg tablet TAKE ONE TABLET BY MOUTH EVERY 12 HOURS FOR 10 DAYS amoxicillin 875 mg-potassium clavulanate 125 mg tablet TAKE ONE TABLET BY MOUTH EVERY 12 HOURS FOR 10 DAYS completed amoxicillin 875 MG / clavulanate 125 MG Oral Tablet [facility] ([facility]) atorvastatin calcium 10 mg tabs completed atorvastatin calcium 10 mg tabs [facility] ([facility]) pregabalin 75 mg caps completed pregabalin 75 mg caps [facility] ([facility]) fluticasone propionate 50 mcg/act susp completed fluticasone propionate 50 mcg/act susp [facility] ([facility]) Oxycodone Hydrochloride 5 MG Oral Tablet oxycodone 5 mg tablet TAKE ONE TABLET BY MOUTH EVERY 4 HOURS NEEDED FOR UP TO 10 DAYS MAX 6TABS/DAY oxycodone 5 mg tablet TAKE ONE TABLET BY MOUTH EVERY 4 HOURS NEEDED FOR UP TO 10 DAYS MAX 6TABS/DAY completed oxycodone hy drochloride 5 MG Oral Tablet [facility] ([facility]) oxybutynin chloride er 10 mg tb24 completed oxybutynin chloride er 10 mg tb24 [facility] ([facility]) celecoxib 100 mg caps completed celecoxib 100 mg caps [facility] ([facility]) Methocarbamol 750 MG Oral Tablet methoca rbamol 750 mg tablet TAKE ONE TABLET BY MOUTH THREE TIMES A DAY NEEDED methocarbamol 750 mg tablet TAKE ONE TAB LET BY MOUTH THREE TIMES A DAY NEEDED com pleted methocarbamol 750 MG Oral Tablet [facility] ([facility]) duloxetine hcl 30 mg cpep compl eted duloxetine hcl 30 mg cpep [facility] ([facility]) Oxycodone Hydrochloride 5 MG Oral Tablet oxycodone 5 mg tablet TAKE ONE TABLET BY MOUTH EVERY 4 HOURS NEEDED FOR UP TO 10 DAYS MAX 6TABS/DAY oxycodone 5 mg tablet TAKE ONE TABLET BY MOUTH EVERY 4 HOURS NEEDED FOR UP TO 10 DAYS MAX 6TABS/DAY completed oxycodone hy drochloride 5 MG Oral Tablet [facility] ([facility]) pregabalin 75 MG Oral Capsule pregabalin 75 mg capsule prega balin 75 mg capsule completed pregabalin 75 MG Oral Capsule [facility] ([facility]) pregabalin 75 mg caps completed pregabalin 75 mg caps [facility] ([facility]) Methocarbamol 750 MG Oral Tablet methoca rbamol 750 mg tablet TAKE ONE TABLET BY MOUTH THREE TIMES A DAY NEEDED methocarbamol 750 mg tablet TAKE ONE TAB LET BY MOUTH THREE TIMES A DAY NEEDED com pleted methocarbamol 750 MG Oral Tablet [facility] ([facility]) pregabalin 75 MG Oral Capsule pregabalin 75 mg capsule prega balin 75 mg capsule completed pregabalin 75 MG Oral Capsule [facility] ([facility]) Methocarbamol 500 MG Oral Tablet methocarbamol 500 mg tablet methocarbamol 500 mg tablet completed methocarbamo l 500 MG Oral Tablet [facility] ([facility]) 0.5 ML dulaglutide 3 MG/ML Auto-Injector [Trulicity] Trulicity 1.5 mg/0.5 mL subcutaneous pen injector INJECT DIRECTED ONCE WEEKLY UNDER THE SKIN Trulicity 1.5 mg/0.5 mL subcutaneous pen injector INJECT DIRECTED ONCE WEEKLY UNDER THE SKIN completed 0.5 ML dulaglutide 3 MG/ML Auto- Injector [Trulicity] [facility] ([facility]) atorvastatin calcium 10 mg tabs completed atorvastatin calcium 10 mg tabs [facility] ([facility]) omeprazole 20 mg cpdr completed omeprazole 20 mg cpdr [facility] ([facility]) atorvastatin calcium 10 mg tabs completed atorvastatin calcium 10 mg tabs [facility] ([facility]) gabapentin 300 mg caps completed gabapentin 300 mg caps [facility] ([facility]) gabapentin 300 mg caps completed gabapentin 300 mg caps [facility] ([facility]) celecoxib 100 mg caps completed celecoxib 100 mg caps [facility] ([facility]) atorvastatin calcium 10 mg tabs completed atorvastatin calcium 10 mg tabs [facility] ([facility]) celecoxib 100 mg caps completed celecoxib 100 mg caps [facility] ([facility]) celecoxib 100 mg caps completed celecoxib 100 mg caps [facility] ([facility]) gabapentin 300 mg caps completed gabapentin 300 mg caps [facility] ([facility]) fluticasone propionate 50 mcg/act susp completed fluticasone propionate 50 mcg/act susp [facility] ([facility]) lisinopril 10 mg tabs completed lisinopril 10 mg tabs [facility] ([facility]) Methocarbamol 500 MG Oral Tablet methocarbamol 500 mg tablet methocarbamol 500 mg tablet completed methocarbamo l 500 MG Oral Tablet [facility] ([facility]) pregabalin 100 mg caps completed pregabalin 100 mg caps [facility] ([facility]) methocarbamol 750 mg tabs compl eted methocarbamol 750 mg tabs [facility] ([facility]) gabapentin 300 mg caps completed gabapentin 300 mg caps [facility] ([facility]) celecoxib 100 mg caps completed celecoxib 100 mg caps [facility] ([facility]) atorvastatin calcium 10 mg tabs completed atorvastatin calcium 10 mg tabs [facility] ([facility]) lisinopril 10 mg tabs completed lisinopril 10 mg tabs [facility] ([facility]) celecoxib 200 mg caps completed celecoxib 200 mg caps [facility] ([facility]) duloxetine hcl 30 mg cpep compl eted duloxetine hcl 30 mg cpep [facility] ([facility]) pregabalin 100 mg caps completed pregabalin 100 mg caps [facility] ([facility]) meclizine hcl 25 mg tabs completed meclizine hcl 25 mg tabs [facility] ([facility]) Steglatro 5 mg tablet [id number] completed ertugliflozin 5 MG Oral Tablet [Steglatro] [facility] ([facility]) Methocarbamol 500 MG Oral Tablet methocarbamol 500 mg tablet methocarbamol 500 mg tablet completed methocarbamo l 500 MG Oral Tablet [facility] ([facility]) Steglatro 5 mg tablet [id number] completed ertugliflozin 5 MG Oral Tablet [Steglatro] [facility] ([facility]) pregabalin 100 MG Oral Capsule pregabalin 100 mg capsu le pregabalin 100 mg capsule completed pregabalin 100 MG Oral Capsule [facility] ([facility]) oxybutynin chloride er 10 mg tb24 completed oxybutynin chloride er 10 mg tb24 [place] ([facility]) pregabalin 100 mg caps completed pregabalin 100 mg caps [facility] ([facility]) duloxetine hcl 30 mg cpep compl eted duloxetine hcl 30 mg cpep [facility] ([facility]) fluticasone propionate 50 mcg/act susp completed fluticasone propionate 50 mcg/act susp [facility] ([facility]) Methocarbamol 500 MG Oral Tablet methocarbamol 500 mg tablet methocarbamol 500 mg tablet completed methocarbamo l 500 MG Oral Tablet [facility] ([facility]) omeprazole 20 mg cpdr completed omeprazole 20 mg cpdr [facility] ([facility]) meclizine hcl 25 mg tabs completed meclizine hcl 25 mg tabs [facility] ([facility]) pregabalin 100 MG Oral Capsule pregabalin 100 mg capsu le pregabalin 100 mg capsule completed pregabalin 100 MG Oral Capsule [facility] ([facility]) fluticasone propionate 50 mcg/actuation nasal spray,suspension SPRAY ONE SPRAY IN EACH NOSTRIL DAILY [id number] completed fluticasone propionate 0.05 MG/ACTUAT Metered Dose Nasal [place] [facility] ([facility]) fluticasone propionate 50 mcg/act susp completed fluticasone propionate 50 mcg/act susp [facility] ([facility]) steglatro 5 mg tabs completed steglatro 5 mg tabs [facility] ([facility]) Methocarbamol 750 MG Oral Tablet methoca rbamol 750 mg tablet TAKE ONE TABLET BY MOUTH THREE TIMES A DAY NEEDED methocarbamol 750 mg tablet TAKE ONE TAB LET BY MOUTH THREE TIMES A DAY NEEDED com pleted methocarbamol 750 MG Oral Tablet [facility] ([facility]) meclizine hcl 25 mg tabs completed meclizine hcl 25 mg tabs [facility] ([facility]) famotidine 20 mg tabs completed famotidine 20 mg tabs [facility] ([facility]) Steglatro 5 mg tablet [id number] completed ertugliflozin 5 MG Oral Tablet [Steglatro] [facility] ([facility]) methocarbamol 500 mg tabs compl eted methocarbamol 500 mg tabs [facility] ([facility]) famotidine 20 mg tabs completed famotidine 20 mg tabs [facility] ([facility]) steglatro 5 mg tabs completed steglatro 5 mg tabs [facility] ([facility]) oxybutynin chloride er 10 mg tb24 completed oxybutynin chloride er 10 mg tb24 [facility] ([facility]) famotidine 20 mg tabs completed famotidine 20 mg tabs [facility] ([facility]) pregabalin 75 MG Oral Capsule pregabalin 75 mg capsule prega balin 75 mg capsule completed pregabalin 75 MG Oral Capsule [facility] ([facility]) atorvastatin calcium 10 mg tabs completed atorvastatin calcium 10 mg tabs [facility] ([facility]) methocarbamol 750 mg tabs compl eted methocarbamol 750 mg tabs [facility] ([facility]) Methocarbamol 750 MG Oral Tablet methoca rbamol 750 mg tablet TAKE ONE TABLET BY MOUTH THREE TIMES A DAY NEEDED methocarbamol 750 mg tablet TAKE ONE TAB LET BY MOUTH THREE TIMES A DAY NEEDED com pleted methocarbamol 750 MG Oral Tablet [facility] ([facility]) pregabalin 100 mg caps completed pregabalin 100 mg caps [facility] ([facility]) duloxetine hcl 30 mg cpep compl eted duloxetine hcl 30 mg cpep [facility] ([facility]) pregabalin 75 mg caps completed pregabalin 75 mg caps [facility] ([facility]) duloxetine hydrochloride 60 mg cpep completed duloxetine hydrochloride 60 mg cpep [facility] ([facility]) celecoxib 200 mg caps completed celecoxib 200 mg caps [facility] ([facility]) Methocarbamol 750 MG Oral Tablet methoca rbamol 750 mg tablet TAKE ONE TABLET BY MOUTH THREE TIMES A DAY NEEDED methocarbamol 750 mg tablet TAKE ONE TAB LET BY MOUTH THREE TIMES A DAY NEEDED com pleted methocarbamol 750 MG Oral Tablet [facility] ([facility]) trulicity 0.75 mg/0.5ml sopn co mpleted trulicity 0.75 mg/0.5ml sopn [facility] ([facility]) duloxetine hydrochloride 60 mg cpep completed duloxetine hydrochloride 60 mg cpep [facility] ([facility]) methocarbamol 500 mg tabs compl eted methocarbamol 500 mg tabs [facility] ([facility]) Oxycodone Hydrochloride 5 MG Oral Tablet oxycodone 5 mg tablet TAKE ONE TABLET BY MOUTH EVERY 4 HOURS NEEDED FOR UP TO 10 DAYS MAX 6TABS/DAY oxycodone 5 mg tablet TAKE ONE TABLET BY MOUTH EVERY 4 HOURS NEEDED FOR UP TO 10 DAYS MAX 6TABS/DAY completed oxycodone hy drochloride 5 MG Oral Tablet [facility] ([facility]) duloxetine hcl 30 mg cpep compl eted duloxetine hcl 30 mg cpep [facility] ([facility]) trulicity 0.75 mg/0.5ml sopn co mpleted trulicity 0.75 mg/0.5ml sopn [facility] ([facility]) Oxycodone Hydrochloride 5 MG Oral Tablet oxycodone 5 mg tablet TAKE ONE TABLET BY MOUTH EVERY 4 HOURS NEEDED FOR UP TO 10 DAYS MAX 6TABS/DAY oxycodone 5 mg tablet TAKE ONE TABLET BY MOUTH EVERY 4 HOURS NEEDED FOR UP TO 10 DAYS MAX 6TABS/DAY completed oxycodone hy drochloride 5 MG Oral Tablet [facility] ([facility]) methocarbamol 500 mg tabs compl eted methocarbamol 500 mg tabs [facility] ([facility]) omeprazole 20 mg cpdr completed omeprazole 20 mg cpdr [facility] ([facility]) celecoxib 200 mg caps completed celecoxib 200 mg caps [facility] ([facility]) duloxetine hcl 30 mg cpep compl eted duloxetine hcl 30 mg cpep [facility] ([facility]) methocarbamol 500 mg tabs compl eted methocarbamol 500 mg tabs [facility] ([facility]) celecoxib 200 mg caps completed celecoxib 200 mg caps [facility] ([facility]) omeprazole 20 mg cpdr completed omeprazole 20 mg cpdr [facility] ([facility]) fluticasone propionate 50 mcg/act susp completed fluticasone propionate 50 mcg/act susp [facility] ([facility]) steglatro 5 mg tabs completed steglatro 5 mg tabs [facility] ([facility]) fluticasone propionate 50 mcg/act susp completed fluticasone propionate 50 mcg/act susp [facility] ([facility]) celecoxib 200 mg caps completed celecoxib 200 mg caps [facility] ([facility]) Methocarbamol 750 MG Oral Tablet methoca rbamol 750 mg tablet TAKE ONE TABLET BY MOUTH THREE TIMES A DAY NEEDED methocarbamol 750 mg tablet TAKE ONE TAB LET BY MOUTH THREE TIMES A DAY NEEDED com pleted methocarbamol 750 MG Oral Tablet [facility] ([facility]) steglatro 5 mg tabs completed steglatro 5 mg tabs [facility] ([facility]) Methocarbamol 500 MG Oral Tablet methocarbamol 500 mg tablet methocarbamol 500 mg tablet completed methocarbamo l 500 MG Oral Tablet [facility] ([facility]) meclizine hcl 25 mg tabs completed meclizine hcl 25 mg tabs [facility] ([facility]) oxybutynin chloride er 10 mg tb24 completed oxybutynin chloride er 10 mg tb24 [facility] ([facility]) methocarbamol 500 mg tabs compl eted methocarbamol 500 mg tabs [facility] ([facility]) steglatro 5 mg tabs completed steglatro 5 mg tabs [facility] ([facility]) pregabalin 100 mg caps completed pregabalin 100 mg caps [facility] ([facility]) duloxetine hydrochloride 60 mg cpep completed duloxetine hydrochloride 60 mg cpep [facility] ([facility]) Steglatro 5 mg tablet [id number] completed ertugliflozin 5 MG Oral Tablet [Steglatro] [facility] ([facility]) Steglatro 5 mg tablet [id number] completed ertugliflozin 5 MG Oral Tablet [Steglatro] [facility] ([facility]) pregabalin 100 MG Oral Capsule pregabalin 100 mg capsu le pregabalin 100 mg capsule completed pregabalin 100 MG Oral Capsule [facility] ([facility]) oxybutynin chloride er 10 mg tb24 completed oxybutynin chloride er 10 mg tb24 [place] ([facility]) Amoxicillin 875 MG / Clavulanate 125 MG Oral Tablet amoxicillin 875 mg-potassium clavulanate 125 mg tablet TAKE ONE TABLET BY MOUTH EVERY 12 HOURS FOR 10 DAYS amoxicillin 875 mg-potassium clavulanate 125 mg tablet TAKE ONE TABLET BY MOUTH EVERY 12 HOURS FOR 10 DAYS completed amoxicillin 875 MG / clavulanate 125 MG Oral Tablet [facility] ([facility]) trulicity 0.75 mg/0.5ml sopn co mpleted trulicity 0.75 mg/0.5ml sopn [facility] ([facility]) atorvastatin calcium 10 mg tabs completed atorvastatin calcium 10 mg tabs [facility] ([facility]) pregabalin 75 mg caps completed pregabalin 75 mg caps [facility] ([facility]) gabapentin 300 mg caps completed gabapentin 300 mg caps [facility] ([facility]) omeprazole 20 mg cpdr completed omeprazole 20 mg cpdr [facility] ([facility]) duloxetine hydrochloride 60 mg cpep completed duloxetine hydrochloride 60 mg cpep [facility] ([facility]) duloxetine hcl 30 mg cpep compl eted duloxetine hcl 30 mg cpep [facility] ([facility]) pregabalin 75 MG Oral Capsule pregabalin 75 mg capsule prega balin 75 mg capsule completed pregabalin 75 MG Oral Capsule [facility] ([facility]) oxybutynin chloride er 10 mg tb24 completed oxybutynin chloride er 10 mg tb24 [facility] ([facility]) fluticasone propionate 50 mcg/actuation nasal spray,suspension SPRAY ONE SPRAY IN EACH NOSTRIL DAILY [id number] completed fluticasone propionate 0.05 MG/ACTUAT Metered Dose Nasal [place] [facility] ([facility]) pregabalin 75 MG Oral Capsule pregabalin 75 mg capsule prega balin 75 mg capsule completed pregabalin 75 MG Oral Capsule [facility] ([facility]) pregabalin 100 mg caps completed pregabalin 100 mg caps [facility] ([facility]) fluticasone propionate 50 mcg/act susp completed fluticasone propionate 50 mcg/act susp [facility] ([facility]) steglatro 5 mg tabs completed steglatro 5 mg tabs [facility] ([facility]) 0.5 ML dulaglutide 3 MG/ML Auto-Injector [Trulicity] Trulicity 1.5 mg/0.5 mL subcutaneous pen injector INJECT DIRECTED ONCE WEEKLY UNDER THE SKIN Trulicity 1.5 mg/0.5 mL subcutaneous pen injector INJECT DIRECTED ONCE WEEKLY UNDER THE SKIN completed 0.5 ML dulaglutide 3 MG/ML Auto- Injector [Trulicity] [facility] ([facility]) fluticasone propionate 50 mcg/actuation nasal spray,suspension SPRAY ONE SPRAY IN EACH NOSTRIL DAILY [id number] completed fluticasone propionate 0.05 MG/ACTUAT Metered Dose Nasal [place] [facility] ([facility]) pregabalin 100 MG Oral Capsule pregabalin 100 mg capsu le pregabalin 100 mg capsule completed pregabalin 100 MG Oral Capsule [facility] ([facility]) Insurance Providers Payer name Policy type / Coverage type Policy ID Covered libertarian ID Covered libertarian's relationship to jj Policy Jj Plan Information JANNY CLAIMS ADMIN MAA W [id number] Empl [id number] JANNY CLAIMS ADMIN [facility] W [id number] Empl [id number] AETNA U [id number] Self [id number] MEDICAID [id number] SP [id number] [facility] Comm Plan Medicaid F [id number] SELF [id number] UH I [id number] Self [id number] MEDICAID [id number] Self [id number] UHC I [id number] Self [id number] UHC I [id number] Self [id number] UNHC COMMUNITY PLAN MCDHMO [id number] SP [id number] BLUE CARD C [id number] Spouse [id number] BLUE CARD C [id number] Spouse [id number] BCBS ANTHEM BC [id number] S PY [id number] BCBS OTHER [id number] S [id number] BCBS EXCELLUS [id number] S PYN [id number] MEDICAID [id number] Self [id number] ANSI-Medicaid [id number] ANSI-Not a Secondary Insurance [id number] ANSI-Not a Secondary Insurance [id number] ANSI-Medicaid [id number] ANSI-Medicaid [id number] ANSI-Not a Secondary Insurance [id number] ANSI-Medicaid [id number] ANSI-Not a Secondary Insurance [id number] ANSI-Medicaid [id number] ANSI-Not a Secondary Insurance [id number] ANSI-Not a Secondary Insurance [id number] ANSI-Medicaid [id number] ANSI-Not a Secondary Insurance [id number] ANSI-Medicaid [id number] ANSI-Not a Secondary Insurance [id number] ANSI-Medicaid [id number] ANSI-Medicaid [id number] ANSI-Not a Secondary Insurance [id number] ANSI-Not a Secondary Insurance [id number] ANSI-Medicaid [id number] ANSI-Medicaid [id number] ANSI-Not a Secondary Insurance [id number] ANSI-Medicaid [id number] ANSI-Not a Secondary Insurance [id number] ANSI-Medicaid [id number] ANSI-Not a Secondary Insurance [id number] [facility] [id number] [facility] [employer] (HMO) [id number] Self [id number] [facility] [employer] [facility] (HMO) [id number] Self [id number] [facility] [employer] [facility] (HMO) [id number] Self [id number] [facility] [employer] [facility] (HMO) [id number] Self [id number] [facility] [employer] (HMO) [id number] Self [id number] SELF PAY SP [id number] S [id number] EMPLOYER [id number] S [id number] [facility] [address] [address] [facility] [id number] SP [id number] SP [id number] [employer]NA [place] [facility] COMM [id number] S [id number] MEDICAID M [id number] S [id number] SELF PAY UNAVAILABLE SP UNAVAILA BLE [facility] Medigap Part B [id number] Self Medicaid Medicaid [id number] Self AETNA [place] [id number] SP [id number] CONTRACT CLAIMS [id number] SP [id number] [employer] SERVICE INSURANCE [id number] S [id number] CONTACT CLAIM SERVICE INC [id number] S [id number] OTHER WORKERS COMPENSATION [id number] SP [id number] BCBS ANTHEM BC [id number] S [id number] MEDICAID [id number] S [id number] [facility] MEDICAID [id number] S [id number] [place] [id number] SP [id number] BCBS [place] PPO 302/[id number] MEDICAID [id number] S [id number] BCBS ANTHEM [id number] UN COMMUNITY PLAN [facility] [id number] SP [id number] BCBS OTHER [id number] S [id number] BCBS OTHER UNAVAILABLE UNAVAIL ABLE BCBS ANTHEM [place] [id number] SP [id number] [facility] [place] [facility] [id number] SP [id number] [facility] O [id number] S [id number] ANSI-Not a Secondary Insurance [id number] ANSI-Medicaid [id number] [facility] Health Maintenance Organization (HMO) [id number] Self [id number] Problems, Conditions, and Diagnoses Code Display Name Description Problem Type Effective Dates Data Source(s) M26.621 Arthralgia of right temporomandibular j oint ARTHRALGIA OF RIGHT TEMPOROMANDIBULAR JOINT Diagnosis 12/02/2020 02:35:00 PM EDT [facility] H92.01 Otalgia, right ear OTALGIA, RIGHT EAR Diagnosis 02:35:00 PM EDT [facility] M75.41 Impingement syndrome of right shoulder I mpingement syndrome of right shoulder Diagnosis 11/10/2020 03:00:42 PM EDT [facility] R52 Pain, unspecified Pain, unspecified Diagnosis 10/19/2020 02:00:02 PM EDT Y93.89 Activity, other specified ACTIVITY, OTHER SPECIFIED Di agnosis 08/31/2020 06:08:00 PM EDT [facility] Y92.[address] in unspeci fied non-institutional (private) residence as the place of occurrence of the external cause UNSP PLACE IN UNSP NON-INSTITUT (PRIVATE) RESIDENC Diagnosis 08/31/2020 06:08:00 PM [facility] W20.8XXA Other cause of strike by thr own, projected or falling object, initial encounter OTH CAUSE OF STRIKE BY THROWN, PROJECTED OR FALL O Diagnosis 08/31/2020 06:08:00 PM [facility] Z90.49 Acquired absence of other specified part s of digestive tract ACQUIRED ABSENCE OF OTHER SPECIFIED PARTS OF DIGES Diagnosis 08/31/2020 06:08:0 0 PM [facility] 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 Diagnosis 08/31/2020 06:08:00 PM [facility] F17.210 Nicotine dependence, cigarettes, uncompl icated NICOTINE DEPENDENCE, CIGARETTES, UNCOMPLICATED Diagnosis 08/31/2020 06:08:00 PM [facility] E78.00 PURE HYPERCHOLESTEROLEMIA, UNSPECIFIED P URE HYPERCHOLESTEROLEMIA, UNSPECIFIED Diagnosis 08/31/2020 06:08:00 PM [facility] E11.9 Type 2 diabetes mellitus without complic ations TYPE 2 DIABETES MELLITUS WITHOUT COMPLICATIONS Diagnosis 08/31/2020 06:08:00 PM [facility] I10 Essential (primary) hypertension ESSENTIAL (PRIMARY) H YPERTENSION Diagnosis 08/31/2020 06:08:00 PM [facility] S90.02XA Contusion of left ankle, initial encount er CONTUSION OF LEFT ANKLE, INITIAL ENCOUNTER Diagnosis 08/31/2020 06:08:00 PM [facility] S99.912A Unspecified injury of left ankle, initia l encounter UNSPECIFIED INJURY OF LEFT ANKLE, INITIAL ENCOUNTER Diagnosis 08/31/2020 06:08:00 PM [facility] 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 (CU RRENT) USE OF INSULIN Diagnosis 08/13/2020 09:09:00 AM [facility] E11.65 Type 2 diabetes mellitus with hyperglyce mariano TYPE 2 DIABETES MELLITUS WITH HYPERGLYCEMIA Diagnosis 08/13/2020 09:09:00 AM [facility] M21.42 Flat foot [pes planus] (acquired), left foot Flat foot (pes planus) (acquired), left foot Diagnosis 07/09/2020 11:15:20 AM [facility] M21.41 Flat foot [pes planus] (acquired), right foot Flat foot (pes planus) (acquired), right foot Diagnosis 07/09/2020 11:15:20 AM [facility] M19.079 Primary osteoarthritis, unspecified ankl e and foot Primary osteoarthritis, unspecified ankle and foot Diagnosis 07/09/2020 11:15: 20 AM [facility] M95.8 Other specified acquired deformities of musculoskeletal system Other specified acquired deformities of musculoskeletal system Diagnosis 07/09/2020 11:15:20 AM [facility] M19.079 Primary osteoarthritis, unspecified ankl e and foot PRIMARY OSTEOARTHRITIS, UNSPECIFIED ANKL Diagnosis 06/04/2020 09:30:00 AM [facility] M95.8 Other specified acquired deformities of musculoskeletal system OTH ACQUIRED DEFORMITIES OF MUSCULOSKELETAL SYSTEM Diagnosis 021 09:30:00 AM [facility] S93.602D Unspecified sprain of left foot, subsequ ent encounter Unspecified sprain of left foot, subsequent encounter Diagnosis 12/17/2019 01:31:4 7 PM [facility] S86.812A Strain of other muscle(s) an d tendon(s) at lower leg level, left leg, initial encounter Strain of other muscle(s) and tendon(s) at lower leg level, left leg, initial encounter Diagnosis 12/17/2019 01:31:47 PM [facility] S93.602D Unspecified sprain of left foot, subsequ ent encounter UNSPECIFIED SPRAIN OF LEFT FOOT, SUBSEQU Diagnosis 12/08/2019 07:02:00 AM [facility] S86.812A Strain of other muscle(s) an d tendon(s) at lower leg level, left leg, initial encounter STRAIN OF MUSC/TEND AT LOWER LEG LEVEL, Diagnosis 12/08/2019 07:02:00 AM [facility] M79.672 Pain in left foot PAIN IN LEFT FOOT Diagnosis 12/07 07:02:00 AM [facility] B07.0 Plantar wart PLANTAR WART Diagnosis 11/24/2019 02:30:00 P M [facility] S93.602S Unspecified sprain of left foot, sequela UNSPECIFIED SPRAIN OF LEFT FOOT, SEQUELA Diagnosis 11/07/2019 03:50:00 PM EDT [facility] l H60.8x1 Chronic otitis externa Chronic otitis externa Problem 12/16/2020 12:00:00 AM EDT [facility] ([facility], ) 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 R ight temporomendibular joint disorder Problem 12/16/2020 12:00:00 AM EDT [facility] ([facility], ) E55.9 Vitamin D deficiency Vitamin D insufficiency Problem 11/15/2020 12:00:00 AM EDT eCW1 ([facility]) E78.5 Hyperlipidemia Hyperlipidemia Problem 09/13/2020 12:00: 00 AM EDT [facility] ([facility]) I11.9 Benign hypertensive heart disease withou t congestive heart failure Benign hypertensive heart disease without congestive heart failure Problem 09/13/2020 12:00:00 AM EDT [facility] ([facility]) R01.1 Heart murmur Heart murmur Problem 09/13/2020 12:00:00 A M EDT [facility] ([facility]) R60.0 Edema Edema Problem 09/13/2020 12:00:00 AM ED T [facility] ([facility]) E11.65 [id number] Type 2 diabetes shahnaz itus with hyperglycemia, without long-term current use of insulin Problem 08/16/2020 12:00:00 AM EDT eCW1 ([facility]) F17.210 [id number] Cigarette nicotine dependence without com plication Problem 05/17/2020 12:00:00 AM EDT eCW1 ([facility]) M19.072 [id number] Arthritis of left ankle Problem 03/15/2020 12:00:00 AM EST eCW1 ([facility]) Surgeries/Procedures Procedure Description Date Indications Data Source(s) OFFICE OUTPATIENT VISIT 15 MINUTES 12/30/2020 12:00:00 AM EDT [facility] ([facility], ) OFFICE OUTPATIENT VISIT 15 MINUTES 12/23/2020 12:00:00 AM EDT [facility] ([facility], ) OFFICE OUTPATIENT NEW 45 MINUTES 12/16/2020 12:00:00 A M EDT [facility] ([facility], ) ECHO TTHRC R-T 2D W/WOM-MODE COMPL SPEC&COLR DOP 11/30 12:00:00 AM EDT [facility] ([facility]) ECG ROUTINE ECG W/LEAST 12 LDS W/I&R 09/13/2020 12:00: 00 AM [facility] OFFICE OUTPATIENT NEW 45 MINUTES 09/13/2020 12:00:00 A M EDT [facility] ([facility]) ARTHRS ANKLE EXC OSTCHNDRL DFCT W/DRLG DFCT Ankle Arthroscop y/surgery 03/22/2020 12:00:00 AM EST [facility] ([facility] [place]) ARTHRS ANKLE EXC OSTCHNDRL DFCT W/DRLG DFCT Ankle Arthroscop y/surgery 03/22/2020 12:00:00 AM EST [facility] ([facility]) ARTHRS ANKLE EXC OSTCHNDRL DFCT W/DRLG DFCT Ankle Arthroscop y/surgery 03/22/2020 12:00:00 AM EST [facility] ([facility]) ARTHRS ANKLE EXC OSTCHNDRL DFCT W/DRLG DFCT Ankle Arthroscop y/surgery 03/22/2020 12:00:00 AM EST [facility] ([facility]) ARTHRS ANKLE EXC OSTCHNDRL DFCT W/DRLG DFCT Ankle Arthroscop y/surgery 03/22/2020 12:00:00 AM EST [facility] ([facility]) ARTHRS ANKLE EXC OSTCHNDRL DFCT W/DRLG DFCT Ankle Arthroscop y/surgery 03/22/2020 12:00:00 AM EST [facility] ([facility]) ARTHRS ANKLE EXC OSTCHNDRL DFCT W/DRLG DFCT Ankle Arthroscop y/surgery 03/22/2020 12:00:00 AM EST [facility] ([facility]) SURGERY CASE REQUEST OUTSIDE FACILITY ONLY <td>SURGERY CASE REQUEST OUTSIDE FACILITY ONLY</td><td>Routine</td><td>02/25/2020 9:57 AM EST</td><td> Osteochondral defect of talus</td><td></td> 02/25/2020 09:57:41 AM EST Osteochondral defect of talus Osteochondral defect of talus Results ID Date Data Source [id number] 12/16/2020 04:36:00 PM EDT [facility] ([facility], ) Name Value Range Interpretation Code Description Data Summer rce(s) Supporting Document(s) Bacteria identified in Ear by Aerobe culture Laboratory test res ult Normal (applies to non-numeric results) [facility] ([facility], ) <content>FULL REPORT IN LAB NOTES (eCW a nd [facility]).</content>
<content>NORMAL LISA PRESENT</content>
<content></content>
<content>ORGANISM 1: STAPHYLOCOCCUS AUREUS</content>
<content></content>
<content>QUANTITY OF GROWTH MODERATE</content>
<content></content>
<content></content>
<content> ORGANISM 1: STAPHYLOCOCCUS AUREUS</content>
<content> </content>
<content>STAPHYLOCOCCUS AUREUS: REACTION</content>
<content>ICR (INDUCIBLE CC RESISTANCE) IV ICR TEST RESULT</content>
<content>TETRACYCLINE PO 250 mg qid <=1 S</content>
<content>PENICILLIN G IV 1 mu q6H >=0.5 R</content>
<content>PENICILLIN G IV 1 mu q6h >=0.5 R</content>
<content>PENICILLIN G PO 250mg q6h fasting >=0.5 R</content>
<content>TRIMETHOPRIM/SULFAMETHOXAZOLE IV 160mg TMP & 800mg SMXq6h <=10 S</content>
<content>TRIMETHOPRIM/SULFAMETHOXAZOLE PO Bactrim DS Bid <=10 S</content>
<content>ERYTHROMYCIN IV 500mg q6h <=0.25 S</content>
<content>ERYTHROMYCIN PO 500mg q6h <=0.25 S</content>
<content>GENTAMICIN IV 80mg q8h <=0.5 S</content>
<content>CLINDAMYCIN IV 600mg q6h 0.25 S</content>
<content>CLINDAMYCIN PO 150mg q6h 0.25 S</content>
<content>OXACILLIN IV 500mg q6h 0.5 S</content>
<content>VANCOMYCIN IV 500mg q8h <=0.5 S</content>
<content>LINEZOLID (ZYVOX) IV 600MG Q12HR 2 S</content>
<content> LINEZOLID (ZYVOX) PO 600MG Q12HR 2 S</content>
<content>An isolate with a (+) POSITIVE ICR test is considered</content>
<content>CLINDAMYCIN RESISTANT; however, clindamycin may still</content>
<content>be effective in some patients.</content>
<content>An isolate with a (-) NEGATIVE ICR test is considered</content>
<content>CLIDAMYCIN SENSITIVE.</content>
<content>Oxacillin result predicts susceptibility to all penicillinase-stable</content>
<content>penicillins (Nafcillin, Dicloxacilin), Cephalosporins, Carbapenems,</content>
<content>Amoxicillin/Clavulanate & Ampicillin/Sulbactam per CSLI standards.</content>
<content></content> ID Date Data Source [id number] 11/29/2020 02:16:33 PM EDT [facility] Name Value Range Interpretation Code Description Data Summer rce(s) Supporting Document(s) Progress Note [facility] BBOEZo6wUxNYHaSu69/YRRwyVIDfo6HxCApbWQa3HIqsXSRzA7InMOC0yH0yITX4BKePObYnQxCqLGO9 lbm [file] ApQg2kCPJOJb7+FRdwiPJuhLjaHXRXPkXlNMt7YKwbHTSJVy1G ID Date Data Source [id number] 11/29/2020 02:16:28 PM EDT [facility] Name Value Range Interpretation Code Description Data Summer rce(s) Supporting Document(s) Progress Note [facility] KHZNNv9iSkPSCsTc71/UVYqrNPTzj5AtQOtwMRw0BMvqKSEfD3HqPSF4tJ3jTXX0SUaFIyLnRjAzVYF4 lbm [file] S2NQY6HtJpC1JdUCn1CzQoYT5YMi7KLyR0GYZ7fACaVj8ZEObiEHLQAwGbLH4LCGo= ID Date Data Source [id number] 11/11/2020 11:14:15 AM [facility] MR EXTREMITY UPPER JOINT WITHOUT CONTRAS T [id number] RESULTInterpreted by:Alvarez Coffman MDEXAM: RIGHT SHOULDER MRI SCANINDICATION: Chronic shoulder pain despite 2 prior arthroscopic surgeries including distal clavicle excision. Patient with impingement symptoms.PRIOR EXAM: October 19, 2020 radiographs., November 22, 2017 MRITECHNIQUE: Following 3 plane localizer; oblique coronal, oblique sagittal, axial imaging performed utilizing various pulse sequences. Imaging was performed on a 3.0 Melita MRIFINDINGS:Glenohumeral alignment: Normal alignmentFLUID:Subacromial/subdeltoid bursa:NormalGlenohumeral joint:Normal. Long head of biceps brachii tendon: No excessive fluid. ACROMIAL ARCH:Shape: Type IAcromiohumeral distance: 7 mmSubacromial Spur: Absent.Lateral/ Anterior downsloping: AbsentAcromioclavicular joint: Post distal clavicle resection. No fluid within the widened AC joint. ROTATOR CUFF:Supraspinatus: Mild distal tendinosis. Infraspinatus: Mild distal tendinosis.Subscapularis: Normal . ROT ATOR INTERVAL AND LONG HEAD OF BICEPS BRACHII TENDON:Rotator interval: Normal retrocoracoid fat and coracohumeral ligamentBiceps-Labral anchor: IntactHorizontal Portion: Not visualized. Torn versus markedly thinned.Genu: Not visualized: Torn versus markedly thinned.Vertical portion: Markedly thinned.GLENOHUMERAL JOINT:Labrum: Grossly normal anterior posterior labrum on this nonarthrographic study. Grossly normal superior labrum. Glenohumeral Ligaments: Grossly normalGlenohumeral cartilage: Grossly normalBONES:Small focus of T2 high signal involving humeral head and prior studies no longer.. Stable marrow signal characteristics of the proximal humerus probably within normal limits: Perhaps the patient has reactivated marrow. No Hill-Sachs deformity. Normal glenoid shape.MUSCLES:No rotator cuff muscle atrophy. Unremarkable appearance the deltoid.IMPRESSION: 1. No rotator cuff tears. Mild distal supraspinatus and infraspinatus tendinosis.2. Long head of biceps tendon is difficult to trace. I suspect it is torn and markedly thinned and retracted into the bicipital groove.3. Stable appearance of the bone marrow of the proximal humerus. Additionally, Previously noted small focus of T2 high signal within the humeral head is no longer present. This document has been electronically signed by Alvarez Coffman MD on 11/11/2020 11:12 AM Name Value Range Interpretation Code Description Data Summer rce(s) Supporting Document(s) ID Date Data Source [id number] 10/19/2020 06:40:23 PM EDT [facility] XR SHOULDER COMPLETE [id number] RESULTIn terpreted by:Yunier Ling [facility]IS[facility] history: Right shoulder painViews: 4 views right shoulderIndication: Check for right shoulder painFindings: Visualized portion right clavicle appears normal however there has been resection of the distal portion of the clavicle. Remainder of the acromium and coracoid appear normal. Glenohumeral joint is remarkable for some very mild degenerative change and spurring of the inferior glenoid. Osseous anatomy right proximal humerus appears normal.Impression: Status post right distal clavicle resection with some very mild degenerative changes of the right glenohumeral jointThis document has been electronically signed by Yunier Ling MD on 10/19/2020 6:38 PM Name Value Range Interpretation Code Description Data Summer rce(s) Supporting Document(s) ID Date Data Source [id number] 10/19/2020 04:18:36 PM EDT [facility] Name Value Range Interpretation Code Description Data Summer rce(s) Supporting Document(s) Progress Note [facility] SAKGWh0jMkWLJjBo03/GIDwiBNLwb0LmTFxhQMf5WRjzWUFwH7NsZNU5tN9sHUG6CUyJOjIrKuQsVGK7 m [file] AgICAgICAgICAgICAgICAgICAgICAgICAgICAgICAgICAgICAgICAgICAgICAgICAgICAgICAgICAgIC AgICAgICAgICAgICAgICANCiAgICAgICAgICAgICAgICAgICAgICAgICAgICAgICAgICAgICAgICAgIC AgICAgICAgICAgICAgICAgICAgICAgICAgICAgICAg ICAgICAgICAgICAgICAgICAgICAgICAgICANCiAgICAgICAgICAgICAgICAgICAgICAgICAgICAgICAg ICAgICAgICAgICAgICAgICAgICAgICAgICAgICAgICAgICAgICAgICAgICAgICAgICAgICAgICAgICAg ICAgICAgICANCiAgICAgICAgICAgICAgICAgICAgIC AgICAgICAgICAgICAgICAgICAgICAgICAgICAgICAgICAgICAgICAgICAgICAgICAgICAgICAgICAgIC AgICAgICAgICAgICAgICAgICANCiAgICAgICAgICAgICAgICAgICAgICAgICAgICAgICAgICAgICAgIC AgICAgICAgICAgICAgICAgICAgICAgICAgICAgICAg ICAgICAgICAgICAgICAgICAgICAgICAgICAgICANCiAgICAgICAgICAgICAgICAgICAgICAgICAgICAg ICAgICAgICAgICAgICAgICAgICAgICAgICAgICAgICAgICAgICAgICAgICAgICAgICAgICAgICAgICAg ICAgICAgICAgICANCiAgICAgICAgICAgICAgICAgIC AgICAgICAgICAgICAgICAgICAgICAgICAgICAgICAgICAgICAgICAgICAgICAgICAgICAgICAgICAgIC AgICAgICAgICAgICAgICAgICAgICANCiAgICAgICAgICAgICAgICAgICAgICAgICAgICAgICAgICAgIC AgICAgICAgICAgICAgICAgICAgICAgICAgICAgICAg ICAgICAgICAgICAgICAgICAgICAgICAgICAgICAgICANCiAgICAgICAgICAgICAgICAgICAgICAgICAg ICAgICAgICAgICAgICAgICAgICAgICAgICAgICAgICAgICAgICAgICAgICAgICAgICAgICAgICAgICAg ICAgICAgICAgICAgICANCiAgICAgICAgICAgICAgIC AgICAgICAgICAgICAgICAgICAgICAgICAgICAgICAgICAgICAgICAgICAgICAgICAgICAgICAgICAgIC AgICAgICAgICAgICAgICAgICAgICAgICANCjw/eCRyX6mgmQKfgvS6W0odAd7LKd2QNQ0wh6CkNWOfJZ avzeCiLpeYWfRyKAZeNgoYIsp2YBdcWA1NgIQnJ1Zt X6LsHHoiPO9RTKZxXSCkpQFfQNZrMXYyNqQ8WJLrPOazIH8IuDUqUCzrUHNqFHXkIS6WRKOnE118lvQv VQ9LUh6KZpGmWB5wuk0EKStmVHKkEdoNUgb7USqjWB7BoNOgaHHaNARpRTWGUhJcX6run3KcTkUiAZHQ OIlxOX9Xu1GxsJSgMXd+Gn1UME9av6JmTFqpNVGwCX 3hko1QTNyPOvSgE8EmzBndYUEnk9wsSIJnJJ5pjPFrGYO4WOZczg2liZu9AKDVc73hynadPwMqQLVdYW 1oBn1xZUItIUYxUtK1DWKPQD9IZISwPHUpdPFdXTCnDALQKG3XTFdeGFW7NMUkvtKxrJBiWKxjOG5NHH JlbnQgMTkgMCBSDQo+Nq0ATH1gi9TwXYuiRVWiFT7x ua1TCAfOPhHmA4J1fULrO3B6AFnoCr3UICGpZMQgAYmjHKQSFPozWW9SXI8sqyE1UI0BlJSkDWKlRPLy zHJiBYa3Y40rpTSbHRjaRU2BPNR+Dariel+Oi9AXIAiIZPpXGDhIrRlBOGTRzCqZ5CwU4WBx5XkP8KeLC26 dYrsilFdUOpqZK0ADV3jKCXmGOMQLY0LnXEftM7yog NiTBYfKPAEXhRuW89rmVVbQZYzDRK3GHNtMq5XVJUpA3XoubHrrUniazEqGQEoFRDEPX1UVClkzoWazK FeoBfoWE32zSppFA2KQa8UOyNoUW8iqs5ZfYNpKl9QIECaIn6GLRDxRAQzBJHcYAC2JRBuIeNkYQvqXL SvIONqNPC6AUNpEYWwLM5TTyWyUFTzZKekRTtjAYNa PTDjvy9JGUBwWWRfWBy5PIRgBHSjBIIqSGokZBDgFFXeGBK6PYTfENKyAJ7SYbXgFMExCPNeZLOmDGBf IFLsjl5LHOYvJMDuAvU5RsVuHPRmYMBhODlfPJNePMK3HiB1MYYtPCZnFI0FRyCgKNOtQTD7VFOqYFNn IYHlvv7BMOWfHRZhEWXuBxDcEAGyXVNsOEffRTPbYX Z4OQzyZKFnEUOfPX2UUmCyGJGqEHV0WPXlGSIhNBFcom3HPEHsVSYzQBb6EQWePPCuKYEpHZtvAMGoEP T0AcG4CTQdMGDnZB8JEbRtKPEvMFl0BMJlZAVjPDEssk8VRBNzNWCjDjj6CVUlEHKrNZEqWKrrXYOwEL W3KTi2WZJmFDEtHA6VIoRxEIViTAezMsCoTMUqNNWx qk7UISEaERNlYNXfMMYnNRHgHODuRFwtQFLlTUXqQVvrUDOpLQPtOP4MMpPjAHIrYdOnJJIiXYRgHGBv eo3OLXOqRZQxUWE7WAGoDQQdGUQkYBd2uyQajXFjDKo7IK9AN3BrocYmNbNDLl1Kq490JUGcCMSvSq1D P0zgSo4gDCZcIFZNLs5KOWj0QPUfAVTfFABxOYY8YN QnWAH9VIolRXBeRXMvIBS1ZUT+JEy2TVXjJkM6HqUkHYIsSTFsIER7HOHkXIArQYOjQRZ5NA5cKHWDIl 4+FCajmMHrpKmpVNLTLkPoQBZ4ZWzgOMNYLs3Z ID Date Data Source [id number] 10/19/2020 08:57:38 AM EDT [facility] Name Value Range Interpretation Code Description Data Summer rce(s) Supporting Document(s) Progress Note [facility] BQHLHc6lOkNIQzCa31/RGIvjWLKvt9IkPJmhMVt8NMxxDKSgI7QzMAR4aL0cWQJ8OApAOjYtAnDyKDD9 lbm [file] Cj4+IEdpmJQicQngAOSEKrP8Vjn7RSkdIDRVCl2H ID Date Data Source [id number] 10/11/2020 02:18:13 PM EDT [facility] Name Value Range Interpretation Code Description Data Summer rce(s) Supporting Document(s) Progress Note [facility] MNSUQz1eBmPCVlNt35/VFNhwJLThh4KwPQndUKj0ELwhPDHxM2BwUHV1jM6wLLZ0OCxACiKjZxOwEZX8 lbm EiMovYQhEuUWBpSmuESdVrLBulUucnkZAwKJ9NwZW6JTFfO55iPYOvMKHjX5OsNEE7LQR+Fi4SLXIlzI JuED2SQxfOgXfqb2l4PR6ahP6DZBJSCQ2oAribBMo3jdWMNlxPlN2PjnyIDonzjsFq0gm27lEuzzo3SR 7rhHLzYJ+S/Y53GcaYJx9+vS2wyw3Pro/11zgRbDRn P/7Amm2+LK3vmbWK6BBpqApPV/RXn98/8AAAovev87onfAvWM4dGMefEpEdNgmxfn9MFY2nt3mCryFRW 7Hzn+DMSiUtYPOgEm6iG9M75JTYrp7sAm1NX76bT2ULez+CcR/8brImKTzZwTLp9tKb2HGvBkmW5qBeF F3U1SjF64sAskxjtUXPx6n0+dgH3KlU8v7DpSxDb22 R8L5Ee+valo83KtZ2+OWmmaGHj8MORv0+ot6W5q0sjFromsyvsIWcEkb+vZZZnBG3DF0lsAS+fC1usGw FFiv9c01GKh5azdMjKfuIZSskc6SmSEVJj9mgDDCkKBO4z2uoPcEtdVjoZoSoP2+nkcEznBDHnD3gNgW sT5/ARPfJOcw1HJU8OOh9uKYGtmjVZjDfo+b7PA9b/ tAXGn2hIT+b6lCQt9pFL3TZl/Tiffany/cYzE5yZcApWyypdv9fj0hFc6aELObLrlpsnp4W6T3x6xkvorvQr [file] ICAgICAgICAgICAgICAgICAgICAgICAgICAgICAgIC PcGIPuEJHmLFFkFQXrJPJlMLXdAVHuHXWcPJLtBGOyIYGtUIIeCILxIAAoHN5TAALgUCUxZIDlFBBhTE AgICAgICAgICAgICAgICAgICAgICAgICAgICAgICAgICAgICAgICAgICAgICAgICAgICAgICAgICAgIC ZbNIPdFSBeBRFmFIIpNNZrTLNlBCYiUFBwUM6PCZQw ICAgICAgICAgICAgICAgICAgICAgICAgICAgICAgICAgICAgICAgICAgICAgICAgICAgICAgICAgICAg JCBjCFYnZZVuNZNcTTUbODPwYKFzGCWtBAGaHYLpGKZdRVAzJT5LUZSrBAAzBZHdKRNwSBSvAIZfHYUa ICAgICAgICAgICAgICAgICAgICAgICAgICAgICAgIC EnXKIpVNMeNJLsALSkUIZqEAFtNHUeLGYwONHdQUAlFMKyGOTvZEXuYXAuMWBrXL7LCZLhGLYvNZDiHG AgICAgICAgICAgICAgICAgICAgICAgICAgICAgICAgICAgICAgICAgICAgICAgICAgICAgICAgICAgIC QqLPHlALAeCKQrIKIbOAWoMYYfYJFsBDRtJIOzUN3B ICAgICAgICAgICAgICAgICAgICAgICAgICAgICAgICAgICAgICAgICAgICAgICAgICAgICAgICAgICAg CEZvCESmRRZhUJYdTONtLOMhTFKyFHFtFDZsSOMqPLPoWQTvSJNxOP9FCXZnJVVqXAAbTWUlTFLqSGHo ICAgICAgICAgICAgICAgICAgICAgICAgICAgICAgIC TqLEWpRMTnLNDcCBHhWIMdQIKeMEYkCVElDWEpOQMrUJSbOKQmDOCdFUKzYPNbPMIhRI0MYCVyPLHyZT AgICAgICAgICAgICAgICAgICAgICAgICAgICAgICAgICAgICAgICAgICAgICAgICAgICAgICAgICAgIC AgICAgICAgICAgICAgICAgICAgICAgICAgICAgICAg KC2IWBTfITNnWSGcSWCuZBHaIVCnATYdRBElCOIxFXTjLNXoREMeGBHwUTPaTITtUGZfEIMdBZBoCKPk RVHoGZCqAJMqQZAsQSEpDWTbRFMwLMWvGLOaGTTwESMiCLAjUEDyAOZiAS2ZWATyKQSkPIDlCXBuEJYz ICAgICAgICAgICAgICAgICAgICAgICAgICAgICAgIC RtKIQsDLKhRGFnHBBrYNXlDPIbWPYjGYWzEMPdPKWxVHWoFNXiUFGjEXSxWXZoXJUnNUMeSG9TKO31dV Ewz5W0QAViBV4fbzc/Dw0AHDaqtaMpaFYzXH6OXaMxTQ4hks9ESkFaBS3wto5RMQaFFuXeV7T3vIJdVW XyDIGHFmJxJ68zVMyvHg43TTynNRUpCyFnPWk4Vw4F PzDrG4tnBQUmKnI6VFJbBvFgBEefWO0Ik6SonHMiVLa+Em4CII1zp1VnNVhhDOIjFM4qsv3QRVzRCeNf X1NmkwL9ZQJjNROyTe0BCDIxHYRbbMDzHOUkVTODFlSzD8AirB43HJOWKj3+DQplbmRvYmoNCjIwIDAg z8DqMWh1XA0AWBGlEKh9dPOeXGIoR0Oig7WrMd00FM WgNxvmTbSeYFDyGYHZVL1zfSIlFFQ7XQknML8iUHIrMYHnDyH3YGQJNP8KGHGfXWYxqULgBOQhYWEBBZ 8FXFvrNIX8KBWswcXdrSOwBOnnCO5RPLAfkgKlOHskRNVRDHm+Ey4YHR5sj5QoNFewHSLnNS3cjd8DJT dVGuXcE0E8zUUoD2D8SItwOo4KRYPvZHKkTIqoAWXR TMalNT6EYX3sekS4SC1FpZWvLAUvTITpcHPcUOd6M44yhYLyHPiqJT9ESEC+Dariel+Fy5PUYOhCULxMFNy OzEdEHESRiIxP0IlQ2ZBh7RtG5ZlSU55rCyfbnDkVLrwQS8LLY9uVEEhNGZRJH8BfOJoxG4baoUjRQQr ZUIVQcTwZ83iiKUhAWKlKAP2ZEKsQm7ITSSsG8Vxoq GrcUgxumNgHQMiKOXRNV0QSCppwpMxlRBzuWmpRD49oUpvHL4YZd7CSgZnRH2edb9YtWCgTs1NMXWlIb 1VBPGsPOHnTKVnXJJ8PHLnPcKeWJreHCKvKYKoUXW0VKVqYJImGS8ZToOvEYXaHBkaENVyYTVfTCZzjd 6PLBJiTMUeEPysQcUuMESpSZExPBluVQYvLQVaBVS4 ERPzJDXyFY5WUeLaEBEiJQY3BNUyOTVcJKOkcb0YWBMoOPSpYoU1DLHqUWLuZOVsEFajLBLiYUQnTQJb GROmYETlXL5EFgVsSRTjUUWaHSasPSRrYNTcss8DRHBnQQDzKhD3VGCaERNlTDVvVDqqRUHoAFC4JvK8 DDJtGWSrMG6SXzYrOXCyODF3XevyIHKuAZKvmm3FZP LeTUPoEZnoIeMxBPTvJJTeMWwwNKStAPY4SHfpKRTdAECaTX2ZOkUgXUYpEGIhVYznEGQrMFWemc7QXV OlPSVxYgBeMmIeTOBvUWFeXZwrOSYtRQO3NBR7BZLrJLToTJ6RWoSuLNXkWJM2FYJbFMMgOBGpjx9RFP HuFNFgXnS0WzFcJTNuSNFhRRdgNAPgOUV8SXWjPIDm NWSmWW3BZrVqGYYgJOw0IGHpGUIoBAWdfs7POTTnBKQmJJB6CoDzHXHyWSFsMYv3sgEvqQTkFHo4RL8C H1TykzXaYlLYIl6Mm983DXFkQEQcSe1CF3voCz6vVDTnFVHFPe0FPMi6ETYjDGUfKAK7PiY7HdV3Y3Kk FxJ4APjaWJXeNaP8AfQ+SObmR4A7ONKdGXKwJYjwJt t0VXAxQODiIUMoBeMiKgauKg8vYMACZf4+KXpnoXAfkKgkSDZBYvK8QrtnETfkVXOFQb4W ID Date Data Source [id number] 09/01/2020 08:34:00 AM EDT [facility] COLT RENNER Observation R eport - Physicians/Mid Levels [facility].VisitID: [id number] [place] [address] [phone], FRegistration Date/Time: 08/31/2020 17:48 Weight:98.8 kg (S). Height/Length:61 inches (S). 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 Additional Surgeries:Arthroscopy.Cholecystectomy..Right elbow.Right hand.Tubal Ligation. Medications:Lantus Subcutaneous 18 units, every PM, last dose yest.Aleve Oral (Tablet 220 mg) 2 tablets, daily as needed, last dose today this am .Atorvastatin Calcium Oral 10 mg, daily every AM, last dose this am.Lisinopril Oral (Tablet 10 mg) 1 tablet, daily every AM, last dose today.Omeprazole Oral (Capsule Delayed Release 20 mg) 1 capsule, daily every AM, last dose today .Robaxin Oral (Tablet 500 mg) 1 tablet, 3x a day as needed, last dose today this am .Trulicity Subcutaneous (Solution Pen-injector 3 mg/0.5mL), once a week, last dose Sunday. Allergies:Codeine.(vomiting)Co rtisone.(swelling). FAMILY HISTORYNo significant family medical history. (Electronically signed by John Mosquera PA-C 09/01/2020 08:28) Name Value Range Interpretation Code Description Data Summer rce(s) Supporting Document(s) ID Date Data Source [id number] 08/31/2020 06:28:00 PM EDT [facility] DATE OF EXAMINATION: 08/31/2020 17:54 EDT HISTORY: Trauma TECHNIQUE: 4 views of the left ankle were obtained FINDINGS: Moderate swelling. No acute fracture or dislocation. No subcutaneous emphysemaor foreign body. Ankle mortise and talar dome are intact. Lateral viewdemonstrates small calcaneal heel spur. IMPRESSION: Swelling. No acute fracture or dislocation appreciated. Electronically signed in [id number] by: Alvarez Newman M.D. 08/31/2020 18:22 EDT Name Value Range Interpretation Code Description Data [facility] Document(s) ID Date Data Source [id number] 08/13/2020 07:26:00 PM EDT [facility]: COLT RENNER Elian Observation R eport - Physicians/Mid Levels [facility].VisitID: [id number] [place] [address] [phone], FRegistration Date/Time: 08/13/2020 08:39 Weight:97.5 kg (S). Height/Length:61 inches (S). 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 Additional Surgeries:Arthroscopy.Cholecystectomy..Hysterectomy [08/24/2017].Right elbow.Right hand.Shoulder Surgery. (X4 (2- rotator cuff tears reparis, AC seperation with a plate implantation, removal of same plate)- last surgery was 12/2017)Tubal Ligation. Medications:Trulicity Subcutaneous (Solution Pen-injector 3 mg/0.5mL), once a week, last dose Sunday.Aleve Oral (Tablet 220 mg) 2 tablets, daily as needed, last dose today this am .Atorvastatin Calcium Oral 10 mg, daily every AM, last dose this am.Lisinopril Oral (Tablet 10 mg) 1 tablet, daily every AM, last dose today.Omeprazole Oral (Capsule Delayed Release 20 mg) 1 capsule, daily every AM, last dose today .Robaxin Oral (Tablet 500 mg) 1 tablet, 3x a day as needed, last dose today this am . Allergies:Codeine.(vomiting)Cortisone.(swelling). FAMILY HISTORYNegative. No significant family medical history. (Electronically signed by Luis E Knowles 08/13/2020 19:08) Name Value Range Interpretation Code Description Data [facility] rce(s) Supporting Document(s) ID Date Data Source [id number] 08/13/2020 09:33:00 AM EDT [facility] l TSYSORDER [id number] Name Value Range Interpretation Code Description Data [facility] rce(s) Supporting Document(s) GLUCOSE 330 mg/dL 74-106 [facility] BLOOD UREA NITROGEN 12 mg/dL 7-18 [facility] ital CREATININE 0.78 mg/dL 0.6-1.0 [facility] SODIUM 137 mmol/L 136-145 [facility] POTASSIUM 3.9 mmol/L 3.5-5.1 [facility] CHLORIDE 101 mmol/L 98-107 [facility] CO2 22 mmol/L 21-32 [facility] CALCIUM 8.4 mg/dL 8.5-10.1 L [facility] ANION GAP 14.0 mmol/L 5-12 [facility] GLOMERULAR FILTRATION RATE 80 mL/min [facility] GFR IS CALCULATED IN mL/min/1.73m2 RINA L FUNCTION: >90MILDLY DECREASED: 60-89MILDY TO MODERATELY DECREASED: 45-59 MODERATELY TO SEVERELY DECREASED: 30-44SEVERELY DECREASED: 15-29RENAL FAILURE: <15 AST 15 U/L 15-37 [facility] ALT 41 U/L 12-78 [facility] ALKALINE PHOSPHATASE 130 U/L 46-116 [facility] pital TOTAL BILIRUBIN 0.4 mg/dL 0.2-1.0 [facility] TOTAL PROTEIN 7.4 g/dl 6.4-8.2 [facility] ALBUMIN 3.7 gm/dL 3.4-5.0 [facility] ID Date Data Source [id number] 08/13/2020 09:24:00 AM EDT [facility] spital TSYSORDER [id number] Name Value Range Interpretation Code Description Data Summer rce(s) Supporting Document(s) URINE RBC 1-3 /hpf 0-3 [facility] URINE WBC 0-2 /hpf 0-5 [facility] URINE EPITHELIAL CELLS 1+ /hpf 0 [facility] ospital URINE BACTERIA 1+ NONE SEEN H [facility] ID Date Data Source [id number] [id number] 08/13/2020 09:20:00 AM EDT [facility] ital TSYSORDER [id number] Name Value Range Interpretation Code Description Data Summer rce(s) Supporting Document(s) URINE COLOR. LIGHT YELLOW [facility] URINE APPEARANCE CLEAR [facility] l URINE GLUCOSE (UA) 500 mg/dL NEGATIVE [facility] yuliet URINE BILIRUBIN NEGATIVE NEGATIVE [facility] URINE KETONE NEGATIVE mg/dL NEGATIVE [facility] al SPECIFIC GRAVITY,URINE <= 1.005 1.005-1.030 [facility] URINE BLOOD TRACE NEGATIVE [facility] PH,URINE 5.0 5.0-9.0 [facility] URINE PROTEIN NEGATIVE mg/dL NEGATIVE [facility] URINE UROBILINOGEN 0.2 mg/dL 0-1 [facility] URINE NITRATE NEGATIVE NEGATIVE [facility] URINE LEUKOCYTE ESTERASE NEGATIVE NEGATIVE [facility] ID Date Data Source [id number] 08/13/2020 09:14:00 AM EDT [facility] l TSYSORDER [id number] Name Value Range Interpretation Code Description Data Summer rce(s) Supporting Document(s) WHITE BLOOD COUNT 9.6 K/mm3 4.0-10.0 [facility] al RED BLOOD COUNT 4.48 M/mm3 4.00-5.50 [facility] HEMOGLOBIN 13.2 gm/dL 12.0-16.0 [facility] HEMATOCRIT 39.0 % 36.0-48.8 [facility] MEAN CELL VOLUME 87.1 fl 80-96 [facility] MEAN CORPUSCULAR HEMOGLOBIN 29.5 pg 27.0-31.0 [facility] MEAN CORPUSCULAR HGB CONC 33.8 g/dl 32.0-36.0 [facility] RED CELL DISTRIBUTION WIDTH 13.0 % 10.0-14.5 [facility] PLATELET COUNT 338 K/mm3 172-450 [facility] MEAN PLATELET VOLUME 9.9 fl 9.0-13.0 [facility] pital GRAN % 66.1 % 50-80.0 [facility] IG% 0.5 % 0.0-0.2 [facility] LYMPH % 21.1 % 25.0-50.0 [facility] MONO % 6.3 % 2.0-10.0 [facility] EOS % 5.4 % 0-5.0 [facility] BASO % 0.6 % 0.0-2.0 [facility] GRAN # 6.3 K/mm3 2.0-8.00 [facility] IG# 0.1 K/mm3 0.0-0.2 [facility] LYMPH # 2.0 K/mm3 1.0-5.0 [facility] MONO # 0.6 K/mm3 0.10-1.20 [facility] EOS # 0.5 K/mm3 0.0-0.5 [facility] BASO # 0.1 K/mm3 0.0-0.2 [facility] ID Date Data Source VITAMIN [id number] 08/12/2020 12:00:00 AM EDT eCW1 ([facility]) Name Value Range Interpretation Code Description Data Summer rce(s) Supporting Document(s) 59.8 30.0-100.0 TOTAL 25(OH) VITAMIN D eC W1 ([facility]) ID Date Data Source LIPID PANEL (CARDIAC RISK) 08/12/2020 12:00:00 AM EDT eCW1 ( [facility]) Name Value Range Interpretation Code Description Data Summer rce(s) Supporting Document(s) Triglyceride [Mass/volume] in Serum or Plasma by calculation 175 <150 TRIGLYCERIDES LEVEL eCW1 ([facility]) Cholesterol in HDL [Moles/volume] in Serum or Plasma 31 >40 HDL CHOLESTEROL eCW1 ([facility]) Cholesterol [Moles/volume] in Serum or Plasma 134 <200 CHOLESTEROL LEVEL eCW1 ([facility]) Cholesterol in LDL [Mass/volume] in Serum or Plasma by calculation 68 <100 LDL CHOLESTEROL eCW1 ([facility]) 103 NON-HDL-C eCW1 ([facility]) 4.322 <5 CHOLESTEROL RISK RATIO eCW1 ([facility]) ID Date Data Source [id number] 08/12/2020 12:00:00 AM EDT eCW1 ([facility]) Name Value Range Interpretation Code Description Data Summer rce(s) Supporting Document(s) Hemoglobin A1c/Hemoglobin.total in Blood 9.7 HEMOGLOBIN A1c eCW1 ([facility]) ID Date Data Source Comprehensive Metabolic Profile (CMP) 08/12/2020 12:00:00 AM EDT eCW1 ([facility]) Name Value Range Interpretation Code Description Data Summer rce(s) Supporting Document(s) 205 70-100 GLUCOSE, FASTING eCW1 ([facility]) > 60.0 >58 GLOMERULAR FILTRATION RATE eCW 1 ([facility]) 0.68 0.55-1.30 CREATININE FOR GFR eCW1 ([facility]) 16 7-18 BLOOD UREA NITROGEN eCW1 ([facility], 1928[facility]1983) 138 136-145 SODIUM LEVEL eCW1 ([facility]) 4.6 3.5-5.1 POTASSIUM SERUM eCW1 ([facility], 1928[facility]1983) 106 98-107 CHLORIDE LEVEL eCW1 ([facility]) 25 21-32 CARBON DIOXIDE LEVEL eCW1 (formerly [facility]) 8.8 8.5-10.1 CALCIUM LEVEL eCW1 ([facility]) 18 7-37 AST/SGOT eCW1 ([facility]) 0.3 0.2-1.0 BILIRUBIN,TOTAL eCW1 ([facility], 1928–1983) 142 45-117 ALKALINE PHOSPHATASE eCW1 ([facility]) 38 12-78 ALT/SGPT eCW1 ([facility]) 7.3 6.4-8.2 TOTAL PROTEIN eCW1 ([facility]) 3.9 3.2-5.2 ALBUMIN eCW1 ([facility]) 1.1 1.2-2.2 ALBUMIN/GLOBULIN RATIO eCW1 ([facility]) ID Date Data Source CBC with Differential 08/12/2020 12:00:00 AM EDT eCW1 ([facility]) Name Value Range Interpretation Code Description Data Summer rce(s) Supporting Document(s) 9.9 4.0-10.0 WHITE BLOOD COUNT eCW1 ([facility]) 13.5 12.0-15.5 HEMOGLOBIN eCW1 ([facility]) 4.50 4.00-5.40 RED BLOOD COUNT eCW1 ([facility], 1928[facility]1983) 41.5 36.0-47.0 HEMATOCRIT eCW1 ([facility]) 30.0 27.0-33.0 MEAN CORPUSCULAR HEMOGLOB IN eCW1 ([facility]) 13.2 11.5-14.5 RED CELL DISTRIBUTION WID TH eCW1 ([facility]) 32.5 32.0-36.5 MEAN CORPUSCULAR HGB CONC eCW1 ([facility]) 92.2 80.0-96.0 MEAN CORPUSCULAR VOLUME e CW1 ([facility]) 62.5 36.0-66.0 NEUTROPHILS % eCW1 ([facility]) 364 150-450 PLATELET COUNT, AUTOMATED eCW1 ([facility]) 24.0 24.0-44.0 LYMPH % eCW1 ([facility]) 7.1 2.0-8.0 MONO % eCW1 ([facility]) 0.7 0.0-1.0 BASO % eCW1 ([facility]) 5.1 0.0-3.0 EOS % eCW1 ([facility]) 0.7 0.0-0.8 MONO # eCW1 ([facility]) 2.4 1.5-5.0 LYMPH # eCW1 ([facility]) 6.2 1.5-8.5 NEUTROPHILS # eCW1 ([facility]) 0.1 0.0-0.2 BASO # eCW1 ([facility]) 0.5 0.0-0.5 EOS # eCW1 ([facility]) ID Date Data Source [id number] 07/09/2020 03:07:49 PM EDT [facility] Name Value Range Interpretation Code Description Data Summer rce(s) Supporting Document(s) Progress Note [facility] TTXUFo3yDrDWTpDo51/SWNxtQRKyq0KcNCezUAy9SZwxJCFmU6MzKSQ9nW2nYRL3BAkBCqMhZtUsPUF6 lbm [file] GlM4CJU9iCNeFo6UWeZzTLNXVwTkCY0CIVr= ID Date Data Source [id number] 07/09/2020 03:07:44 PM EDT [facility] Name Value Range Interpretation Code Description Data Summer rce(s) Supporting Document(s) Progress Note [facility] DONTTk0wExGTTjNt18/PFAdaGPBng1RjBVweZAc5SInkHKDjQ2UaPHL7bU9aOOW9JLcIVbZyUyVgVYH2 lbm [file] AgICAgICAgICAgICAgICAgICAgICAgICAgICAgICAg TYSiNLMrTILbRO5WJPAbGRTiVLYwRNVbGUJhPYSkAKJqIBBdVKGvMCNnZSGbJAHkRFQnTTRbUHDlRGOu LBYxICMnVDLfFBDwWGUqHMUkIAAdWPTiSJOoEWSzQUBwRTQpUUQvJKCqWBBbAPBxDKCyHB9JADIhZYKg ICAgICAgICAgICAgICAgICAgICAgICAgICAgICAgIC AgICAgICAgICAgICAgICAgICAgICAgICAgICAgICAgICAgICAgICAgICAgICAgICAgICAgICAgICAgIC EdJK1AKXNiQDTqACMoEIUwYUNeSPClGZLgVNDzXZXzXCAcDOEzPCNdWBPsLKZzOWMnBJKaCWOhTHRsCO AgICAgICAgICAgICAgICAgICAgICAgICAgICAgICAg PGMsVHPcOMRoQSFbMF5DBCBuAUSxCYPzUUWiTWEoFLSfKYArBJTzZKKrQRMyVWWrRZOgLXAmKYOwTNKg UUIuJQObILPtJILyOHVhIQLwFTGhJSHtUKAxWLTsDLOfNHGsEDBjVRGwLGExWYQdRQWsOLJdJG4EHUZx ICAgICAgICAgICAgICAgICAgICAgICAgICAgICAgIC AgICAgICAgICAgICAgICAgICAgICAgICAgICAgICAgICAgICAgICAgICAgICAgICAgICAgICAgICAgIC DsKAQuBC2WCTBnHOFrVURfGHBwTNWbULRdYNJjUWXoRVFuZRZxCCPzDCAcGMKaGLAzVCHaCGUwPZZcPM AgICAgICAgICAgICAgICAgICAgICAgICAgICAgICAg ZYOfSKRpZBQgLGHtBEUvVS7TYRTrSFWuKPUfDFUhNWBlIOMsSGEuXRLfQDWaSCCxHXQtOPEvQURjTSTo TYIvOWPrTIDyZOJgYVPgTEWnXNTxGJEkWGJzHTWiPBQdVYRmSNXtHNOyEYRdWMQzMYIeUMCdLZZqFO2D ICAgICAgICAgICAgICAgICAgICAgICAgICAgICAgIC AgICAgICAgICAgICAgICAgICAgICAgICAgICAgICAgICAgICAgICAgICAgICAgICAgICAgICAgICAgIC RsACZpVUCkNW5NLZGvAKVqZUIrFQYcKYPxKXBkISIjYUDcUZQiBLNtRTJrEQMyAPAzZZEcMMNiOGIsID AgICAgICAgICAgICAgICAgICAgICAgICAgICAgICAg XBPnJIRqCKAtNNEoFCEpAVHpGK6MMY88qQPmv7H1GDQoPY1ofkp/Fm9NAWztglKriOMcWV2UDxSrET9t ay2QVbWqMF6yjk9KFFvHLhMoF3W1xSHaAWVbKCMHGxMxD39pMFofNg15PQtuGCEoCfMyRSh5Yv3YUnUh C5baWWIzPxD4PYZoVzCjQXmtWX0Ru9RhcHNtYLi+Pg 9WNC6ga2HlQBmmVsUaIJ8wrk1UKSyHGgHbR8VmnaK6EXShQADwEk0GHJPcFNZcrTMvKeWpMFISMiNeL9 JlnK33YZUENc8+YEqkalYjLprEOmNtWNZfb0RdSSp6QK6HZCPiXWh5hUDeTIRvZ9Fgk7LsRf33ABVgMh taJ4zgvDZ6p7LcEVQoRTH2XFS7ADDcIs2qDAAfVCNc SnO2FTOFWK7FXIXwTTAhsLTxPNCpBYGVOS4QWJiwAOJ0TCChpoFrbMJaAPckZI4KNMRosgCnDkFqJZYG DQo+Ta6JEN2xm6MnTEjmOFCdFO9elh7VPSlUCpIyB3G1mUImR7D5JEfaTh4IKKTuNFIdAdMlTVKUHTgw OF3WIA2alhW3XS9WuZRjDHSnFDKhqCJiTJw3G01svZ OiPRcoQU3TACV+Dariel+Pg5KOSSxJZKbIXYfSoIfFMGFGpSlE9FnY9XQp2EbV1AjWD80tLsgfmJeFUmsNN 0YEA0qATDrLADYDA7KvYWoxF3dtfJyOkZqHCWXNzAxT42siRXjGQXcRSInNYItPs8VYCDoF6QmbhWjnS oaklQvELClZHSEDH9CCVoogbHwzSQgkWmjXX78wQbm SF6BGj4SKfPoFI4mfm3EcPEmDd8HFPCgVO4KERKiBHEcEGGxFDC3SPJmTaEwPBtvBIOjIRHiMAN1TDGy XAIdAQ4YWcXsBRYsGTctBdosTCHdRLXniv1CBKPlVGFyQIZ9SOKqKKJkSOZdMYjuTBMrJNWdVXC7SMNe EXIqYK1DVsAfXGXyBIE8PLdfTESbQFCcun0OXBQaUK UtQkZ4GGVnCHJsMMSoQCnqLTEaTNZjSLWwCVZsVZWkYD8ZMqZvYGLnBENlYBLnEVUyUNTjcy7QVGTuJV ZxCpM5ZyQkDZKaHESaVSfzGINiQHB7OwZ1KZQxOFJuIC9CAaOhBZJiKVT6RWVfBEXdUNLfrm5RIECuFP UlIKq4LuVbKOFnESZuKIevAIKxNYJ3HOl4AQVxVSRc ZA1CWaNvPLHqBKK4LFKtMXZsICCwdn1WUYCyKQYeFfDtJrAfEOVbTJWwIZotDJIcLIR4JNKcKTPeYQOv KN7AUjOfMITcNCzfLAeqACDsGOKxvx3EZZPsFUOnZwc3TeRtTWGoSIKrHYbzNOFaNFE2IMR9FBXzDWJq CY6KRoIyQSZaDOfsIMVeJYJrCCEtqp8TGYHyDLYbDK frGMEuBPYqMWEwYJduNEBdOZAxAKE3FKOoMGHwJD1DYzYrDTLxByQeHyIwKGFoDRZvhm4CNBXbBGFwZY R8RKEwPJFsLYWiRQr9pcJgaQGfMGo6AL7QX1UbtoVfGvAIKf8Vc315LJV6UCIrKf5SJ3ckBu4rUWMvZV EPYr2KHLw2PRDnVoUzPIX7LVAyNDB5IHX3GTM6ZYN4 V2UfViJ7ZFG+UEk3SmPtTnU5OGb2HbBmYeM1MGXoAwSnCXBaRyTaKOv3Ju6nFLYOTt1+DQpzdGFydHhy TZLGLxYhZmW8DZujSPQENy9B ID Date Data Source [id number] 06/24/2020 03:48:00 PM EDT [facility] ([facility] Name Value Range Interpretation Code Description Data Summer rce(s) Supporting Document(s) White Blood Count 11.2 4.0-10.0 [facility] ([facility]) Red Blood Count 4.63 4.00-5.40 [facility] ([facility]) Hemoglobin 13.7 [facility] ([facility]) Platelets 368 150-450 [facility] Hematocrit 43.4 [facility] ([facility]) ID Date Data Source [id number] 06/24/2020 03:48:00 PM EDT [facility] ([facility]) Name Value Range Interpretation Code Description Data Summer rce(s) Supporting Document(s) Hemoglobin A1c/Hemoglobin.total in Blood 8.1 [facility] ([facility]) ID Date Data Source [id number] 06/24/2020 03:48:00 PM EDT [facility] ([facility]) Name Value Range Interpretation Code Description Data Summer rce(s) Supporting Document(s) Thyroid Stimulating Hormone 0.464 ME DENT ([facility]) ID Date Data Source [id number] 06/24/2020 03:48:00 PM EDT [facility] Name Value Range Interpretation Code Description Data Summer rce(s) Supporting Document(s) Triglycerides 222 [facility] ([facility]) HDL 34 [facility] Cholesterol 175 [facility] ([facility]) Cholesterol in LDL [Mass/volume] in Serum or Plasma by calculation 97 [facility] ([facility]) Chol/HDL Ratio 5.147 [facility] ([facility]) ID Date Data Source [id number] 06/24/2020 03:48:00 PM EDT [facility]) Name Value Range Interpretation Code Description Data Summer rce(s) Supporting Document(s) Albumin [Mass/volume] in Serum or Plasma 3.9 [facility] ([facility]) Alanine aminotransferase [Enzymatic activity/volume] in Serum or Pl asma 46 [facility] ([facility]) Chloride [Moles/volume] in Serum or Plasma 104 [facility] ([facility]) Carbon dioxide, total [Moles/volume] in Serum or Plasma 26 [facility] ([facility]) Calcium [Mass/volume] in Serum or Plasma 9.1 [facility] ([facility]) Alkaline phosphatase [Enzymatic activity/volume] in Serum or Plasma 1 24 [facility] ([facility]) Potassium [Moles/volume] in Serum or Plasma 4.4 [facility] ([facility]) Protein [Mass/volume] in Serum or Plasma 7.3 [facility] ([facility]) Sodium 135 [facility] Aspartate aminotransferase [Enzymatic activity/volume] in Serum or Plasma 30 [facility] ([facility]) Glucose 203 70-100 [facility] Urea nitrogen [Mass/volume] in Serum or Plasma 16 [facility] ([facility]) Creatinine For GFR 0.66 [facility] ([facility]) ID Date Data Source TSH 06/24/2020 12:00:00 AM EDT eCW1 ([facility]) Name Value Range Interpretation Code Description Data Summer rce(s) Supporting Document(s) 0.464 0.358-3.740 THYROID STIMULATING HORM ONE eCW1 ([facility]) ID Date Data Source [id number] 05/05/2020 01:40:31 PM [facility] Name Value Range Interpretation Code Description Data Summer rce(s) Supporting Document(s) Progress Note [facility] KVBUJw3rCyURZbEs67/EIMfkBNEgz8PwANltWSt6YTueTLKtF9HnEDW7rO2gLNA4EVvYGqBkCgDrMoNc [facility] [file] GQ9gQPn+Pl6Ey5DbxoL9cuKbZMqzNdP2RT4NGSSPQ0YBVk== ID Date Data Source [id number] 04/15/2020 07:13:00 AM EST [facility] Name Value Range Interpretation Code Description Data Summer rce(s) Supporting Document(s) Progress Note [facility] ZAOWSc6vLkEMTwWz09/BKVscMAOdn6GhJFjvJNu6DUenQCNiP8MhMKY9oY5uEBH4OAfJEqDuImPaMcWh lbm [file] OyXaAsMW8AUt4NIsL4NUR1eXRrXc6WAaY7KyHHTgDpRT3QCNz= ID Date Data Source [id number] 03/19/2020 12:47:37 PM EST [facility] Name Value Range Interpretation Code Description Data Summer rce(s) Supporting Document(s) Progress Note [facility] SSOJRu3rLuKZEbKy02/JTQdcLHTrt4YsCSqaIVb6NKdfLKFbD6UcZCW0tF3wPGO0UIhMUrXjDrPsOXW5 lbm [file] AgICAgICAgICAgICAgICAgICAgICAgICAgICAgICAgICAgICAgICAgICAgICAgICAgICAgICAgICAgIC CiHNHfMOEkYZ3DQUEyPNUqMOKqFYMjNNZoPIZmQESj ICAgICAgICAgICAgICAgICAgICAgICAgICAgICAgICAgICAgICAgICAgICAgICAgICAgICAgICAgICAg FJRcXPPzAMDbQKFbXPTuRHPjRN3OFPRhRLBqEARjHRWjGJCrLZMgUMSrAWMtSJNsAAVbZBYgKFAtJESj ICAgICAgICAgICAgICAgICAgICAgICAgICAgICAgIC DjOVJsONEcPHEuSMPfCTYfAVJcQMNeMFKpVLZqQR8JDRNqNDSkGWBxYNOmDVYhWHMkVGFrFSTeBQCkFO AgICAgICAgICAgICAgICAgICAgICAgICAgICAgICAgICAgICAgICAgICAgICAgICAgICAgICAgICAgIC LsXNPtNVWlXWAdMR3ZXECvDPUhYCErZHOrHWVmEHSh ICAgICAgICAgICAgICAgICAgICAgICAgICAgICAgICAgICAgICAgICAgICAgICAgICAgICAgICAgICAg FWQiNYOqROCoUPEjMOGjIOYfLJVsYF0PIPDtGFLwXQCePGQcHUAeSDZpUQRbKUIrYHQpGCUjXPDgPGUb ICAgICAgICAgICAgICAgICAgICAgICAgICAgICAgIC GzUUNuBGIfBMAnJTWkDLXpBMKyXWCcYRBzOGCwKJQtYP6KZVXaNVBnTTHwYUVbNNNqCEAqEGDyGAUvXA AgICAgICAgICAgICAgICAgICAgICAgICAgICAgICAgICAgICAgICAgICAgICAgICAgICAgICAgICAgIC EgOREpSLZxUUTbKXKnAF4OJAFyBPAuLJEfWEOaYUMe ICAgICAgICAgICAgICAgICAgICAgICAgICAgICAgICAgICAgICAgICAgICAgICAgICAgICAgICAgICAg JSPgKFMmZXEtBRMrDPUaELAySNZkAUGoNZ6RVWJsQIPfTPOsCHUnNDFrHHDvAJShIULnKWKiEXNiAKQs ICAgICAgICAgICAgICAgICAgICAgICAgICAgICAgIC SdRZRvDNHnFAQuQSQaDLCaPUQcJOSmKYOpLAIgAWYhEYKjSG9XNHAdOQQeEMThXAUhDYRsIIMsMBKfKD AgICAgICAgICAgICAgICAgICAgICAgICAgICAgICAgICAgICAgICAgICAgICAgICAgICAgICAgICAgIC MaENDzKFCwOZToJNHqNZQnEO3HXA29oVVuf4R8PZJi AQ0qkaf/Cv2LRJemkfZpiKAwPA0NYiJiID3gcq8HErMlSM3jim0VJXlNPfVjP5R1eJFsWVIaUXZAXfCj M35nGBouXn21AWvkHZUfNrFcXNv8Xz5GXfAmG3tpCMJfYmH4ISHxSeDdIQpiZA9An1IzbYEzMDj+Pg0K SG6ij2YoGDzwRRNfES2gpm3OSFmHDcCxD0ChgyS6JV SuVHPaVl1QIRDcJQTdnCUhFXHdVUTDCwTgO2IdgR10ONNVZs0+BBluucKeKxiJBtEsJMIqn3ZnOYs9DC 4NQXFnLSm5yILxVWVyQ1Rkh6BkBs51NPLxJqvgU4RfLEjgKmTSbTLvcYTfqNlxEn0fSMJvOX7qCS5kNA FnQPNwDgDkSHYTKB4NTELdUXRnaSVvGQAqCGGGUX1R IJsbMDC6UZEmajUglVGnDIhkUK9OONVprdMcOCxjCIRHZVs+Tl3RTV8fy2VmNYriVJTpSD2ebo8LLLmM DvTuW9F0uDEbG3G1HTbuOi2XKJYfSHRwXXscPXXHNRivPP7HCM4eboQ0HX5VjFUkXHKjHTWfoWBuZMj9 K45tzHXsOBazAW4OXHP+Dariel+Rj3NOKUfHCEeQQDvEy DxGVEDVtKfA5VeR3WMb0TeH6UsQN95kDjlnjRmRKklVL0ESL3jWVEaQTBTBF3IgLFedH1agdAeNWFuZV EAQvPoK43tfKXiNZWiUHO9VRAaPz8CWLArP7OpecHpzKiitdJyKWLzSFMCHM9ZZTibdnXxdWGgcMkfEW 23zGjnJO1RKe1OXgHjKA0fmd0RxGIuUs3SQNByLv6U SRHhQCQyLFBxXWA4QMJxYvFeGQuvPURvQZHpBMS8VFBkXNLgLF9NUhOcLYAuYVjhJSfkXWHwSSEsle6N PUJsGIZpFEytGhHkKOPdNVCgUFhnLCAuCBWvYDB6VOOaDFFjAV7RTbLlUIIzKEL2IuNxPXHgWPVkix5I ADNhUTSrUyYhCWJhYNTrFPLlCDaoTLVoDWAoQOy1HL XtQKIbSK8MKlKkLZDsIBYaIVQvXYUfLWVjly9BTFXvVYUhVbC5LxYtPXOvHXSfLQrxLOMsRDG3YBLtHK LjHSGoGF8TUhKySIKpWRC0KiCkFHKwCYEoxd7AAKMfAYEiPErfOBXuAQKsBGKtIZepRQTfEMH1ZLW3JV BnTICaVH0UPxWiCESfQGZ1VLJfVDUpDJWslq8SBZPx TZLaGfL5HWGyGJBwBWKiILynPXNsEXU1YBUbJQGwRQAjTS3HDzBwXMFmHNoqKrBhRVLwRPEtsl7FGUZp WQZzOqW6PoQuKNRmLIMcAAuoTEYgDQV3TNX1VFZpCXDiRJ9QZfKvZGYbOZj3OMWgWMVwDINcyx5ZZHNg AFDjEVMoGkFwFYJuJYVaITn4rmRpbITtRLe3OC2JF7 NbemUbUpRUJl4Xr076FECtFDLtDh7YV3whSi7sGMMsGSEUBs3HONd0QsB2CrAgSMKwEJk6COMdUrwhNV S1EETcBpNoHkO8U0Q+INxqEYbwPHN7ECQvEShvXWPbIYB6KiBcSZM3EMOmQIRdAA6mKJTRUp9+DQpzdG HhaCwvIJVVEiI5PhpmCQszEMHGNs3P ID Date Data Source [id number] 03/19/2020 12:47:00 PM EST [facility] Name Value Range Interpretation Code Description Data Summer rce(s) Supporting Document(s) SARS-CoV-2 RNA 2019 nCoV Real-Time RT-PCR: NOT DETECTED [facility] This lab was ordered by [facility] and reported by [facility]. ID Date Data Source [id number] 03/20/2020 08:45:45 AM EST [facility] Name Value Range Interpretation Code Description Data Summer rce(s) Supporting Document(s) Specimen source [Identifier] of Unspecified specimen SARS-CoV-2 RNA 2019 nCoV Real-Time RT-PCR: NOT DETECTED Assay Performed [facility] Patients first test for [facility] Patient employed in healthcare setting Patient has symptoms related to [facility] When did you start to experience these symptoms [Date and time] [Phen X] Patient was hospitalized because of this condition patient was admitted to ICU for [facility] Patient resides in a congregate care setting status [facility] ID Date Data Source [id number] 02/25/2020 10:34:44 AM EST [facility] Name Value Range Interpretation Code Description Data Summer rce(s) Supporting Document(s) Progress Note [facility] MOJKRy9lOdJEJpCf33/CKXddTSNpi5UtXVdkIEv9IJdcOGRxB6LbTIL3gQ4vQLP9SWlJWbJfUrLiBcPl lbm [file] wtbe0xs0jtc6zqby/lTJ3u+José/CV+3SCr9H4ODK6YafmZRQsSkd1Y013DIRIEVhCCcgjRHfEiXbVTsp [file] a9b4XCoJP+n31z/5CrRxqtASfZA8+RT5b3QiMyDSHEn8pEFcfymd+railroad purchasing agent+t5G02VDMCnJFcjXQmaM4sW2e [file] PYMnEqJoUbF7ICOvLhD1JPC9YX3dVNBNCr6+YDvlbUUufFwqRGTRLnM8HtZnGGshIYKSMk6W ID Date Data Source [id number] 02/03/2020 12:00:00 PM EST [facility] Name Value Range Interpretation Code Description Data Summer rce(s) Supporting Document(s) SARS coronavirus 2 RNA [facility] This lab was ordered by [facility] and reported by [facility]. ID Date Data Source [id number] 02/03/2020 10:21:13 AM EST [facility] Name Value Range Interpretation Code Description Data Summer rce(s) Supporting Document(s) Progress Note [facility] ENNRNn5xUwZTDaXl87/QUDppUKAts7BeKUtsRLi8WSehVNSmY6BcZZE9tS6bHLB2NMaPZfIdAtBkRiBb lbm [file] +icu0Fy3SWbl+7+5xwTu8wes58q0oJjgse6CqjDqf/hb6MI9Z++3sg2pea4U7z7hLEJgo3BFpKsj+José [file] MDAyMDYyOCAwMDAwMCBuDQowMDAwMDIxNTcyIDAwMD SyIU4CKbKcHDFtPfG4ZhKvQPXtRTQwxp9LBTImRCOqWXzjYXSjHEDuPADxJYlzFJFeZQExWnH0UYOiEH ZmIQ3BSyVzJQFpKgV3WUlzRXXfMKUjbb1EYTHzDBBdEuh6IWEdHTFsCQDvRZqyZRVfJRM6ATK0CJAfOC HwLJ2EOsThGFjiMZDEBom2MPviQ0z9SZZhWd9IE3Rk w4CrBzTaJXQWBOjzRX8pflByMVVcQc7QD6oUThw0RIUoZGS9YAG8VVHtVKPuPJUvDcDgUih1MbLrCPQc Uf1ePDtiGRP4SiefFqidMnAvEZL0KeCjFtX6LTS3VBMtIWYhSfOmXM8HOx5FXsM5QCH5vCZdSg3DQsOj RvwUObTfDB4EBZr= ID Date Data Source [id number] 01/28/2020 12:29:09 PM [facility] Name Value Range Interpretation Code Description Data Summer rce(s) Supporting Document(s) Progress Note [facility] GFCWAp8tIePRMdGs48/BJUcmWRRfc0WaYMjnXFi1MQgkOZCqL4JhLMJ6jL5wHWQ2LKiTUoUzNoDfAPY7 lbm [file] ICAgICAgICAgICAgICAgICAgICAgICAgICAgICAgIC LyONNdUYGvSDJuCWWgHTOlXSDeTNMjAKTcMGCqJEEjQBBkKOEfRDOeAKIdYTQpPYDzJKYyMVLuCY2VFE AgICAgICAgICAgICAgICAgICAgICAgICAgICAgICAgICAgICAgICAgICAgICAgICAgICAgICAgICAgIC AgICAgICAgICAgICAgICAgICAgICAgICAgICAgICAg DAOePHQaWZ5LMODnJKOyFOYoBYScCOMgEPCgQROwGZJhDGJyWPYzFMOaMXErKZCaOWJvNLBpHYRhSHJy WYPlSKTqMHXdVWXmTPXaKUEvFWXdALNtFIIxEYMbLSWfEAZkUEQlQXMjOAHhSHSfTJ2YFQTjHZZhRRLl ICAgICAgICAgICAgICAgICAgICAgICAgICAgICAgIC AgICAgICAgICAgICAgICAgICAgICAgICAgICAgICAgICAgICAgICAgICAgICAgICAgICAgICAgICAgIA 0KICAgICAgICAgICAgICAgICAgICAgICAgICAgICAgICAgICAgICAgICAgICAgICAgICAgICAgICAgIC AgICAgICAgICAgICAgICAgICAgICAgICAgICAgICAg POVrBOLoQPPwPS0QXWCtMDHgCLNjYBPqGNTcPNChHYWdADBlPCVqQKCaABSnNAPpKNIkYBQoBYPlAZYo SLRmDEYuKHNpKGPsPAMiVIQxTRFwVFNjGUCuTARmVKThLFToZPKcLOFcOTGuYAPgEHKxGZ3VZJVaWXPd ICAgICAgICAgICAgICAgICAgICAgICAgICAgICAgIC AgICAgICAgICAgICAgICAgICAgICAgICAgICAgICAgICAgICAgICAgICAgICAgICAgICAgICAgICAgIC QkLH5IXUQxZMFiPXHeIXBqSKNhOKQeCRFhGICjTVQiFBZkTXHuOTVgKNTiFHUdBTQoRLIhTRKtRCQqQG AgICAgICAgICAgICAgICAgICAgICAgICAgICAgICAg RZWqGWFuPSVcKZEeXQ5UJPKuTQRrDWEcVWWnCQHxYODkJNYlMCTiSOOcYGMoSEOnYXNhJQCvOKBqDUAs TOUvVBLiACYhVAZvELFbPKNsPPQyVRZmAZUrKKUsQFGyMSIyILLyCQYtJTKnAVEsBHIjKOVgZZ0IZJSe ICAgICAgICAgICAgICAgICAgICAgICAgICAgICAgIC AgICAgICAgICAgICAgICAgICAgICAgICAgICAgICAgICAgICAgICAgICAgICAgICAgICAgICAgICAgIC OjBFVzMI8YTD54sCZkf0R1TPYwAH4oyfc/Vg4AROhvslRbxRCvPI6QCaFpET5ioz5VAiAlZG3hoi4QGZ sDCyQwI2U9hZEyNTZzSFSXSrHnX30sEIbnBy74WWvq CZHcFwLbNBl3Mn3OVnVyC6oqWFLuFkS5XJMuBdXdVTpoRW9Ju8IqfXUgCPm+Bk7TOQ6nq3KtYIikVmOd LE1qid1AGQoFGiXvQ8TrekJ0RSLlMTAvGm5HBVNmBBVhfYSlIhKxHNLFTjVpB4NvdQ72RFJTUc6+DQpl opRxPzcLJgUmFJOna4DeUQg7NR6WPADxECa4uBGvCH BvN5Jvk1NoPk66ZOHvCuwtKMTygAYyIA6gRJNzJWR1fW1xXZTKUHVeaDPvDR8oEU1mKBIpAWUoTsT3ZW MPMH7HHMExKPHpaRSkIMZgMGMNWE2GMLowLBX4UZEfnjMawFEvNJaaDU0AZXEpkcDnUmOtPMLBBWa+Pg 5XEE3rs9MmKDetGHNwRV1dlr6AEIqDLqTkK1Y3oBIx C9Q7ANjeRb6YPEYyPOGcIeFvJQVALWosHG5HVK2ufnI9OC1ErEAmLYPeCBXxmPHoACk8P14veDGyMIfe GD7KXJY+Dariel+We1RQFLcHGMgIZRjTyElDCIJWdDkJ7DvW4UCa4GsS5ZfHY39pNnsijRzPZhtSO4DJY4o CAVqJFGDYH9EfUIjiB3irhBoYjCcFLLCSmFxM16alL EvYSRzPTGiCTRqLm5BPQAgA3EpisBwtHmxgwTtVTGqTSXARK4IOFmebkFygZLfxBxxNY74hQeoTX9XPp 6OLqYgPG2usp5FmYAcFi4POJDvRV8ESNKnIHAbPPDfQAV6WYGtVeJsSJsbYLGhILIrLDF8NVXyKMZrSR 1BIzVwNVMqEyIuYYDtEJWbKOPevg8HXEFnWPHjBDj1 XELhTHIvGEGyZWxdFDLaTGBuESP1RJUdQYVoCP6HCqLvHQYfGJJ9MoMiBTEpMGUddw7BUQZfWCEuCcF6 HlVgOJTjSDRxZPuwUQQuCKG7VlX5HVRvLXMtHN3TDlEaCYKsPEP8ViMcFSPuNBPpbu0VEUXzBNOqCWWd GWEzPDJnJEEcRCprXEKzZYH5WER9NZMdMHAtOE6UDa CgCGVjGQRrMbNlPSWzRPPnad8MEEGoVDDqChM1XKDnVKSzZKZcKSjiOLZrVSS9Ttp3WZNrWLFjSP2IOm HrXBKiXWsxLAGpKGPwEBZjhz7JHESzFQIhLWTkTwOnZMZiUISbMEudEKDdEOA3UKDdTVUrXGDjFJ1JPi UnBUAwSCm9FGbjNSPrFBRtyn1TTSAmYEKgGGT6KgOr HGCkQSHrABdeFLVvOLZ2ONZyWWBlPYNgQA0HHpToJAFvPfSmJFyuESJhWOJlhn9OHGAjZSKnUXIqRVBj NHRjBSNoJCzlKYOdADJcBSdqERCzMOFkEN2RSkNeKMWnDiK2TPVjVTCwBJQigo3DXYEnWXTfEcX7JtPk UFBaADWgMSi5ltHnvRGcNQu3NY1EE4SglxToBmJZSw 4Az077CVR7XESnBo6NE4zhTo4iMCTvWXVTIq5FTNg4MqomVJD3DLr1XXCoR7QhAxliGjZmFQOyXyy1Zj [facility]+KZw1C4SjLaYbWnLkHLEhIBNiS1OzHCM1HqB6EGlkXQI7Xn6pWRHSRi3+DQpzdGFydHhyZWYNCj TaHnKvUFopRFVXBr9S ID Date Data Source [id number] 12/17/2019 05:02:42 PM EDT [facility] MR EXTREMITY LOWER JOINT WITHOUT CONTRAS T [id number] RESULTInterpreted by:Alvarez Coffman MDEXAM: LEFT ANKLE MRI.INDICATION: Suspected talar dome and tibial plafond OCD lesionsPRIOR EXAM: October 01, 2019 radiographsTECHNIQUE: 3 plane localizer followed by axial (parallel to metatarsals) T1, PD FSE fat suppressed. Coronal PD FSE without and with fat suppression, T2 gradient echo imaging. Sagittal FSE T2,PD FSE , STIR images. Finally, angled axial images perpendicular to the peroneal tendons performed using T1 and PD FSE fat suppressed imaging.FINDINGS:tendons: Normal posterior tibialis, flexor digitorum longus, flexor hallucis longus tendons. Normal peroneal tendons. Unremarkable extensor tendons. Normal appearance the Achilles. ligaments: There is nonedematous significant thinning of the otherwise intact anterior talofibular ligament. Intact anterior posterior tibiofibular ligaments at. Unremarkable medial malleolar origin and superficial fibers deltoid ligament. Normal deep fibers deltoid ligament. Intact calcaneofibular ligament.osseous/joints: No significant bone bruising. No significant degenerative changes of the articulating surfaces of the hindfoot or midfoot.ankle mortice: Subcortical reactive bone changes seen involving the medial talar dome and the opposing medial tibial plafond. There is probable disruption of the overlying articular cartilage surfaces. No fractures identified. No osteochondral defects at. No significant ankle mortise joint effusion.plantar fascia: Normalsinus tarsi:No significant edematous changes or fibrotic changestarsal tunnel: Normal without s oft tissue mass. No evidence for atrophy or denervation of the tarsal tunnel muscles including abductor hallucis, quadratus plantae, flexor digitorum and abductor digiti minimi. Lisfranc ligament: Intact dorsal and interosseous ligamentsIMPRESSION: Focal degenerative changes of the articular surfaces of the medial talar dome and opposing medial tibial plafond surfaces.2. Intact but nonedematous thinning of the anterior talofibular ligament suggesting distant injury.. This document has been electronically signed by Alvarez Coffman MD on 12/17/2019 5:00 PM Name Value Range Interpretation Code Description Data Summer rce(s) Supporting Document(s) ID Date Data Source [id number] 12/17/2019 04:11:39 PM T [facility] Name Value Range Interpretation Code Description [facility](s) Progress Note [facility] DFNEFn4nIyTDXhQp60/JMAidCCCqu7OsQGkxNZi8YWsbDPEaF0FhKVR3xY0wFFH2MAdMGrGdEsEgBOX3 lbm [file] DQo= Procedure Social History Code Duration Value Status Description Data Source(s ) Smoking 12/16/2020 12:00:00 AM EDT Current Smoker completed Curre nt Smoker eCW1 ([facility]) Alcohol intake 11/29/2020 12:00:00 AM EDT Current non-d david of alcohol (finding) completed Current non-drinker of alcohol (finding) Tobacco use and exposure 11/29/2020 12:00:00 AM EDT Never used co mpleted Never used Cigarette pack-years 11/29/2020 12:00:00 AM EDT UNK completed Cigarettes smoked current (pack per day) - Reported 11/30/19 12:00:00 AM EDT UNK completed [facility] Smoking 11/29/2020 12:00:00 AM EDT Current every day smoker co mpleted Current every day smoker Smoking 11/16/2020 12:00:00 AM EDT Current Smoker completed Curre nt Smoker eCW1 ([facility]) Smoking 11/16/2020 12:00:00 AM EDT Current Smoker completed Curre nt Smoker eCW1 ([facility]) Smoking 11/16/2020 12:00:00 AM EDT Current Smoker completed Curre nt Smoker eCW1 ([facility]) Alcohol intake 10/19/2020 12:00:00 AM EDT Current non-d david of alcohol (finding) completed Current non-drinker of alcohol (finding) Alcohol intake 10/11/2020 12:00:00 AM EDT Current non-d david of alcohol (finding) completed Current non-drinker of alcohol (finding) Smoking 08/16/2020 12:00:00 AM EDT Current Smoker completed Curre nt Smoker eCW1 ([facility]) Smoking 08/16/2020 12:00:00 AM EDT Current Smoker completed Curre nt Smoker eCW1 ([facility]) Smoking 08/16/2020 12:00:00 AM EDT Current Smoker completed Curre nt Smoker eCW1 ([facility]) Smoking 08/16/2020 12:00:00 AM EDT Current Smoker completed Curre nt Smoker eCW1 ([facility]) Smoking 08/16/2020 12:00:00 AM EDT Current Smoker completed Curre nt Smoker eCW1 ([facility]) Smoking 08/16/2020 12:00:00 AM EDT Current Smoker completed Curre nt Smoker eCW1 ([facility]) Smoking 08/16/2020 12:00:00 AM EDT Current Smoker completed Curre nt Smoker eCW1 ([facility]) Smoking 08/16/2020 12:00:00 AM EDT Current Smoker completed Curre nt Smoker eCW1 ([facility]) Alcohol intake 07/09/2020 12:00:00 AM EDT Current non-d david of alcohol (finding) completed Current non-drinker of alcohol (finding) Smoking 06/28/2020 12:00:00 AM EDT Current Smoker completed Curre nt Smoker eCW1 ([facility]) Smoking 06/28/2020 12:00:00 AM EDT Current Smoker completed Curre nt Smoker eCW1 ([facility]) Smoking 06/28/2020 12:00:00 AM EDT Current Smoker completed Curre nt Smoker eCW1 ([facility]) Smoking 06/28/2020 12:00:00 AM EDT Current Smoker completed Curre nt Smoker eCW1 ([facility]) Smoking 06/28/2020 12:00:00 AM EDT Current Smoker completed Curre nt Smoker eCW1 ([facility]) Smoking 06/28/2020 12:00:00 AM EDT Current Smoker completed Curre nt Smoker eCW1 ([facility]) Smoking 05/17/2020 12:00:00 AM EDT Current Smoker completed Curre nt Smoker eCW1 ([facility]) Smoking 05/17/2020 12:00:00 AM EDT Current Smoker completed Curre nt Smoker eCW1 ([facility]) Alcohol intake 04/15/2020 12:00:00 AM EST Current non-d david of alcohol (finding) completed Current non-drinker of alcohol (finding) Smoking 03/15/2020 12:00:00 AM EST Current Smoker completed Curre nt Smoker eCW1 ([facility]) Smoking 03/15/2020 12:00:00 AM EST Current Smoker completed Curre nt Smoker eCW1 ([facility]) Alcohol intake 02/25/2020 12:00:00 AM EST Current non-d david of alcohol (finding) completed Current non-drinker of alcohol (finding) Smoking 02/05/2020 12:00:00 AM EST Current Smoker completed Curre nt Smoker eCW1 ([facility]) Smoking 02/05/2020 12:00:00 AM EST Current Smoker completed Curre nt Smoker eCW1 ([facility]) Smoking 02/05/2020 12:00:00 AM EST Current Smoker completed Curre nt Smoker eCW1 ([facility]) Smoking 12/30/2019 12:00:00 AM EDT Current Smoker completed Curre nt Smoker eCW1 ([facility]) Smoking 12/30/2019 12:00:00 AM EDT Current Smoker completed Curre nt Smoker eCW1 ([facility]) Alcohol intake 12/17/2019 12:00:00 AM EDT Current non-d david of alcohol (finding) completed Current non-drinker of alcohol (finding) Smoking 12/16/2019 12:00:00 AM EDT Current Smoker completed Curre nt Smoker eCW1 ([facility]) Smoking 12/16/2019 12:00:00 AM EDT Current Smoker completed Curre nt Smoker eCW1 ([facility]) Vital Signs ID Date Data Source UNK Name Value Range Interpretation Code Description Data Source(s) Body height 61 [in_i] 61 [in_i] [facility] ([facility], ) 5'1" Body weight 214.00 [lb_av] 214.00 [lb_av] LAVELLEEN T ([facility], ) Body mass index (BMI) [Ratio] 40.4 kg/m2 40.4 k g/m2 [facility] ([facility]) [place] body weight 105 [lb_av] 105 [lb_av] MEDEN T ([facility], ) Body weight 97.070 kg 97.070 kg [facility] ([facility]) Body surface area Derived from formula 1.94 m2 1.94 m2 [facility] ([facility]) Heart rate 94 /min 94 /min [facility] ([facility]) Body mass index (BMI) [Ratio] 40.4 kg/m2 40.4 k g/m2 [facility] ([facility]) [place] body weight 105 [lb_av] 105 [lb_av] MEDEN T ([facility]) Body weight 97.070 kg 97.070 kg [facility] ([facility]) Body surface area Derived from formula 1.94 m2 1.94 m2 [facility] ([facility]) Systolic blood pressure 124 mm[Hg] 124 mm[Hg] M EDENT ([facility]) Diastolic blood pressure 72 mm[Hg] 72 mm[Hg] [facility] ([facility]) Oxygen saturation in Arterial blood by Pulse oximetry 98 % 98 % [facility] ([facility]) Body height 61 [in_i] 61 [in_i] [facility] ([facility]) 5'1" Body weight 214.00 [lb_av] 214.00 [lb_av] MEDEN T ([facility]) Body mass index (BMI) [Ratio] 40.2 kg/m2 40.2 k g/m2 [facility] ([facility]) Systolic blood pressure 133 mm[Hg] 133 mm[facility]Hg[facility] Diastolic blood pressure 86 mm[Hg] 86 mm[Hg] [facility] ([facility]) Heart rate 94 /min 94 /min [facility] ([facility]) Oxygen saturation in Arterial blood by Pulse oximetry 96 % 96 % [facility] ([facility]) Body height 61 [in_i] 61 [in_i] [facility] ([facility]) 5'1" Body weight 213.00 [lb_av] 213.00 [lb_av] MEDEN T ([facility]) [place] body weight 105 [lb_av] 105 [lb_av] MEDEN T ([facility]) Body weight 96.617 kg 96.617 kg [facility] ([facility]) Body surface area Derived from formula 1.94 m2 1.94 m2 [facility] ([facility], ) Body weight [lb_av] eCW1 ([facility]) Body weight 98.43 kg 98.43 kg eCW1 ([facility]) Body height 62 [in_i] 62 [in_i] eCW1 ([facility]) Body mass index (BMI) [Ratio] 39.69 kg/m2 39.69 kg/m2 eCW1 ([facility]) Heart rate 91 /min 91 /min eCW1 ([facility], 1928–1983) Respiratory rate 18 /min 18 /min eCW1 ([facility]) Body temperature 98.4 [degF] 98.4 [degF] eCW1 ( [facility]) Systolic blood pressure 133 mm[Hg] 133 mm[Hg] e CW1 ([facility]) Diastolic blood pressure 79 mm[Hg] 79 mm[Hg] eCW1 ([facility]) Body weight [lb_av] eCW1 ([facility]) Body weight 98.43 kg 98.43 kg eCW1 ([facility]) Body height 62 [in_i] 62 [in_i] eCW1 ([facility]) Body mass index (BMI) [Ratio] 39.69 kg/m2 39.69 kg/m2 eCW1 ([facility]) Heart rate 87 /min 87 /min eCW1 ([facility], [facility]1983) Respiratory rate 18 /min 18 /min eCW1 ([facility]) Body temperature 99.1 [degF] 99.1 [degF] eCW1 ( [facility]) Systolic blood pressure 125 mm[Hg] 125 mm[Hg] e CW1 ([facility]) Diastolic blood pressure 81 mm[Hg] 81 mm[Hg] eCW1 ([facility]) Diastolic blood pressure 91 mm[Hg] 91 mm[Hg] HORACIO ([facility]) Body height 61 [in_i] 61 [in_i] HORACIO ([facility]) Systolic blood pressure 142 mm[Hg] 142 mm[Hg] A THENA ([facility]) Diastolic blood pressure 91 mm[Hg] 91 mm[Hg] HORACIO ([facility]) Body height 61 [in_i] 61 [in_i] [facility]ORACIO ([facility]) Systolic blood pressure 142 mm[Hg] 142 mm[Hg] A THENA ([facility]) Body weight 220.00 [lb_av] 220.00 [lb_av] MEDEN T ([facility]) Systolic blood pressure--sitting 140 mm[Hg] 140 mm[Hg] MEDENT ([facility]) large cuff, Ra; 135/80 LA Systolic blood pressure--supine 136 mm[Hg] 136 mm[Hg] MEDENT ([facility]) Ra Diastolic blood pressure--supine 76 mm[Hg] 76 mm[Hg] MEDENT ([facility]) Ra Body height 61 [in_i] 61 [in_i] MEDENT ([facility] 5'1" Body mass index (BMI) [Ratio] 41.6 kg/m2 41.6 k g/m2 MED[facility] ([facility]) Heart rate 80 /min 80 /min MED[facility] ([facility]) regular Respiratory rate 18 /min 18 /min MEDENT ( [facility]) Diastolic blood pressure--sitting 82 mm[Hg] 82 mm[Hg] MEDENT ([facility]) large cuff, Ra; 135/80 [place] Diastolic blood pressure 90 mm[Hg] 90 mm[Hg] HORACIO ([facility]) Body height 61 [in_i] 61 [in_i] HORACIO ([facility]) Systolic blood pressure 159 mm[Hg] 159 mm[Hg] A THENA ([facility]) Diastolic blood pressure 90 mm[Hg] 90 mm[Hg] HORACIO ([facility]) Body height 61 [in_i] 61 [in_i] HORACIO ([facility]) Systolic blood pressure 159 mm[Hg] 159 mm[Hg] A THENA ([facility]) Diastolic blood pressure 90 mm[Hg] 90 mm[Hg] HORACIO ([facility]) Body height 61 [in_i] 61 [in_i] HORACIO ([facility]) Systolic blood pressure 159 mm[Hg] 159 mm[Hg] A THENA ([facility]) Body weight [lb_av] eCW1 ([facility]) Body height 62 [in_i] 62 [in_i] eCW1 ([facility]) Body mass index (BMI) [Ratio] 40.05 kg/m2 40.05 kg/m2 eCW1 ([facility]) Heart rate 102 /min 102 /min eCW1 ([facility], 1928[facility]1983) Respiratory rate 18 /min 18 /min eCW1 ([facility]) Body temperature 98.8 [degF] 98.8 [degF] eCW1 ( [facility]) Systolic blood pressure 143 mm[Hg] 143 mm[Hg] e CW1 ([facility]) Diastolic blood pressure 90 mm[Hg] 90 mm[Hg] eCW1 ([facility]) Body weight [lb_av] eCW1 ([facility]) Body height 62 [in_i] 62 [in_i] eCW1 ([facility]) Body mass index (BMI) [Ratio] 40.23 kg/m2 40.23 kg/m2 eCW1 ([facility]) Heart rate 87 /min 87 /min eCW1 ([facility], [facility]) Respiratory rate 18 /min 18 /min eCW1 ([facility]) Body temperature 98.3 [degF] 98.3 [degF] eCW1 ( [facility]) Systolic blood pressure 159 mm[Hg] 159 mm[Hg] e CW1 ([facility]) Diastolic blood pressure 93 mm[Hg] 93 mm[Hg] eCW1 ([facility]) Body weight 215 [lb_av] 215 [lb_av] eCW1 ([facility]) Body height 62 [in_i] 62 [in_i] eCW1 ([facility]) Body mass index (BMI) [Ratio] 39.32 kg/m2 39.32 kg/m2 eCW1 ([facility]) Heart rate 86 /min 86 /min eCW1 ([facility], [facility]) Respiratory rate 20 /min 20 /min eCW1 ([facility]) Body temperature 97.6 [degF] 97.6 [degF] eCW1 ( [facility]) Systolic blood pressure 128 mm[Hg] 128 mm[Hg] e CW1 ([facility]) Diastolic blood pressure 70 mm[Hg] 70 mm[Hg] eCW1 ([facility]) Body weight 215 [lb_av] 215 [lb_av] eCW1 ([facility]) Body height 62 [in_i] 62 [in_i] eCW1 ([facility]) Body mass index (BMI) [Ratio] 39.32 kg/m2 39.32 kg/m2 eCW1 ([facility]) Heart rate 98 /min 98 /min eCW1 ([facility], [facility]) Respiratory rate 18 /min 18 /min eCW1 ([facility]) Body temperature 97.4 [degF] 97.4 [degF] eCW1 ( [facility]) Systolic blood pressure 120 mm[Hg] 120 mm[Hg] e CW1 ([facility]) Diastolic blood pressure 77 mm[Hg] 77 mm[Hg] eCW1 ([facility]) Body height 61 [in_i] 61 [in_i] HORACIO ([facility]) Body height 61 [in_i] 61 [in_i] HORACIO ([facility]) Body height 61 [in_i] 61 [in_i] HORACIO ([facility]) Body height 61 [in_i] 61 [in_i] HORACIO ([facility]) Body height 61 [in_i] 61 [in_i] HORACIO ([facility]) Body height 61 [in_i] 61 [in_i] HORACIO ([facility]) Body height 61 [in_i] 61 [in_i] HORACIO ([facility]) Body height 61 [in_i] 61 [in_i] HORACIO ([facility]) Body height 61 [in_i] 61 [in_i] HORACIO ([facility]) Body height 61 [in_i] 61 [in_i] HORACIO ([facility]) Body height 61 [in_i] 61 [in_i] HORACIO ([facility]) Body height 61 [in_i] 61 [in_i] HORACIO ([facility]) Body weight [lb_av] eCW1 ([facility]) Body height 62 [in_i] 62 [in_i] eCW1 ([facility]) Body mass index (BMI) [Ratio] 39.14 kg/m2 39.14 kg/m2 eCW1 ([facility]) Heart rate 97 /min 97 /min eCW1 ([facility], 1928–1983) Respiratory rate 18 /min 18 /min eCW1 ([facility]) Body temperature 98.8 [degF] 98.8 [degF] eCW1 ( [facility]) Systolic blood pressure 124 mm[Hg] 124 mm[Hg] e CW1 ([facility]) Diastolic blood pressure 82 mm[Hg] 82 mm[Hg] eCW1 ([facility]) Diastolic blood pressure 89 mm[Hg] 89 mm[Hg] HORACIO ([facility]) Body height 61 [in_i] 61 [in_i] HORACIO ([facility]) Systolic blood pressure 140 mm[Hg] 140 mm[Hg] A THENA ([facility]) Diastolic blood pressure 89 mm[Hg] 89 mm[Hg] HORACIO ([facility]) Body height 61 [in_i] 61 [in_i] HORACIO ([facility]) Systolic blood pressure 140 mm[Hg] 140 mm[Hg] A THENA ([facility]) Diastolic blood pressure 89 mm[Hg] 89 mm[Hg] HORACIO ([facility]) Body height 61 [in_i] 61 [in_i] HORACIO ([facility]) Systolic blood pressure 140 mm[Hg] 140 mm[Hg] A THENA ([facility]) Systolic blood pressure 140 mm[Hg] 140 mm[Hg] A THENA ([facility]) Diastolic blood pressure 89 mm[Hg] 89 mm[Hg] HORACIO ([facility]) Body height 61 [in_i] 61 [in_i] HORACIO ([facility]) Diastolic blood pressure 89 mm[Hg] 89 mm[Hg] HORACIO ([facility]) Body height 61 [in_i] 61 [in_i] HORACIO ([facility]) Systolic blood pressure 140 mm[Hg] 140 mm[Hg] A THENA ([facility]) Diastolic blood pressure 89 mm[Hg] 89 mm[Hg] HORACIO ([facility]) Body height 61 [in_i] 61 [in_i] HORACIO ([facility]) Systolic blood pressure 140 mm[Hg] 140 mm[Hg] A THENA ([facility]) Diastolic blood pressure 89 mm[Hg] 89 mm[Hg] HORACIO ([facility]) Body height 61 [in_i] 61 [in_i] HORACIO ([facility]) Systolic blood pressure 140 mm[Hg] 140 mm[Hg] A THENA ([facility]) Diastolic blood pressure 89 mm[Hg] 89 mm[Hg] HORACIO ([facility]) Body height 61 [in_i] 61 [in_i] HORACIO ([facility]) Systolic blood pressure 140 mm[Hg] 140 mm[Hg] A THENA ([facility]) Diastolic blood pressure 89 mm[Hg] 89 mm[Hg] HORACIO ([facility]) Body height 61 [in_i] 61 [in_i] HORACIO ([facility]) Systolic blood pressure 140 mm[Hg] 140 mm[Hg] A THENA ([facility]) Diastolic blood pressure 89 mm[Hg] 89 mm[Hg] HORACIO ([facility]) Body height 61 [in_i] 61 [in_i] HORACIO ([facility]) Systolic blood pressure 140 mm[Hg] 140 mm[Hg] A THENA ([facility]) Diastolic blood pressure 89 mm[Hg] 89 mm[Hg] HORACIO ([facility]) Body height 61 [in_i] 61 [in_i] HORACIO ([facility]) Systolic blood pressure 140 mm[Hg] 140 mm[Hg] A THENA ([facility]) Diastolic blood pressure 89 mm[Hg] 89 mm[Hg] HORACIO ([facility]) Body height 61 [in_i] 61 [in_i] HORACIO ([facility]) Systolic blood pressure 140 mm[Hg] 140 mm[Hg] A THENA ([facility]) Diastolic blood pressure 89 mm[Hg] 89 mm[Hg] HORACIO ([facility]) Body height 61 [in_i] 61 [in_i] HORACIO ([facility]) Systolic blood pressure 140 mm[Hg] 140 mm[Hg] A THENA ([facility]) Patient Treatment Plan of Care Planned Activity Planned Date Details Description Data Source (s) Amoxicillin 875 MG / Clavulanate 125 MG Oral Tablet 12/15/19 12:00:00 AM EDT eC ([facility]) methylPREDNISolone acetate (DEPO-MEDROL) injection 40 mg 10/11/2020 11:45:00 AM [facility] ospital Acetaminophen 500 MG Oral Tablet 09/12/2020 12:00:00 AM [facility] OmniPod Dash 5 Pack Pods 09/09/2020 12:00:00 AM [facility] OmniPod Dash 5 Pack Pods - 09/09/2020 12:00:00 AM EDT eC ([facility]) OmniPod Dash System - 09/09/2020 12:00:00 AM EDT eC ([facility]) OmniPod Dash 5 Pack Pods - 09/09/2020 12:00:00 AM EDT eC ([facility]) OmniPod Dash System - 09/09/2020 12:00:00 AM EDT eC ([facility]) Amlodipine 5 MG Oral Tablet 09/07/2020 12:00:00 AM [facility] 3 ML Insulin Glargine 100 UNT/ML Pen Injector [Lantus] 08/17/2020 12:00:00 AM EDT eCW1 ([facility]) PenTips 31G X 5 MM 08/17/2020 12:00:00 AM [facility] 3 ML Insulin Glargine 100 UNT/ML Pen Injector [Lantus] 08/17/2020 12:00:00 AM [facility] ospital 3 ML Insulin Glargine 100 UNT/ML Pen Injector [Lantus] 08/17/2020 12:00:00 AM EDT eCW1 ([facility]) Pen [place] 31G X 5 MM 08/17/2020 12:00:00 AM EDT eCW1 ([facility]) [place] 31G X 5 MM 08/17/2020 12:00:00 AM EDT eCW1 ([facility]) 3 ML Insulin Glargine 100 UNT/ML Pen Injector [Lantus] 08/17/2020 12:00:00 AM EDT eCW1 ([facility]) [place] 31G X 5 MM 08/17/2020 12:00:00 AM EDT eCW1 ([facility]) 3 ML Insulin Glargine 100 UNT/ML Pen Injector [Lantus] 08/17/2020 12:00:00 AM EDT eCW1 ([facility]) [place] 31G X 5 MM 08/17/2020 12:00:00 AM EDT eCW1 ([facility]) 3 ML Insulin Glargine 100 UNT/ML Pen Injector [Lantus] 08/17/2020 12:00:00 AM EDT eCW1 ([facility]) [place] 31G X 5 MM 08/17/2020 12:00:00 AM EDT eCW1 ([facility]) 3 ML Insulin Glargine 100 UNT/ML Pen Injector [Lantus] 08/17/2020 12:00:00 AM EDT eCW1 ([facility]) 3 ML Insulin Glargine 100 UNT/ML Pen Injector [Lantus] 08/17/2020 12:00:00 AM EDT eCW1 ([facility]) [place] 31G X 5 MM 08/17/2020 12:00:00 AM EDT eCW1 ([facility]) [place] 31G X 5 MM 08/17/2020 12:00:00 AM EDT eCW1 ([facility]) 3 ML Insulin Glargine 100 UNT/ML Pen Injector [Lantus] 08/17/2020 12:00:00 AM EDT eCW1 ([facility]) FreeStyle [place]ra 14 Day Sensor 08/16/2020 12:00:00 AM [facility] FreeStyle Ezra 14 Day [place] Device 08/16/2020 12:00:00 AM [facility] FreeStyle Ezra Sensor System - 08/16/2020 12:00:00 AM EDT eCW1 ([facility]) FreeStyle [place]ra [place] - 08/16/2020 12:00:00 AM EDT eCW1 ([facility]) FreeStyle [place]ra [place] - 08/16/2020 12:00:00 AM EDT eCW1 ([facility]) FreeStyle Ezra Sensor System - 08/16/2020 12:00:00 AM EDT eCW1 ([facility]) FreeStyle [place] - 08/16/2020 12:00:00 AM EDT eCW1 ([facility]) FreeStyle Ezra Sensor System - 08/16/2020 12:00:00 AM EDT eCW1 ([facility]) FreeStyle [place] - 08/16/2020 12:00:00 AM EDT eCW1 ([facility]) FreeStyle Ezra Sensor System - 08/16/2020 12:00:00 AM EDT eCW1 ([facility]) FreeStyle [place]ra [place] - 08/16/2020 12:00:00 AM EDT eCW1 ([facility]) FreeStyle [place]ra Sensor System - 08/16/2020 12:00:00 AM EDT eCW1 ([facility]) FreeStyle [place]ra Sensor System - 08/16/2020 12:00:00 AM EDT eCW1 ([facility]) FreeStyle [place] - 08/16/2020 12:00:00 AM EDT eCW1 ([facility]) FreeStyle [place] - 08/16/2020 12:00:00 AM EDT eCW1 ([facility]) FreeStyle Ezra Sensor System - 08/16/2020 12:00:00 AM EDT eCW1 ([facility]) Insulin Glargine 100 UNT/ML Injectable Solution [Lantu s] 08/16/2020 12:00:00 AM EDT eCW1 ([facility]) FreeStyle [place] - 08/16/2020 12:00:00 AM EDT eCW1 ([facility]) FreeStyle Ezra Sensor System - 08/16/2020 12:00:00 AM EDT eCW1 ([facility]) Amlodipine 5 MG Oral Tablet 06/28/2020 12:00:00 AM EDT eCW1 ([facility]) Amlodipine 5 MG Oral Tablet 06/28/2020 12:00:00 AM EDT eCW1 ([facility]) Amlodipine 5 MG Oral Tablet 06/28/2020 12:00:00 AM EDT eCW1 ([facility]) Amlodipine 5 MG Oral Tablet 06/28/2020 12:00:00 AM EDT eCW1 ([facility]) Amlodipine 5 MG Oral Tablet 06/28/2020 12:00:00 AM EDT eCW1 ([facility]) Amlodipine 5 MG Oral Tablet 06/28/2020 12:00:00 AM EDT eCW1 ([facility]) Amlodipine 5 MG Oral Tablet 06/28/2020 12:00:00 AM EDT eCW1 ([facility]) Amlodipine 5 MG Oral Tablet 06/28/2020 12:00:00 AM EDT eCW1 ([facility]) Amlodipine 5 MG Oral Tablet 06/28/2020 12:00:00 AM EDT eCW1 ([facility]) Amlodipine 5 MG Oral Tablet 06/28/2020 12:00:00 AM EDT eCW1 ([facility]) carbamide peroxide 65 MG/ML Otic Solution [Debrox] 05/17/2020 12 :00:00 AM EDT eCW1 ([facility]) carbamide peroxide 65 MG/ML Otic Solution [Debrox] 05/17/2020 12 :00:00 AM EDT eCW1 ([facility]) 0.5 ML dulaglutide 3 MG/ML Auto-Injector [Trulicity] 12:00:00 AM [facility] Aspirin 325 MG Delayed Release Oral Tablet 03/22/2020 12:00:00 AM E [facility] Albuterol Sulfate HFA 108 (90 Base) MCG/ ACT Inhalation Aerosol Solution (PROVENTIL HFA) 02/05/2020 12:00:00 AM EST [facility] Augmentin 875-125 MG 02/05/2020 12:00:00 AM EST eCW1 ([facility]) 200 ACTUAT Albuterol 0.09 MG/ACTUAT Metered Dose Inhal er [Ventolin] 02/05/2020 12:00:00 AM EST eCW1 ([facility]) Ofloxacin 3 MG/ML Ophthalmic Solution 02/05/2020 12:00:00 AM EST eCW1 ([facility]) Augmentin 875-125 MG 02/05/2020 12:00:00 AM EST eCW1 ([facility]) 200 ACTUAT Albuterol 0.09 MG/ACTUAT Metered Dose Inhal er [Ventolin] 02/05/2020 12:00:00 AM EST eCW1 ([facility]) Ofloxacin 3 MG/ML Ophthalmic Solution 02/05/2020 12:00:00 AM EST eCW1 ([facility]) Augmentin 875-125 MG 02/05/2020 12:00:00 AM EST eCW1 ([facility]) 200 ACTUAT Albuterol 0.09 MG/ACTUAT Metered Dose Inhal er [Ventolin] 02/05/2020 12:00:00 AM EST eCW1 ([facility]) Ofloxacin 3 MG/ML Ophthalmic Solution 02/05/2020 12:00:00 AM EST eCW1 ([facility]) pregabalin 150 MG Oral Capsule 02/02/2020 12:00:00 AM [facility] methylPREDNISolone acetate (DEPO-MEDROL) injection 40 mg 12/17/2019 03:00:00 PM EDT [facility] ospital Meclizine Hydrochloride 25 MG Oral Tablet 12/16/2019 12:00:00 AM ED T eCW1 ([facility]) Meclizine Hydrochloride 25 MG Oral Tablet 12/16/2019 12:00:00 AM ED T eCW1 ([facility]) Meclizine Hydrochloride 25 MG Oral Tablet 12/16/2019 12:00:00 AM ED T eCW1 ([facility]) Ofloxacin 3 MG/ML Otic Solution 12/16/2019 12:00:00 AM [facility] Amoxicillin 875 MG / Clavulanate 125 MG Oral Tablet 12/16/19 20 12:00:00 AM [facility] Meclizine Hydrochloride 25 MG Oral Tablet 12/16/2019 12:00:00 AM ED T eCW1 ([facility]) Ciprofloxacin 2 MG/ML Otic Solution 12/16/2019 12:00:00 AM EDT eCW1 ([facility]) Ofloxacin 3 MG/ML Ophthalmic Solution 12/16/2019 12:00:00 AM EDT eCW1 ([facility]) Amoxicillin 875 MG / Clavulanate 125 MG Oral Tablet 12/16/19 20 12:00:00 AM EDT eCW1 ([facility]) Meclizine Hydrochloride 25 MG Oral Tablet 12/16/2019 12:00:00 AM ED T eCW1 ([facility]) Ciprofloxacin 2 MG/ML Otic Solution 12/16/2019 12:00:00 AM EDT eCW1 ([facility]) Ofloxacin 3 MG/ML Ophthalmic Solution 12/16/2019 12:00:00 AM EDT eCW1 ([facility]) Amoxicillin 875 MG / Clavulanate 125 MG Oral Tablet 12/16/19 12:00:00 AM EDT eCW1 ([facility]) Meclizine Hydrochloride 25 MG Oral Tablet 12/16/2019 12:00:00 AM ED T eCW1 ([facility]) Ciprofloxacin 2 MG/ML Otic Solution 12/16/2019 12:00:00 AM EDT eCW1 ([facility]) Ofloxacin 3 MG/ML Ophthalmic Solution 12/16/2019 12:00:00 AM EDT eCW1 ([facility]) Amoxicillin 875 MG / Clavulanate 125 MG Oral Tablet 12/16/19 12:00:00 AM EDT eCW1 ([facility]) Meclizine Hydrochloride 25 MG Oral Tablet 12/16/2019 12:00:00 AM ED T eCW1 ([facility]) Ciprofloxacin 2 MG/ML Otic Solution 12/16/2019 12:00:00 AM EDT eCW1 ([facility]) Ofloxacin 3 MG/ML Ophthalmic Solution 12/16/2019 12:00:00 AM EDT eCW1 ([facility]) Amoxicillin 875 MG / Clavulanate 125 MG Oral Tablet 12/16/19 12:00:00 AM EDT eCW1 ([facility]) pregabalin 100 MG Oral Capsule 09/03/2019 12:00:00 AM EDT famotidine 20 mg tabs ATHEN A ([facility]) duloxetine hydrochloride 60 mg cpep HORACIO ([facility]) duloxetine hcl 30 mg cpep A THENA ([facility]) celecoxib 200 mg caps ATHEN A ([facility]) celecoxib 100 mg caps ATHEN A ([facility]) atorvastatin calcium 10 mg tabs HORACIO ([facility]) Amoxicillin 875 MG / Clavulanate 125 MG Oral Tablet HORACIO ([facility]) trulicity 0.75 mg/0.5ml sopn HORACIO ([facility]) Steglatro 5 mg tablet HORACIO ([facility]) steglatro 5 mg tabs HORACIO ([facility]) pregabalin 75 MG Oral Capsule HORACIO ([facility]) pregabalin 100 MG Oral Capsule HORACIO ([facility]) pregabalin 75 mg caps ATHEN A ([facility]) pregabalin 100 mg caps ATHE NA ([facility]) Oxycodone Hydrochloride 5 MG Oral Tablet HORACIO ([facility]) oxybutynin chloride er 10 mg tb24 HORACIO ([facility]) omeprazole 20 mg cpdr ATHEN A ([facility]) Methocarbamol 750 MG Oral Tablet HORACIO ([facility]) Methocarbamol 500 MG Oral Tablet HORACIO ([facility]) methocarbamol 750 mg tabs A THENA ([facility]) methocarbamol 500 mg tabs A THENA ([facility]) meclizine hcl 25 mg tabs AT CEDRIC ([facility]) lisinopril 10 mg tabs ATHEN A ([facility]) gabapentin 300 mg caps ATHE NA ([facility]) fluticasone propionate 50 mcg/actuation nasal spray,suspension SPRAY ONE SPRAY IN EACH NOSTRIL DAILY HORACIO ([facility]) fluticasone propionate 50 mcg/act susp HORACIO ([facility]) famotidine 20 mg tabs ATHEN A ([facility]) duloxetine hydrochloride 60 mg cpep HORACIO ([facility]) duloxetine hcl 30 mg cpep A THENA ([facility]) celecoxib 200 mg caps ATHEN A ([facility]) celecoxib 100 mg caps ATHEN A ([facility]) atorvastatin calcium 10 mg tabs HORACIO ([facility]) Amoxicillin 875 MG / Clavulanate 125 MG Oral Tablet HORACIO ([facility]) 0.5 ML dulaglutide 3 MG/ML Auto-Injector [Trulicity] HORACIO ([facility]) 0.5 ML dulaglutide 1.5 MG/ML Auto-Injector [Trulicity] HORACIO ([facility]) trulicity 0.75 mg/0.5ml sopn HORACIO ([facility]) Steglatro 5 mg tablet HORACIO ([facility]) steglatro 5 mg tabs HORACIO ([facility]) pregabalin 75 MG Oral Capsule HORACIO ([facility]) pregabalin 100 MG Oral Capsule HORACIO ([facility]) pregabalin 75 mg caps ATHEN A ([facility]) pregabalin 100 mg caps ATHE NA ([facility]) Oxycodone Hydrochloride 5 MG Oral Tablet HORACIO ([facility]) oxybutynin chloride er 10 mg tb24 HORACIO ([facility]) gabapentin 300 mg caps ATHE NA ([facility]) fluticasone propionate 50 mcg/actuation nasal spray,suspension SPRAY ONE SPRAY IN EACH NOSTRIL DAILY HORACIO ([facility]) fluticasone propionate 50 mcg/act susp HORACIO ([facility]) famotidine 20 mg tabs ATHEN A ([facility]) duloxetine hydrochloride 60 mg cpep HORACIO ([facility]) duloxetine hcl 30 mg cpep A THENA ([facility]) celecoxib 200 mg caps ATHEN A ([facility]) celecoxib 100 mg caps ATHEN A ([facility]) atorvastatin calcium 10 mg tabs HORACIO ([facility]) atorvastatin 20 MG Oral Tablet HORACIO ([facility]) atorvastatin 10 MG Oral Tablet HORACIO ([facility]) Amoxicillin 875 MG / Clavulanate 125 MG Oral Tablet HORACIO ([facility]) 0.5 ML dulaglutide 3 MG/ML Auto-Injector [Trulicity] HORACIO ([facility]) 0.5 ML dulaglutide 1.5 MG/ML Auto-Injector [Trulicity] HORACIO ([facility]) trulicity 0.75 mg/0.5ml sopn HORACIO ([facility]) Steglatro 5 mg tablet HORACIO ([facility]) steglatro 5 mg tabs HORACIO ([facility]) pregabalin 75 MG Oral Capsule HORACIO ([facility]) pregabalin 100 MG Oral Capsule HORACIO ([facility]) pregabalin 75 mg caps ATHEN A ([facility]) pregabalin 100 mg caps ATHE NA ([facility]) Oxycodone Hydrochloride 5 MG Oral Tablet HORACIO ([facility]) oxybutynin chloride er 10 mg tb24 HORACIO ([facility]) omeprazole 20 mg cpdr ATHEN A ([facility]) Methocarbamol 750 MG Oral Tablet HORACIO ([facility]) Methocarbamol 500 MG Oral Tablet HORACIO ([facility]) methocarbamol 750 mg tabs A THENA ([facility]) methocarbamol 500 mg tabs A THENA ([facility]) meclizine hcl 25 mg tabs AT CEDRIC ([facility]) lisinopril 10 mg tabs ATHEN A ([facility]) gabapentin 300 mg caps ATHE NA ([facility]) fluticasone propionate 50 mcg/actuation nasal spray,suspension SPRAY ONE SPRAY IN EACH NOSTRIL DAILY HORACIO ([facility]) fluticasone propionate 50 mcg/act susp HORACIO ([facility]) famotidine 20 mg tabs ATHEN A ([facility]) duloxetine hydrochloride 60 mg cpep HORACIO ([facility]) duloxetine hcl 30 mg cpep A THENA ([facility]) celecoxib 200 mg caps ATHEN A ([facility]) celecoxib 100 mg caps ATHEN A ([facility]) atorvastatin calcium 10 mg tabs HORACIO ([facility]) atorvastatin 20 MG Oral Tablet HORACIO ([facility]) atorvastatin 10 MG Oral Tablet HORACIO ([facility]) Amoxicillin 875 MG / Clavulanate 125 MG Oral Tablet HORACIO ([facility]) trulicity 0.75 mg/0.5ml sopn HORACIO ([facility]) Steglatro 5 mg tablet HORACIO ([facility]) steglatro 5 mg tabs HORACIO ([facility]) pregabalin 75 MG Oral Capsule HORACIO ([facility]) pregabalin 100 MG Oral Capsule HORACIO ([facility]) pregabalin 75 mg caps ATHEN A ([facility]) pregabalin 100 mg caps ATHE NA ([facility]) Oxycodone Hydrochloride 5 MG Oral Tablet HORACIO ([facility]) oxybutynin chloride er 10 mg tb24 HORACIO ([facility]) omeprazole 20 mg cpdr ATHEN A ([facility]) Methocarbamol 750 MG Oral Tablet HORACIO ([facility]) Methocarbamol 500 MG Oral Tablet HORACIO ([facility]) methocarbamol 750 mg tabs A THENA ([facility]) methocarbamol 500 mg tabs A THENA ([facility]) meclizine hcl 25 mg tabs AT CEDRIC ([facility]) lisinopril 10 mg tabs ATHEN A ([facility]) gabapentin 300 mg caps ATHE NA ([facility]) fluticasone propionate 50 mcg/actuation nasal spray,suspension SPRAY ONE SPRAY IN EACH NOSTRIL DAILY HORACIO ([facility]) fluticasone propionate 50 mcg/act susp HORACIO ([facility]) famotidine 20 mg tabs ATHEN A ([facility]) duloxetine hydrochloride 60 mg cpep HORACIO ([facility]) duloxetine hcl 30 mg cpep A THENA ([facility]) celecoxib 200 mg caps ATHEN A ([facility]) celecoxib 100 mg caps ATHEN A ([facility]) atorvastatin calcium 10 mg tabs HORACIO ([facility]) Amoxicillin 875 MG / Clavulanate 125 MG Oral Tablet HORACIO ([facility]) famotidine 20 mg tabs ATHEN A ([facility]) duloxetine hydrochloride 60 mg cpep HORACIO ([facility]) duloxetine hcl 30 mg cpep A THENA ([facility]) celecoxib 200 mg caps ATHEN A ([facility]) celecoxib 100 mg caps ATHEN A ([facility]) atorvastatin calcium 10 mg tabs HORACIO ([facility]) Amoxicillin 875 MG / Clavulanate 125 MG Oral Tablet HORACIO ([facility]) trulicity 0.75 mg/0.5ml sopn HORACIO ([facility]) Steglatro 5 mg tablet HORACIO ([facility]) steglatro 5 mg tabs HORACIO ([facility]) pregabalin 75 MG Oral Capsule HORACIO ([facility]) pregabalin 100 MG Oral Capsule HORACIO ([facility]) pregabalin 75 mg caps ATHEN A ([facility]) pregabalin 100 mg caps ATHE NA ([facility]) oxybutynin chloride er 10 mg tb24 HORACIO ([facility]) omeprazole 20 mg cpdr ATHEN A ([facility]) Methocarbamol 750 MG Oral Tablet HORACIO ([facility]) Methocarbamol 500 MG Oral Tablet HORACIO ([facility]) methocarbamol 750 mg tabs A THENA ([facility]) methocarbamol 500 mg tabs A THENA ([facility]) meclizine hcl 25 mg tabs AT CEDRIC ([facility]) lisinopril 10 mg tabs ATHEN A ([facility]) trulicity 0.75 mg/0.5ml sopn HORACIO ([facility]) Steglatro 5 mg tablet HORACIO ([facility]) steglatro 5 mg tabs HORACIO ([facility]) pregabalin 75 MG Oral Capsule HORACIO ([facility]) pregabalin 100 MG Oral Capsule HORACIO ([facility]) pregabalin 75 mg caps ATHEN A ([facility]) pregabalin 100 mg caps ATHE NA ([facility]) Oxycodone Hydrochloride 5 MG Oral Tablet HORACIO ([facility]) oxybutynin chloride er 10 mg tb24 HORACIO ([facility]) omeprazole 20 mg cpdr ATHEN A ([facility]) Methocarbamol 750 MG Oral Tablet HORACIO ([facility]) Methocarbamol 500 MG Oral Tablet HORACIO ([facility]) methocarbamol 750 mg tabs A THENA ([facility]) methocarbamol 500 mg tabs A THENA ([facility]) meclizine hcl 25 mg tabs AT CEDRIC ([facility]) lisinopril 10 mg tabs ATHEN A ([facility]) gabapentin 300 mg caps ATHE NA ([facility]) fluticasone propionate 50 mcg/actuation nasal spray,suspension SPRAY ONE SPRAY IN EACH NOSTRIL DAILY HORACIO ([facility]) fluticasone propionate 50 mcg/act susp HORACIO ([facility] [facility] omeprazole 20 mg cpdr ATHEN A ([facility]) Methocarbamol 750 MG Oral Tablet HORACIO ([facility]) Methocarbamol 500 MG Oral Tablet H[facility]AC[facility] ([facility]) methocarbamol 750 mg tabs A THENA ([facility]) methocarbamol 500 mg tabs A THENA ([facility]) meclizine hcl 25 mg tabs AT CEDRIC ([facility]) lisinopril 10 mg tabs ATHEN A ([facility]) gabapentin 300 mg caps ATHE NA ([facility]) fluticasone propionate 50 mcg/actuation nasal spray,suspension SPRAY ONE SPRAY IN EACH NOSTRIL DAILY [facility]AC[facility] ([facility]) fluticasone propionate 50 mcg/act susp HORACIO ([facility]) famotidine 20 mg tabs ATHEN A ([facility]) duloxetine hydrochloride 60 mg cpep HORACIO ([facility]) duloxetine hcl 30 mg cpep A THENA ([facility]) celecoxib 200 mg caps ATHEN A ([facility]) celecoxib 100 mg caps ATHEN A ([facility]) atorvastatin calcium 10 mg tabs HORACIO ([facility]) Amoxicillin 875 MG / Clavulanate 125 MG Oral Tablet HORACIO ([facility]) pregabalin 75 MG Oral Capsule HORACIO ([facility]) pregabalin 100 MG Oral Capsule HORACIO ([facility]) pregabalin 75 mg caps ATHEN A ([facility]) pregabalin 100 mg caps ATHE NA ([facility]) oxybutynin chloride er 10 mg tb24 HORACIO ([facility]) omeprazole 20 mg cpdr ATHEN A ([facility]) Methocarbamol 750 MG Oral Tablet HORACIO ([facility]) Methocarbamol 500 MG Oral Tablet HORACIO ([facility]) methocarbamol 750 mg tabs A THENA ([facility]) methocarbamol 500 mg tabs A THENA ([facility]) meclizine hcl 25 mg tabs AT CEDRIC ([facility]) lisinopril 10 mg tabs ATHEN A ([facility]) gabapentin 300 mg caps ATHE NA ([facility]) fluticasone propionate 50 mcg/actuation nasal spray,suspension SPRAY ONE SPRAY IN EACH NOSTRIL DAILY HORACIO ([facility]) fluticasone propionate 50 mcg/act susp HORACIO ([facility]) famotidine 20 mg tabs ATHEN A ([facility]) duloxetine hydrochloride 60 mg cpep HORACIO ([facility]) duloxetine hcl 30 mg cpep A THENA ([facility]) celecoxib 200 mg caps ATHEN A ([facility]) celecoxib 100 mg caps ATHEN A ([facility]) atorvastatin calcium 10 mg tabs HORACIO ([facility]) Amoxicillin 875 MG / Clavulanate 125 MG Oral Tablet HORACIO ([facility]) trulicity 0.75 mg/0.5ml sopn H[facility]ACIO ([facility]) Steglatro 5 mg tablet HORACIO ([facility]) steglatro 5 mg tabs HORACIO ([facility]) pregabalin 75 MG Oral Capsule HORACIO ([facility]) pregabalin 100 MG Oral Capsule HORACIO ([facility]) pregabalin 75 mg caps ATHEN A ([facility]) pregabalin 100 mg caps ATHE NA ([facility]) oxybutynin chloride er 10 mg tb24 H[facility]ACIO ([facility]) omeprazole 20 mg cpdr ATHEN A ([facility]) Methocarbamol 750 MG Oral Tablet HORACIO ([facility]) Methocarbamol 500 MG Oral Tablet [facility]ORACIO ([facility]) methocarbamol 750 mg tabs A THENA ([facility]) methocarbamol 500 mg tabs A THENA ([facility]) trulicity 0.75 mg/0.5ml sopn HORACIO ([facility]) Steglatro 5 mg tablet HORACIO ([facility]) steglatro 5 mg tabs HORACIO ([facility]) pregabalin 75 MG Oral Capsule HORACIO ([facility]) pregabalin 100 MG Oral Capsule HORACIO ([facility]) pregabalin 75 mg caps ATHEN A ([facility]) pregabalin 100 mg caps ATHE NA ([facility]) Oxycodone Hydrochloride 5 MG Oral Tablet HORACIO ([facility]) oxybutynin chloride er 10 mg tb24 H[facility]AC[facility] ([facility]) omeprazole 20 mg cpdr ATHEN A ([facility]) Methocarbamol 750 MG Oral Tablet HORACIO ([facility]) Methocarbamol 500 MG Oral Tablet HORACIO ([facility]) methocarbamol 750 mg tabs A THENA ([facility]) methocarbamol 500 mg tabs A THENA ([facility]) meclizine hcl 25 mg tabs AT CEDRIC ([facility]) lisinopril 10 mg tabs ATHEN A ([facility]) gabapentin 300 mg caps ATHE NA ([facility]) fluticasone propionate 50 mcg/actuation nasal spray,suspension SPRAY ONE SPRAY IN EACH NOSTRIL DAILY [facility]ORACIO ([facility] in [facility]) fluticasone propionate 50 mcg/act susp HORACIO ([facility]) famotidine 20 mg tabs ATHEN A ([facility]) duloxetine hydrochloride 60 mg cpep HORACIO ([facility]) duloxetine hcl 30 mg cpep A THENA ([facility]) celecoxib 200 mg caps ATHEN A ([facility]) celecoxib 100 mg caps ATHEN A ([facility]) atorvastatin calcium 10 mg tabs HORACIO ([facility]) Amoxicillin 875 MG / Clavulanate 125 MG Oral Tablet HORACIO ([facility]) trulicity 0.75 mg/0.5ml sopn HORAC[facility] ([facility]) Steglatro 5 mg tablet HORACIO ([facility]) steglatro 5 mg tabs HORACIO ([facility]) pregabalin 75 MG Oral Capsule HORACIO ([facility]) pregabalin 100 MG Oral Capsule HORACIO ([facility]) pregabalin 75 mg caps ATHEN A ([facility]) pregabalin 100 mg caps ATHE NA ([facility]) oxybutynin chloride er 10 mg tb24 HORACIO ([facility]) omeprazole 20 mg cpdr ATHEN A ([facility]) Methocarbamol 750 MG Oral Tablet HORACIO ([facility]) Methocarbamol 500 MG Oral Tablet HORACIO ([facility]) methocarbamol 750 mg tabs A THENA ([facility]) methocarbamol 500 mg tabs A THENA ([facility]) meclizine hcl 25 mg tabs AT CEDRIC ([facility]) lisinopril 10 mg tabs ATHEN A ([facility]) gabapentin 300 mg caps ATHE NA ([facility]) fluticasone propionate 50 mcg/actuation nasal spray,suspension SPRAY ONE SPRAY IN EACH NOSTRIL DAILY [facility]ORACIO ([facility]) fluticasone propionate 50 mcg/act susp HORACIO ([facility]) meclizine hcl 25 mg tabs AT CEDRIC ([facility]) lisinopril 10 mg tabs ATHEN A ([facility]) gabapentin 300 mg caps ATHE NA ([facility]) fluticasone propionate 50 mcg/actuation nasal spray,suspension SPRAY ONE SPRAY IN EACH NOSTRIL DAILY HORACIO ([facility]) fluticasone propionate 50 mcg/act susp HORACIO ([facility]) famotidine 20 mg tabs ATHEN A ([facility]) duloxetine hydrochloride 60 mg cpep HORACIO ([facility]) duloxetine hcl 30 mg cpep A THENA ([facility]) celecoxib 200 mg caps ATHEN A ([facility]) celecoxib 100 mg caps ATHEN A ([facility]) atorvastatin calcium 10 mg tabs HORACIO ([facility]) Steglatro 5 mg tablet HORACIO ([facility]) steglatro 5 mg tabs HORACIO ([facility]) pregabalin 75 MG Oral Capsule HORACIO ([facility]) pregabalin 75 mg caps ATHEN A ([facility]) pregabalin 100 mg caps ATHE NA ([facility]) oxybutynin chloride er 10 mg tb24 HORACIO ([facility]) omeprazole 20 mg cpdr ATHEN A ([facility]) Methocarbamol 750 MG Oral Tablet HORACIO ([facility]) Methocarbamol 500 MG Oral Tablet HORACIO ([facility]) methocarbamol 750 mg tabs A THENA ([facility]) methocarbamol 500 mg tabs A THENA ([facility]) meclizine hcl 25 mg tabs AT CEDRIC ([facility]) lisinopril 10 mg tabs ATHEN A ([facility]) gabapentin 300 mg caps ATHE NA ([facility]) fluticasone propionate 50 mcg/actuation nasal spray,suspension SPRAY ONE SPRAY IN EACH NOSTRIL DAILY HORACIO ([facility]) fluticasone propionate 50 mcg/act susp HORACIO ([facility]) Famotidine 20 MG Oral Tablet HORACIO ([facility]) duloxetine hydrochloride 60 mg cpep HORACIO ([facility]) celecoxib 100 mg caps ATHEN A ([facility]) atorvastatin 10 MG Oral Tablet HORACIO ([facility]) trulicity 0.75 mg/0.5ml sopn HORACIO ([facility]) Steglatro 5 mg tablet HORACIO ([facility]) steglatro 5 mg tabs HORACIO ([facility]) duloxetine hydrochloride 60 mg cpep HORACIO ([facility]) duloxetine hcl 30 mg cpep A THENA ([facility]) celecoxib 200 mg caps ATHEN A ([facility]) celecoxib 100 mg caps ATHEN A ([facility]) atorvastatin calcium 10 mg tabs HORACIO ([facility]) Steglatro 5 mg tablet HORACIO ([facility]) steglatro 5 mg tabs HORACIO ([facility] pregabalin 75 MG Oral Capsule HORACIO ([facility]) pregabalin 75 mg caps ATHEN A ([facility]) pregabalin 100 mg caps ATHE NA ([facility]) oxybutynin chloride er 10 mg tb24 HORACIO ([facility]) omeprazole 20 mg cpdr ATHEN A ([facility]) Methocarbamol 750 MG Oral Tablet HORACIO ([facility]) Methocarbamol 500 MG Oral Tablet HORACIO ([facility]) methocarbamol 750 mg tabs A THENA ([facility]) methocarbamol 500 mg tabs A THENA ([facility]) meclizine hcl 25 mg tabs AT CEDRIC ([facility]) lisinopril 10 mg tabs ATHEN A ([facility]) gabapentin 300 mg caps ATHE NA ([facility]) fluticasone propionate 50 mcg/actuation nasal spray,suspension SPRAY ONE SPRAY IN EACH NOSTRIL DAILY HORACIO ([facility] in [facility]) fluticasone propionate 50 mcg/act susp HORACIO ([facility]) duloxetine hydrochloride 60 mg cpep HORACIO ([facility]) celecoxib 100 mg caps ATHEN A ([facility]) trulicity 0.75 mg/0.5ml sopn HORACIO ([facility]) Steglatro 5 mg tablet HORACIO ([facility]) steglatro 5 mg tabs HORACIO ([facility]) pregabalin 75 MG Oral Capsule HORACIO ([facility]) pregabalin 100 MG Oral Capsule HORACIO ([facility]) pregabalin 75 mg caps ATHEN A ([facility]) pregabalin 100 mg caps ATHE NA ([facility]) oxybutynin chloride er 10 mg tb24 HORACIO ([facility]) omeprazole 20 mg cpdr ATHEN A ([facility]) Methocarbamol 750 MG Oral Tablet HORACIO ([facility]) Methocarbamol 500 MG Oral Tablet HORACIO ([facility]) methocarbamol 750 mg tabs A THENA ([facility]) methocarbamol 500 mg tabs A THENA ([facility]) meclizine hcl 25 mg tabs AT CEDRIC ([facility]) lisinopril 10 mg tabs ATHEN A ([facility]) gabapentin 300 mg caps ATHE NA ([facility]) fluticasone propionate 50 mcg/actuation nasal spray,suspension SPRAY ONE SPRAY IN EACH NOSTRIL DAILY HORACIO ([facility]) fluticasone propionate 50 mcg/act susp HORACIO ([facility]) famotidine 20 mg tabs ATHEN A ([facility])
--- OUTSIDE RECORDS SUMMARY | 2021-01-05 12:02 | CCD ---
Author Author [facility] Organization [facility] Address Unknown Phone Unavailable Care Team Providers Care Vocational Training Director Name Role Phone Yadira CARLIN MD Unavailable [...] Fletcher, Kitty Zoe PA Unavailable Unavailable Kitty Fletcher PA Unavailable [...] Unavailable Unavailable Kitty Fletcher PA Unavailable Unavailable DAVIDSON, R NICOLE SCRUBBER OPERATOR Unavailable Unavailable DAVIDSON, R NICOLE SCRUBBER OPERATOR Unavailable Unavailable DAVIDSON, R NICOLE SCRUBBER OPERATOR Unavailable Unavailable DAVIDSON, R NICOLE SCRUBBER OPERATOR Unavailable Unavailable DAVIDSON, R NICOLE SCRUBBER OPERATOR Unavailable Unavailable DAVIDSON, R NICOLE SCRUBBER OPERATOR Unavailable Unavailable DAVIDSON, R NICOLE SCRUBBER OPERATOR Unavailable Unavailable DAVIDSON, R NICOLE SCRUBBER OPERATOR Unavailable Unavailable DAVIDSON, R NICOLE SCRUBBER OPERATOR Unavailable Unavailable DAVIDSON, R NICOLE SCRUBBER OPERATOR Unavailable Unavailable DAVIDSON, R NICOLE SCRUBBER OPERATOR Unavailable Unavailable DAVIDSON, R NICOLE SCRUBBER OPERATOR Unavailable Unavailable DAVIDSON, R NICOLE SCRUBBER OPERATOR Unavailable Unavailable DAVIDSON, R NICOLE SCRUBBER OPERATOR Unavailable Unavailable DAVIDSON, R NICOLE SCRUBBER OPERATOR Unavailable Unavailable DAVIDSON, R NICOLE SCRUBBER OPERATOR Unavailable Unavailable DAVIDSON, R NICOLE SCRUBBER OPERATOR Unavailable Unavailable DAVIDSON, R NICOLE SCRUBBER OPERATOR Unavailable Unavailable DAVIDSON, R NICOLE SCRUBBER OPERATOR Unavailable Unavailable DAVIDSON, R NICOLE SCRUBBER OPERATOR Unavailable Unavailable DAVIDSON, R NICOLE SCRUBBER OPERATOR Unavailable Unavailable DAVIDSON, R NICOLE SCRUBBER OPERATOR Unavailable Unavailable DAVIDSON, R NICOLE SCRUBBER OPERATOR Unavailable Unavailable DAVIDSON, R NICOLE SCRUBBER OPERATOR Unavailable Unavailable DAVIDSON, R NICOLE SCRUBBER OPERATOR Unavailable Unavailable DAVIDSON, R NICOLE SCRUBBER OPERATOR Unavailable Unavailable DAVIDSON, R NICOLE SCRUBBER OPERATOR Unavailable Unavailable DAVIDSON, R NICOLE SCRUBBER OPERATOR Unavailable Unavailable DAVIDSON, R NICOLE SCRUBBER OPERATOR Unavailable Unavailable DAVIDSON, R NICOLE SCRUBBER OPERATOR Unavailable Unavailable DAVIDSON, R NICOLE SCRUBBER OPERATOR Unavailable Unavailable DAVIDSON, R NICOLE SCRUBBER OPERATOR Unavailable Unavailable DAVIDSON, R NICOLE SCRUBBER OPERATOR Unavailable Unavailable DAVIDSON, R NICOLE SCRUBBER OPERATOR Unavailable Unavailable DAVIDSON, R NICOLE SCRUBBER OPERATOR Unavailable Unavailable DAVIDSON, R NICOLE SCRUBBER OPERATOR Unavailable Unavailable DAVIDSON, R NICOLE SCRUBBER OPERATOR Unavailable Unavailable DAVIDSON, R NICOLE SCRUBBER OPERATOR Unavailable Unavailable DAVIDSON, R NICOLE SCRUBBER OPERATOR Unavailable Unavailable DAVIDSON, R NICOLE SCRUBBER OPERATOR Unavailable Unavailable DAVIDSON, R NICOLE SCRUBBER OPERATOR Unavailable Unavailable DAVIDSON, R NICOLE SCRUBBER OPERATOR Unavailable Unavailable DAVIDSON, R NICOLE SCRUBBER OPERATOR Unavailable Unavailable DAVIDSON, R NICOLE SCRUBBER OPERATOR Unavailable Unavailable SYMENOW, G CHRISTOPHER PA Unavailable [...] VIANCA PA Unavailable Unavailable Jumalon, M Anila WATERPROOF COATING MACHINE TENDER Unavailable Unavailable Jumalon, M Anila WATERPROOF COATING MACHINE TENDER Unavailable Unavailable Jumalon, M Anila WATERPROOF COATING MACHINE TENDER Unavailable Unavailable Jumalon, M Anila WATERPROOF COATING MACHINE TENDER Unavailable Unavailable Jumalon, M Anila WATERPROOF COATING MACHINE TENDER Unavailable Unavailable Jumalon, M Anila WATERPROOF COATING MACHINE TENDER Unavailable Unavailable Jumalon, M Anila WATERPROOF COATING MACHINE TENDER Unavailable Unavailable Jumalon, M Anila WATERPROOF COATING MACHINE TENDER Unavailable Unavailable Jumalon, M Anila WATERPROOF COATING MACHINE TENDER Unavailable Unavailable Jumalon, M Anila WATERPROOF COATING MACHINE TENDER Unavailable Unavailable Jumalon, M Anila WATERPROOF COATING MACHINE TENDER Unavailable Unavailable Jumalon, M Anila WATERPROOF COATING MACHINE TENDER Unavailable Unavailable Jumalon, M Anila WATERPROOF COATING MACHINE TENDER Unavailable Unavailable Jumalon, M Anila WATERPROOF COATING MACHINE TENDER Unavailable Unavailable Jumalon, M Anila WATERPROOF COATING MACHINE TENDER Unavailable Unavailable Jumalon, M Anila WATERPROOF COATING MACHINE TENDER Unavailable Unavailable Jumalon, M Anlia WATERPROOF COATING MACHINE TENDER Unavailable Unavailable Jumalon, M Anila WATERPROOF COATING MACHINE TENDER Unavailable Unavailable Jumalon, M Anila WATERPROOF COATING MACHINE TENDER Unavailable Unavailable Jumalon, M Anila WATERPROOF COATING MACHINE TENDER Unavailable Unavailable Jumalon, M Anila WATERPROOF COATING MACHINE TENDER Unavailable Unavailable Jumalon, M Anila WATERPROOF COATING MACHINE TENDER Unavailable Unavailable Jumalon, M Anila WATERPROOF COATING MACHINE TENDER Unavailable Unavailable Jumalon, M Anila WATERPROOF COATING MACHINE TENDER Unavailable Unavailable Jumalon, M Anila WATERPROOF COATING MACHINE TENDER Unavailable Unavailable Jumalon, M Anila WATERPROOF COATING MACHINE TENDER Unavailable Unavailable Jumalon, M Anila WATERPROOF COATING MACHINE TENDER Unavailable Unavailable Jumaljosue, Elian Anila WATERPROOF COATING MACHINE TENDER Unavailable Unavailable Jumalon, M Anila WATERPROOF COATING MACHINE TENDER Unavailable Unavailable Jumalon, M Anila WATERPROOF COATING MACHINE TENDER Unavailable Unavailable DEMARTINI, M MARCY PA Unavailable [...] M MARCY PA Unavailable Unavailable DEMARTINI, M AMRCY PA Unavailable Unavailable DEMARTINI, M MARCY PA [...] Unavailable DEMARTINI, M MARCY PA Unavailable Unavailable JASON GLORIA ELPIDIO PA Unavailable Unavailable FAIZAN, JASON ELPIDIO PA Unavailable Unavailable FAIZAN, JASON ELPIDIO PA Unavailable Unavailable FAIZAN, JASON ELPIDIO PA Unavailable Unavailable FAIZAN, JASON ELPIDIO PA Unavailable Unavailable FAIZAN, JASON ELPIDIO PA Unavailable Unavailable FAIZAN, JASON ELPIDIO PA Unavailable Unavailable AFIZAN, JASON ELPIDIO PA Unavailable Unavailable FAIZAN, JASON [...] Lucy II, Mateo PA Unavailable Unavailable Parul, Reggen Felipe Kelly WATERPROOF COATING MACHINE TENDER-C Unavailable Unavailabl e Parul, Reginah Matteo Kelly WATERPROOF COATING MACHINE TENDER-C Unavailable Unavailabl e Parul, Reggen Felipe Kelly WATERPROOF COATING MACHINE TENDER-C Unavailable Unavailabl e Parul, Reggen Newtonyce WATERPROOF COATING MACHINE TENDER-C Unavailable Unavailabl e Parul, Reginah W Kelly WATERPROOF COATING MACHINE TENDER-C Unavailable Unavailabl e Parul, Reginaeugenie W Kelly WATERPROOF COATING MACHINE TENDER-C Unavailable Unavailabl e Parul, Regina W Kelly WATERPROOF COATING MACHINE TENDER-C Unavailable Unavailabl e Parul, Regina W Kelly WATERPROOF COATING MACHINE TENDER-C Unavailable Unavailabl e Parul, Reginaeugenie W Kelly WATERPROOF COATING MACHINE TENDER-C Unavailable Unavailabl e Parul, Regina W Kelly WATERPROOF COATING MACHINE TENDER-C Unavailable Unavailabl e Parul, Regina W Kelly WATERPROOF COATING MACHINE TENDER-C Unavailable Unavailabl e Parul, Regina W Kelly WATERPROOF COATING MACHINE TENDER-C Unavailable Unavailabl e Parul, Regina W Kelly WATERPROOF COATING MACHINE TENDER-C Unavailable Unavailabl e Parul, Regina W Kelly WATERPROOF COATING MACHINE TENDER-C Unavailable Unavailabl e Parul, Reggen W Kelly WATERPROOF COATING MACHINE TENDER-C Unavailable Unavailabl e Parul, Regmelissa W Kelly WATERPROOF COATING MACHINE TENDER-C Unavailable Unavailabl e Parul, Regmelissa W Kelly WATERPROOF COATING MACHINE TENDER-C Unavailable Unavailabl e Parul, Regmelissa W Kelly WATERPROOF COATING MACHINE TENDER-C Unavailable Unavailabl e Parul, Regmelissa W Kelly WATERPROOF COATING MACHINE TENDER-C Unavailable Unavailabl e Parul, Regmelissa W Kelly WATERPROOF COATING MACHINE TENDER-C Unavailable Unavailabl e Parul, Regmelissa W Kelly WATERPROOF COATING MACHINE TENDER-C Unavailable Unavailabl e Parul, Regmelissa W Kelly WATERPROOF COATING MACHINE TENDER-C Unavailable Unavailabl e Parul, Regina W Kelly WATERPROOF COATING MACHINE TENDER-C Unavailable Unavailabl e Parul, Regina W Kelly WATERPROOF COATING MACHINE TENDER-C Unavailable Unavailabl e Parul, Regina W Kelly WATERPROOF COATING MACHINE TENDER-C Unavailable Unavailabl e Aprul, Regina W Kelly WATERPROOF COATING MACHINE TENDER-C Unavailable Unavailabl e Parul, Regina W Kelly WATERPROOF COATING MACHINE TENDER-C Unavailable Unavailabl e Parul, Regina W Kelly WATERPROOF COATING MACHINE TENDER-C Unavailable Unavailabl e Parul, Regina W Kelly WATERPROOF COATING MACHINE TENDER-C Unavailable Unavailabl e Parul, Regina W Kelly WATERPROOF COATING MACHINE TENDER-C Unavailable Unavailabl e Parul, Regina W Kelly WATERPROOF COATING MACHINE TENDER-C Unavailable Unavailabl e Parul, Reginah W Kelly WATERPROOF COATING MACHINE TENDER-C Unavailable Unavailabl e Bolmasoud, Dante Guerrero MD Unavailable Unavailable Bolmasoud, [...] Unavailable Bolmasoud, Dante Guerrero MD Unavailable Unavailable BollaDante MD Unavailable Unavailable Bolmasoud, Dante Guerrero MD [...] Bolmasoud, Dante Guerrero MD Unavailable Unavailable Bolla, S Cesar HAMLIN Unavailable Unavailable IDAPalmer CRAIG Unavailable Unavailable John Mosquera PA-C Unavailable John Mosquera PA-C Unavailable John Mosquera PA-C Unavailable Chaparro John PA-C Unavailable John Mosquera PA-C Unavailable OZIEL, L KIMBERLY PA Unavailable [...] Jian, Mauricio Borrego PH.D., M.D. Unavailable Unavailable Ijan, Mauricio Borrego PH.D., M.D. Unavailable Unavailable Jian, [...] is protected by Article 27-F of the [facility] Public Health law. If you continue you may have access to information: Regarding HIV / AIDS; Provided by facilities licensed or operated by the [facility] Office of Mental Health; or Provided by the [facility] Office for People With Developmental Disabilities. If such information is present, then the following [facility] mandated warning applies: This information has been [...] law may result in a fine or residential sentence or both. A general authorization for the release of medical or other information is NOT sufficient authorization for further disc losure. Allergies and Adverse Reactions Type Description Substance Reaction Status Data Source(s ) Drug allergy METFORMIN HCL METFORMIN HCL [facility] Propensity to adverse reactions GABAPENTIN GABAPENTIN [facility] Family History Family Member Name Family Member Gender Family Member Status Date o f Status Description Data Source(s) Unknown Unknown Problem MEDENT ([facility]) Unknown Female Problem [facility] ([facility] Unknown Female Problem [facility] ([facility]) Encounters Encounter Providers Location Date Indications Data Source(s ) Outpatient Attender: MARCY CASANOVA 01/26/2021 12:00: 00 AM [facility] Outpatient Attender: Mateo Shepherd/Lexis/Terrance/Rein dl 12/30/2020 01:30:00 PM EDT MEDENT ([facility]) Outpatient Attender: Elmo Villar PH.Rob., Kendall Shepherd/Lexis/Moni rubio/Reinonrris 12/23/2020 03:45:00 PM EDT MED[facility] ([facility]) Outpatient Attender: Elmo Villar PH.Rob., Karla. Joao/Lexis/Moni rubio/Reindl 12/16/2020 03:45:00 PM EDT [facility] ([facility]) [place]patient [facility] [address] 12/14/2020 12:00:00 AM EDT [facility] Outpatient Attender: Kelly VILLAVICENCIO 12/02/2020 02:35:0 0 PM [facility] [place] [address] [facility] [address] 12/02/2020 12:00:00 AM EDT [facility]CW[facility] Outpatient Attender: MARCY CASANOVA [id number] 11/29/2020 12:00:00 AM [facility] Outpatient Attender: NICOLE DAVIDSON NPReferrer: NICOLE DAVIDSON NP 11/17/2020 12:00:00 AM [facility] Outpatient [address] [facility] [address] 11/16/2020 12:00:00 AM EDT eCW1 [facility] [place]patient [address] [facility] [address] 11/15/2020 12:00:00 AM EDT eCW1 [facility] Outpatient Referrer: NICOLE DAVIDSON NP 11/10/2020 1 2:00:00 AM EDT Pain in right shoulder [facility] Pain in right shoulder Outpatient Referrer: NICOLE DAVIDSON NP 11/10/2020 12:00:0 0 AM [facility] [place] [address] [facility] [address] 11/10/2020 12:00:00 AM EDT eCW1 ([facility] Outpatient Referrer: NICOLE DAVIDSON NP 11/10/2020 12:00:0 0 AM [facility] Outpatient Referrer: NICOLE DAVIDSON NP 10/19/2020 1 2:00:00 AM EDT Pain, unspecified [facility] Pain, unspecified Outpatient Attender: NICOLE DAVIDSON NP [id number] 10/19/2020 1 2:00:00 AM [facility] Outpatient Attender: MARCY CASANOVA [id number] 10/11/2020 12:00:00 AM EDT [facility] Cesar Mahajan MD: [id number], [address], [place] [address], Ph. Attender: Cesar Mahajan MD [place] - [facility] - Main Office 10/04/2020 12:00:00 AM EDT HORACIO ([facility]) Anila Barakat, SCRUBBER OPERATOR: [address], [address], [place] [address], Ph. Attender: Anila Barakat [facility] - [facility] 09/20/2020 12:00:00 AM EDT ATHYadira NA ([facility]) Anila Barakat, SCRUBBER OPERATOR: [address], [place] [address], Ph. Attender: Anila Barakat [facility] - [facility] 09/20/2020 12:00:00 AM EDT ATHE NA ([facility]) Outpatient Attender: HILTON CARLIN MD Main Office 09/13/2020 09:30:00 AM EDT MEDENT ([facility]) Unknown [address] [facility] [address] 09/09/2020 12:00:00 AM EDT eCW1 (Critical access hospital) Unknown [address] [facility] Y [address] 09/07/2020 12:00:00 AM EDT eCW1 (Critical access hospital) Emergency Attender: John CASANOVA-CReferrer: Zoe CASANOVA 08/31/2020 06:08:00 PM EDT - 08/31/2020 06:48:00 PM EDT [facility] Patient discharged. Unknown [address] [facility] [place] [address] 08/31/2020 12:00:00 AM EDT eCW1 (Critical access hospital) [place] [address] [facility] [place] [address] 08/31/2020 12:00:00 AM EDT eCW1 (Critical access hospital) Anila Barakat, SCRUBBER OPERATOR: [address], [place] [address], Ph. Attender: Anila Barakat [facility] - [facility] 08/30/2020 12:00:00 AM EDT ATHE NA ([facility]) Anila Barakat, SCRUBBER OPERATOR: [address], [place] [address], Ph. Attender: Anila Barakat [facility] - [facility] 08/30/2020 12:00:00 AM EDT ATHYadira NA ([facility]) Anila Barakat, SCRUBBER OPERATOR: [address], [place] [address], Ph. Attender: Anila Barakat [facility] - [facility] 08/30/2020 12:00:00 AM EDT ATHE NA ([facility]) [place] [address] [facility] [address] 08/17/2020 12:00:00 AM EDT eCW1 (Critical access hospital) Outpatient [address] [facility] [place] [address] 08/16/2020 12:00:00 AM EDT eCW1 (Critical access hospital) Emergency Attender: KIMBERLY Church: Main CASANOVA EMERGENCY ROOM-ER 08/13/2020 09:09:00 AM EDT - 08/13/2020 11:12:00 AM EDT [facility] Patient discharged. Outpatient [address] [facility] [place] [address] 08/12/2020 12:00:00 AM EDT eCW1 (Critical access hospital) [place] [address] [facility] [place] [address] 08/11/2020 12:00:00 AM EDT eCW1 (Critical access hospital) [place] [address] [facility] [place] [address] 08/03/2020 12:00:00 AM EDT eCW1 (Critical access hospital) [place] [address] [facility] [place] [address] 07/15/2020 12:00:00 AM EDT eCW1 (Critical access hospital) Anila Barakat, SCRUBBER OPERATOR: [address], [place] [address], Ph. Attender: Anila Barakat [facility] 07/14/2020 12:00:00 AM EDT ATHE NA ([facility]) Anila Mellissa Roshni, SCRUBBER OPERATOR: [address], [place] [address], Ph. Attender: Anilayadira Barakat [facility] 07/14/2020 12:00:00 AM EDT ATHYadira NA ([facility]) Anila Barakat, SCRUBBER OPERATOR: [address], [place] [address], Ph. Attender: Anilayadira Waldenjosue [facility] 07/14/2020 12:00:00 AM EDT ATHYadira NA ([facility]) Anila Barakat, SCRUBBER OPERATOR: [address], [place] [address], Ph. Attender: Anila Barakat [facility] 07/14/2020 12:00:00 AM EDT ATHE NA ([facility]) Outpatient Attender: MARCY CASANOVA [id number] 07/09/2020 12:00:00 AM EDT Other specified acquired deformities of musculoskeletal system [facility] Other specified acquired deformities of musculoskeletal system Outpatient Attender: MARCY CASANOVA 07/03/2020 04:29: 00 PM [facility] [place] [address] [facility] [place] [address] 06/29/2020 12:00:00 AM EDT eCW1 (Critical access hospital) Outpatient [address] [facility] [place] [address] 06/28/2020 12:00:00 AM EDT eCW1 (Critical access hospital) Outpatient [address] [facility] [place] [address] 06/24/2020 12:00:00 AM EDT eCW1 (Critical access hospital) Outpatient Attender: MARCY CASANOVA 06/16/2020 12:00: 00 AM [facility] Outpatient Attender: MARCY CASANOVA 06/15/2020 12:00: 00 AM [facility] Outpatient Attender: MARCY CASANOVA 09:49:00 AM EDT - 06/29/2020 04:29:00 PM [facility] Patient discharged. Cesar Mahajan MD: [address], [place] [address], Ph. Attender: Cesar Mahajna MD [place] - [facility] Office 05/31/2020 12:00:00 AM EDT HORACIO ([facility]) Cesar Mahajan MD: [address], [place] [address], Ph. Attender: Cesar MOREIRA - [facility] Office 05/31/2020 12:00:00 AM EDT HORACIO ([facility]) Cesar Mahajan MD: [address], [place] [address], Ph. Attender: Cesar Mahaajn MD [place] - [facility] 05/31/2020 12:00:00 AM EDT HORACIO ([facility]) Cesar Mahajan MD: [address], [place] [address], Ph. Attender: Cesar Mahajan MD [place] - [facility] 05/31/2020 12:00:00 AM EDT HORACIO ([facility]) Cesar Mahajan MD: [address], [place] [address], Ph. Attender: Cesar Mahajan MD [place] - [facility] 05/31/2020 12:00:00 AM EDT HORACIO ([facility]) [place] [address] [facility] [place] [address] 05/17/2020 12:00:00 AM EDT eCW1 [facility] Unknown [address] [facility] [place] [address] 05/17/2020 12:00:00 AM EDT eCW1 (Critical access hospital) Outpatient Attender: MARCY CASANOVA 02:30:00 PM EST - 06/01/2020 09:49:00 AM EDT [facility] Patient discharged. Anila Barakat, SCRUBBER OPERATOR: [address], [place] [address], Ph. Attender: Anila Barakat [facility] - [facility] 05/11/2020 12:00:00 AM EST ATHE NA ([facility]) Anila Barakat, SCRUBBER OPERATOR: [address], [place] [address], Ph. Attender: Anila [facility] - [facility] 05/11/2020 12:00:00 AM EST ATHE NA ([facility]) Anila Barakat, SCRUBBER OPERATOR: [address], [place] [address], Ph. Attender: Anila Barakat [facility] 05/11/2020 12:00:00 AM EST ATHE NA ([facility]) Anila Barakat, SCRUBBER OPERATOR: [address], [place] [address], Ph. Attender: Anila Barakat [facility] 05/11/2020 12:00:00 AM EST ATHE NA ([facility]) Anila Barakat, SCRUBBER OPERATOR: [address], [place] [address], Ph. Attender: Anila Barakat [facility] 05/11/2020 12:00:00 AM EST ATHE NA ([facility]) Anila Barakat, SCRUBBER OPERATOR: [address], [place] [address], Ph. Attender: Anila Barakat [facility] 05/11/2020 12:00:00 AM EST ATHE NA ([facility]) Outpatient Attender: MARCY CASANOVA [id number] 05/05/2020 12:00:00 AM EST Other specified acquired deformities of musculoskeletal system [facility] Other specified acquired deformities of musculoskeletal system Anila Barakat, SCRUBBER OPERATOR: [address], [place] [address], Ph. Attender: Anila Barakat [facility] 04/21/2020 12:00:00 AM EST ATHE NA ([facility]) Anila Barakat, SCRUBBER OPERATOR: [address], [place] [address], Ph. Attender: Anila Barakat [facility] - [facility] 04/21/2020 12:00:00 AM EST ATHE NA ([facility]) Anila Barakat, SCRUBBER OPERATOR: [address], [place] [address], Ph. Attender: Anila Barakat [facility] - [facility] 04/21/2020 12:00:00 AM EST ATHE NA ([facility]) Anila Barakat, SCRUBBER OPERATOR: [address], [place] [address], Ph. Attender: Anila Barakat [facility] - [facility] 04/21/2020 12:00:00 AM EST ATHE NA ([facility]) Anila Barakat, SCRUBBER OPERATOR: [address], [place] [address], Ph. Attender: Anila Barakat [facility] - [facility] 04/21/2020 12:00:00 AM EST ATHE NA ([facility]) Anila Barakat, SCRUBBER OPERATOR: [address], [place] [address], Ph. Attender: Anila Barakat [facility] - [facility] 04/21/2020 12:00:00 AM EST ATHE NA ([facility]) Anila Braakat, SCRUBBER OPERATOR: [address], [place] [address], Ph. Attender: Anila Vannessadavi WATERPROOF COATING MACHINE TENDER [place] [facility] 04/21/2020 12:00:00 AM EST ATHE NA ([facility]) Outpatient Attender: FRANCIS TRUJILLO MD [id number] 04/07/2020 12:00:00 AM EST Other specified acquired deformities of musculoskeleta l system [facility] Other specified acquired deformities of musculoskeletal system Cesar Mahajan MD: [address], [address] [place], [place] [address], Ph. Attender: Cesar Mahajan MD [place] - [facility] 04/06/2020 12:00:00 AM EST HORACIO ([facility]) Cesar Mahajan MD: [address], [place] [address], Ph. Attender: Cesar MOREIRA - [facility] 04/06/2020 12:00:00 AM EST HORACIO ([facility]) Cesar Mahajan MD: [address], [place] [address], Ph. Attender: Cesar MOREIRA - [facility] 04/06/2020 12:00:00 AM EST HORACIO ([facility]) Cesar Mahajan MD: [address], [place] [address], Ph. Attender: Cesar Mahajan MD [place] - [facility] 04/06/2020 12:00:00 AM EST HORACIO ([facility]) Cesar Mahajan MD: [address], [place] [address], Ph. Attender: Cesar Mahajan MD [place] - [facility] 04/06/2020 12:00:00 AM EST HORACIO ([facility]) Cesar Mahajan MD: [address] [facility] [address], [address] [place], [place] [address], Ph. Attender: Cesar Mahajan MD [place] - [facility] 04/06/2020 12:00:00 AM EST HORACIO ([facility]) Cesar Mahajan MD: [address], [place] [address], Ph. Attender: Cesar Mahajan MD [place] - [facility] 04/06/2020 12:00:00 AM EST HORACIO ([facility]) Cesar Mahajan MD: [id number] [facility] [address], [facility] [place] [address], Ph. Attender: Cesar Mahajan MD [place] - [facility] 04/06/2020 12:00:00 AM EST HORACIO ([facility]) Unknown [address] [facility], [facility] [address] 04/05/2020 12:00:00 AM EST eCW1 (Critical access hospital) Outpatient Attender: POLA PRIETOReferrer: FRANCIS GARCIA MD [id number] 03/19/2020 12:00:00 AM EST - 03/20/2020 12:00:00 AM EST [facility] Outpatient [address] [facility] [address] 03/15/2020 12:00:00 AM EST eCW1 (Critical access hospital) Anila Barakat, SCRUBBER OPERATOR: [address], [place] [address], Ph. Attender: [facility] - [facility] 03/10/2020 12:00:00 AM EST ATHE NA ([facility]) Anila Barakat, SCRUBBER OPERATOR: [address], [place] [address], Ph. Attender: Anila Barakat [facility] - [facility] 03/10/2020 12:00:00 AM EST ATHE NA ([facility]) Anila Barakat, SCRUBBER OPERATOR: [address], [place] [address], Ph. Attender: Anila Barakat [facility] - [facility] 03/10/2020 12:00:00 AM EST ATHE NA ([facility]) Anila Barakat, SCRUBBER OPERATOR: [address], [facility] [place] [facility] [place] [address], Ph. Attender: Anila Barakat [facility] - [facility] 03/10/2020 12:00:00 AM EST ATHE NA ([facility]) Anila Barakat, SCRUBBER OPERATOR: [address], [place] [address], Ph. Attender: Anila Barakat [facility] - [facility] 03/10/2020 12:00:00 AM EST ATHE NA ([facility]) Anila Barakat, SCRUBBER OPERATOR: [address], [place] [address], Ph. Attender: Anila Barakat [facility] - [facility] 03/10/2020 12:00:00 AM EST ATHE NA ([facility]) Anila Barakat, SCRUBBER OPERATOR: [address], [place] [address], Ph. Attender: Anila Barakat [facility] - [facility] 03/10/2020 12:00:00 AM EST ATHE NA ([facility]) Anila Barakat, SCRUBBER OPERATOR: [address], [place] [address], Ph. Attender: Anila Barakat [facility] - [facility] 03/10/2020 12:00:00 AM EST ATHE NA ([facility]) Anila Barakat, SCRUBBER OPERATOR: [address], [place] [address], Ph. Attender: Anila Barakat [facility] - [facility] 03/10/2020 12:00:00 AM EST ATHE NA ([facility]) Unknown [address] [facility] [address] 03/08/2020 12:00:00 AM EST eCW1 (Critical access hospital) Outpatient Attender: FRANCIS TRUJILLO MD [id number] 02/25/2020 12:00:00 AM EST Other specified acquired deformities of musculoskeleta l system [facility] Other specified acquired deformities of musculoskeletal system Cesar Mahajan MD: [address], [place] [address], Ph. Attender: Cesar MOREIRA - [facility] 02/17/2020 12:00:00 AM EST HORACIO ([facility]) Cesar Mahajan MD: [address], [place] [address], Ph. Attender: Cesar MOREIRA - [facility] 02/17/2020 12:00:00 AM EST HORACIO ([facility]) Cesar Mahajan MD: [address], [place] [address], Ph. Attender: Cesar Mahajan MD [place] - [facility] 02/17/2020 12:00:00 AM EST HORACIO ([facility]) Cesar Mahajan MD: [address], [address], [place] [address], Ph. Attender: Cesar MOREIRA - [facility] 02/17/2020 12:00:00 AM EST HORACIO ([facility]) Cesar Mahajan MD: [address], [address], [place] [address], Ph. Attender: Cesar MOREIRA - [facility] 02/17/2020 12:00:00 AM EST HORACIO ([facility]) Cesar Mahajan MD: [address], [address], [place] [address], Ph. Attender: Cesar MOREIRA - [facility] 02/17/2020 12:00:00 AM EST HORACIO ([facility]) Cesar Mahajan MD: [address], [address], [place] [address], Ph. Attender: Cesar MOREIRA - [facility] 02/17/2020 12:00:00 AM EST HORACIO ([facility]) Cesar Mahajan MD: [address], [address], [place] [address], Ph. Attender: Cesar MOREIRA - [facility] 02/17/2020 12:00:00 AM EST HORACIO ([facility]) Cesar Mahajan MD: [address], [address], [place] [address], Ph. Attender: Cesar Mahajan MD [place] - [facility] 02/17/2020 12:00:00 AM EST HORACIO ([facility]) Cesar Mahajan MD: [address], [place] [address], Ph. Attender: Cesar Mahajan MD [place] - [facility] 02/17/2020 12:00:00 AM EST HORACIO ([facility]) Anila Barakat, SCRUBBER OPERATOR: [address], [place] [address], Ph. Attender: Anila Barakat [facility] 02/11/2020 12:00:00 AM EST ATHE NA ([facility]) Anila Barakat, SCRUBBER OPERATOR: [address], [place] [address], Ph. Attender: Anilabayron Barakat [facility] 02/11/2020 12:00:00 AM EST ATHE NA ([facility]) Anila Barakat, SCRUBBER OPERATOR: [address], [place] [address], Ph. Attender: Anila Barakat [facility] 02/11/2020 12:00:00 AM EST ATHE NA ([facility]) Anila Barakat, SCRUBBER OPERATOR: [address], [place] [address], Ph. Attender: Anila Roshni [facility] - [facility] 02/11/2020 12:00:00 AM EST ATHE NA ([facility]) Anila Malloy Roshni, SCRUBBER OPERATOR: [address], [address], [place] [address], Ph. Attender: Anila Barakat [facility] - [facility] 02/11/2020 12:00:00 AM EST ATHE NA ([facility]) Anila Barakat, SCRUBBER OPERATOR: [address], [place] [address], Ph. Attender: Anila Barakat [facility] - [facility] 02/11/2020 12:00:00 AM EST ATHE NA ([facility]) Anila Barakat, SCRUBBER OPERATOR: [address], [place] [address], Ph. Attender: Anila Barakat [facility] - [facility] 02/11/2020 12:00:00 AM EST ATHE NA ([facility]) Anila Barakat, SCRUBBER OPERATOR: [address], [place] [address], Ph. Attender: Anila Barakat [facility] - [facility] 02/11/2020 12:00:00 AM EST ATHE NA ([facility]) Anila Barakat, SCRUBBER OPERATOR: [address], [place] [address], Ph. Attender: Anila Barakat [facility] - [facility] 02/11/2020 12:00:00 AM EST ATHE NA ([facility]) Anila Barakat, SCRUBBER OPERATOR: [address], [place] [address], Ph. Attender: Anila Barakat [facility] - [facility] 02/11/2020 12:00:00 AM EST ATHE NA ([facility]) Anila Quinteroson Roshni, SCRUBBER OPERATOR: [address], [place] [address], Ph. Attender: Anila Vannessamanjosue [facility] 02/11/2020 12:00:00 AM EST ATHE NA ([facility]) Outpatient [address] [facility] [place] [address] 02/05/2020 12:00:00 AM EST eCW1 (Critical access hospital) Unknown [address] [facility] [address] 02/05/2020 12:00:00 AM EST eCW1 (Critical access hospital) Outpatient Attender: MARCY CASANOVA [id number] 01/28/2020 12:00:00 AM EST [facility] Unknown [address] [facility] [place] [address] 01/05/2020 12:00:00 AM EST eCW1 (Critical access hospital) Outpatient Attender: MARCY CASANOVA 01/04/2020 09:39: 00 AM EST [facility], SCRUBBER OPERATOR: [address], [place] [address], Ph. Attender: Anila Barakat [facility] 12/24/2019 12:00:00 AM EDT ATHYadira NA ([facility]) Anila [facility] Hospital[facility], SCRUBBER OPERATOR: [address], [place] [address], Ph. Attender: Anilabayron Barakat [facility] 12/24/2019 12:00:00 AM EDT ATHYadira NA ([facility]) Anila Manhelder Roshni, SCRUBBER OPERATOR: [address], [place] [address], Ph. Attender: Anila [facility] - [facility] 12/24/2019 12:00:00 AM EDT ATHE NA ([facility]) Anila Barakat, SCRUBBER OPERATOR: [address], [place] [address], Ph. Attender: Anila Barakat [facility] - [facility] 12/24/2019 12:00:00 AM EDT ATHE NA ([facility]) Anila Barakat, SCRUBBER OPERATOR: [address], [place] [address], Ph. Attender: Anila Barakat [facility] - [facility] 12/24/2019 12:00:00 AM EDT ATHE NA ([facility]) Anila Barakat, SCRUBBER OPERATOR: [address], [place] [address], Ph. Attender: Anila Barakat [facility] - [facility] 12/24/2019 12:00:00 AM EDT ATHE NA ([facility]) Anila Barakat, SCRUBBER OPERATOR: [address], [place] [address], Ph. Attender: Anila Barakat [facility] - [facility] 12/24/2019 12:00:00 AM EDT ATHE NA ([facility]) Anila Barakat, SCRUBBER OPERATOR: [address], [place] [address], Ph. Attender: Anila Barakat [facility] - [facility] 12/24/2019 12:00:00 AM EDT ATHE NA ([facility]) Anila Oskararrontom Barakat, SCRUBBER OPERATOR: [address], [address], [place] [address], Ph. Attender: Anila Barakat [facility] 12/24/2019 12:00:00 AM EDT ATHE NA ([facility]) Anila Barakat, SCRUBBER OPERATOR: [address], [place] [address], Ph. Attender: Anila Barakat [facility] 12/24/2019 12:00:00 AM EDT ATHE NA ([facility]) Anila Barakat, SCRUBBER OPERATOR: [address], [place] [address], Ph. Attender: Anila Barakat [facility] 12/24/2019 12:00:00 AM EDT ATHE NA ([facility]) Anila Barakat, SCRUBBER OPERATOR: [address], [place] [address], Ph. Attender: Anila Barakat 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 [facility] Other specified acquired deformities of musculoskeletal system Outpatient Referrer: MARCY CASANOVA 12/17/2019 12:00:00 AM EDT Strain of other muscle(s) and tendon(s) at lower leg level, left leg, initial encounter [facility] Strain of other muscle(s) and tendon(s) at lower leg level, left leg, initial encounter Outpatient Attender: MARCY CASANOVA 12/17/2019 12:00: 00 AM EDT [facility] Outpatient [address] [facility] [place] [address] 12/16/2019 12:00:00 AM EDT eCW1 (Critical access hospital) Unknown [address] [facility] [address] 12/16/2019 12:00:00 AM EDT eCW1 (Critical access hospital) Unknown [address] [facility] [address] 12/16/2019 12:00:00 AM EDT eCW1 (Critical access hospital) Outpatient Attender: MARCY CASANOVA 03:51:00 PM EDT - 12/31/2019 09:39:00 AM [facility] Patient discharged. Outpatient Attender: Sammie CASANOVA 11/24/2019 02:30:00 PM [facility], SCRUBBER OPERATOR: [address], [place] [address], Ph. Attender: Anila Barakat [facility] 11/12/2019 12:00:00 AM EDT ATHE NA ([facility]) [facility], SCRUBBER OPERATOR: [address], [place] [address], Ph. [facility] 11/12/2019 12:00:00 AM EDT ATHE NA ([facility]) [facility], SCRUBBER OPERATOR: [address], [place] [address], Ph. [facility]: [facility] 11/12/2019 12:00:00 AM EDT ATHE NA ([facility]) [facility], SCRUBBER OPERATOR: [address], [place] [address], Ph. Attender: Anila Barakat [facility] - [facility] 11/12/2019 12:00:00 AM EDT ATHE NA ([facility]) Anila Barakat, SCRUBBER OPERATOR: [address], [place] [address], Ph. Attender: Anila Barakat [facility] - [facility] 11/12/2019 12:00:00 AM EDT ATHE NA ([facility]) Anila Barakat, SCRUBBER OPERATOR: [address], [place] [address], Ph. Attender: Anila Barakat [facility] - [facility] 11/12/2019 12:00:00 AM EDT ATHE NA ([facility]) Anila Barakat, SCRUBBER OPERATOR: [address], [place] [address], Ph. Attender: Anila Barakat [facility] - [facility] 11/12/2019 12:00:00 AM EDT ATHE NA ([facility]) Anila Barakat, SCRUBBER OPERATOR: [address], [place] [address], Ph. Attender: Anila Barakat [facility] - [facility] 11/12/2019 12:00:00 AM EDT ATHE NA ([facility]) Anila Barakat, SCRUBBER OPERATOR: [address], [place] [address], Ph. Attender: Anila Barakat [facility] - [facility] 11/12/2019 12:00:00 AM EDT ATHE NA ([facility]) Anila Mellissa Barakat, SCRUBBER OPERATOR: [address], [place] [address], Ph. Attender: Anila Barakat [facility] 11/12/2019 12:00:00 AM EDT ATHE NA ([facility]) Anila Barakat, SCRUBBER OPERATOR: [address], [address], [place] [address], Ph. Attender: Anila Barakat [facility] 11/12/2019 12:00:00 AM EDT ATHYadira NA ([facility]) Anila Barakat, SCRUBBER OPERATOR: [address], [place] [address], Ph. Attender: Anila Barakat [facility] 11/12/2019 12:00:00 AM EDT ATHYadira NA ([facility]) Anila Stuart Roshni, SCRUBBER OPERATOR: [address], [place] [address], Ph. Attender: Anila Barakat [facility] 11/12/2019 12:00:00 AM EDT ATHE NA ([facility]) Outpatient Attender: MARCY CASANOVA 02:32:00 PM EDT - 12/03/2019 03:51:00 PM EDT [facility] Patient discharged. Emergency Attender: EMILY HOWELLeferrer: Zoe CASANOVA 10/10/2018 09:28:00 PM EDT - 10/10/2018 10:32:00 PM EDT [facility] Patient discharged. Emergency Attender: EMILY CASANOVA 10/24/2017 05:44:00 PM EDT - 10/24/2017 06:54:00 PM EDT [facility] Emergency Attender: ELPIDIO CASANOVA 09:05:00 PM EDT - 09/08/2016 04:34:00 PM [facility] Emergency Attender: VIANCA CASANOVA 03/19/19 17 02:31:00 PM EST - 03/19/2016 02:53:00 PM [facility] Emergency Attender: Billy Jackson JEREMIAH-C 12:48:00 PM EDT - 10/16/2015 09:25:00 PM [facility] Emergency Attender: VIANCA CASANOVA 10/15/19 16 12:40:00 AM EDT - 09/15/2015 07:42:00 PM [facility] Immunizations Vaccine Date Status Description Data Source(s) COVID-19 VACCINE Pfizer 12/08/2020 12:00:00 AM EDT completed [facility] Vaccine Series Complete: YESThis Data wa s Submitted to [facility] [email or web address]. COVID-19 VACC, MRNA(Workbooks)/PF 12/08/2020 12:00:00 AM EDT completed [facility] COVID-19 VACCINE Pfizer 06/02/2020 12:00:00 AM EDT completed [facility] Vaccine Series Complete: YESThis Data wa s Submitted to [facility] [employer]. COVID-19 VACCINE Pfizer 05/12/2020 12:00:00 AM EST completed [facility] Vaccine Series Complete: NOThis Data was Submitted to [facility] [employer]. Medications Medication Brand Name Start Date Product Form Dose Route Admi nistrative Instructions Pharmacy Instructions Status Indications Reaction Description Data Source(s) Levofloxacin 500 MG Oral Tablet Levofloxacin 12/23/2020 12:00:00 AM E DT ORAL completed [facility] ([facility], ) Levofloxacin 500 MG Oral Tablet Levofloxacin 12/16/2020 12:00:00 AM E DT ORAL completed [facility] ([facility], ) Ciprofloxacin 3 MG/ML / Dexamethasone 1 MG/ML Otic [employer] Ciprofloxacin-Dexamethasone 12/16/2020 12:00:00 AM EDT completed [facility] ([facility], ) Amoxicillin 875 MG / Clavulanate 125 MG Oral Tablet Amoxicillin-Pot Clavulanate 875-125 MG Amoxicillin-Pot Clavulanate 875-125 MG 12/14/2020 12:00:00 AM ED T 1.0 {tablet} active Amoxicillin-Pot Cla vulanate 875-125 MG eCW1 ([facility]) 20 mg 12/02/2020 12:00:00 AM EDT tablet [...] For 1 dose
DEPO-MEDROL 1 cc - [id number]
[facility] Medication administered onsite atorvastatin 40 MG Oral Tablet Atorvastatin Calcium 09/13/2020 1 2:00:00 AM EDT ORAL active [facility] ( [facility]) Acetaminophen 500 MG Oral Tablet Acetaminophen 500 MG Oral Tablet (TYLENOL) Acetaminophen 500 MG Oral Tablet (TYLENOL) 09/12/2020 12:00:00 AM EDT Oral active Take by mouth [facility] 09/12/2020 12:00:00 AM EDT act martin [facility] ([facility]) Amlodipine 5 MG Oral Tablet Amlodipine Besylate 09/12/2020 12:00:00 A M EDT ORAL active [facility] ([facility] atorvastatin 20 MG Oral Tablet Atorvastatin Calcium 09/12/2020 1 2:00:00 AM EDT ORAL completed [facility] ([facility]) celecoxib 100 MG Oral Capsule [Celebrex] Celebrex 09/12/2020 12 :00:00 AM EDT ORAL active [facility] ([facility]) Ergocalciferol 99690 UNT Oral Capsule Vitamin D (Ergocalcife rol) 09/12/2020 12:00:00 AM EDT ORAL active M EDENT ([facility]) Omeprazole 20 MG Delayed Release Oral Capsule Omeprazole 09/12/2020 12:00:00 AM EDT ORAL active [facility] ([facility] Famotidine 20 MG Oral Tablet Famotidine 09/12/2020 12:00:00 AM EDT ORAL active [facility] ([facility]) duloxetine 60 MG Delayed Release Oral Capsule Duloxetine HCL 09/12/2020 12:00:00 AM EDT ORAL active [facility] ([facility]) 3 ML Insulin Glargine 100 UNT/ML Pen Injector [Lantus] Lantu s Solostar 09/12/2020 12:00:00 AM EDT active MED[facility] ([facility]) pregabalin 150 MG Oral Capsule Pregabalin 09/12/2020 12:00:00 AM EDT ORAL active [facility] ([facility]) Acetaminophen 500 MG Oral Tablet Acetaminophen Extra Strengt h 09/12/2020 12:00:00 AM EDT ORAL active M EDENT ([facility]) Meclizine Hydrochloride 25 MG Oral Tablet Meclizine HCL 09/12/2020 12:00:00 AM EDT ORAL active [facility] ([facility]) Lisinopril 10 MG Oral Tablet Lisinopril 09/12/2020 12:00:00 AM EDT ORAL active [facility] ([facility]) Aspirin 325 MG Oral Tablet Aspirin 09/12/2020 12:00:00 AM EDT ORAL active [facility] ([facility]) OmniPod Dash 5 Pack Pods - OmniPod Dash 5 Pack Pods - 2020 12:00:00 AM EDT active OmniPod Dash 5 Pa ck Pods - eCW1 ([facility]) OmniPod Dash System - OmniPod Dash System - 09/09/2020 12:00:00 AM EDT active OmniPod Dash System - eCW1 ( [facility]) OmniPod Dash System - OmniPod Dash System - 09/09/2020 12:00:00 AM EDT active OmniPod Dash System - eCW1 ( [facility]) OmniPod Dash 5 Pack Pods - OmniPod Dash 5 Pack Pods - 2020 12:00:00 AM EDT active OmniPod Dash 5 Pa ck Pods - eCW1 ([facility]) OmniPod Dash System - OmniPod Dash System - 09/09/2020 12:00:00 AM EDT active OmniPod Dash System - eCW1 ( [facility]) OmniPod Dash 5 Pack Pods - OmniPod Dash 5 Pack Pods - 2020 12:00:00 AM EDT active OmniPod Dash 5 Pa ck Pods - eCW1 ([facility]) OmniPod Dash 5 Pack Pods - OmniPod Dash 5 Pack Pods - 2020 12:00:00 AM EDT active OmniPod Dash 5 Pa ck Pods - eCW1 ([facility]) OmniPod Dash 5 Pack Pods 8507-09/09/2020 12:00:00 AM EDT active [facility] OmniPod Dash System - OmniPod Dash System - 09/09/2020 12:00:00 AM EDT active OmniPod Dash System - eCW1 ( [facility]) OmniPod Dash 5 Pack Pods - OmniPod Dash 5 Pack Pods - 2020 12:00:00 AM EDT active OmniPod Dash 5 Pa ck Pods - eCW1 ([facility]) OmniPod Dash System - OmniPod Dash System - 09/09/2020 12:00:00 AM EDT active OmniPod Dash System - eCW1 ( [facility]) OmniPod Dash 5 Pack Pods - OmniPod Dash 5 Pack Pods - 2020 12:00:00 AM EDT active OmniPod Dash 5 Pa ck Pods - eCW1 ([facility]) OmniPod Dash System - OmniPod Dash System - 09/09/2020 12:00:00 AM EDT active OmniPod Dash System - eCW1 ( [facility]) Amlodipine 5 MG Oral Tablet amLODIPine Besylate 5 MG O ral Tablet (NORVASC) amLODIPine Besylate 5 MG Oral Tablet (NORVASC) 09/07/2020 12:00:00 AM EDT active [facility] 3 ML Insulin Glargine 100 UNT/ML Pen Inj maki [Lantus] Lantus SoloStar 100 UNIT/ML Lantus SoloStar 100 UNIT/ML 08/17/2020 12:00:00 AM EDT active Lantus SoloStar 100 UNIT/ML eCW1 ([facility]) 3 ML Insulin Glargine 100 UNT/ML Pen Inj maki [Lantus] Lantus SoloStar 100 UNIT/ML Lantus SoloStar 100 UNIT/ML 08/17/2020 12:00:00 AM EDT active Lantus SoloStar 100 UNIT/ML eCW1 ([facility]) Pen [place] 31G X 5 MM [place] 31G X 5 MM 08/17/2020 12:00:00 AM E DT active [place] 31G X 5 MM eC W1 ([facility]) 3 ML Insulin Glargine 100 UNT/ML Pen Inj maki [Lantus] Lantus SoloStar 100 UNIT/ML Lantus SoloStar 100 UNIT/ML 08/17/2020 12:00:00 AM EDT active Lantus SoloStar 100 UNIT/ML eCW1 ([facility]) 3 ML Insulin Glargine 100 UNT/ML Pen Inj maki [Lantus] Lantus SoloStar 100 UNIT/ML Lantus SoloStar 100 UNIT/ML 08/17/2020 12:00:00 AM EDT active Lantus SoloStar 100 UNIT/ML eCW1 ([facility]) Pen [place] 31G X 5 MM [place] 31G X 5 MM 08/17/2020 12:00:00 AM E DT active [place] 31G X 5 MM eC W1 ([facility]) 3 ML Insulin Glargine 100 UNT/ML Pen Inj maki [Lantus] Lantus SoloStar 100 UNIT/ML Lantus SoloStar 100 UNIT/ML 08/17/2020 12:00:00 AM EDT active Lantus SoloStar 100 UNIT/ML eCW1 ([facility]) 3 ML Insulin Glargine 100 UNT/ML Pen Inj maki [Lantus] Lantus SoloStar 100 UNIT/ML Lantus SoloStar 100 UNIT/ML 08/17/2020 12:00:00 AM EDT active Lantus SoloStar 100 UNIT/ML eCW1 ([facility]) Pen [place] 31G X 5 MM [place] 31G X 5 MM 08/17/2020 12:00:00 AM E DT active [place] 31G X 5 MM eC W1 ([facility]) Pen [place] 31G X 5 MM [place] 31G X 5 MM 08/17/2020 12:00:00 AM E DT active [place] 31G X 5 MM eC W1 ([facility]) [place] 31G X 5 MM [place] 31G X 5 MM 08/17/2020 12:00:00 AM E DT active [place] 31G X 5 MM eC W1 ([facility]) 3 ML Insulin Glargine 100 UNT/ML Pen Inj maki [Lantus] Lantus SoloStar 100 UNIT/ML Lantus SoloStar 100 UNIT/ML 08/17/2020 12:00:00 AM EDT active Lantus SoloStar 100 UNIT/ML eCW1 ([facility]) 3 ML Insulin Glargine 100 UNT/ML Pen Inj maki [Lantus] Lantus SoloStar 100 UNIT/ML Lantus SoloStar 100 UNIT/ML 08/17/2020 12:00:00 AM EDT active Lantus SoloStar 100 UNIT/ML eCW1 ([facility]) PenTips 31G X 5 [place] [id number] 08/17/2020 12:00:00 AM EDT active Use as directed. [facility] 3 ML Insulin Glargine 100 UNT/ML Pen Inj maki [Lantus] Lantus SoloStar 100 UNIT/ML Subcutaneous Solution Pen-injector Lantus SoloStar 100 UNIT/ML Subcutaneous Solution Pen-injector 08/17/2020 12:00:00 AM EDT active [facility] Pen [place] 31G X 5 MM Pen [place] 31G X 5 MM 08/17/2020 12:00:00 AM E DT active Pen [place] 31G X 5 MM eC W1 ([facility]) 3 ML Insulin Glargine 100 UNT/ML Pen Inj maki [Lantus] Lantus SoloStar 100 UNIT/ML Lantus SoloStar 100 UNIT/ML 08/17/2020 12:00:00 AM EDT active Lantus SoloStar 100 UNIT/ML eCW1 ([facility]) 3 ML Insulin Glargine 100 UNT/ML Pen Inj maki [Lantus] Lantus SoloStar 100 UNIT/ML Lantus SoloStar 100 UNIT/ML 08/17/2020 12:00:00 AM EDT active Lantus SoloStar 100 UNIT/ML eCW1 ([facility]) Pen [place] 31G X 5 MM [place] 31G X 5 MM 08/17/2020 12:00:00 AM E DT active [place] 31G X 5 MM eC W1 ([facility]) 3 ML Insulin Glargine 100 UNT/ML Pen Inj maki [Lantus] Lantus SoloStar 100 UNIT/ML Lantus SoloStar 100 UNIT/ML 08/17/2020 12:00:00 AM EDT active Lantus SoloStar 100 UNIT/ML eCW1 ([facility]) Pen [place] 31G X 5 MM [place] 31G X 5 MM 08/17/2020 12:00:00 AM E DT active [place] 31G X 5 MM eC W1 ([facility]) Pen [place] 31G X 5 MM [place] 31G X 5 MM 08/17/2020 12:00:00 AM E DT active [place] 31G X 5 MM eC W1 ([facility]) [place] 31G X 5 MM [place] 31G X 5 MM 08/17/2020 12:00:00 AM E DT active [place] 31G X 5 MM eC W1 ([facility]) [place] 31G X 5 MM [place] 31G X 5 MM 08/17/2020 12:00:00 AM E DT active [place] 31G X 5 MM eC W1 ([facility]) [employer]Style Ezra Sensor System - [employer]ra Sensor Syste m - 08/16/2020 12:00:00 AM EDT active [employer]Styl [employer] Ezra Sensor System - eCW1 ([facility]) FreeStyle Ezra [place] - FreeStyle Ezra [place] - 08/16/2020 12:00: 00 AM EDT active [employer] Ezra [place] - eCW1 ([facility]) [employer] Ezra Sensor System - [employer] Sensor Syste m - 08/16/2020 12:00:00 AM EDT active [employer] Ez[employer] Sensor System - eCW1 ([facility]) FreeStyle Ezra [place] - FreeStyle Ezra [place] - 08/16/2020 12:00: 00 AM EDT active FreeStyle Ezra [place] - eCW1 ([facility]) FreeStyle Erza [place] - [employer]Style Ezra [place] - 08/16/2020 12:00: 00 AM EDT active [employer] Ezra [place] - eCW1 ([facility]) [employer]ra Sensor System - [employer]Style Ezra Sensor Syste m - 08/16/2020 12:00:00 AM EDT active [employer]Styl [employer] Ezra Sensor System - eCW1 ([facility]) [employer]Style Ezra [place] - [employer]Style Ezra [place] - 08/16/2020 12:00: 00 AM EDT active [employer] Ezra [place] - eCW1 ([facility]) [employer] Sensor System - [employer]Style Ezra Sensor Syste m - 08/16/2020 12:00:00 AM EDT active [employer]l [employer]ensor System - eCW1 ([facility]) FreeStyle Ezra [place] - FreeStyle Ezra [place] - 08/16/2020 12:00: 00 AM EDT active [employer] Ezra [place] - eCW1 ([facility]) [employer]Style Ezra Sensor System - FreeStyle Ezra Sensor Syste m - 08/16/2020 12:00:00 AM EDT active FreeStyl e Ezra Sensor System - eCW1 ([facility]) FreeStyle Ezra [place] - FreeStyle Ezra [place] - 08/16/2020 12:00: 00 AM EDT active FreeStyle Ezra [place] - eCW1 ([facility]) [employer]Style Ezra Sensor System - FreeStyle Ezra Sensor Syste m - 08/16/2020 12:00:00 AM EDT active [employer] System - eCW1 ([facility]) Insulin Glargine 100 UNT/ML Injectable Solution [Lantu s] Lantus 100 UNIT/ML Lantus 100 UNIT/ML 08/16/2020 12:00:00 AM EDT active Lantus 100 UNIT/ML eCW1 ([facility]) [employer] Ezra Sensor System - [employer]Style Ezra Sensor Syste m - 08/16/2020 12:00:00 AM EDT active [employer]Styl [employer] Ezra Sensor System - eCW1 ([facility]) [employer]Style Ezra Sensor System - FreeStyle Ezra Sensor Syste - 08/16/2020 12:00:00 AM EDT active FreeStyl e Ezra Sensor System - eCW1 ([facility]) [employer]Style Ezra Sensor System - [employer]Style Ezra Sensor Syste m - 08/16/2020 12:00:00 AM EDT active [employer]Styl [employer] Ezra Sensor System - eCW1 ([facility]) FreeStyle Ezra 14 Day Sensor [id number] 08/16/2020 12:00:00 AM EDT active [facility] FreeStyle Ezra 14 Day [place] Device [id number] 08/16/2020 12:00: 00 AM EDT active [facility] [employer]Style Ezra Sensor System - UNK 08/16/2020 12:00:00 AM EDT active FreeStyle Ezra Sensor System - eCW1 ([facility]) FreeStyle Ezra [place] - FreeStyle Ezra [place] - 08/16/2020 12:00: 00 AM EDT active FreeStyle Ezra [place] - eCW1 ([facility]) FreeStyle Ezra [place] - FreeStyle Ezra [place] - 08/16/2020 12:00: 00 AM EDT active FreeStyle Ezra [place] - eCW1 ([facility]) FreeStyle Ezra Sensor System - FreeStyle Ezra Sensor Syste m - 08/16/2020 12:00:00 AM EDT active FreeStyl e Ezra Sensor System - eCW1 ([facility]) FreeStyle Ezra Sensor System - FreeStyle Ezra Sensor Syste m - 08/16/2020 12:00:00 AM EDT active FreeStyl e Ezra Sensor System - eCW1 ([facility]) FreeStyle Ezra [place] - FreeStyle Ezra [place] - 08/16/2020 12:00: 00 AM EDT active FreeStyle Ezra [place] - eCW1 ([facility]) FreeStyle Ezra [place] - FreeStyle Ezra [place] - 08/16/2020 12:00: 00 AM EDT active FreeStyle Ezra [place] - eCW1 ([facility]) FreeStyle Ezra [place] - FreeStyle Ezra [place] - 08/16/2020 12:00: 00 AM EDT active FreeStyle Ezra [place] - eCW1 ([facility]) FreeStyle Ezra [place] - FreeStyle Ezra [place] - 08/16/2020 12:00: 00 AM EDT active FreeStyle Ezra [place] - eCW1 ([facility]) 100 mg 07/27/2020 12:00:00 AM EDT capsule [...] CAPSULE BY MOUTH ONCE WEEKLY SOLD: 07/10/2020 [facility] Famotidine 20 MG Oral Tablet FAMOTIDINE 06/30/2020 [...] SKIN ONCE A WEEK DIRECTED SOLD: 06/30/2020 [facility] Amlodipine 5 MG Oral Tablet Amlodipine Besylate 5 MG Amlodip ine Besylate 5 MG 06/28/2020 12:00:00 AM EDT 1.0 {tablet} active Amlodipine Besylate 5 MG eCW1 ([facility]) Amlodipine 5 MG Oral Tablet Amlodipine Besylate 5 MG Amlodip ine Besylate 5 MG 06/28/2020 12:00:00 AM EDT 1.0 {tablet} active Amlodipine Besylate 5 MG eCW1 ([facility]) Amlodipine 5 MG Oral Tablet Amlodipine Besylate 5 MG Amlodip ine Besylate 5 MG 06/28/2020 12:00:00 AM EDT 1.0 {tablet} active Amlodipine Besylate 5 MG eCW1 ([facility]) 5 mg 06/28/2020 12:00:00 AM EDT tablet 30 TAKE ONE TABLET BY MOUTH EVERY DAY TAKE ONE TABLET BY MOUTH EVERY DAY SOLD: 07/28/2020 [facility] Amlodipine 5 MG Oral Tablet Amlodipine Besylate 5 MG Amlodip ine Besylate 5 MG 06/28/2020 12:00:00 AM EDT 1.0 {tablet} active Amlodipine Besylate 5 MG eCW1 ([facility]) Amlodipine 5 MG Oral Tablet Amlodipine Besylate 5 MG Amlodip ine Besylate 5 MG 06/28/2020 12:00:00 AM EDT 1.0 {tablet} active Amlodipine Besylate 5 MG eCW1 ([facility]) Amlodipine 5 MG Oral Tablet Amlodipine Besylate 5 MG Amlodip ine Besylate 5 MG 06/28/2020 12:00:00 AM EDT 1.0 {tablet} active Amlodipine Besylate 5 MG eCW1 ([facility]) Amlodipine 5 MG Oral Tablet Amlodipine Besylate 5 MG Amlodip ine Besylate 5 MG 06/28/2020 12:00:00 AM EDT 1.0 {tablet} active Amlodipine Besylate 5 MG eCW1 ([facility]) Amlodipine 5 MG Oral Tablet Amlodipine Besylate 5 MG Amlodip ine Besylate 5 MG 06/28/2020 12:00:00 AM EDT 1.0 {tablet} active Amlodipine Besylate 5 MG eCW1 ([facility]) Amlodipine 5 MG Oral Tablet Amlodipine Besylate 5 MG Amlodip ine Besylate 5 MG 06/28/2020 12:00:00 AM EDT 1.0 {tablet} active Amlodipine Besylate 5 MG eCW1 ([facility]) Amlodipine 5 MG Oral Tablet Amlodipine Besylate 5 MG Amlodip ine Besylate 5 MG 06/28/2020 12:00:00 AM EDT 1.0 {tablet} active Amlodipine Besylate 5 MG eCW1 ([facility]) Amlodipine 5 MG Oral Tablet Amlodipine Besylate 5 MG Amlodip ine Besylate 5 MG 06/28/2020 12:00:00 AM EDT 1.0 {tablet} active Amlodipine Besylate 5 MG eCW1 ([facility]) Amlodipine 5 MG Oral Tablet Amlodipine Besylate 5 MG Amlodip ine Besylate 5 MG 06/28/2020 12:00:00 AM EDT 1.0 {tablet} active Amlodipine Besylate 5 MG eCW1 ([facility]) Amlodipine 5 MG Oral Tablet Amlodipine Besylate 5 MG Amlodip ine Besylate 5 MG 06/28/2020 12:00:00 AM EDT 1.0 {tablet} active Amlodipine Besylate 5 MG eCW1 ([facility]) Amlodipine 5 MG Oral Tablet Amlodipine Besylate 5 MG Amlodip ine Besylate 5 MG 06/28/2020 12:00:00 AM EDT 1.0 {tablet} active Amlodipine Besylate 5 MG eCW1 ([facility]) Amlodipine 5 MG Oral Tablet Amlodipine Besylate 5 MG Amlodip ine Besylate 5 MG 06/28/2020 12:00:00 AM EDT 1.0 {tablet} active Amlodipine Besylate 5 MG eCW1 ([facility]) Amlodipine 5 MG Oral Tablet Amlodipine Besylate 5 MG Amlodip ine Besylate 5 MG 06/28/2020 12:00:00 AM EDT 1.0 {tablet} active Amlodipine Besylate 5 MG eCW1 ([facility]) Amlodipine 5 MG Oral Tablet Amlodipine Besylate 5 MG Amlodip ine Besylate 5 MG 06/28/2020 12:00:00 AM EDT 1.0 {tablet} active Amlodipine Besylate 5 MG eCW1 ([facility]) Amlodipine 5 MG Oral Tablet Amlodipine Besylate 5 MG Amlodip ine Besylate 5 MG 06/28/2020 12:00:00 AM EDT 1.0 {tablet} active Amlodipine Besylate 5 MG eCW1 ([facility]) 20 mg 05/31/2020 12:00:00 AM EDT tablet [...] 5.0 {drops_into_affected_ear} active Debrox 6.5 % eCW1 ([facility]) carbamide peroxide 65 MG/ML Otic Solution [Debrox] Debrox 6. 5 % Debrox 6.5 % 05/17/2020 12:00:00 AM EDT 5.0 {drops_into_affected_ear} active Debrox 6.5 % eCW1 ([facility]) carbamide peroxide 65 MG/ML Otic Solution [Debrox] Debrox 6. 5 % Debrox 6.5 % 05/17/2020 12:00:00 AM EDT 5.0 {drops_into_affected_ear} active Debrox 6.5 % eCW1 ([facility]) carbamide peroxide 65 MG/ML Otic Solution [Debrox] Debrox 6. 5 % Debrox 6.5 % 05/17/2020 12:00:00 AM EDT 5.0 {drops_into_affected_ear} active Debrox 6.5 % eCW1 ([facility]) carbamide peroxide 65 MG/ML Otic Solution [Debrox] Debrox 6. 5 % Debrox 6.5 % 05/17/2020 12:00:00 AM EDT 5.0 {drops_into_affected_ear} active Debrox 6.5 % eCW1 ([facility]) carbamide peroxide 65 MG/ML Otic Solution [Debrox] Debrox 6. 5 % Debrox 6.5 % 05/17/2020 12:00:00 AM EDT 5.0 {drops_into_affected_ear} active Debrox 6.5 % eCW1 ([facility]) carbamide peroxide 65 MG/ML Otic Solution [Debrox] Debrox 6. 5 % Debrox 6.5 % 05/17/2020 12:00:00 AM EDT 5.0 {drops_into_affected_ear} active Debrox 6.5 % eCW1 ([facility]) carbamide peroxide 65 MG/ML Otic Solution [Debrox] Debrox 6. 5 % Debrox 6.5 % 05/17/2020 12:00:00 AM EDT 5.0 {drops_into_affected_ear} active Debrox 6.5 % eCW1 ([facility]) carbamide peroxide 65 MG/ML Otic Solution [Debrox] Debrox 6. 5 % Debrox 6.5 % 05/17/2020 12:00:00 AM EDT 5.0 {drops_into_affected_ear} active Debrox 6.5 % eCW1 ([facility]) carbamide peroxide 65 MG/ML Otic Solution [Debrox] Debrox 6. 5 % Debrox 6.5 % 05/17/2020 12:00:00 AM EDT 5.0 {drops_into_affected_ear} active Debrox 6.5 % eCW1 ([facility]) carbamide peroxide 65 MG/ML Otic Solution [Debrox] Debrox 6. 5 % Debrox 6.5 % 05/17/2020 12:00:00 AM EDT 5.0 {drops_into_affected_ear} active Debrox 6.5 % eCW1 ([facility]) carbamide peroxide 65 MG/ML Otic Solution [Debrox] Debrox 6. 5 % Debrox 6.5 % 05/17/2020 12:00:00 AM EDT 5.0 {drops_into_affected_ear} active Debrox 6.5 % eCW1 ([facility]) carbamide peroxide 65 MG/ML Otic Solution [Debrox] Debrox 6. 5 % Debrox 6.5 % 05/17/2020 12:00:00 AM EDT 5.0 {drops_into_affected_ear} active Debrox 6.5 % eCW1 ([facility]) 150 mg 05/17/2020 12:00:00 AM EDT capsule [...] 5.0 {drops_into_affected_ear} active Debrox 6.5 % eCW1 ([facility]) carbamide peroxide 65 MG/ML Otic Solution [Debrox] Debrox 6. 5 % Debrox 6.5 % 05/17/2020 12:00:00 AM EDT 5.0 {drops_into_affected_ear} active Debrox 6.5 % eCW1 ([facility]) carbamide peroxide 65 MG/ML Otic Solution [Debrox] Debrox 6. 5 % Debrox 6.5 % 05/17/2020 12:00:00 AM EDT 5.0 {drops_into_affected_ear} active Debrox 6.5 % eCW1 ([facility]) carbamide peroxide 65 MG/ML Otic Solution [Debrox] Debrox 6. 5 % Debrox 6.5 % 05/17/2020 12:00:00 AM EDT 5.0 {drops_into_affected_ear} active Debrox 6.5 % eCW1 ([facility]) carbamide peroxide 65 MG/ML Otic Solution [Debrox] Debrox 6. 5 % Debrox 6.5 % 05/17/2020 12:00:00 AM EDT 5.0 {drops_into_affected_ear} active Debrox 6.5 % eCW1 ([facility]) carbamide peroxide 65 MG/ML Otic Solution [Debrox] Debrox 6. 5 % Debrox 6.5 % 05/17/2020 12:00:00 AM EDT 5.0 {drops_into_affected_ear} active Debrox 6.5 % eCW1 ([facility]) carbamide peroxide 65 MG/ML Otic Solution [Debrox] Debrox 6. 5 % Debrox 6.5 % 05/17/2020 12:00:00 AM EDT 5.0 {drops_into_affected_ear} active Debrox 6.5 % eCW1 ([facility]) 60 mg 05/10/2020 12:00:00 AM EST capsule,delayed release (DR/EC) 30 TAKE ONE CAPSULE BY MOUTH EVERY DAY TAKE ONE CAPSULE BY MOUTH EVERY DAY SOLD: 05/11/2020 [facility] 60 mg 05/10/2020 12:00:00 AM EST capsule,delayed release (DR/EC) 30 TAKE ONE CAPSULE BY MOUTH EVERY DAY TAKE ONE CAPSULE BY MOUTH EVERY DAY SOLD: 06/14/2020 [facility] Famotidine 20 MG Oral Tablet [...] e INJECT DIRECTED ONCE WEEKLY UNDER THE [facility] 150 mg 04/09/2020 12:00:00 AM EST [...] tablet by mouth daily for 30 doses [facility] 5 mg 03/22/2020 12:00:00 AM EST tablet [...] Ventolin HFA 108 (90 Base) MCG/ACT eCW1 ([facility]) 200 ACTUAT Albuterol 0.09 MG/ACTUAT [facility] red Dose Inhaler [Ventolin] Ventolin HFA 108 (90 Base) MCG/ACT Ventolin HFA 108 (90 Base) MCG/ACT 02/05/2020 12:00:00 AM EST active Ventolin HFA 108 (90 Base) MCG/ACT eCW1 ([facility]) 0.3 % 02/05/2020 12:00:00 AM EST drops [...] Ventolin HFA 108 (90 Base) MCG/ACT eCW1 ([facility]) 200 ACTUAT Albuterol 0.09 MG/ACTUAT [facility] red Dose Inhaler [Ventolin] Ventolin HFA 108 (90 Base) MCG/ACT Ventolin HFA 108 (90 Base) MCG/ACT 02/05/2020 12:00:00 AM EST active Ventolin HFA 108 (90 Base) MCG/ACT eCW1 ([facility]) Augmentin 875-125 MG UNK 02/05/2020 12:00:00 AM EST 1.0 {tablet } active Augmentin 875-125 MG eCW1 ([facility]) Augmentin 875-125 MG UNK 02/05/2020 12:00:00 AM EST 1.0 {tab let} suspended Augmentin 875-125 MG eCW1 ([facility]) 875-125 mg 02/05/2020 12:00:00 AM EST tablet 20 TAKE ONE TABLET BY MOUTH EVERY 12 HOURS FOR 10 DAYS TAKE ONE TABLET BY MOUTH EVERY 12 HOURS FOR 10 DAYS SOLD: 02/05/2020 [facility] Augmentin 875-125 MG UNK 02/05/2020 12:00:00 AM EST 1.0 {tablet } active Augmentin 875-125 MG eCW1 ([facility]) Ofloxacin 3 MG/ML Ophthalmic Solution Ofloxacin 0.3 % Ofloxa radha 0.3 % 02/05/2020 12:00:00 AM EST active Ofloxac in 0.3 % eCW1 ([facility]) 200 ACTUAT Albuterol 0.09 MG/ACTUAT [facility] red Dose Inhaler [Ventolin] Ventolin HFA 108 (90 Base) MCG/ACT Ventolin HFA 108 (90 Base) MCG/ACT 02/05/2020 12:00:00 AM EST active Ventolin HFA 108 (90 Base) MCG/ACT eCW1 ([facility]) 200 ACTUAT Albuterol 0.09 MG/ACTUAT [facility] red Dose Inhaler [Ventolin] Ventolin HFA 108 (90 Base) MCG/ACT Ventolin HFA 108 (90 Base) MCG/ACT 02/05/2020 12:00:00 AM EST active Ventolin HFA 108 (90 Base) MCG/ACT eCW1 ([facility]) 200 ACTUAT Albuterol 0.09 MG/ACTUAT [facility] red Dose Inhaler [Ventolin] Ventolin HFA 108 (90 Base) MCG/ACT Ventolin HFA 108 (90 Base) MCG/ACT 02/05/2020 12:00:00 AM EST active Ventolin HFA 108 (90 Base) MCG/ACT eCW1 ([facility]) 200 ACTUAT Albuterol 0.09 MG/ACTUAT [facility] red Dose Inhaler [Ventolin] Ventolin HFA 108 (90 Base) MCG/ACT Ventolin HFA 108 (90 Base) MCG/ACT 02/05/2020 12:00:00 AM EST active Ventolin HFA 108 (90 Base) MCG/ACT eCW1 ([facility]) 200 ACTUAT Albuterol 0.09 MG/ACTUAT [facility] red Dose Inhaler [Ventolin] Ventolin HFA 108 (90 Base) MCG/ACT [facility]olin HFA 108 (90 Base) MCG/ACT 02/05/2020 12:00:00 AM EST active Ventolin HFA 108 (90 Base) MCG/ACT eCW1 ([facility]) 200 ACTUAT Albuterol 0.09 MG/ACTUAT [place] red Dose Inhaler [Ventolin] Ventolin HFA 108 (90 Base) MCG/ACT Ventolin HFA 108 (90 Base) MCG/ACT 02/05/2020 12:00:00 AM EST active Ventolin HFA 108 (90 Base) MCG/ACT eCW1 ([facility]) 90 mcg/actuation 02/05/2020 12:00:00 AM EST HFA aerosol inha ler 18 INHALE 1- 2 PUFFS BY MOUTH EVERY 6 HOURS NEEDED INHALE 1-2 PUFFS BY MOUTH EVERY 6 HOURS NEEDED SOLD: 02/05/2020 [facility] Ofloxacin 3 MG/ML Ophthalmic Solution Ofloxacin 0.3 % Ofloxa radha 0.3 % 02/05/2020 12:00:00 AM EST suspended Oflo xacin 0.3 % eCW1 ([facility]) 200 ACTUAT Albuterol 0.09 MG/ACTUAT [place] red Dose Inhaler [Ventolin] Ventolin HFA 108 (90 Base) MCG/ACT Ventolin HFA 108 (90 Base) MCG/ACT 02/05/2020 12:00:00 AM EST active Ventolin HFA 108 (90 Base) MCG/ACT eCW1 ([facility]) Albuterol Sulfate HFA 108 (90 Base) MCG/ ACT Inhalation Aerosol Solution (PROVENTIL HFA) 3509-9923-34 02/05/2020 12:00:00 AM EST active INHALE 1 2 PUFFS BY MOUTH EVERY 6 HOURS NEEDED [facility] 200 ACTUAT Albuterol 0.09 MG/ACTUAT [place] red Dose Inhaler [Ventolin] Ventolin HFA 108 (90 Base) MCG/ACT Ventolin HFA 108 (90 Base) MCG/ACT 02/05/2020 12:00:00 AM EST active Ventolin HFA 108 (90 Base) MCG/ACT eCW1 ([facility]) 200 ACTUAT Albuterol 0.09 MG/ACTUAT [place] red Dose Inhaler [Ventolin] Ventolin HFA 108 (90 Base) MCG/ACT Ventolin HFA 108 (90 Base) MCG/ACT 02/05/2020 12:00:00 AM EST active Ventolin HFA 108 (90 Base) MCG/ACT eCW1 ([facility]) 200 ACTUAT Albuterol 0.09 MG/ACTUAT [place] red Dose Inhaler [Ventolin] Ventolin HFA 108 (90 Base) MCG/ACT Ventolin HFA 108 (90 Base) MCG/ACT 02/05/2020 12:00:00 AM EST active Ventolin HFA 108 (90 Base) MCG/ACT eCW1 ([facility]) 200 ACTUAT Albuterol 0.09 MG/ACTUAT [place]e red Dose Inhaler [Ventolin] Ventolin HFA 108 (90 Base) MCG/ACT Ventolin HFA 108 (90 Base) MCG/ACT 02/05/2020 12:00:00 AM EST active Ventolin HFA 108 (90 Base) MCG/ACT eCW1 ([facility]) 200 ACTUAT Albuterol 0.09 MG/ACTUAT [place]e red Dose Inhaler [Ventolin] Ventolin HFA 108 (90 Base) MCG/ACT Ventolin HFA 108 (90 Base) MCG/ACT 02/05/2020 12:00:00 AM EST active Ventolin HFA 108 (90 Base) MCG/ACT eCW1 ([facility]) 200 ACTUAT Albuterol 0.09 MG/ACTUAT Mete red Dose Inhaler [Ventolin] Ventolin HFA 108 (90 Base) MCG/ACT Ventolin HFA 108 (90 Base) MCG/ACT 02/05/2020 12:00:00 AM EST active Ventolin HFA 108 (90 Base) MCG/ACT eCW1 ([facility]) Augmentin 875-125 MG UNK 02/05/2020 12:00:00 AM EST 1.0 {tab let} suspended Augmentin 875-125 MG eCW1 ([facility]) Ofloxacin 3 MG/ML Ophthalmic Solution Ofloxacin 0.3 % Ofloxa radha 0.3 % 02/05/2020 12:00:00 AM EST active Ofloxac in 0.3 % eCW1 ([facility]) 200 ACTUAT Albuterol 0.09 MG/ACTUAT [place]e red Dose Inhaler [Ventolin] Ventolin HFA 108 (90 Base) MCG/ACT Ventolin HFA 108 (90 Base) MCG/ACT 02/05/2020 12:00:00 AM EST active Ventolin HFA 108 (90 Base) MCG/ACT eCW1 ([facility]) Augmentin 875-125 MG UNK 02/05/2020 12:00:00 AM EST 1.0 {tablet } active Augmentin 875-125 MG eCW1 ([facility]) Ofloxacin 3 MG/ML Ophthalmic Solution Ofloxacin 0.3 % Ofloxa radha 0.3 % 02/05/2020 12:00:00 AM EST suspended Oflo xacin 0.3 % eCW1 ([facility]) Ofloxacin 3 MG/ML Ophthalmic Solution Ofloxacin 0.3 % Ofloxa radha 0.3 % 02/05/2020 12:00:00 AM EST active Ofloxac in 0.3 % eCW1 ([facility]) 200 ACTUAT Albuterol 0.09 MG/ACTUAT [place] red Dose Inhaler [Ventolin] Ventolin HFA 108 (90 Base) MCG/ACT Ventolin HFA 108 (90 Base) MCG/ACT 02/05/2020 12:00:00 AM EST active Ventolin HFA 108 (90 Base) MCG/ACT eCW1 ([facility]) 200 ACTUAT Albuterol 0.09 MG/ACTUAT [place]e red Dose Inhaler [Ventolin] Ventolin HFA 108 (90 Base) MCG/ACT Ventolin HFA 108 (90 Base) MCG/ACT 02/05/2020 12:00:00 AM EST active Ventolin HFA 108 (90 Base) MCG/ACT eCW1 ([facility]) 200 ACTUAT Albuterol 0.09 MG/ACTUAT [place]e red Dose Inhaler [Ventolin] Ventolin HFA 108 (90 Base) MCG/ACT Ventolin HFA 108 (90 Base) MCG/ACT 02/05/2020 12:00:00 AM EST active Ventolin HFA 108 (90 Base) MCG/ACT eCW1 ([facility]) 200 ACTUAT Albuterol 0.09 MG/ACTUAT [place]e red Dose Inhaler [Ventolin] Ventolin HFA 108 (90 Base) MCG/ACT Ventolin HFA 108 (90 Base) MCG/ACT 02/05/2020 12:00:00 AM EST active Ventolin HFA 108 (90 Base) MCG/ACT eCW1 ([facility]) 200 ACTUAT Albuterol 0.09 MG/ACTUAT [place]e red Dose Inhaler [Ventolin] Ventolin HFA 108 (90 Base) MCG/ACT Ventolin HFA 108 (90 Base) MCG/ACT 02/05/2020 12:00:00 AM EST active Ventolin HFA 108 (90 Base) MCG/ACT eCW1 ([facility]) 200 ACTUAT Albuterol 0.09 MG/ACTUAT [place]e red Dose Inhaler [Ventolin] Ventolin HFA 108 (90 Base) MCG/ACT Ventolin HFA 108 (90 Base) MCG/ACT 02/05/2020 12:00:00 AM EST active Ventolin HFA 108 (90 Base) MCG/ACT eCW1 ([facility]) 200 ACTUAT Albuterol 0.09 MG/ACTUAT [place]e red Dose Inhaler [Ventolin] Ventolin HFA 108 (90 Base) MCG/ACT Ventolin HFA 108 (90 Base) MCG/ACT 02/05/2020 12:00:00 AM EST active Ventolin HFA 108 (90 Base) MCG/ACT eCW1 ([facility]) 60 mg 02/04/2020 12:00:00 AM EST capsule,delayed [...] MOUTH THREE TIMES A DAY MAX 3CAPS.DAY [facility] 150 mg 02/02/2020 12:00:00 AM EST capsule 90 TAKE ONE CAPSULE BY MOUTH THREE TIMES A DAY MAX=3CAPS.DAY TAKE ONE CAPSULE BY MOUTH THREE TIMES A DAY MAX=3CAPS.DAY SOLD: 02/04/2020 [facility] 10 mg 01/14/2020 12:00:00 AM EST [...] For 1 dose
DEPO-MEDROL 1 cc - [id number]
[facility] Medication administered onsite Meclizine Hydrochloride 25 MG Oral Tablet Meclizine HC l 25 MG Meclizine HCl 25 MG 12/16/2019 12:00:00 AM EDT 1.0 {tablet_as_needed} active Meclizine HCl 25 MG eCW1 ([facility]) Ciprofloxacin 2 MG/ML Otic Solution Ciprofloxacin HCl 0.2 % Ciprofloxacin HCl 0.2 % 12/16/2019 12:00:00 AM EDT 0.25 {ml_into_affected_ear} active Ciprofloxacin HCl 0.2 % eCW1 ([facility]) Ofloxacin 3 MG/ML Ophthalmic Solution Ofloxacin 0.3 % Ofloxa radha 0.3 % 12/16/2019 12:00:00 AM EDT 10.0 {drops_into_affected_ear} active Ofloxacin 0.3 % eCW1 ([facility]) Meclizine Hydrochloride 25 MG Oral Tablet Meclizine HC l 25 MG Meclizine HCl 25 MG 12/16/2019 12:00:00 AM EDT 1.0 {tablet_as_needed} active Meclizine HCl 25 MG eCW1 ([facility]) Amoxicillin 875 MG / Clavulanate 125 MG Oral Tablet Amoxicillin-Pot Clavulanate 875-125 MG Amoxicillin-Pot Clavulanate 875-125 MG 12/16/2019 12:00:00 AM ED T 1.0 {tablet} active Amoxicillin-Pot Cla vulanate 875-125 MG eCW1 ([facility]) Ciprofloxacin 2 MG/ML Otic Solution Ciprofloxacin HCl 0.2 % Ciprofloxacin HCl 0.2 % 12/16/2019 12:00:00 AM EDT 0.25 {ml_into_affected_ear} active Ciprofloxacin HCl 0.2 % eCW1 ([facility]) Meclizine Hydrochloride 25 MG Oral Tablet Meclizine HC l 25 MG Meclizine HCl 25 MG 12/16/2019 12:00:00 AM EDT 1.0 {tablet_as_needed} active Meclizine HCl 25 MG eCW1 ([facility]) Meclizine Hydrochloride 25 MG Oral Tablet Meclizine HC l 25 MG Meclizine HCl 25 MG 12/16/2019 12:00:00 AM EDT 1.0 {tablet_as_needed} active Meclizine HCl 25 MG eCW1 ([facility]) 875-125 mg 12/16/2019 12:00:00 AM EDT tablet 20 TAKE ONE TABLET BY MOUTH EVERY 12 HOURS FOR 10 DAYS TAKE ONE TABLET BY MOUTH EVERY 12 HOURS FOR 10 DAYS SOLD: 12/16/2019 [facility] Amoxicillin 875 MG / Clavulanate 125 MG Oral Tablet Amoxicillin-Pot Clavulanate 875-125 MG Oral Tablet (AUGMENTIN) Amoxicillin-Pot Clavulanate 875-125 MG O ral Tablet (AUGMENTIN) 12/16/2019 12:00:00 AM EDT [facility] Ofloxacin 3 MG/ML Otic Solution Ofloxacin 0.3 % Otic S olution (FLOXIN) Ofloxacin 0.3 % Otic Solution (FLOXIN) 12/16/2019 12:00:00 AM EDT [facility] Meclizine Hydrochloride 25 MG Oral Tablet Meclizine HC l 25 MG Meclizine HCl 25 MG 12/16/2019 12:00:00 AM EDT 1.0 {tablet_as_needed} active Meclizine HCl 25 MG eCW1 ([facility]) Meclizine Hydrochloride 25 MG Oral Tablet Meclizine HC l 25 MG Meclizine HCl 25 MG 12/16/2019 12:00:00 AM EDT 1.0 {tablet_as_needed} active Meclizine HCl 25 MG eCW1 ([facility]) Amoxicillin 875 MG / Clavulanate 125 MG Oral Tablet Amoxicillin-Pot Clavulanate 875-125 MG Amoxicillin-Pot Clavulanate 875-125 MG 12/16/2019 12:00:00 AM ED T 1.0 {tablet} active Amoxicillin-Pot Cla vulanate 875-125 MG eCW1 ([facility]) Amoxicillin 875 MG / Clavulanate 125 MG Oral Tablet Amoxicillin-Pot Clavulanate 875-125 MG Amoxicillin-Pot Clavulanate 875-125 MG 12/16/2019 12:00:00 AM ED T 1.0 {tablet} active Amoxicillin-Pot Cla vulanate 875-125 MG eCW1 ([facility]) Amoxicillin 875 MG / Clavulanate 125 MG Oral Tablet Amoxicillin-Pot Clavulanate 875-125 MG Amoxicillin-Pot Clavulanate 875-125 MG 12/16/2019 12:00:00 AM ED T 1.0 {tablet} active Amoxicillin-Pot Cla vulanate 875-125 MG eCW1 ([facility]) Ofloxacin 3 MG/ML Ophthalmic Solution Ofloxacin 0.3 % Ofloxa radha 0.3 % 12/16/2019 12:00:00 AM EDT 10.0 {drops_into_affected_ear} active Ofloxacin 0.3 % eCW1 ([facility]) Meclizine Hydrochloride 25 MG Oral Tablet Meclizine HC l 25 MG Meclizine HCl 25 MG 12/16/2019 12:00:00 AM EDT 1.0 {tablet_as_needed} active Meclizine HCl 25 MG eCW1 ([facility]) Meclizine Hydrochloride 25 MG Oral Tablet Meclizine HC l 25 MG Meclizine HCl 25 MG 12/16/2019 12:00:00 AM EDT 1.0 {tablet_as_needed} active Meclizine HCl 25 MG eCW1 ([facility]) Meclizine Hydrochloride 25 MG Oral Tablet Meclizine HC l 25 MG Meclizine HCl 25 MG 12/16/2019 12:00:00 AM EDT 1.0 {tablet_as_needed} active Meclizine HCl 25 MG eCW1 ([facility]) Meclizine Hydrochloride 25 MG Oral Tablet MECLIZINE [...] {ml_into_affected_ear} active Ciprofloxacin HCl 0.2 % eCW1 ([facility]) Meclizine Hydrochloride 25 MG Oral Tablet Meclizine HC l 25 MG Meclizine HCl 25 MG 12/16/2019 12:00:00 AM EDT 1.0 {tablet_as_needed} active Meclizine HCl 25 MG eCW1 ([facility]) Ofloxacin 3 MG/ML Ophthalmic Solution Ofloxacin 0.3 % Ofloxa radha 0.3 % 12/16/2019 12:00:00 AM EDT 10.0 {drops_into_affected_ear} active Ofloxacin 0.3 % eCW1 ([facility]) Meclizine Hydrochloride 25 MG Oral Tablet MECLIZINE [...] {ml_into_affected_ear} active Ciprofloxacin HCl 0.2 % eCW1 ([facility]) Meclizine Hydrochloride 25 MG Oral Tablet Meclizine HC l 25 MG Meclizine HCl 25 MG 12/16/2019 12:00:00 AM EDT 1.0 {tablet_as_needed} active Meclizine HCl 25 MG eCW1 ([facility]) Meclizine Hydrochloride 25 MG Oral Tablet Meclizine HC l 25 MG Meclizine HCl 25 MG 12/16/2019 12:00:00 AM EDT 1.0 {tablet_as_needed} active Meclizine HCl 25 MG eCW1 ([facility]) Meclizine Hydrochloride 25 MG Oral Tablet Meclizine HC l 25 MG Meclizine HCl 25 MG 12/16/2019 12:00:00 AM EDT 1.0 {tablet_as_needed} active Meclizine HCl 25 MG eCW1 ([facility]) Meclizine Hydrochloride 25 MG Oral Tablet Meclizine HC l 25 MG Meclizine HCl 25 MG 12/16/2019 12:00:00 AM EDT 1.0 {tablet_as_needed} active Meclizine HCl 25 MG eCW1 ([facility]) 0.3 % 12/16/2019 12:00:00 AM EDT drops 5 INSTILL 10 DROPS INTO THE AFFECTED EAR ONCE DAILY FOR 7 DAYS INSTILL 10 DROPS INTO THE AFFECTED EAR O NCE DAILY FOR 7 DAYS SOLD: 12/16/2019 [facility] Ofloxacin 3 MG/ML Ophthalmic Solution Ofloxacin 0.3 % Ofloxa radha 0.3 % 12/16/2019 12:00:00 AM EDT 10.0 {drops_into_affected_ear} active Ofloxacin 0.3 % eCW1 ([facility]) 0.75 mg/0.5 mL 12/02/2019 12:00:00 AM EDT [...] CAPSULE BY MOUTH THREE TIMES A DAY [facility] 10 mg 08/07/2019 12:00:00 AM EDT tablet 30 TAKE ONE TABLET BY MOUTH EVERY DAY TAKE ONE TABLET BY MOUTH EVERY DAY SOLD: 12/16/2019 [facility] 10 mg 08/07/2019 12:00:00 AM EDT [...] er 10 mg tb24 [facility] ([facility]) duloxetine hydrochloride 60 mg cpep completed duloxetine hydrochloride 60 mg cpep [facility] ([facility]) famotidine 20 mg tabs completed famotidine 20 mg tabs [facility] ([facility]) pregabalin 100 MG Oral Capsule pregabalin 100 mg capsu le pregabalin 100 mg capsule completed pregabalin 100 MG Oral Capsule [facility] ([facility]) pregabalin 100 MG Oral Capsule pregabalin 100 mg capsu le pregabalin 100 mg capsule completed pregabalin 100 MG Oral Capsule [facility] ([facility]) Methocarbamol 750 MG Oral Tablet methoca rbamol 750 mg tablet TAKE ONE TABLET BY MOUTH THREE TIMES A DAY NEEDED methocarbamol 750 mg tablet TAKE ONE TAB LET BY MOUTH THREE TIMES A DAY NEEDED com pleted methocarbamol 750 MG Oral Tablet [facility] ([facility]) pregabalin 100 MG Oral Capsule pregabalin 100 mg capsu le pregabalin 100 mg capsule completed pregabalin 100 MG Oral Capsule [facility] ([facility]) atorvastatin calcium 10 mg tabs completed atorvastatin calcium 10 mg tabs [facility] ([facility]) Steglatro 5 mg tablet [id number] completed ertugliflozin 5 MG Oral Tablet [Steglatro] [facility]AC[facility] ([facility]) Methocarbamol 500 MG Oral Tablet methocarbamol 500 mg tablet methocarbamol 500 mg tablet completed methocarbamo l 500 MG Oral Tablet [facility] ([facility]) steglatro 5 mg tabs completed steglatro 5 mg tabs [facility] ([facility]) Methocarbamol 500 MG Oral Tablet methocarbamol 500 mg tablet methocarbamol 500 mg tablet completed methocarbamo l 500 MG Oral Tablet [facility] ([facility]) famotidine 20 mg tabs completed famotidine 20 mg tabs [facility] ([facility]) celecoxib 100 mg caps completed celecoxib 100 mg caps [facility] ([facility]) gabapentin 300 mg caps completed gabapentin 300 mg caps [facility] ([facility]) celecoxib 100 mg caps completed celecoxib 100 mg caps [facility] ([facility]) methocarbamol 500 mg tabs compl eted methocarbamol 500 mg tabs [facility] ([facility]) steglatro 5 mg tabs completed steglatro 5 mg tabs [facility] ([facility]) celecoxib 200 mg caps completed celecoxib 200 mg caps [facility] ([facility]) lisinopril 10 mg tabs completed lisinopril 10 mg tabs [facility] ([facility]) Famotidine 20 MG Oral Tablet famotidine 20 mg tablet famotidine 20 mg tablet completed famotidine 20 MG Oral Tablet [facility] ([facility]) oxybutynin chloride er 10 mg tb24 completed oxybutynin chloride er 10 mg tb24 [facility] ([facility]) steglatro 5 mg tabs completed steglatro 5 mg tabs [facility] ([facility]) famotidine 20 mg tabs completed famotidine 20 mg tabs [facility] ([facility]) pregabalin 75 MG Oral Capsule pregabalin 75 mg capsule prega balin 75 mg capsule completed pregabalin 75 MG Oral Capsule [facility] ([facility]) pregabalin 100 mg caps completed pregabalin 100 mg caps [facility] ([facility]) pregabalin 100 mg caps completed pregabalin 100 mg caps [facility] ([facility]) oxybutynin chloride er 10 mg tb24 completed oxybutynin chloride er 10 mg tb24 [facility] ([facility]) pregabalin 100 MG Oral Capsule pregabalin 100 mg capsu le pregabalin 100 mg capsule completed pregabalin 100 MG Oral Capsule [facility] ([facility]) Steglatro 5 mg tablet [id number] completed ertugliflozin 5 MG Oral Tablet [Steglatro] [facility]AC[facility] ([facility]) steglatro 5 mg tabs completed steglatro 5 mg tabs [facility] ([facility]) Methocarbamol 500 MG Oral Tablet methocarbamol 500 mg tablet methocarbamol 500 mg tablet completed methocarbamo l 500 MG Oral Tablet [facility] ([facility]) pregabalin 75 MG Oral Capsule pregabalin 75 mg capsule prega balin 75 mg capsule completed pregabalin 75 MG Oral Capsule [facility] ([facility]) fluticasone propionate 50 mcg/actuation nasal spray,suspension SPRAY ONE SPRAY IN EACH NOSTRIL DAILY [id number] completed fluticasone propionate 0.05 MG/ACTUAT Metered Dose Nasal [place] ([facility]) duloxetine hydrochloride 60 mg cpep completed duloxetine hydrochloride 60 mg cpep [place] ([facility]) methocarbamol 500 mg tabs compl eted methocarbamol 500 mg tabs [facility] ([facility]) Steglatro 5 mg tablet [id number] completed ertugliflozin 5 MG Oral Tablet [Steglatro] [facility] ([facility]) pregabalin 75 MG Oral Capsule pregabalin 75 mg capsule prega balin 75 mg capsule completed pregabalin 75 MG Oral Capsule [facility] ([facility]) celecoxib 200 mg caps completed celecoxib 200 mg caps [place] ([facility]) oxybutynin chloride er 10 mg tb24 completed oxybutynin chloride er 10 mg tb24 [facility] ([facility]) pregabalin 75 mg caps completed pregabalin 75 mg caps [place] ([facility]) atorvastatin calcium 10 mg tabs completed atorvastatin calcium 10 mg tabs [facility] ([facility]) celecoxib 100 mg caps completed celecoxib 100 mg caps [place] ([facility]) fluticasone propionate 50 mcg/act susp completed fluticasone propionate 50 mcg/act susp [place] ([facility]) famotidine 20 mg tabs completed famotidine 20 mg tabs [place] ([facility]) pregabalin 100 mg caps completed pregabalin 100 mg caps [place] ([facility]) celecoxib 200 mg caps completed celecoxib 200 mg caps [place] ([facility]) lisinopril 10 mg tabs completed lisinopril 10 mg tabs [facility] ([facility]) duloxetine hydrochloride 60 mg cpep completed duloxetine hydrochloride 60 mg cpep [facility] ([facility]) omeprazole 20 mg cpdr completed omeprazole 20 mg cpdr [place] ([facility]) methocarbamol 750 mg tabs compl eted methocarbamol 750 mg tabs [facility] ([facility]) celecoxib 100 mg caps completed celecoxib 100 mg caps [place] ([facility]) atorvastatin calcium 10 mg tabs completed atorvastatin calcium 10 mg tabs [facility] ([facility]) Amoxicillin 875 MG / Clavulanate 125 MG Oral Tablet amoxicillin 875 mg-potassium clavulanate 125 mg tablet TAKE ONE TABLET BY MOUTH EVERY 12 HOURS FOR 10 DAYS amoxicillin 875 mg-potassium clavulanate 125 mg tablet TAKE ONE TABLET BY MOUTH EVERY 12 HOURS FOR 10 DAYS completed amoxicillin 875 MG / clavulanate 125 MG Oral Tablet [facility] ([facility]) Steglatro 5 mg tablet [id number] completed ertugliflozin 5 MG Oral Tablet [Steglatro] [facility] ([facility]) Methocarbamol 750 MG Oral Tablet methoca rbamol 750 mg tablet TAKE ONE TABLET BY MOUTH THREE TIMES A DAY NEEDED methocarbamol 750 mg tablet TAKE ONE TAB LET BY MOUTH THREE TIMES A DAY NEEDED com pleted methocarbamol 750 MG Oral Tablet [facility] ([facility]) trulicity 0.75 mg/0.5ml sopn co mpleted trulicity 0.75 mg/0.5ml sopn [place] ([facility]) pregabalin 75 mg caps completed pregabalin 75 mg caps [place] ([facility]) duloxetine hcl 30 mg cpep compl eted duloxetine hcl 30 mg cpep [facility] ([facility]) fluticasone propionate 50 mcg/act susp completed fluticasone propionate 50 mcg/act susp [place] ([facility]) pregabalin 100 MG Oral Capsule pregabalin 100 mg capsu le pregabalin 100 mg capsule completed pregabalin 100 MG Oral Capsule [facility] ([facility]) duloxetine hcl 30 mg cpep compl eted duloxetine hcl 30 mg cpep [facility] ([facility]) pregabalin 75 mg caps completed pregabalin 75 mg caps [place] ([facility]) famotidine 20 mg tabs completed famotidine 20 mg tabs [place] ([facility]) duloxetine hcl 30 mg cpep compl eted duloxetine hcl 30 mg cpep [facility] ([facility]) omeprazole 20 mg cpdr completed omeprazole 20 mg cpdr [facility] ([facility]) atorvastatin calcium 10 mg tabs completed atorvastatin calcium 10 mg tabs [facility] ([facility]) Amoxicillin 875 MG / Clavulanate 125 MG Oral Tablet amoxicillin 875 mg-potassium clavulanate 125 mg tablet TAKE ONE TABLET BY MOUTH EVERY 12 HOURS FOR 10 DAYS amoxicillin 875 mg-potassium clavulanate 125 mg tablet TAKE ONE TABLET BY MOUTH EVERY 12 HOURS FOR 10 DAYS completed amoxicillin 875 MG / clavulanate 125 MG Oral Tablet [facility] ([facility]) meclizine hcl 25 mg tabs completed meclizine hcl 25 mg tabs [facility] ([facility]) omeprazole 20 mg cpdr completed omeprazole 20 mg cpdr [facility] ([facility]) Amoxicillin 875 MG / Clavulanate 125 MG Oral Tablet amoxicillin 875 mg-potassium clavulanate 125 mg tablet TAKE ONE TABLET BY MOUTH EVERY 12 HOURS FOR 10 DAYS amoxicillin 875 mg-potassium clavulanate 125 mg tablet TAKE ONE TABLET BY MOUTH EVERY 12 HOURS FOR 10 DAYS completed amoxicillin 875 MG / clavulanate 125 MG Oral Tablet [facility] ([facility]) duloxetine hydrochloride 60 mg cpep completed duloxetine hydrochloride 60 mg cpep [facility] ([facility]) trulicity 0.75 mg/0.5ml sopn co mpleted trulicity 0.75 mg/0.5ml sopn [place] ([facility]) omeprazole 20 mg cpdr completed omeprazole 20 mg cpdr [place] ([facility]) atorvastatin 10 MG Oral Tablet atorvasta tin 10 mg tablet TAKE ONE TABLET BY MOUTH EVERY DAY atorvastatin 10 mg tablet TAKE ONE TABLET BY MOUTH EVERY DAY completed atorvastatin 1 0 MG Oral Tablet [place] ([facility]) omeprazole 20 mg cpdr completed omeprazole 20 mg cpdr [place] ([facility]) meclizine hcl 25 mg tabs completed meclizine hcl 25 mg tabs [place] ([facility]) celecoxib 100 mg caps completed celecoxib 100 mg caps [place] ([facility]) pregabalin 75 MG Oral Capsule pregabalin 75 mg capsule prega balin 75 mg capsule completed pregabalin 75 MG Oral Capsule [place] ([facility]) Amoxicillin 875 MG / Clavulanate 125 MG Oral Tablet amoxicillin 875 mg-potassium clavulanate 125 mg tablet TAKE ONE TABLET BY MOUTH EVERY 12 HOURS FOR 10 DAYS amoxicillin 875 mg-potassium clavulanate 125 mg tablet TAKE ONE TABLET BY MOUTH EVERY 12 HOURS FOR 10 DAYS completed amoxicillin 875 MG / clavulanate 125 MG Oral Tablet [place] ([facility]) pregabalin 100 MG Oral Capsule pregabalin 100 mg [place] pregabalin 100 mg capsule completed pregabalin 100 MG Oral Capsule [place] ([facility]) celecoxib 100 mg caps completed celecoxib 100 mg caps [place] ([facility]) trulicity 0.75 mg/0.5ml sopn co mpleted trulicity 0.75 mg/0.5ml sopn [place] ([facility]) duloxetine hydrochloride 60 mg cpep completed duloxetine hydrochloride 60 mg cpep [place] ([facility]) meclizine hcl 25 mg tabs completed meclizine hcl 25 mg tabs [place] ([facility]) Methocarbamol 750 MG Oral Tablet methoca rbamol 750 mg tablet TAKE ONE TABLET BY MOUTH THREE TIMES A DAY NEEDED methocarbamol 750 mg tablet TAKE ONE TAB LET BY MOUTH THREE TIMES A DAY NEEDED com pleted methocarbamol 750 MG Oral Tablet [place] ([facility]) methocarbamol 750 mg tabs compl eted methocarbamol 750 mg tabs [place] ([facility]) Steglatro 5 mg tablet [id number] completed ertugliflozin 5 MG Oral Tablet [Steglatro] [place] ([facility]) steglatro 5 mg tabs completed steglatro 5 mg tabs [place] ([facility]) Amoxicillin 875 MG / Clavulanate 125 MG Oral Tablet amoxicillin 875 mg-potassium clavulanate 125 mg tablet TAKE ONE TABLET BY MOUTH EVERY 12 HOURS FOR 10 DAYS amoxicillin 875 mg-potassium clavulanate 125 mg tablet TAKE ONE TABLET BY MOUTH EVERY 12 HOURS FOR 10 DAYS completed amoxicillin 875 MG / clavulanate 125 MG Oral Tablet [place] ([facility]) methocarbamol 500 mg tabs compl eted methocarbamol 500 mg tabs [place] ([facility]) celecoxib 200 mg caps completed celecoxib 200 mg caps [place] ([facility]) famotidine 20 mg tabs completed famotidine 20 mg tabs [place] ([facility]) trulicity 0.75 mg/0.5ml sopn co mpleted trulicity 0.75 mg/0.5ml sopn [place] ([facility]) Oxycodone Hydrochloride 5 MG Oral Tablet oxycodone 5 mg tablet TAKE ONE TABLET BY MOUTH EVERY 4 HOURS NEEDED FOR UP TO 10 DAYS MAX 6TABS/DAY oxycodone 5 mg tablet TAKE ONE TABLET BY MOUTH EVERY 4 HOURS NEEDED FOR UP TO 10 DAYS MAX 6TABS/DAY completed oxycodone hy drochloride 5 MG Oral Tablet [place] ([facility]) pregabalin 100 mg caps completed pregabalin 100 mg caps [place] ([facility]) trulicity 0.75 mg/0.5ml sopn co mpleted trulicity 0.75 mg/0.5ml sopn [place] ([facility]) methocarbamol 750 mg tabs compl eted methocarbamol 750 mg tabs [place] ([facility]) trulicity 0.75 mg/0.5ml sopn co mpleted trulicity 0.75 mg/0.5ml sopn [place] ([facility]) meclizine hcl 25 mg tabs completed meclizine hcl 25 mg tabs [place] ([facility]) pregabalin 100 mg caps completed pregabalin 100 mg caps [place] ([facility]) fluticasone propionate 50 mcg/act susp completed fluticasone propionate 50 mcg/act susp [place] ([facility]) lisinopril 10 mg tabs completed lisinopril 10 mg tabs [place] ([facility]) 0.5 ML dulaglutide 1.5 MG/ML Auto-Inject or [Trulicity] Trulicity 0.75 mg/0.5 mL subcutaneous pen injector INJECT DIRECTED ONCE WEEKLY Trulicity 0.75 mg/0.5 mL subcutaneous pen injector INJECT DIRECTED ONCE WEEKLY completed 0.5 ML dulaglutide 1.5 MG/ML Aut o-Injector [Trulicity] [place] ([facility]) oxybutynin chloride er 10 mg tb24 completed oxybutynin chloride er 10 mg tb24 [place] ([facility]) fluticasone propionate 50 mcg/actuation nasal spray,suspension SPRAY ONE SPRAY IN EACH NOSTRIL DAILY [id number] completed fluticasone propionate 0.05 MG/ACTUAT Metered Dose Nasal [place] ([facility]) gabapentin 300 mg caps completed gabapentin 300 mg caps [place] ([facility]) pregabalin 75 MG Oral Capsule pregabalin 75 mg capsule prega balin 75 mg capsule completed pregabalin 75 MG Oral Capsule [place] ([facility]) pregabalin 75 MG Oral Capsule pregabalin 75 mg capsule prega balin 75 mg capsule completed pregabalin 75 MG Oral Capsule [place] ([facility]) methocarbamol 500 mg tabs compl eted methocarbamol 500 mg tabs [place] ([facility]) Steglatro 5 mg tablet [id number] completed ertugliflozin 5 MG Oral Tablet [Steglatro] [place] ([facility]) omeprazole 20 mg cpdr completed omeprazole 20 mg cpdr [place] ([facility]) Methocarbamol 500 MG Oral Tablet methocarbamol 500 mg tablet methocarbamol 500 mg tablet completed methocarbamo l 500 MG Oral Tablet [place] ([facility]) gabapentin 300 mg caps completed gabapentin 300 mg caps [place] ([facility]) trulicity 0.75 mg/0.5ml sopn co mpleted trulicity 0.75 mg/0.5ml sopn [place] ([facility]) methocarbamol 500 mg tabs compl eted methocarbamol 500 mg tabs [place] ([facility]) pregabalin 75 MG Oral Capsule pregabalin 75 mg capsule prega balin 75 mg capsule completed pregabalin 75 MG Oral Capsule [place] ([facility]) gabapentin 300 mg caps completed gabapentin 300 mg caps [place] ([facility]) omeprazole 20 mg cpdr completed omeprazole 20 mg cpdr [place] ([facility]) duloxetine hydrochloride 60 mg cpep completed duloxetine hydrochloride 60 mg cpep [place] ([facility]) famotidine 20 mg tabs completed famotidine 20 mg tabs [place] ([facility]) pregabalin 100 mg caps completed pregabalin 100 mg caps [place] ([facility]) gabapentin 300 mg caps completed gabapentin 300 mg caps [place] ([facility]) fluticasone propionate 50 mcg/actuation nasal spray,suspension SPRAY ONE SPRAY IN EACH NOSTRIL DAILY [id number] completed fluticasone propionate 0.05 MG/ACTUAT Metered Dose Nasal [place] ([facility]) Methocarbamol 750 MG Oral Tablet methoca rbamol 750 mg tablet TAKE ONE TABLET BY MOUTH THREE TIMES A DAY NEEDED methocarbamol 750 mg tablet TAKE ONE TAB LET BY MOUTH THREE TIMES A DAY NEEDED com pleted methocarbamol 750 MG Oral Tablet [place] ([facility]) Methocarbamol 500 MG Oral Tablet methocarbamol 500 mg tablet methocarbamol 500 mg tablet completed methocarbamo l 500 MG Oral Tablet [place] ([facility]) 0.5 ML dulaglutide 1.5 MG/ML Auto-Inject or [Trulicity] Trulicity 0.75 mg/0.5 mL subcutaneous pen injector INJECT DIRECTED ONCE WEEKLY Trulicity 0.75 mg/0.5 mL subcutaneous pen injector INJECT DIRECTED ONCE WEEKLY completed 0.5 ML dulaglutide 1.5 MG/ML Aut o-Injector [Trulicity] [place] ([facility]) oxybutynin chloride er 10 mg tb24 completed oxybutynin chloride er 10 mg tb24 [place] ([facility]) gabapentin 300 mg caps completed gabapentin 300 mg caps [place] ([facility]) pregabalin 100 mg caps completed pregabalin 100 mg caps [place] ([facility]) steglatro 5 mg tabs completed steglatro 5 mg tabs [place] ([facility]) Methocarbamol 500 MG Oral Tablet methocarbamol 500 mg tablet methocarbamol 500 mg tablet completed methocarbamo l 500 MG Oral Tablet [place] ([facility]) duloxetine hcl 30 mg cpep compl eted duloxetine hcl 30 mg cpep [place] ([facility]) trulicity 0.75 mg/0.5ml sopn co mpleted trulicity 0.75 mg/0.5ml sopn [place] ([facility]) lisinopril 10 mg tabs completed lisinopril 10 mg tabs [place] ([facility]) lisinopril 10 mg tabs completed lisinopril 10 mg tabs [place] ([facility]) lisinopril 10 mg tabs completed lisinopril 10 mg tabs [place] ([facility]) methocarbamol 750 mg tabs compl eted methocarbamol 750 mg tabs [place] ([facility]) Oxycodone Hydrochloride 5 MG Oral Tablet oxycodone 5 mg tablet TAKE ONE TABLET BY MOUTH EVERY 4 HOURS NEEDED FOR UP TO 10 DAYS MAX 6TABS/DAY oxycodone 5 mg tablet TAKE ONE TABLET BY MOUTH EVERY 4 HOURS NEEDED FOR UP TO 10 DAYS MAX 6TABS/DAY completed oxycodone hy drochloride 5 MG Oral Tablet [place] ([facility]) lisinopril 10 mg tabs completed lisinopril 10 mg tabs [place] ([facility]) pregabalin 75 mg caps completed pregabalin 75 mg caps [place] ([facility]) fluticasone propionate 50 mcg/actuation nasal spray,suspension SPRAY ONE SPRAY IN EACH NOSTRIL DAILY [id number] completed fluticasone propionate 0.05 MG/ACTUAT Metered Dose Nasal [place] ([facility]) methocarbamol 750 mg tabs compl eted methocarbamol 750 mg tabs [place] ([facility]) meclizine hcl 25 mg tabs completed meclizine hcl 25 mg tabs [place] ([facility]) duloxetine hydrochloride 60 mg cpep completed duloxetine hydrochloride 60 mg cpep [place] ([facility]) methocarbamol 750 mg tabs compl eted methocarbamol 750 mg tabs [place] ([facility]) pregabalin 75 mg caps completed pregabalin 75 mg caps [place] ([facility]) gabapentin 300 mg caps completed gabapentin 300 mg caps [place] ([facility]) celecoxib 200 mg caps completed celecoxib 200 mg caps [place] ([facility]) methocarbamol 750 mg tabs compl eted methocarbamol 750 mg tabs [place] ([facility]) Amoxicillin 875 MG / Clavulanate 125 MG Oral Tablet amoxicillin 875 mg-potassium clavulanate 125 mg tablet TAKE ONE TABLET BY MOUTH EVERY 12 HOURS FOR 10 DAYS amoxicillin 875 mg-potassium clavulanate 125 mg tablet TAKE ONE TABLET BY MOUTH EVERY 12 HOURS FOR 10 DAYS completed amoxicillin 875 MG / clavulanate 125 MG Oral Tablet [place] ([facility]) fluticasone propionate 50 mcg/actuation nasal spray,suspension SPRAY ONE SPRAY IN EACH NOSTRIL DAILY [id number] completed fluticasone propionate 0.05 MG/ACTUAT Metered Dose Nasal [place] ([facility]) Methocarbamol 500 MG Oral Tablet methocarbamol 500 mg tablet methocarbamol 500 mg tablet completed methocarbamo l 500 MG Oral Tablet [place] ([facility]) Steglatro 5 mg tablet [id number] completed ertugliflozin 5 MG Oral Tablet [Steglatro] [place] ([facility]) celecoxib 200 mg caps completed celecoxib 200 mg caps [place] ([facility]) fluticasone propionate 50 mcg/act susp completed fluticasone propionate 50 mcg/act susp [place] ([facility]) pregabalin 75 mg caps completed pregabalin 75 mg caps [place] ([facility]) fluticasone propionate 50 mcg/act susp completed fluticasone propionate 50 mcg/act susp [place] ([facility]) duloxetine hydrochloride 60 mg cpep completed duloxetine hydrochloride 60 mg cpep [place] ([facility]) methocarbamol 750 mg tabs compl eted methocarbamol 750 mg tabs [place] ([facility]) methocarbamol 750 mg tabs compl eted methocarbamol 750 mg tabs [place] ([facility]) fluticasone propionate 50 mcg/act susp completed fluticasone propionate 50 mcg/act susp [place] ([facility]) methocarbamol 500 mg tabs compl eted methocarbamol 500 mg tabs [place] ([facility]) gabapentin 300 mg caps completed gabapentin 300 mg caps [place] ([facility]) Amoxicillin 875 MG / Clavulanate 125 MG Oral Tablet amoxicillin 875 mg-potassium clavulanate 125 mg tablet TAKE ONE TABLET BY MOUTH EVERY 12 HOURS FOR 10 DAYS amoxicillin 875 mg-potassium clavulanate 125 mg tablet TAKE ONE TABLET BY MOUTH EVERY 12 HOURS FOR 10 DAYS completed amoxicillin 875 MG / clavulanate 125 MG Oral Tablet [place] ([facility]) atorvastatin 20 MG Oral Tablet atorvastatin 20 mg tabl et atorvastatin 20 mg tablet completed atorvastatin 20 MG Oral Tablet [place] ([facility]) methocarbamol 500 mg tabs compl eted methocarbamol 500 mg tabs [place] ([facility]) lisinopril 10 mg tabs completed lisinopril 10 mg tabs [place] ([facility]) lisinopril 10 mg tabs completed lisinopril 10 mg tabs [place] ([facility]) steglatro 5 mg tabs completed steglatro 5 mg tabs [place] ([facility]) meclizine hcl 25 mg tabs completed meclizine hcl 25 mg tabs [place] ([facility]) pregabalin 75 mg caps completed pregabalin 75 mg caps [place] ([facility]) methocarbamol 750 mg tabs compl eted methocarbamol 750 mg tabs [place] ([facility]) fluticasone propionate 50 mcg/actuation nasal spray,suspension SPRAY ONE SPRAY IN EACH NOSTRIL DAILY [id number] completed fluticasone propionate 0.05 MG/ACTUAT Metered Dose Nasal [place] ([facility]) Methocarbamol 750 MG Oral Tablet methoca rbamol 750 mg tablet TAKE ONE TABLET BY MOUTH THREE TIMES A DAY NEEDED methocarbamol 750 mg tablet TAKE ONE TAB LET BY MOUTH THREE TIMES A DAY NEEDED com pleted methocarbamol 750 MG Oral Tablet [place] ([facility]) Methocarbamol 750 MG Oral Tablet methoca rbamol 750 mg tablet TAKE ONE TABLET BY MOUTH THREE TIMES A DAY NEEDED methocarbamol 750 mg tablet TAKE ONE TAB LET BY MOUTH THREE TIMES A DAY NEEDED com pleted methocarbamol 750 MG Oral Tablet [place] ([facility]) lisinopril 10 mg tabs completed lisinopril 10 mg tabs [place] ([facility]) meclizine hcl 25 mg tabs completed meclizine hcl 25 mg tabs [place] ([facility]) Steglatro 5 mg tablet [id number] completed ertugliflozin 5 MG Oral Tablet [Steglatro] [place] ([facility]) fluticasone propionate 50 mcg/actuation nasal spray,suspension SPRAY ONE SPRAY IN EACH NOSTRIL DAILY [id number] completed fluticasone propionate 0.05 MG/ACTUAT Metered Dose Nasal [place] ([facility]) duloxetine hydrochloride 60 mg cpep completed duloxetine hydrochloride 60 mg cpep [place] ([facility]) famotidine 20 mg tabs completed famotidine 20 mg tabs [place] ([facility]) methocarbamol 750 mg tabs compl eted methocarbamol 750 mg tabs [place] ([facility]) meclizine hcl 25 mg tabs completed meclizine hcl 25 mg tabs [place] ([facility]) pregabalin 75 mg caps completed pregabalin 75 mg caps [place] ([facility]) pregabalin 100 MG Oral Capsule pregabalin 100 mg capsu [place] pregabalin 100 mg capsule completed pregabalin 100 MG Oral Capsule [place] ([facility]) fluticasone propionate 50 mcg/actuation nasal spray,suspension SPRAY ONE SPRAY IN EACH NOSTRIL DAILY [id number] completed fluticasone propionate 0.05 MG/ACTUAT Metered Dose Nasal [place] ([facility]) celecoxib 100 mg caps completed celecoxib 100 mg caps [place] ([facility]) pregabalin 75 MG Oral Capsule pregabalin 75 mg capsule prega balin 75 mg capsule completed pregabalin 75 MG Oral Capsule [place] ([facility]) fluticasone propionate 50 mcg/actuation nasal spray,suspension SPRAY ONE SPRAY IN EACH NOSTRIL DAILY [id number] completed fluticasone propionate 0.05 MG/ACTUAT Metered Dose Nasal [place] ([facility]) methocarbamol 500 mg tabs compl eted methocarbamol 500 mg tabs [place] ([facility]) atorvastatin 10 MG Oral Tablet atorvasta tin 10 mg tablet TAKE ONE TABLET BY MOUTH DAILY atorvastatin 10 mg tablet TAKE ONE TABLET BY MOUTH DAILY completed atorvastatin 10 MG Oral Tabl et [place] ([facility]) omeprazole 20 mg cpdr completed omeprazole 20 mg cpdr [place] ([facility]) Methocarbamol 750 MG Oral Tablet methoca rbamol 750 mg tablet TAKE ONE TABLET BY MOUTH THREE TIMES A DAY NEEDED methocarbamol 750 mg tablet TAKE ONE TAB LET BY MOUTH THREE TIMES A DAY NEEDED com pleted methocarbamol 750 MG Oral Tablet [place] ([facility]) Methocarbamol 500 MG Oral Tablet methocarbamol 500 mg tablet methocarbamol 500 mg tablet completed methocarbamo l 500 MG Oral Tablet [place] ([facility]) pregabalin 75 mg caps completed pregabalin 75 mg caps [place] ([facility]) atorvastatin 20 MG Oral Tablet atorvastatin 20 mg tabl et atorvastatin 20 mg tablet completed atorvastatin 20 MG Oral Tablet [place] ([facility]) atorvastatin 10 MG Oral Tablet atorvasta tin 10 mg tablet TAKE ONE TABLET BY MOUTH DAILY atorvastatin 10 mg tablet TAKE ONE TABLET BY MOUTH DAILY completed atorvastatin 10 MG Oral Tabl et [place] ([facility]) meclizine hcl 25 mg tabs completed meclizine hcl 25 mg tabs [place] ([facility]) lisinopril 10 mg tabs completed lisinopril 10 mg tabs [place] ([facility]) oxybutynin chloride er 10 mg tb24 completed oxybutynin chloride er 10 mg tb24 [place] ([facility]) fluticasone propionate 50 mcg/actuation nasal spray,suspension SPRAY ONE SPRAY IN EACH NOSTRIL DAILY [id number] completed fluticasone propionate 0.05 MG/ACTUAT Metered Dose Nasal [place] ([facility]) celecoxib 100 mg caps completed celecoxib 100 mg caps [place] ([facility]) Amoxicillin 875 MG / Clavulanate 125 MG Oral Tablet amoxicillin 875 mg-potassium clavulanate 125 mg tablet TAKE ONE TABLET BY MOUTH EVERY 12 HOURS FOR 10 DAYS amoxicillin 875 mg-potassium clavulanate 125 mg tablet TAKE ONE TABLET BY MOUTH EVERY 12 HOURS FOR 10 DAYS completed amoxicillin 875 MG / clavulanate 125 MG Oral Tablet [place] ([facility]) atorvastatin calcium 10 mg tabs completed atorvastatin calcium 10 mg tabs [place] ([facility]) pregabalin 75 mg caps completed pregabalin 75 mg caps [place] ([facility]) fluticasone propionate 50 mcg/act susp completed fluticasone propionate 50 mcg/act susp [place] ([facility]) Oxycodone Hydrochloride 5 MG Oral Tablet oxycodone 5 mg tablet TAKE ONE TABLET BY MOUTH EVERY 4 HOURS NEEDED FOR UP TO 10 DAYS MAX 6TABS/DAY oxycodone 5 mg tablet TAKE ONE TABLET BY MOUTH EVERY 4 HOURS NEEDED FOR UP TO 10 DAYS MAX 6TABS/DAY completed oxycodone hy drochloride 5 MG Oral Tablet [place] ([facility]) oxybutynin chloride er 10 mg tb24 completed oxybutynin chloride er 10 mg tb24 [place] ([facility]) celecoxib 100 mg caps completed celecoxib 100 mg caps [place] ([facility]) Methocarbamol 750 MG Oral Tablet methoca rbamol 750 mg tablet TAKE ONE TABLET BY MOUTH THREE TIMES A DAY NEEDED methocarbamol 750 mg tablet TAKE ONE TAB LET BY MOUTH THREE TIMES A DAY NEEDED com pleted methocarbamol 750 MG Oral Tablet [place] ([facility]) duloxetine hcl 30 mg cpep compl eted duloxetine hcl 30 mg cpep [place] ([facility]) Oxycodone Hydrochloride 5 MG Oral Tablet oxycodone 5 mg tablet TAKE ONE TABLET BY MOUTH EVERY 4 HOURS NEEDED FOR UP TO 10 DAYS MAX 6TABS/DAY oxycodone 5 mg tablet TAKE ONE TABLET BY MOUTH EVERY 4 HOURS NEEDED FOR UP TO 10 DAYS MAX 6TABS/DAY completed oxycodone hy drochloride 5 MG Oral Tablet [place] ([facility]) pregabalin 75 MG Oral Capsule pregabalin 75 mg capsule prega balin 75 mg capsule completed pregabalin 75 MG Oral Capsule [place] ([facility]) pregabalin 75 mg caps completed pregabalin 75 mg caps [place] ([facility]) Methocarbamol 750 MG Oral Tablet methoca rbamol 750 mg tablet TAKE ONE TABLET BY MOUTH THREE TIMES A DAY NEEDED methocarbamol 750 mg tablet TAKE ONE TAB LET BY MOUTH THREE TIMES A DAY NEEDED com pleted methocarbamol 750 MG Oral Tablet [place] ([facility]) pregabalin 75 MG Oral Capsule pregabalin 75 mg capsule prega balin 75 mg capsule completed pregabalin 75 MG Oral Capsule [place] ([facility]) Methocarbamol 500 MG Oral Tablet methocarbamol 500 mg tablet methocarbamol 500 mg tablet completed methocarbamo l 500 MG Oral Tablet [facility] ([facility]) 0.5 ML dulaglutide 3 MG/ML Auto-Injector [Trulicity] Trulicity 1.5 mg/0.5 mL subcutaneous pen injector INJECT DIRECTED ONCE WEEKLY UNDER THE SKIN Trulicity 1.5 mg/0.5 mL subcutaneous pen injector INJECT DIRECTED ONCE WEEKLY UNDER THE SKIN completed 0.5 ML dulaglutide 3 MG/ML Auto- Injector [Trulicity] [facility] ([facility]) atorvastatin calcium 10 mg tabs completed atorvastatin calcium 10 mg tabs [facility] ([facility]) omeprazole 20 mg cpdr completed omeprazole 20 mg cpdr [facility] ([facility]) atorvastatin calcium 10 mg tabs completed atorvastatin calcium 10 mg tabs [facility] ([facility]) gabapentin 300 mg caps completed gabapentin 300 mg caps [facility] ([facility]) gabapentin 300 mg caps completed gabapentin 300 mg caps [facility] ([facility]) celecoxib 100 mg caps completed celecoxib 100 mg caps [facility] ([facility]) atorvastatin calcium 10 mg tabs completed atorvastatin calcium 10 mg tabs [facility] ([facility]) celecoxib 100 mg caps completed celecoxib 100 mg caps [facility] ([facility]) celecoxib 100 mg caps completed celecoxib 100 mg caps [facility] ([facility]) gabapentin 300 mg caps completed gabapentin 300 mg caps [facility] ([facility]) fluticasone propionate 50 mcg/act susp completed fluticasone propionate 50 mcg/act susp [facility] ([facility]) lisinopril 10 mg tabs completed lisinopril 10 mg tabs [facility] ([facility]) Methocarbamol 500 MG Oral Tablet methocarbamol 500 mg tablet methocarbamol 500 mg tablet completed methocarbamo l 500 MG Oral Tablet [facility] ([facility]) pregabalin 100 mg caps completed pregabalin 100 mg caps [facility] ([facility]) methocarbamol 750 mg tabs compl eted methocarbamol 750 mg tabs [facility] ([facility]) gabapentin 300 mg caps completed gabapentin 300 mg caps [facility] ([facility]) celecoxib 100 mg caps completed celecoxib 100 mg caps [facility] ([facility]) atorvastatin calcium 10 mg tabs completed atorvastatin calcium 10 mg tabs [facility] ([facility]) lisinopril 10 mg tabs completed lisinopril 10 mg tabs [facility] ([facility]) celecoxib 200 mg caps completed celecoxib 200 mg caps [facility] ([facility]) duloxetine hcl 30 mg cpep compl eted duloxetine hcl 30 mg cpep [facility] ([facility]) pregabalin 100 mg caps completed pregabalin 100 mg caps [facility] ([facility]) meclizine hcl 25 mg tabs completed meclizine hcl 25 mg tabs [facility] ([facility]) Steglatro 5 mg tablet [id number] completed ertugliflozin 5 MG Oral Tablet [Steglatro] [facility] ([facility]) Methocarbamol 500 MG Oral Tablet methocarbamol 500 mg tablet methocarbamol 500 mg tablet completed methocarbamo l 500 MG Oral Tablet [facility] ([facility]) Steglatro 5 mg tablet [id number] completed ertugliflozin 5 MG Oral Tablet [Steglatro] [facility] ([facility]) pregabalin 100 MG Oral Capsule pregabalin 100 mg capsu le pregabalin 100 mg capsule completed pregabalin 100 MG Oral Capsule [facility] ([facility]) oxybutynin chloride er 10 mg tb24 completed oxybutynin chloride er 10 mg tb24 [place] ([facility]) pregabalin 100 mg caps completed pregabalin 100 mg caps [facility] ([facility]) duloxetine hcl 30 mg cpep compl eted duloxetine hcl 30 mg cpep [facility] ([facility]) fluticasone propionate 50 mcg/act susp completed fluticasone propionate 50 mcg/act susp [facility] ([facility]) Methocarbamol 500 MG Oral Tablet methocarbamol 500 mg tablet methocarbamol 500 mg tablet completed methocarbamo l 500 MG Oral Tablet [facility] ([facility]) omeprazole 20 mg cpdr completed omeprazole 20 mg cpdr [facility] ([facility]) meclizine hcl 25 mg tabs completed meclizine hcl 25 mg tabs [facility] ([facility]) pregabalin 100 MG Oral Capsule pregabalin 100 mg capsu le pregabalin 100 mg capsule completed pregabalin 100 MG Oral Capsule [facility] ([facility]) fluticasone propionate 50 mcg/actuation nasal spray,suspension SPRAY ONE SPRAY IN EACH NOSTRIL DAILY [id number] completed fluticasone propionate 0.05 MG/ACTUAT Metered Dose Nasal [place] [facility] ([facility]) fluticasone propionate 50 mcg/act susp completed fluticasone propionate 50 mcg/act susp [facility] ([facility]) steglatro 5 mg tabs completed steglatro 5 mg tabs [facility] ([facility]) Methocarbamol 750 MG Oral Tablet methoca rbamol 750 mg tablet TAKE ONE TABLET BY MOUTH THREE TIMES A DAY NEEDED methocarbamol 750 mg tablet TAKE ONE TAB LET BY MOUTH THREE TIMES A DAY NEEDED com pleted methocarbamol 750 MG Oral Tablet [facility] ([facility]) meclizine hcl 25 mg tabs completed meclizine hcl 25 mg tabs [facility] ([facility]) famotidine 20 mg tabs completed famotidine 20 mg tabs [facility] ([facility]) Steglatro 5 mg tablet [id number] completed ertugliflozin 5 MG Oral Tablet [Steglatro] [facility] ([facility]) methocarbamol 500 mg tabs compl eted methocarbamol 500 mg tabs [facility] ([facility]) famotidine 20 mg tabs completed famotidine 20 mg tabs [facility] ([facility]) steglatro 5 mg tabs completed steglatro 5 mg tabs [facility] ([facility]) oxybutynin chloride er 10 mg tb24 completed oxybutynin chloride er 10 mg tb24 [facility] ([facility]) famotidine 20 mg tabs completed famotidine 20 mg tabs [facility] ([facility]) pregabalin 75 MG Oral Capsule pregabalin 75 mg capsule prega balin 75 mg capsule completed pregabalin 75 MG Oral Capsule [facility] ([facility]) atorvastatin calcium 10 mg tabs completed atorvastatin calcium 10 mg tabs [place] ([facility]) methocarbamol 750 mg tabs compl eted methocarbamol 750 mg tabs [facility] ([facility]) Methocarbamol 750 MG Oral Tablet methoca rbamol 750 mg tablet TAKE ONE TABLET BY MOUTH THREE TIMES A DAY NEEDED methocarbamol 750 mg tablet TAKE ONE TAB LET BY MOUTH THREE TIMES A DAY NEEDED com pleted methocarbamol 750 MG Oral Tablet [facility] ([facility]) pregabalin 100 mg caps completed pregabalin 100 mg caps [facility] ([facility]) duloxetine hcl 30 mg cpep compl eted duloxetine hcl 30 mg cpep [facility] ([facility]) pregabalin 75 mg caps completed pregabalin 75 mg caps [facility] ([facility]) duloxetine hydrochloride 60 mg cpep completed duloxetine hydrochloride 60 mg cpep [facility] ([facility]) celecoxib 200 mg caps completed celecoxib 200 mg caps [facility] ([facility]) Methocarbamol 750 MG Oral Tablet methoca rbamol 750 mg tablet TAKE ONE TABLET BY MOUTH THREE TIMES A DAY NEEDED methocarbamol 750 mg tablet TAKE ONE TAB LET BY MOUTH THREE TIMES A DAY NEEDED com pleted methocarbamol 750 MG Oral Tablet [facility] ([facility]) trulicity 0.75 mg/0.5ml sopn co mpleted trulicity 0.75 mg/0.5ml sopn [facility] ([facility]) duloxetine hydrochloride 60 mg cpep completed duloxetine hydrochloride 60 mg cpep [facility] ([facility]) methocarbamol 500 mg tabs compl eted methocarbamol 500 mg tabs [facility] ([facility]) Oxycodone Hydrochloride 5 MG Oral Tablet oxycodone 5 mg tablet TAKE ONE TABLET BY MOUTH EVERY 4 HOURS NEEDED FOR UP TO 10 DAYS MAX 6TABS/DAY oxycodone 5 mg tablet TAKE ONE TABLET BY MOUTH EVERY 4 HOURS NEEDED FOR UP TO 10 DAYS MAX 6TABS/DAY completed oxycodone hy drochloride 5 MG Oral Tablet [facility] ([facility]) duloxetine hcl 30 mg cpep compl eted duloxetine hcl 30 mg cpep [facility] ([facility]) trulicity 0.75 mg/0.5ml sopn co mpleted trulicity 0.75 mg/0.5ml sopn [facility] ([facility]) Oxycodone Hydrochloride 5 MG Oral Tablet oxycodone 5 mg tablet TAKE ONE TABLET BY MOUTH EVERY 4 HOURS NEEDED FOR UP TO 10 DAYS MAX 6TABS/DAY oxycodone 5 mg tablet TAKE ONE TABLET BY MOUTH EVERY 4 HOURS NEEDED FOR UP TO 10 DAYS MAX 6TABS/DAY completed oxycodone hy drochloride 5 MG Oral Tablet [facility] ([facility]) methocarbamol 500 mg tabs compl eted methocarbamol 500 mg tabs [facility] ([facility]) omeprazole 20 mg cpdr completed omeprazole 20 mg cpdr [facility] ([facility]) celecoxib 200 mg caps completed celecoxib 200 mg caps [facility] ([facility]) duloxetine hcl 30 mg cpep compl eted duloxetine hcl 30 mg cpep [facility] ([facility]) methocarbamol 500 mg tabs compl eted methocarbamol 500 mg tabs [facility] ([facility]) celecoxib 200 mg caps completed celecoxib 200 mg caps [facility] ([facility]) omeprazole 20 mg cpdr completed omeprazole 20 mg cpdr [facility] ([facility]) fluticasone propionate 50 mcg/act susp completed fluticasone propionate 50 mcg/act susp [facility] ([facility]) steglatro 5 mg tabs completed steglatro 5 mg tabs [facility] ([facility]) fluticasone propionate 50 mcg/act susp completed fluticasone propionate 50 mcg/act susp [facility] ([facility]) celecoxib 200 mg caps completed celecoxib 200 mg caps [facility] ([facility]) Methocarbamol 750 MG Oral Tablet methoca rbamol 750 mg tablet TAKE ONE TABLET BY MOUTH THREE TIMES A DAY NEEDED methocarbamol 750 mg tablet TAKE ONE TAB LET BY MOUTH THREE TIMES A DAY NEEDED com pleted methocarbamol 750 MG Oral Tablet [facility] ([facility]) steglatro 5 mg tabs completed steglatro 5 mg tabs [facility] ([facility]) Methocarbamol 500 MG Oral Tablet methocarbamol 500 mg tablet methocarbamol 500 mg tablet completed methocarbamo l 500 MG Oral Tablet [facility] ([facility]) meclizine hcl 25 mg tabs completed meclizine hcl 25 mg tabs [facility] ([facility]) oxybutynin chloride er 10 mg tb24 completed oxybutynin chloride er 10 mg tb24 [place] ([facility]) methocarbamol 500 mg tabs compl eted methocarbamol 500 mg tabs [facility] ([facility]) steglatro 5 mg tabs completed steglatro 5 mg tabs [facility] ([facility]) pregabalin 100 mg caps completed pregabalin 100 mg caps [facility] ([facility]) duloxetine hydrochloride 60 mg cpep completed duloxetine hydrochloride 60 mg cpep [facility] ([facility]) Steglatro 5 mg tablet [id number] completed ertugliflozin 5 MG Oral Tablet [Steglatro] [facility] ([facility]) Steglatro 5 mg tablet [id number] completed ertugliflozin 5 MG Oral Tablet [Steglatro] [facility] ([facility]) pregabalin 100 MG Oral Capsule pregabalin 100 mg capsu le pregabalin 100 mg capsule completed pregabalin 100 MG Oral Capsule [place] ([facility]) oxybutynin chloride er 10 mg tb24 completed oxybutynin chloride er 10 mg tb24 [place] ([facility]) Amoxicillin 875 MG / Clavulanate 125 MG Oral Tablet amoxicillin 875 mg-potassium clavulanate 125 mg tablet TAKE ONE TABLET BY MOUTH EVERY 12 HOURS FOR 10 DAYS amoxicillin 875 mg-potassium clavulanate 125 mg tablet TAKE ONE TABLET BY MOUTH EVERY 12 HOURS FOR 10 DAYS completed amoxicillin 875 MG / clavulanate 125 MG Oral Tablet [facility] ([facility]) trulicity 0.75 mg/0.5ml sopn co mpleted trulicity 0.75 mg/0.5ml sopn [facility] ([facility]) atorvastatin calcium 10 mg tabs completed atorvastatin calcium 10 mg tabs [place] ([facility]) pregabalin 75 mg caps completed pregabalin 75 mg caps [place] ([facility]) gabapentin 300 mg caps completed gabapentin 300 mg caps [place] ([facility]) omeprazole 20 mg cpdr completed omeprazole 20 mg cpdr [facility] ([facility]) duloxetine hydrochloride 60 mg cpep completed duloxetine hydrochloride 60 mg cpep [facility] ([facility]) duloxetine hcl 30 mg cpep compl eted duloxetine hcl 30 mg cpep [facility] ([facility]) pregabalin 75 MG Oral Capsule pregabalin 75 mg capsule prega balin 75 mg capsule completed pregabalin 75 MG Oral Capsule [facility] ([facility]) oxybutynin chloride er 10 mg tb24 completed oxybutynin chloride er 10 mg tb24 [place] ([facility]) fluticasone propionate 50 mcg/actuation nasal spray,suspension SPRAY ONE SPRAY IN EACH NOSTRIL DAILY [id number] completed fluticasone propionate 0.05 MG/ACTUAT Metered Dose Nasal [place] [facility] ([facility]) pregabalin 75 MG Oral Capsule pregabalin 75 mg capsule prega balin 75 mg capsule completed pregabalin 75 MG Oral Capsule [facility] ([facility]) pregabalin 100 mg caps completed pregabalin 100 mg caps [facility] ([facility]) fluticasone propionate 50 mcg/act susp completed fluticasone propionate 50 mcg/act susp [facility] ([facility]) steglatro 5 mg tabs completed steglatro 5 mg tabs [facility] ([facility]) 0.5 ML dulaglutide 3 MG/ML Auto-Injector [Trulicity] Trulicity 1.5 mg/0.5 mL subcutaneous pen injector INJECT DIRECTED ONCE WEEKLY UNDER THE SKIN Trulicity 1.5 mg/0.5 mL subcutaneous pen injector INJECT DIRECTED ONCE WEEKLY UNDER THE SKIN completed 0.5 ML dulaglutide 3 MG/ML Auto- Injector [Trulicity] [facility] ([facility]) fluticasone propionate 50 mcg/actuation nasal spray,suspension SPRAY ONE SPRAY IN EACH NOSTRIL DAILY [id number] completed fluticasone propionate 0.05 MG/ACTUAT Metered Dose Nasal [place] [facility] ([facility]) pregabalin 100 MG Oral Capsule pregabalin 100 mg capsu le pregabalin 100 mg capsule completed pregabalin 100 MG Oral Capsule [facility] ([facility]) Insurance Providers Payer name Policy type / Coverage type Policy ID Covered green party ID Covered green party's relationship to jj Policy Jj Plan Information JANNY CLAIMS ADMIN [facility] W [id number] Empl [id number] [facility] CLAIMS [employer] W [id number] Empl [id number] AETNA U [id number] Self [id number] MEDICAID [id number] SP [id number] [facility] Comm Plan Medicaid F [id number] SELF [id number] [facility] I [id number] Self [id number] MEDICAID M [id number] Self [id number] UHC I [id number] Self [id number] UHC I [id number] Self [id number] UNHC COMMUNITY PLAN MCDHMO [id number] SP [id number] BLUE CARD C [id number] Spouse [id number] BLUE CARD C [id number] Spouse [id number] BCBS ANTHEM BC [id number] S PY [id number] BCBS OTHER [id number] S [id number] BCBS EXCELLUS [id number] S PYN [id number] MEDICAID M [id number] Self [id number] ANSI-Medicaid [id number] ANSI-Not a Secondary Insurance [id number] ANSI-Not a Secondary Insurance [id number] ANSI-Medicaid [id number] ANSI-Medicaid [id number] ANSI-Not a Secondary Insurance [id number] ANSI-Medicaid [id number] ANSI-Not a Secondary Insurance [id number] ANSI-Medicaid [id number] ANSI-Not a Secondary Insurance [id number] ANSI-Not a Secondary Insurance [id number] ANSI-Medicaid [id number] ANSI-Not a Secondary Insurance [id number] ANSI-Medicaid [id number] ANSI-Not a Secondary Insurance [id number] ANSI-Medicaid [id number] ANSI-Medicaid [id number] ANSI-Not a Secondary Insurance [id number] ANSI-Not a Secondary Insurance [id number] ANSI-Medicaid [id number] ANSI-Medicaid [id number] ANSI-Not a Secondary Insurance [id number] ANSI-Medicaid [id number] ANSI-Not a Secondary Insurance [id number] ANSI-Medicaid [id number] ANSI-Not a Secondary Insurance [id number] [facility] [id number] S [id number] [facility] Health Maintenance Organization (HMO) [id number] Self [id number] [facility] Health Maintenance Organization (HMO) [id number] Self [id number] [facility] Health Maintenance Organization (HMO) [id number] Self [id number] [facility] Health Maintenance Organization (HMO) [id number] Self [id number] [facility] Health Maintenance Organization (HMO) [id number] Self [id number] SELF PAY SP [id number] S [id number] EMPLOYER [id number] S [id number] [id number] SP [id number] SP [id number] [facility] COMM [id number] S [id number] MEDICAID M [id number] S [id number] SELF PAY UNAVAILABLE SP UNAVAILA BLE [facility] Medigap Part B [id number] Self Medicaid Medicaid [id number] Self [employer] [facility] [place] [id number] SP [id number] CONTRACT CLAIMS [id number] SP [id number] [employer] [id number] S [id number] [employer] [id number] S [id number] OTHER WORKERS COMPENSATION [id number] SP [id number] [place] [id number] SP [id number] BCBS [place] PPO 302/307 [id number] BCBS ANTHEM BC [id number] S PY [id number] MEDICAID [id number] S [id number] [facility] MEDICAID [id number] S [id number] MEDICAID [id number] S [id number] BCBS ANTHEM [id number] UN COMM[employer]ITY PL[employer] [facility] [id number] SP [id number] BCBS OTHER [id number] S [id number] BCBS OTHER UNAVAILABLE UNAVAIL ABLE BCBS ANTHEM [place] [id number] SP [id number] UN COMMUNITY PL[employer] [facility] [id number] SP [id number] [facility] O [id number] S [id number] ANSI-Not a Secondary Insurance [id number] ANSI-Medicaid [id number] [facility] Health Maintenance Organization (HMO) [id number] Self [id number] Problems, Conditions, and Diagnoses Code Display Name Description Problem Type Effective Dates Data Source(s) M26.621 Arthralgia of right temporomandibular j oint ARTHRALGIA OF RIGHT TEMPOROMANDIBULAR JOINT Diagnosis 12/02/2020 02:35:00 PM EDT [facility] H92.01 Otalgia, right ear OTALGIA, RIGHT EAR Diagnosis 02:35:00 PM T [facility] M75.41 Impingement syndrome of right shoulder I mpingement syndrome of right shoulder Diagnosis 11/10/2020 03:00:42 PM EDT [facility] R52 Pain, unspecified Pain, unspecified Diagnosis 10/19/2020 02:00:02 PM EDT [facility] Y93.89 Activity, other specified ACTIVITY, OTHER SPECIFIED Di agnosis 08/31/2020 06:08:00 PM [facility] Y92.[address] in unspeci fied non-institutional (private) residence as the place of occurrence of the external cause UNSP PLACE IN UNSP NON-INSTITUT (PRIVATE) RESIDENC Diagnosis 08/31/2020 06:08:00 PM [facility] W20.8XXA Other cause of strike by thr own, projected or falling object, initial encounter OTH CAUSE OF STRIKE BY THROWN, PROJECTED OR FALL O Diagnosis 08/31/2020 06:08:00 PM [facility] Z90.49 Acquired absence of other specified part s of digestive tract ACQUIRED ABSENCE OF OTHER SPECIFIED PARTS OF DIGES Diagnosis 08/31/2020 06:08:0 0 PM [facility] Z79.899 Other correction (current) drug 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 Diagnosis 08/31/2020 06:08:00 PM [facility] F17.210 Nicotine dependence, cigarettes, uncompl icated NICOTINE DEPENDENCE, CIGARETTES, UNCOMPLICATED Diagnosis 08/31/2020 06:08:00 PM [facility] E78.00 PURE HYPERCHOLESTEROLEMIA, UNSPECIFIED P URE HYPERCHOLESTEROLEMIA, UNSPECIFIED Diagnosis 08/31/2020 06:08:00 [facility] [place] E11.9 Type 2 diabetes mellitus without complic ations TYPE 2 DIABETES MELLITUS WITHOUT COMPLICATIONS Diagnosis 08/31/2020 06:08:00 PM [facility] I10 Essential (primary) hypertension ESSENTIAL (PRIMARY) H YPERTENSION Diagnosis 08/31/2020 06:08:00 PM [facility] S90.02XA Contusion of left ankle, initial encount er CONTUSION OF LEFT ANKLE, INITIAL ENCOUNTER Diagnosis 08/31/2020 06:08:00 PM [facility] [place] S99.912A Unspecified injury of left ankle, initia l encounter UNSPECIFIED INJURY OF LEFT ANKLE, INITIAL ENCOUNTER Diagnosis 08/31/2020 06:08:00 PM [facility] 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 OF INSULIN Diagnosis 08/13/2020 09:09:00 AM [facility] E11.65 Type 2 diabetes mellitus with hyperglyce mariano TYPE 2 DIABETES MELLITUS WITH HYPERGLYCEMIA Diagnosis 08/13/2020 09:09:00 AM [facility] [place] M21.42 Flat foot [pes planus] (acquired), left foot Flat foot (pes planus) (acquired), left foot Diagnosis 07/09/2020 11:15:20 AM [facility] M21.41 Flat foot [pes planus] (acquired), right foot Flat foot (pes planus) (acquired), right foot Diagnosis 07/09/2020 11:15:20 AM [facility] M19.079 Primary osteoarthritis, unspecified ankl e and foot Primary osteoarthritis, unspecified ankle and foot Diagnosis 07/09/2020 11:15: 20 AM [facility] M95.8 Other specified acquired deformities of musculoskeletal system Other specified acquired deformities of musculoskeletal system Diagnosis 07/09/2020 11:15:20 AM [facility] M19.079 Primary osteoarthritis, unspecified ankl e and foot PRIMARY OSTEOARTHRITIS, UNSPECIFIED ANKL Diagnosis 06/04/2020 09:30:00 AM [facility] M95.8 Other specified acquired deformities of musculoskeletal system OTH ACQUIRED DEFORMITIES OF MUSCULOSKELETAL SYSTEM Diagnosis 021 09:30:00 AM [facility] S93.602D Unspecified sprain of left foot, subsequ ent encounter Unspecified sprain of left foot, subsequent encounter Diagnosis 12/17/2019 01:31:4 7 PM [facility] S86.812A Strain of other muscle(s) an d tendon(s) at lower leg level, left leg, initial encounter Strain of other muscle(s) and tendon(s) at lower leg level, left leg, initial encounter Diagnosis 12/17/2019 01:31:[address] [facility] S93.602D Unspecified sprain of left foot, subsequ ent encounter UNSPECIFIED SPRAIN OF LEFT FOOT, SUBSEQU Diagnosis 12/08/2019 07:02:00 AM [facility] S86.812A Strain of other muscle(s) an d tendon(s) at lower leg level, left leg, initial encounter STRAIN OF MUSC/TEND AT LOWER LEG LEVEL, Diagnosis 12/08/2019 07:02:00 AM [facility] M79.672 Pain in left foot PAIN IN LEFT FOOT Diagnosis 12/07 07:02:00 AM [facility] B07.0 Plantar wart PLANTAR WART Diagnosis 11/24/2019 02:30:00 P M [facility] S93.602S Unspecified sprain of left foot, sequela UNSPECIFIED SPRAIN OF LEFT FOOT, SEQUELA Diagnosis 11/07/2019 03:50:00 PM EDT [facility] H60.8x1 Chronic otitis externa Chronic otitis externa Problem 12/16/2020 12:00:00 AM EDT [facility] ([facility], ) 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 R ight temporomendibular joint disorder Problem 12/16/2020 12:00:00 AM EDT [facility] ([facility], ) E55.9 Vitamin D deficiency Vitamin D insufficiency Problem 11/15/2020 12:00:00 AM EDT eCW1 ([facility]) E78.5 Hyperlipidemia Hyperlipidemia Problem 09/13/2020 12:00: 00 AM EDT [facility] ([facility]) I11.9 Benign hypertensive heart disease withou t congestive heart failure Benign hypertensive heart disease without congestive heart failure Problem 09/13/2020 12:00:00 AM EDT [facility] ([facility]) R01.1 Heart murmur Heart murmur Problem 09/13/2020 12:00:00 A M EDT [facility] ([facility]) R60.0 Edema Edema Problem 09/13/2020 12:00:00 AM ED T [facility] ([facility]) E11.65 [id number] Type 2 diabetes shahnaz itus with hyperglycemia, without long-term current use of insulin Problem 08/16/2020 12:00:00 AM EDT eCW1 ([facility]) F17.210 [id number] Cigarette nicotine dependence without com plication Problem 05/17/2020 12:00:00 AM EDT eCW1 ([facility]) M19.072 [id number] Arthritis of left ankle Problem 03/15/2020 12:00:00 AM EST eCW1 ([facility]) Surgeries/Procedures Procedure Description Date Indications Data Source(s) OFFICE OUTPATIENT VISIT 15 MINUTES 12/30/2020 12:00:00 AM EDT [facility] ([facility], ) OFFICE OUTPATIENT VISIT 15 MINUTES 12/23/2020 12:00:00 AM EDT [facility] ([facility], ) OFFICE OUTPATIENT NEW 45 MINUTES 12/16/2020 12:00:00 A M EDT [facility] ([facility], ) ECHO TTHRC R-T 2D W/WOM-MODE COMPL SPEC&COLR DOP 11/30 12:00:00 AM EDT [facility] ([facility]) ECG ROUTINE ECG W/LEAST 12 LDS W/I&R 09/13/2020 12:00: 00 AM EDT [facility] ([facility]) OFFICE OUTPATIENT NEW 45 MINUTES 09/13/2020 12:00:00 A M EDT [facility] ([facility]) ARTHRS ANKLE EXC OSTCHNDRL DFCT W/DRLG DFCT [...] 09:57:41 AM EST Osteochondral defect of talus [facility] Osteochondral defect of talus Results ID Date Data Source [id number] 12/16/2020 04:36:00 PM EDT [facility] Name Value Range Interpretation Code Description Data Summer rce(s) Supporting Document(s) Bacteria identified in Ear by Aerobe culture Laboratory test res ult Normal (applies to non-numeric results) [facility] ([facility], ) <content>FULL REPORT IN LAB NOTES (eCW [...] CSLI standards.</content>
<content></content> ID Date Data Source [id number] 11/29/2020 02:16:33 PM EDT [facility] Name Value Range Interpretation Code Description Data Summer rce(s) Supporting Document(s) Progress Note [facility] BMACCb3dAwVOFqYz09/SBJfcWHQvi2TyTTicBPl9FPxiGSPmB0ZpPQC3fJ9lKVJ1ARkNHpJdLyLlLTI6 lbm [file] LeHr3kMFHHMe1+NXpceEAkoVxcHYERFnEhJYl1ECiqARRKCq3M ID Date Data Source [id number] 11/29/2020 02:16:28 PM EDT [facility] Name Value Range Interpretation Code Description Data Summer rce(s) Supporting Document(s) Progress Note [facility] JDUATd4lRwRADoYz75/JWDnvLEKwm5TaHGunEGd9BTouMYDyW0MtRJU3eR4uJET6LOhOIrJbYeWzTCN7 lbm [file] G3EJP7HyEqU5BeTJd2VrWzPL5YMq6NVzM9SIP0pUQcMe3QTRvvQXVUEmQmNP8XXGq= ID Date Data Source [id number] 11/11/2020 11:14:15 AM [facility] MR EXTREMITY UPPER JOINT WITHOUT CONTRAS T [id number] RESULTInterpreted by:Alvarez Coffman MDEXAM: RIGHT SHOULDER MRI [...] rce(s) Supporting Document(s) ID Date Data Source [id number] 10/19/2020 06:40:23 PM EDT [facility] XR SHOULDER COMPLETE [id number] RESULTIn terpreted by:SANIA Whitneylinical history: Right shoulder painViews: 4 views right [...] rce(s) Supporting Document(s) ID Date Data Source [id number] 10/19/2020 04:18:36 PM EDT [facility] Name Value Range Interpretation Code Description Data Summer rce(s) Supporting Document(s) Progress Note [facility] NXFUKq1tArAWJjMa28/LZVipRVWna3HxDSlnLHp8ZZpfCAIeN8PpSZU5zL3iSSN9MXrIRvCvKkWzOPB8 m [file] AgICAgICAgICAgICAgICAgICAgICAgICAgICAgICAgICAgICAgICAgICAgICAgICAgICAgICAgICAgIC AgICAgICAgICAgICAgICANCiAgICAgICAgICAgICAgICAgICAgICAgICAgICAgICAgICAgICAgICAgIC AgICAgICAgICAgICAgICAgICAgICAgICAgICAgICAg ICAgICAgICAgICAgICAgICAgICAgICAgICANCiAgICAgICAgICAgICAgICAgICAgICAgICAgICAgICAg ICAgICAgICAgICAgICAgICAgICAgICAgICAgICAgICAgICAgICAgICAgICAgICAgICAgICAgICAgICAg ICAgICAgICANCiAgICAgICAgICAgICAgICAgICAgIC AgICAgICAgICAgICAgICAgICAgICAgICAgICAgICAgICAgICAgICAgICAgICAgICAgICAgICAgICAgIC AgICAgICAgICAgICAgICAgICANCiAgICAgICAgICAgICAgICAgICAgICAgICAgICAgICAgICAgICAgIC AgICAgICAgICAgICAgICAgICAgICAgICAgICAgICAg ICAgICAgICAgICAgICAgICAgICAgICAgICAgICANCiAgICAgICAgICAgICAgICAgICAgICAgICAgICAg ICAgICAgICAgICAgICAgICAgICAgICAgICAgICAgICAgICAgICAgICAgICAgICAgICAgICAgICAgICAg ICAgICAgICAgICANCiAgICAgICAgICAgICAgICAgIC AgICAgICAgICAgICAgICAgICAgICAgICAgICAgICAgICAgICAgICAgICAgICAgICAgICAgICAgICAgIC AgICAgICAgICAgICAgICAgICAgICANCiAgICAgICAgICAgICAgICAgICAgICAgICAgICAgICAgICAgIC AgICAgICAgICAgICAgICAgICAgICAgICAgICAgICAg ICAgICAgICAgICAgICAgICAgICAgICAgICAgICAgICANCiAgICAgICAgICAgICAgICAgICAgICAgICAg ICAgICAgICAgICAgICAgICAgICAgICAgICAgICAgICAgICAgICAgICAgICAgICAgICAgICAgICAgICAg ICAgICAgICAgICAgICANCiAgICAgICAgICAgICAgIC AgICAgICAgICAgICAgICAgICAgICAgICAgICAgICAgICAgICAgICAgICAgICAgICAgICAgICAgICAgIC AgICAgICAgICAgICAgICAgICAgICAgICANCjw/zZUiZ6abiREehsQ7C2qyCn5AXl7LUJ3ib4VpHJRrTM vrsbQcChhXIfXfYXBbXrnOJop0WQklEU8WrFFfF3Rl K0EkUFmtDD1KGAMoNUZviZRnNJDiAGQoUpL8LHFvLWntHY2NeMAfSQczQJVhHTVgUI1TLWDpL923kzZk YG0TAc6ZEvNlMP5fmy9AQHhoAGOsHskFRxs2FThlZJ7KdBNcuNFzMIHrVXCOClQfX0fku0MjRcAiVGSC UJvuLO7Gz6ZibDQcQOb+Hj9CLM4qk9CcAMqfVIOzIG 9xvm7YBMrBPfYsL3WpyCynJCObm9ddWUEzSH2dpVHuKSD2WBHgnb0ilJd9CSBBn75ycndmByYvOMOzND 9qPg2vTENlPZKfIoM5QCNGGH7BDSBpAUUrpYYcQXEmKFDYOY7TXFniCXB6NJLwvvEbrTWoDZciXO4BFG JlbnQgMTkgMCBSDQo+Qa2BUH6rb2QiZPgmGRVkCY6d ux4HGPmZJuVzL7Q7lEFjR6K1SOrbUh7YUAHuLDRvZLqdWHWMCTldYM4IDO7rpgB4VB3UxSXiGPMsRHAl jKCdNZr2N11gzYKkLKisWL3MFGC+Dariel+Te5GOTWhYCRcWRCnLhGeLIBTCdCcR8GgI2XTj7NqJ8SoCE03 tJtcqxVyKHjdYU5DEJ2uEABhCXCSLV9ZpNGsjS3inq QuROOjABWWSsLpT87ekOQbANFyOMJ7PKIjNu6HPXIhM1CdieZvgJeupdTxKIJcMYXDOE5SDGjtkqGuqK UeqJuhYV27bTkhHL2QIr2ZEqQuXK9jyk6AlURmZf2RBTWfQd6PTOWaSAVvQVGgRJM3RCZzXtHcXSwgQJ RvNJLhVHW6AGOhSHYuCR8SMiLzKJLuEIlqDVpgYMXt YCYgvh4DYAUbEADwJFt9IYBjCTKkFBNgCCrnHTFvXCEaSWD4AFCuIFVfNB4HTfIbQDDzMMKqLRPxDMJu FAFpva2UBHWsCDNgKwG8LpTaUPQuBKQaBKarAMSvPCT7QvP0CBOiXZVaIV5UBoSgQBJnVSL5NRNmBCPf JDKpfw5IVFWgEIIqRIKyXwBbPHWaDGUyFCziAAPoQX F1WZrqLQHqEDGaII3CKqHvSVIuGNP8JWJaKLGrJWBdwx7GQGApXNAoFVh4LFOsBKMvNXToEPjbTXTjEJ S3OzM5AEEdNNVfCT2HNvInTLEfCIq2DADsCIQgQGVeiz3RXFTkYIWuAyr3SZWjVINlUHAgYIkvHLEvXY S6SJw1QPKxMJUgUI2PAfVvMICtZFcuBcAnWMVtHSQj ov3NNQUbFKEbIKQtCEAmGVKsPVBvIRkgXDOaGQKoNKvhFVHmXOTeHK9LEwSyPMAkGuYjDZPmOPCbHOGv ou0LGUFeCSIyZDA3YQFtDVOxRFZqHZo6rvNvjCJgSMb3AM2ZV9GtqaUiScAGJm3Er409EMStXACzTt3H I7gzJb0cEXUwHMJCLp9DNFf6KRUaOROeYUSgYHI8JV UwYIA7LNseEFImKCMiQQF6DIM+JYc7GGHsWhU9TbQaPNLhNDRaJHA5EAQsWMErFNIaTXS7WF4zEGFONf 4+JOtkfDDhnQlxHNZBPoDnVOV9SQdvIXUMZr4V ID Date Data Source [id number] 10/19/2020 08:57:38 AM EDT [facility] Name Value Range Interpretation Code Description Data Summer rce(s) Supporting Document(s) Progress Note [facility] CAZNTm0xHfXLSfIt37/EVXavIIQse2LcTSpkPKy6IKjnRGAiH0TlTNM0oL1kFEA6KYfQPkLqUwRcVRQ2 lbm [file] Cj4+IAsfdPUrhBhiZWVCTyN1Itr0WLqwVBCCMe0F ID Date Data Source [id number] 10/11/2020 02:18:13 PM EDT [facility] Name Value Range Interpretation Code Description Data Summer rce(s) Supporting Document(s) Progress Note [facility] GZTGFh0wEcAIQfNw48/YIZynDDSid4OwQTgvVDc4RQioMYQtQ7XrWQU3mJ4eYST0MCpJCrYcFuYqQGM7 lbm WfKzePWtVyHIWwBjyGKyUwSBifFnvtuMPgLX1IrFS0NBOyL54lFUWhOUVqN1IeLQI2LJK+Ph0GXSGcdI MaCL3EFqrLwIxrp4j4PS4qqB8KGIYGIU2iKfwqWBp6xmJWAemMuZ0TxhsQSkqemkCn0dc83lZpdwb5ZD 7rhHLzYJ+S/A10LgsIIj2+vJ6enk2Ooy/11zgRbDRn P/7Amm2+NF3rlmNN8ITovQfFI/RXn98/1LOVusfw37tfxXxLV6eJHbxQeQhZexldr2WHI7iw2uHxaXMG 7Hzn+KBObJzTRFnRd5vF6R13VPRnt8cVt9UG72kA0LMdm+CcR/2cgGvCTwMcKVi0wYs3YBhEvdU3yFxB W5V3ElU74yTcwpfhBQQv6p9+dwV4UuQ2s5HcRiHn71 R8L5Ee+tyze29BuR5+ZUazjGUo6DJRp9+yv9U7u2qiDpbijywqGAmZwa+tWWJdMG9YT6oeEU+iR8fgDh SFmq3c14ISb3qofQdJglSQYntt3KwMHMZl6uaZYHuESL9g9xcAkRlySsoZaYcA8+pdsYzoZQXcN6aUlH sT5/DYDiJYrz4FWV2OIh2jQNQehuQMjTkr+b7PA9b/ xXVCq2fLG+l9dTCv3fOA6UGr/Tiffany/xBfJ8gVcHkDqmzeb2jw0pUv7sPKUoRphyzxo3T0F4t9qzxzibZy [file] ICAgICAgICAgICAgICAgICAgICAgICAgICAgICAgIC StFEWzOXEjQEMtBGLbZTHfLSJvLFEjBIDgFEBlYBYiXMOmPMMlHLPiLULlOM3BQAUwCKGcJJJbQBKuWX AgICAgICAgICAgICAgICAgICAgICAgICAgICAgICAgICAgICAgICAgICAgICAgICAgICAgICAgICAgIC ZfAGXcUWQgPMJwFLVoZHWeDDDnXDByCFAnLE5SWGId ICAgICAgICAgICAgICAgICAgICAgICAgICAgICAgICAgICAgICAgICAgICAgICAgICAgICAgICAgICAg PDEvZQOfNDOcLNFaPUFzWVNdYOYdJKOvVKGqQIMkVMFrEIIaNA0OCPNnSAMoQGLcLHYcKBUbPNUkGAEm ICAgICAgICAgICAgICAgICAgICAgICAgICAgICAgIC ThUZWbRWYoRXVsYPVuOJIcQOTyGMXwXPStATDvASLlVNWvCEWwNOVqTUEwVTLxSE4TRXTqGAXqPIXjWJ AgICAgICAgICAgICAgICAgICAgICAgICAgICAgICAgICAgICAgICAgICAgICAgICAgICAgICAgICAgIC DaIJTzVNJbKWTkONXwAOHcRRKzTZOkQPQkTDDfMA0S ICAgICAgICAgICAgICAgICAgICAgICAgICAgICAgICAgICAgICAgICAgICAgICAgICAgICAgICAgICAg JYPbEJVxQWAdNPTbXXWgHILsGOUjFNPuTDIiOWNgZZVmXVBdJJWxRB9QVGZfIVUrPOWhNWQuIPUrHQNq ICAgICAgICAgICAgICAgICAgICAgICAgICAgICAgIC KiQLDzKGSwMJXtLRXiJZLoOGVtQRYeFICnPRCwGFTwMMTsMHErSLJuZUEdLODkZLGoRF8FIUBpJHTsRP AgICAgICAgICAgICAgICAgICAgICAgICAgICAgICAgICAgICAgICAgICAgICAgICAgICAgICAgICAgIC AgICAgICAgICAgICAgICAgICAgICAgICAgICAgICAg DD7BGEExNMSeFXLbSYFfBUNwAQAiVWVxKHElXTDmOXGtYFXdCPDhJTEiWPRaICRdUVIeEKHsFZMtHZAl WIGaOLMcYCFnDKJyIESkLUVnYESpKOMgUHXaWKTkVQRsNUHaKMCuQVXoWU1BFPBdWIEzUNMpNNKsFVXj ICAgICAgICAgICAgICAgICAgICAgICAgICAgICAgIC VeFLWeFYUhRSHxVRScWWDkGPVzOUUwYPQoXHEnFRDsPXIuEBMgRMMaNMNeSSNyATTrBYNhEQ8QTZ26dF Qgh1Q7BOKlJV8eekf/Td9YAUpuehWjoCBdCT2USoAqIB1kek8WZqQyKG2psh3MJZoCSoIgE2W7hXHsHM EvJCGJHxPnM31gGOyvFm75ELeqVJXoVhWiRXr5Ns7M XuFyN9efCGXzYlO9GLPkNiEtXWtwVW1Zu6MkvROqJSj+Gf4OAR4sr9XdNSnqRCNrMR7nxm8TUHhHRgNu D6FdtiN0PMDrWJUvBl3HAOTpGYKdlPDyNMUbVDRNQbEoM5SpqT22GYEIIa6+DQplbmRvYmoNCjIwIDAg c7AvJJx2LL9NUOOuSMr2pFEtZCPrS8Ody0OdAx90QS HxLvdxJxGaEYNjUPZZUF6pwHBhMEV9XXdyHT7uZQYsUEPfDuZ0CLEUBR1OHFJkFHTmpVVdQXWpNUASKR 5NJWnaQXV3NSPsvnWdgKOqXQiwFD0QUEMnarNgMAczVKRGYNr+Ps3FEC3vi8FuIJauILHpTL4ktn8XAZ rLXkXdZ8X1dXGtO6Z5ORkcWz1MPEKhZODuFInmNSYD GDxvOS0XNX6ubcE2LU5MbVZqNVEhMCXytKOhFLw4C39ylIOxKTpsVU4HAIV+Dariel+Yz8ZCHSmXRVvNYQx LxRcEVZMVgMlN8UsG0MXy0AcZ8LtVQ87lOlssoFgDFctAS3GXC5iTJLuMXQBHA9JnZIsiG7wzbHxJWEz BGBXIqZyC79zwEXvSKDxQXH4KXEaAz5ILFQkF0Fluj PndOeckiAqSQVnVNUOZF1ZYNiiwlMbqZUhdJhnQD04pJcsCR4UYv7FDaQhZX6con2ViCFtVs0NVPJiYx 4RCTFhTXPxYMPpEMT0UKLpDwHkULbiLIMsNXZfDQK7UJSlRROqEW3HRxPcODQlTGlvRVFdSJQnURUxta 2YUDKtJCSgQXcyZkYmXYUrVFIiVFdzWAZoLBQbXAF1 MTIwHPAwIW8QToPfOAAuSYE6QSPkEWMyTANgss2QGLEzOOOyGyK0KJBvHCVoDBYlZQuoCRJzOLSeFSUa LEGyMCSxTB2AOpMdBJNcHWZbSVjrWIAqKWXjmh8FOJZwMSQsLgW1COGrVYOpXBHkCOphTTHzFJY7UhL0 HBQaNAVdWA5PXeIdYPGyVHF5LkvwMHHvDZMweo8YLD LfSMZnPJxtRpJdKVSsOXKdJScuQFXlNFU6MTqnKAIuDWVpSA5PSpAmJCNhCBBjRTsdVDKdBJJvey1NXB AxERXqFsPkWcHdPKYfTLTvAQpoHWFaFSB7BNT6OOIdYQTbXH6YGqVcCSOkPHC0VBOzJHOdKANvdx8LZA NePVHlJdI1HmVlOPXvRZHjLYyzHKUuDIC8LEGcUVYb TXXnJL5BRiMnBDDlXLp4PYAoXHRdCSGgor8VJPEuDQGsZAO5MbUgZQCoOCVbTDl0wdQrdGAyLOk5NU1G X6QpxxKkMuZVBx6Wi389PAQxYINvPr0LH5ruHu3wFDFzIPHKCc1LILx8MRCeWMDwCXA2ElT9QyP7E7Te RoM6SXtmOTOjJdQ8UxX+IRpoT8Y6RGHbHVUwPTgrRf n5YTEdHHGoLKOwZbYbVawqOc3nBYYVNq5+OCcolRGycHfcHPCTAkW8BxspVUsjLJVTFg8D ID Date Data Source [id number] 09/01/2020 08:34:00 AM EDT [facility] Patient: COLT RENNER [facility] [place].VisitID: [id number] [place] [address] [phone], FRegistration Date/Time: 08/31/2020 17:48 Weight:98.8 kg (S). [...] rce(s) Supporting Document(s) ID Date Data Source [id number] 08/31/2020 06:28:00 PM EDT [facility] [...] Name Value Range Interpretation Code Description [facility](s) ID Date Data Source [id number] 08/13/2020 07:26:00 PM [facility]T [facility] COLT RENNER Elian [facility] [place].VisitID: [id number] [place] [address] [phone], FRegistration Date/Time: 08/13/2020 08:39 Weight:97.5 kg (S). [...] Name Value Range Interpretation Code Description Data [facility] rce(s) Supporting Document(s) ID Date Data Source [id number] 08/13/2020 09:33:[address] [facility] TSYSORDER [id number] Name Value Range Interpretation Code Description Data [facility] rce(s) Supporting Document(s) GLUCOSE 330 mg/dL 74-106 H [facility] BLOOD UREA NITROGEN 12 mg/dL 7-18 [facility] CREATININE 0.78 mg/dL 0.6-1.0 [facility] SODIUM 137 mmol/L 136-145 [facility] POTASSIUM 3.9 mmol/L 3.5-5.1 [facility] CHLORIDE 101 mmol/L 98-107 [facility] CO2 22 mmol/L 21-32 [facility] CALCIUM 8.4 mg/dL 8.5-10.1 L [facility] ANION GAP 14.0 mmol/L 5-12 H [facility] GLOMERULAR FILTRATION RATE 80 mL/min [facility] GFR IS CALCULATED IN mL/min/1.73m2 RINA L FUNCTION: >90MILDLY DECREASED: 60-89MILDY TO MODERATELY DECREASED: 45-59 MODERATELY TO SEVERELY DECREASED: 30-44SEVERELY DECREASED: 15-29RENAL FAILURE: <15 AST 15 U/L 15-37 [facility] ALT 41 U/L 12-78 [facility] ALKALINE PHOSPHATASE 130 U/L 46-116 H [facility] pital TOTAL BILIRUBIN 0.4 mg/dL 0.2-1.0 [facility] TOTAL PROTEIN 7.4 g/dl 6.4-8.2 [facility] ALBUMIN 3.7 gm/dL 3.4-5.0 [facility] ID Date Data Source [id number] 08/13/2020 09:24:00 AM EDT [facility] TSYSORDER [id number] Name Value Range Interpretation Code Description Data Summer rce(s) Supporting Document(s) URINE RBC 1-3 /hpf 0-3 [facility] URINE WBC 0-2 /hpf 0-5 H [facility] URINE EPITHELIAL CELLS 1+ /hpf 0 [facility] ospital URINE BACTERIA 1+ NONE SEEN H [facility] ID Date Data Source [id number] 08/13/2020 09:20:00 AM EDT [facility] ital TSYSORDER [id number] Name Value Range Interpretation Code Description Data Summer rce(s) Supporting Document(s) URINE COLOR. LIGHT YELLOW [facility] URINE APPEARANCE CLEAR [facility] l URINE GLUCOSE (UA) 500 mg/dL NEGATIVE [facility] URINE BILIRUBIN NEGATIVE NEGATIVE [facility] URINE KETONE NEGATIVE mg/dL NEGATIVE [facility] SPECIFIC GRAVITY,URINE <= 1.005 1.005-1.030 [facility] URINE BLOOD TRACE NEGATIVE [facility] PH,URINE 5.0 5.0-9.0 [facility] URINE PROTEIN NEGATIVE mg/dL NEGATIVE [facility] URINE UROBILINOGEN 0.2 mg/dL 0-1 [facility] URINE NITRATE NEGATIVE NEGATIVE [facility] URINE LEUKOCYTE ESTERASE NEGATIVE NEGATIVE [facility] ID Date Data Source [id number] 08/13/2020 09:14:[address] [facility] TSYSORDER [id number] Name Value Range Interpretation Code Description Data [facility] rce(s) Supporting Document(s) WHITE BLOOD COUNT 9.6 K/mm3 4.0-10.0 [facility] al RED BLOOD COUNT 4.48 M/mm3 4.00-5.[address] [facility] HEMOGLOBIN 13.2 gm/dL 12.0-16.0 [facility] HEMATOCRIT 39.0 % 36.0-48.8 [facility] MEAN CELL VOLUME 87.1 fl 80-[address] [facility] l MEAN CORPUSCULAR HEMOGLOBIN 29.5 pg 27.0-31.0 [facility] MEAN CORPUSCULAR HGB CONC 33.8 g/dl 32.0-36.0 [facility] RED CELL DISTRIBUTION WIDTH 13.0 % 10.0-14.5 [facility] PLATELET COUNT 338 K/mm3 172-450 [facility] MEAN PLATELET VOLUME 9.9 fl 9.0-13.0 [facility] pital GRAN % 66.1 % 50-80.0 [facility] IG% 0.5 % 0.0-0.2 [facility] LYMPH % 21.1 % 25.0-50.0 [facility] MONO % 6.3 % 2.0-10.0 [facility] EOS % 5.4 % 0-5.0 [facility] BASO % 0.6 % 0.0-2.0 [facility] GRAN # 6.3 K/mm3 2.0-8.00 [facility] IG# 0.1 K/mm3 0.0-0.2 [facility] LYMPH # 2.0 K/mm3 1.0-5.0 [facility] MONO # 0.6 K/mm3 0.10-1.20 [facility] EOS # 0.5 K/mm3 0.0-0.5 [facility] BASO # 0.1 K/mm3 0.0-0.2 [facility] ID Date Data Source VITAMIN D 25-HYDROXY 08/12/2020 12:00:00 AM EDT eCW1 ([facility]) Name Value Range Interpretation Code Description Data Summer rce(s) Supporting Document(s) 59.8 30.0-100.0 TOTAL 25(OH) VITAMIN D eC W1 ([facility]) ID Date Data Source LIPID PANEL (CARDIAC RISK) 08/12/2020 12:00:00 AM EDT eCW1 ( [facility]) Name Value Range Interpretation Code Description Data Summer rce(s) Supporting Document(s) Triglyceride [Mass/volume] in Serum or Plasma by calculation 175 <150 TRIGLYCERIDES LEVEL eCW1 ([facility]) Cholesterol in HDL [Moles/volume] in Serum or Plasma 31 >40 HDL CHOLESTEROL eCW1 ([facility]) Cholesterol [Moles/volume] in Serum or Plasma 134 <200 CHOLESTEROL LEVEL eCW1 ([facility]) Cholesterol in LDL [Mass/volume] in Serum or Plasma by calculation 68 <100 LDL CHOLESTEROL eCW1 ([facility]) 103 NON-HDL-C eCW1 ([facility]) 4.322 <5 CHOLESTEROL RISK RATIO eCW1 ([facility]) ID Date Data Source [id number] 08/12/2020 12:00:00 AM EDT eCW1 ([facility]) Name Value Range Interpretation Code Description Data Summer rce(s) Supporting Document(s) Hemoglobin A1c/Hemoglobin.total in Blood 9.7 HEMOGLOBIN A1c eCW1 ([facility]) ID Date Data Source Comprehensive Metabolic Profile (CMP) 08/12/2020 12:00:00 AM EDT eCW1 ([facility]) Name Value Range Interpretation Code Description Data Summer rce(s) Supporting Document(s) 205 70-100 GLUCOSE, FASTING eCW1 ([facility]) > 60.0 >58 GLOMERULAR FILTRATION RATE eCW 1 ([facility]) 0.68 0.55-1.30 CREATININE FOR GFR eCW1 ([facility]) 16 7-18 BLOOD UREA NITROGEN eCW1 ([facility]) 138 136-145 SODIUM LEVEL eCW1 ([facility]) 4.6 3.5-5.1 POTASSIUM SERUM eCW1 ([facility]) 106 98-107 CHLORIDE LEVEL eCW1 ([facility]) 25 21-32 CARBON DIOXIDE LEVEL eCW1 ([facility]) 8.8 8.5-10.1 CALCIUM LEVEL eCW1 ([facility]) 18 7-37 AST/SGOT eCW1 ([facility]) 0.3 0.2-1.0 BILIRUBIN,TOTAL eCW1 ([facility]) 142 45-117 ALKALINE PHOSPHATASE eCW1 ([facility]) 38 12-78 ALT/SGPT eCW1 ([facility]) 7.3 6.4-8.2 TOTAL PROTEIN eCW1 ([facility]) 3.9 3.2-5.2 ALBUMIN eCW1 ([facility]) 1.1 1.2-2.2 ALBUMIN/GLOBULIN RATIO eCW1 ([facility]) ID Date Data Source CBC with Differential 08/12/2020 12:00:00 AM EDT eCW1 ([facility]) Name Value Range Interpretation Code Description Data Summer rce(s) Supporting Document(s) 9.9 4.0-10.0 WHITE BLOOD COUNT eCW1 ([facility]) 13.5 12.0-15.5 HEMOGLOBIN eCW1 ([facility]) 4.50 4.00-5.40 RED BLOOD COUNT eCW1 ([facility]) 41.5 36.0-47.0 HEMATOCRIT eCW1 ([facility]) 30.0 27.0-33.0 MEAN CORPUSCULAR HEMOGLOB IN eCW1 ([facility]) 13.2 11.5-14.5 RED CELL DISTRIBUTION WID TH eCW1 ([facility]) 32.5 32.0-36.5 MEAN CORPUSCULAR HGB CONC eCW1 ([facility]) 92.2 80.0-96.0 MEAN CORPUSCULAR VOLUME e CW1 ([facility]) 62.5 36.0-66.0 NEUTROPHILS % eCW1 ([facility]) 364 150-450 PLATELET COUNT, AUTOMATED eCW1 [facility] [facility]) 24.0 24.0-44.0 LYMPH % eCW1 ([facility]) 7.1 2.0-8.0 MONO % eCW1 ([facility]) 0.7 0.0-1.0 BASO % eCW1 ([facility]) 5.1 0.0-3.0 EOS % eCW1 ([facility]) 0.7 0.0-0.8 MONO # eCW1 ([facility]) 2.4 1.5-5.0 LYMPH # eCW1 ([facility]) 6.2 1.5-8.5 NEUTROPHILS # eCW1 ([facility]) 0.1 0.0-0.2 BASO # eCW1 ([facility]) 0.5 0.0-0.5 EOS # eCW1 ([facility]) ID Date Data Source [id number] 07/09/2020 03:07:49 PM EDT [facility] Name Value Range Interpretation Code Description Data Summer rce(s) Supporting Document(s) Progress Note [facility] EFFDHo0dLzLEBhCf89/IKMvaVCIwd5RmNTlaXPo5RKdlENBfC6SzSSH6oQ0cYXV4EGrURwRiLlGvIDU0 lbm [file] RkD9NGM6eILcUt3QChHzGKGFJhRlRK2CEMr= ID Date Data Source [id number] 07/09/2020 03:07:44 PM EDT [facility] Name Value Range Interpretation Code Description Data Summer rce(s) Supporting Document(s) Progress Note [facility] ASGWRj5cFkLWQyNv06/CQLfsAEQfe5XgPOftKEo7QOxuAFEwK9BwRNS1kL6bXKT1XOvMOdNxXmViXEQ4 lbm [file] AgICAgICAgICAgICAgICAgICAgICAgICAgICAgICAg AUAmLYKnWFDjSS6VCOTdFTKeHKLhOIHpGEAeKWOeYAJfIRYyPZHtWKFwJWWlJAGwAWVeICNkILDxWELb XVXxQLZnVXHyDIJhUWMpBQAbAKCoOPVmYSRiKOYcWVKeMTGvCJSnFPGaRSKeAWKiICGfBK6NUBLjQXNr ICAgICAgICAgICAgICAgICAgICAgICAgICAgICAgIC AgICAgICAgICAgICAgICAgICAgICAgICAgICAgICAgICAgICAgICAgICAgICAgICAgICAgICAgICAgIC ClJQ1GPFPpKEKrJLUqPNSfPIBvJPCyXVRjXWQmSNQaIIFlFDRzQBOiHFBaPICfLQXvILOpFFNyKSGbKY AgICAgICAgICAgICAgICAgICAgICAgICAgICAgICAg RDCzOGMbKJVxIOVlZH8KKSGsSUBrCJTbEKEiFEXvZHSpQHIvZOQiQHKbTCSnOSZjCNEoVHUmCXBvDRNq WDKwCAJhAEElCUWvNMEiMUKaGOPjLNXiOHArLPPnJXAuXEXrBOXtBTIkRNHlLEYdVJTlNHLhWM2ULGYg ICAgICAgICAgICAgICAgICAgICAgICAgICAgICAgIC AgICAgICAgICAgICAgICAgICAgICAgICAgICAgICAgICAgICAgICAgICAgICAgICAgICAgICAgICAgIC UrXHIiCD7BZJFeWJTsFQIuLIRpRMTgYVObZKKhZCDzQFDlCOBdOZBqZPDeCDOxCTFiKPMsWOHnQYRnIT AgICAgICAgICAgICAgICAgICAgICAgICAgICAgICAg ZVHpGCMrAGChDLNrZSMhTD0CTDFsCBMdLAZqMZFaEZFpOVFgHVHrOWTxLVQtNKIrESSqHYKdQBJsIZTf HKYxDWQyBQZdODWnXXUoJYBdAIOnYKZsKGDkUWFyJUVfONMwRSWbUKAbFSTaTRQzJHOwRUJrJQAxQQ2F ICAgICAgICAgICAgICAgICAgICAgICAgICAgICAgIC AgICAgICAgICAgICAgICAgICAgICAgICAgICAgICAgICAgICAgICAgICAgICAgICAgICAgICAgICAgIC NaEYKnUKIjHY4JGWAzSZQdCCFrPLZvMRLwYXTpHVIvZPNaITIaMDWlFVQnQUYuNJPoQLAfGDKlACAdPO AgICAgICAgICAgICAgICAgICAgICAgICAgICAgICAg RDQmJKTyLLIpXCCvJWGqDKCfHD4JVL68pAOfx1G0JNOxLK3agzg/Ub9XYYgudeGgkAFfUT5YMkPxMB6m ur0WRbBdAG0gao4HXCeMIxXfO8M6dMDsMKElBMYTJrErS30eVUhuAw26LLjcJXKcHaKuTAa0Wg2NKtSg W9bcDLWjXmX1GLNyVwXsNCmdQJ6Aw7LazEBjEXz+Pg 3QVV3hy9DjQDjrFnRxSE5rps5GFOsAApLrP0IwtwJ1SAVpUKNgHt4VXIGlLHAzuRAfDjNeVYDFDgQqI1 IotT16SPBQLj4+KPjzvrXvNllIZzWcKIYkn9BuAVw2EA0YPWHdEIn8eLQzIURcI7Lzl7DxPt52DOPgCw rxM3pnjTE9w1FsEJHtLNI9DWX0YQDtSe4oNIMcBHXq ZaI0KMKCTP3OGZScTRJrtZJdSTMxZXJEFM8JQUshKGG5SCHxktBanSZdZOtyCR7OXSMbdbXoAgGtMYSK DQo+To5BJC6ww1NaJCjjYJNgRA4egj7UFPhDEnAsH8B3vAKjQ1G3NGmcKt7KHKUjXQOzFqLcWTHCZIsz YR9JHC0qnsH7NG9SdIQdVPHcYIKgkSSyMVc3D16imT ZeAVupAY2TUMX+Dariel+Gy4OGAQiUDEaMWKrSfXvNGRYVnQjB0AqT3TTl2IaT6IcBW46mHcvixAcZFiyRX 1WNU5vUTVrXZTQRI9RnKVfpP1pghHlTyWyLYGOFzOdB17fcBNmWXWrMNSkXHYdXu8FGAAeT9NwlvQywU bwxfGzMWTzJOWODD0ADBumsjGbeTWfoQxhAO60aIdh TY7UTq4XVqWmQU0ntm1TdAZnPh0WZWBjQG0VJFRbUIXvIPOiWZB3GOFuMeCcEKvsZRXwBUEaOJJ2QNVg RMSgMJ9MNhJmOFIoJZkmDrdnBWWtQOLvur8PTQRgLIUkGBG8QKZoLOBtTRHpSBbvOVIjQXUsMSB3XVUa ONQyFS9ZQpTaCFNjSYZ6OTupHUFlKIYxld4DNGTiFW IbJcB7UTYoTORfFWJpPVinTFQrVXUoEJNpQVLjLFWzJX0GLsEtPXEyRLAcJMErZGKlLRZfdf8ZBUNgAF JrKuA2LzIoTTWiFYVsQUybSORpFEL0PrA3ISVvJQXgSN6CYyVbDCKpVAZ6ICMmARSvBXOhcy3NFYFwNP CvNEw9IxEoPJZyHPRdWRpjJBTnEHH8IOz5NZVhYWWh ZP8QXcVfZARqKDY8JYWwEKJaHTTvvq6SLMZbAPRoFvFwYlUkUBSrVISaBLmuSNEfKCN6PSGrBLKzUNNl ZS8OReFdPHTlVXwtLMptFFWbLOZqzz2SDQNzTFTpAlz0WxGlRLGnVLBeUIqxWCUbRBF0WSE6FBFlITEv KS0CQiYpNIHeHUaoGANuPPPlYOIadv3SVTOxWPHmQZ gbPFVmBTVqIYZjGIziJWXhOUFtSYV6KWTfSRDvND0ZCgCqIYOmExXxIgSpXIPyLESkbc7ITFRuOFWgCF B5DLWpIOTfOEXlLDx7ebCyhPAyIUd3AV2SZ3FfetAkPcLXRt2Jd442IVF2FTZgOq8US6dpWo1mCTXzNI RRPl6QPWc2ECTbMzRrWHT3WQDsTTY5NKB9XGP6ZPQ9 B7AiOrS0TBV+ZYz7NeYnXkV0ZNw3AsRrPmU4PRVpSkJpJMSgYrMtTUr6Zj8lHWAETv4+DQpzdGFydHhy QSEYKgHhNjS9ODxsDMXBMt6O ID Date Data Source [id number] 06/24/2020 03:48:00 PM EDT MEDENT ([facility]) Name Value Range Interpretation Code Description Data Summer rce(s) Supporting Document(s) White Blood Count 11.2 4.0-10.0 [facility]ENT ([facility]) Red Blood Count 4.63 4.00-5.40 [facility] ([facility]) Hemoglobin 13.7 [facility] ([facility] Platelets 368 150-450 [facility] Hematocrit 43.4 [facility] ([facility]) ID Date Data Source [id number] 06/24/2020 03:48:00 PM EDT [facility] ([facility]) Name Value Range Interpretation Code Description Data Summer rce(s) Supporting Document(s) Hemoglobin A1c/Hemoglobin.total in Blood 8.1 MEDENT ([facility]) ID Date Data Source [id number] 06/24/2020 03:48:00 PM EDT [facility] ([facility]) Name Value Range Interpretation Code Description Data Summer rce(s) Supporting Document(s) Thyroid Stimulating Hormone 0.464 ME DENT ([facility]) ID Date Data Source [id number] 06/24/2020 03:48:00 PM EDT [facility]ENT [facility] Name Value Range Interpretation Code Description Data Summer rce(s) Supporting Document(s) Triglycerides 222 MEDENT ([facility]) HDL 34 [facility] Cholesterol 175 [facility] ([facility]) Cholesterol in LDL [Mass/volume] in Serum or Plasma by calculation 97 MEDENT ([facility]) Chol/HDL Ratio 5.147 MED[facility] ([facility]) ID Date Data Source [id number] 06/24/2020 03:48:00 PM EDT [facility] ([facility]) Name Value Range Interpretation Code Description Data Summer rce(s) Supporting Document(s) Albumin [Mass/volume] in Serum or Plasma 3.9 MEDENT ([facility]) Alanine aminotransferase [Enzymatic activity/volume] in Serum or Pl asma 46 MEDENT ([facility]) Chloride [Moles/volume] in Serum or Plasma 104 MEDENT ([facility]) Carbon dioxide, total [Moles/volume] in Serum or Plasma 26 MEDENT ([facility]) Calcium [Mass/volume] in Serum or Plasma 9.1 MEDENT ([facility]) Alkaline phosphatase [Enzymatic activity/volume] in Serum or Plasma 1 24 MED[facility] ([facility]) Potassium [Moles/volume] in Serum or Plasma 4.4 MEDENT ([facility]) Protein [Mass/volume] in Serum or Plasma 7.3 [facility] ([facility]) Sodium 135 [facility] Aspartate aminotransferase [Enzymatic activity/volume] in Serum or Plasma 30 [facility] ([facility]) Glucose 203 70-100 [facility] Urea nitrogen [Mass/volume] in Serum or Plasma 16 [facility] ([facility]) Creatinine For GFR 0.66 [facility] ([facility]) ID Date Data Source [id number] 06/24/2020 12:00:00 AM EDT eCW1 ([facility]) Name Value Range Interpretation Code Description Data Summer rce(s) Supporting Document(s) 0.464 0.358-3.740 THYROID STIMULATING HORM ONE eCW1 ([facility]) ID Date Data Source [id number] 05/05/2020 01:40:31 PM [facility] Name Value Range Interpretation Code Description Data Summer rce(s) Supporting Document(s) Progress Note [facility] QXICSj4kPuLFGbDk81/LESpyRURns5SiJBwrDWt1SAudCDTgF7QrGOP2tK4sDZI4KXmEFjDuJmHhXlQz [facility] [file] IY3hIQn+Xr4Cw7LfyqA5pjOaACtkZnA6IU4WNQIQB8YFIv== ID Date Data Source [id number] 04/15/2020 07:13:00 AM [facility] Name Value Range Interpretation Code Description Data Summer rce(s) Supporting Document(s) Progress Note [facility] HIMFYx7nBoKGMeKg99/PXEhyTJMlg8AeCHjiPSi1DVbwTAGhN0WyOOV9iV0yTXS7OVhJKpQxHgAzLvEt lbm [file] ElHoPmHR8QNf3MPzI2FQX0kQWcUa5JQaH5WhJBZoTgBB4YDCl= ID Date Data Source [id number] 03/19/2020 12:47:37 PM [facility] Name Value Range Interpretation Code Description Data Summer rce(s) Supporting Document(s) Progress Note [facility] YKVVYu8kZcCPSkZf55/IRKcqGKYtw2FnXSsoJRl5IDaiDAJmN1HlXPP4gF8kVPP3SGhAExCcTyGlPFZ0 lbm [file] AgICAgICAgICAgICAgICAgICAgICAgICAgICAgICAgICAgICAgICAgICAgICAgICAgICAgICAgICAgIC NiTYQbZLMvEY2NHDWjGDCuEOYiRNDdRYOjFLWaLEKz ICAgICAgICAgICAgICAgICAgICAgICAgICAgICAgICAgICAgICAgICAgICAgICAgICAgICAgICAgICAg YJErHKSdABOlOZBhUKClOIOqLZ2RATNcRWGjBXBrHLGiCMNoQXDvMZIrWRUdHNRzLZSaYVZeKEPdHLAu ICAgICAgICAgICAgICAgICAgICAgICAgICAgICAgIC HhNWVnFJOuZKAkDFVlLBNsYXLsLUPkFQHqJPPoTU2AQJXyRGSfWTUdKEZvPZUqZWKtMEUiBMMwEELyVN AgICAgICAgICAgICAgICAgICAgICAgICAgICAgICAgICAgICAgICAgICAgICAgICAgICAgICAgICAgIC ExJSAtYRAjNJVlVJ8SARYvPAZxZZQtHTDsDOQuMWHq ICAgICAgICAgICAgICAgICAgICAgICAgICAgICAgICAgICAgICAgICAgICAgICAgICAgICAgICAgICAg LAJzLJXcYUYpSPWjCGSeRQDhIOVnHQ4AMXRtATHuKLRlTRSvVUNgNPLuVRThBKByKCXnWDCmLRJpQRFo ICAgICAgICAgICAgICAgICAgICAgICAgICAgICAgIC UlEESfINYbFVHoQWKvWDRiVYTfTAGvCTMqMWOcCRFhSO0KZBWbVSOqYWBeYFSgLWQtXMJcIBHlBAKsDQ AgICAgICAgICAgICAgICAgICAgICAgICAgICAgICAgICAgICAgICAgICAgICAgICAgICAgICAgICAgIC VzBNOrXTGrDJOrOBYrLD6KIFTfXTKbNRFjFCMlBMHq ICAgICAgICAgICAgICAgICAgICAgICAgICAgICAgICAgICAgICAgICAgICAgICAgICAgICAgICAgICAg TKOvPTQpUSPiOSQaDGIzUSXvFGZgOQNjKK4YZTDgEHMzEDGqOTKgXOCtECNgPJMwROZfAYRyMDJvNOWx ICAgICAgICAgICAgICAgICAgICAgICAgICAgICAgIC UzDHKjFKOhWKLmKMGxNNJqXKDeFZOqWIQjRDZnNQPrYFWtQA9BIPBtTPCvHCRvZDBcUHCoRYOzERAkJQ AgICAgICAgICAgICAgICAgICAgICAgICAgICAgICAgICAgICAgICAgICAgICAgICAgICAgICAgICAgIC DxOEYnUJUbFGJaQDWqIMJjOD6RBO15bRFou4V5JFJl OU3xeek/Qr6WAJekdvVrpIQvSL8JHgZzFN3oxg6JFuUzEQ8cdz4SMTaNDfMlS2P8eCGeNUBrSQPWNrAn M92mQCmkUf43YAdyUGWlYjBkSIo2Og0HHrFpV0qjAKLtYnO9NWCaYxYfMPpwTD0Bv1CwhECmKAl+Pg0K QF0jo2PaIQodJTViSE0iti7NBKrTLyAgS5OqheU0RA BhWSZzXz9QMYKjJDInsYKjAPKwXYOKXbPdN4EqmH30XVVQEq3+WQtrwnPkPekELcYdDPSfb4CzNLm8IP 7YHJKrZZm6hMGqDTUzK0Lnx3JiCj58CNImIcdzP0ZtHBzyLoLGyUGevYNcaOliPk8tCDWnJQ8eQQ5zNA ZqRZToPvIuBVNLLZ3KFSQaJHJaoYEaZOWnVMLNTV4X RXftGBB5ZLEpqaVrtYCjPZljFV8VHMZxfpKiYZvcBQCWNJy+Kg5KTV5lx0RmAIwpPPFuUZ3hyd7QHBsN TsRoT2H3oHWpP8I7MIxuWy6YQNLhHZBoFGkfLBFKZHnxTS5BNE1ypaO8EQ5XmHFrWSHfQEItmJGoJId8 T95dcFObCJoiQW3SJMF+Dariel+Ue8YRGIjABEwSTEpWa EdBYSRDnKdI3OyX7MFp4OkY8XoSB87fReistCfUZzoNE3NDS3eBNEyGHFKOY4EzGJusV1csiTvZDOzLK LEOkKiD85jwMFaUZJlWEK0MEBkMq0YEHCsN4RkwzDthZdbroPwEFGiOGLQBD9OOIvmzxChlWAumGiqZP 39kPkgGT2BZt5KMmJjTU8gia1SwKAuRj8QXONoDq6W YFXdAQBmEPGkXVV1SVPfQqUuCTouSGOaDJVxTAE0RGQyRVMiPY9QKtGhTTMqRJkhTMjtHQWyITRzml0A OUEzDQQdDEvjKsIxZSZlZVUnKVlxTJWfYJTtNZW1VVYrKZUvYQ7YFuBhYRGkLZF5StFfXIIeDYQncd5I ZCIdACRgFnSyTTHoZOWhEJFrPOniTUQwNWRwSAk6GG RuPSRkMO3FXtTsKTDySZWaBGFvDWXtHDSkjc7JRAAuVVHrQxX5TvDhGGSlJKHzWTszXAZbXKF6HHOnAI ZiLBXyHM3NWwUfGHGxFEI1CaTqYRIxUSTcno6JPLPbJOFnYYnpSNCkEMAnFRGtGFpeEMCtNVE4XYA0TS DgQCLaQR8TVzYyRHQiYGP8FPPwUMFjIUWuay1JOVLr LPFyHvM9PFZsCDBcPICoZDkgAROzVZU2RPGcASCrEOGdFO3ONfYcYAObIMjlOrOfUFRgFWKyva7FCSPp TJMpZfX0KyUqGTRdVWJyUPqeETJdQQM7XQK9GGAsDPIyXD3KLhSkAJGnKDg5BLBaMUHdYTAuny9WMWOp EKMsMICgZkEwXWSnFFRfVCg3xlEjmIDvWVd5RQ6GI7 FomcMrMhMZAw8Ni022AKKeKXKuLl5CU8abVv2lYUScJBTSLz6DMDl2XrZ2ThJhFHDfTLd8FJMrDuhnKN C7GVAzNqOcGoT0J2L+LWqpRRhlIWP1MQFnIRzfVHHqNQP0UsOcOQH3XITkYPYwCT4vSCEKAx1+DQpzdG NrcNsvUGYNAkS0FjaqPKgiLGNTOo3R ID Date Data Source [id number] 03/19/2020 12:47:00 PM EST [facility] Name Value Range Interpretation Code Description Data Summer rce(s) Supporting Document(s) SARS-CoV-2 RNA 2019 nCoV Real[facility]: [facility] and reported by [facility]. ID Date Data Source [id number] 03/20/2020 08:45:45 AM EST [facility] Name Value Range Interpretation Code Description Data Summer rce(s) Supporting Document(s) Specimen source [Identifier] of Unspecified specimen [facility] SARS-CoV-2 RNA 2019 nCoV Real-Time RT-PCR: NOT DETECTED [facility] Assay Performed [facility] Patients first test for [facility] Patient employed in healthcare setting [facility] Patient has symptoms related to [facility] When did you start to experience these symptoms [Date and time] [Phen X] [facility] Patient was hospitalized because of this condition [facility] patient was admitted to ICU for condition [facility] Patient resides in a congregate care setting [facility] status [facility] ID Date Data Source [id number] 02/25/2020 10:34:44 AM EST [facility] Name Value Range Interpretation Code Description Data Summer rce(s) Supporting Document(s) Progress Note [facility] WZQYAm6pFgTMGrMa02/IXExuUTLuc1DaEFzyWRf7GXmnUTJpX8CbQTP6oH8tEUA8GHhPBwYcGmVfNhBm lbm [file] fftv9ce5spa5leqj/lTJ3u+José/CV+8CDi8O1SHT1ZvssNILcXpf6X923MYLPTCmNVdynTKqTnGxPSad [file] f7v7MDlNX+n31z/8XjCxzoYVbYW0+KP2n3RmNdOAPJa1aPPgxued+personnel counselor+e9G73HIRJjTRckSPoqI4mC4u [file] SMRoYsVxHsS9IQHlOlH9LZD6ML8kHNNZFd8+AGmflNTvfZzhWTRFEzX7WbGfIWupASGOOl3X ID Date Data Source [id number] 02/03/2020 12:00:00 PM EST [facility] Name Value Range Interpretation Code Description Data Summer rce(s) Supporting Document(s) SARS coronavirus 2 RNA [facility] This lab was ordered by [facility] and reported by [facility]. ID Date Data Source [id number] 02/03/2020 10:21:13 AM EST [facility] Name Value Range Interpretation Code Description Data Summer rce(s) Supporting Document(s) Progress Note [facility] BVTOFo1wDdYXMdMu44/DCMgfMKXur4AsRAjkEEe2PPfqBMYkT1WqJUR5cN2zHDM1VQgQRzIxKdGfTtWp lbm [file] +oqa8Fj1PAmm+7+9umMo7swx77p0pVbwqm9QtjSsy/ro2ZM7A++6ce1fcf0V2g8xQMNce2VOlCbj+José [file] MDAyMDYyOCAwMDAwMCBuDQowMDAwMDIxNTcyIDAwMD VpOS3NZmFsQKYjWqP4CqWbMLFwZOPjly6BMDPbDIGcVJjlLUBqWAUcABEzUNkqYFWoUTTsOpC3QMWnUL RjVA3PTzJoCQByDzB0BIbfMUXxQTPnve7JKBFtTNAiLlw7DGWkCYUzFFYvTNsyAEJvDDM1YLA8DVDjSK NnPL8JYuAvVTcrUXRVCvo2APozL5f4MJBmJr3TI1Ci b4WmJeXwFQAYRHwkDO9idjHzYJCoEl2IG6kUYtt3XMGiKYB7TBJ0IFNjFOAbIOZgPaYxBfb2TbYqLFFy Kz5tUXujVXY9DuuxCdqeYfUyAQU6ElBoFsZ9QMY3QTZqABGqHlTaFB0BBc0ANwE1NYG4mWZiDa3VTxFm BenPNbVdTZ2PECr= ID Date Data Source [id number] 01/28/2020 12:29:09 PM [facility] Name Value Range Interpretation Code Description Data Summer rce(s) Supporting Document(s) Progress Note [facility] JYDORb7cHuHUQaEv65/JLYxlYKRnc7QnGStwHGd5OFybESNpQ5FfPOK0xE3kIRV7NNrXGoAyDpNgHSS0 lbm [file] ICAgICAgICAgICAgICAgICAgICAgICAgICAgICAgIC QlCFWlLCKwVNVaTDFqKGYbSIArLOWhKEIfNHXsZHFiNJNbZTOyKARnUBOgPSIeJOCtQAKjKCLhRA1CEL AgICAgICAgICAgICAgICAgICAgICAgICAgICAgICAgICAgICAgICAgICAgICAgICAgICAgICAgICAgIC AgICAgICAgICAgICAgICAgICAgICAgICAgICAgICAg YFUbGXBrNJ6TFVQyCLXtTOTyCDMaENUtWBDkPZAgWOReGSRoAPTxTNElNMXsPHLbWZBmPIJbKCUyMXCd BICxTOUmONYnJHLqCJXySMLvRTZoORJeNZSiGDPeEAFuJBYeDKJuCFJcJBHgRWKiTD7MYBCiKSThLZDl ICAgICAgICAgICAgICAgICAgICAgICAgICAgICAgIC AgICAgICAgICAgICAgICAgICAgICAgICAgICAgICAgICAgICAgICAgICAgICAgICAgICAgICAgICAgIA 0KICAgICAgICAgICAgICAgICAgICAgICAgICAgICAgICAgICAgICAgICAgICAgICAgICAgICAgICAgIC AgICAgICAgICAgICAgICAgICAgICAgICAgICAgICAg QBTyFBVwPAQlVN7GHZNfKVQoDOMoZUTiGVBdJWHtNCOaYFDfUSIbGDSwTMXkAMYdRVSdCLOzOAByTQVg SANiOOJqDQGnESMjJXErRKZlIYNaZIKiBMMxKZUlKNQfYRBeLHKaKYQyCIOmSVMlJQHmVZ6XEGAdTDVi ICAgICAgICAgICAgICAgICAgICAgICAgICAgICAgIC AgICAgICAgICAgICAgICAgICAgICAgICAgICAgICAgICAgICAgICAgICAgICAgICAgICAgICAgICAgIC NdQU4SBJIpSGDgSKNuYZNyBJMtJTJoIQWdPNUxIUZvNOKyZMSrPTSqYGSzPXHrIAVlUEVjNDOyNUJtDO AgICAgICAgICAgICAgICAgICAgICAgICAgICAgICAg QWYyOGUbSJDnOIIgIT8GGLQcIOQnYFHuAVYhBWYrGBGySPVhECZpLWXwXITxSOKdPQAeNDWiWEUdULIy BUIxLJEuUXQhDIOhAZSlUHWjTDFnNGRuBYGoKBDoJRDhVUUnCGTeCXKmRUVeJKKiBWKfUSFjQL0RVITr ICAgICAgICAgICAgICAgICAgICAgICAgICAgICAgIC AgICAgICAgICAgICAgICAgICAgICAgICAgICAgICAgICAgICAgICAgICAgICAgICAgICAgICAgICAgIC SdMAFcPE3UCB61uBXva9Q1VCDdKJ8cjzw/Wg6UKLwrujWamEXwJB7NDuVwQK0cfw2NMiMtDJ0dao7SUY vVZlDiU8G8jGBdKWVsAYHLVvHiW95oCLswIm07FUot JULgLgRiJXi1Ty0UOrTfH3znGLPvHuT5EMNlPqUyOTpdTJ8Oz5KfxTZvQYp+Ru0GYF7iq3OdEVvcMoBc CR2pvy2IXKvLMcRxO2TsliS4AEAdFWSnJn9ITCJpQPTavOHvRcGqBJXQKxFfP0ErfD08KMMFEv8+DQpl tkXpBocWJdKpRKQnu6UtJMk4TW4QLIRzYEr2hATtNM SsW1Sop0DwJk36NLSqTqqzWVYofUVoGE8kQBJwFJZ1vM4qDIVTGMXeiTSvSW9hHZ1kVOGfWJKdWdI9YF TMOX2LHHGgLKTqzUVaCEVcARCJXG8XJBjfZSW1WDQxwcQuoDUpONzhCB3KCTJwhfFvLgVdKKKRGWy+Pg 8MSP3vm0MjQEebDBPcDB4cjz8DFWzXGoQzZ4C2gVUr Y2V2CXzzQr5MWHAdQFRuIyQeQUADPDhcBN2MHT3dleB6HQ9IlJAjVWDtALPmjMBcKZy8I07zzXNdMLfb BU2FMSU+Dariel+Mp6RTOBkYGIfGGBsOyJjDNLBEkJcZ9YrP1QUy5NbL5MxKQ57iIcruuEwLQrgDC8CPE5a UCQiGEAVTS0KoAZayY8hcoEhIhDwAKLGEaLmJ33xzZ KvVZHjBWWqALXcTj3CDDFaK5JxqiFsbWxwonDhQPZgXGHUXR2JQXwwtfNhnKVrjVdqIE57qVvrLQ8TFn 5KAdGuUJ1ely7MrDGeWk0DGRYlOA2CYOUyBEDzPJTvPWV9RYWyToDpIGagYIFwZBPxKOR5JFUqNERsSP 8CQiGuIAWyFbZhGBVnGGEnZKTntp1SRSGuQQSyPLw1 RZVcUUXiHLZiRKwkRKQdUZFpBGM3QSGkQKXyHC7MKkWgPEHsGMB9MjSzHQYkLQJhed7JXDAjKSLhYwW8 BmQtJDOwNZUiLYstANClWOA6EnC3DXSeAZMpAS6IIjUoFZVkVVE1JkAwRQAqZCRnqs2BSDQuBXOqUNHt MQSkGQLtRPFeHKifMEFsFYR6VRG9QGVxZEQgTH6VYp DbIWKeQVYbAbXkDUIfSDWdnm9JMHOpQINrFiC3MXFoGRGcHQDwDRyeKQJcVPM3Hgd9NMMvDLBwLO0DAv VyHSZpMTbbIVJmNTShCKRnbq1QVPUgPJRsPCKrLhFiEFFnKLUlIRkpWWQlZGG2MPBgTUOhOEJyIW3BLb UrZEOeSQm3KYuhMKZwVYMuyl9JOAAxHWHtEQP1PpGb FNYwEHJmVUvwUUZjXPP9FDMdABLhCJZzEF9LWkDfRURyVcDzURxwJFKxJDNblx7HGJIiAQUuRJIuHLGx KFAwSNPyXYcsILBlFNMoKHwsDTPnGMBxLU0FQaWlQUCoJtS1TMXqBWXbVLQygk0ZAHHfIHBzTmJ5FdSc DAPaBDNcMPl0ssLswKZfSEh3NN6RG2MnaqGrFwGYMp 7Tc973AVT7EYYjLu2SY5oeNi6nBKCcHKMEQp4FFZi8OvdfJZP5EEn5GAXfE6KvVfyrZwRcWPSkVwm8We [facility]+QCv4K5TgZiGmOfPrGPIlGLCrR6XuZHP9KhC9BYpaPOK8Vt1kYBKIMs8+DQpzdGFydHhyZWYNCj EpQwOdPOvyZBEGPt8Z ID Date Data Source [id number] 12/17/2019 05:02:42 PM EDT [facility] MR EXTREMITY LOWER JOINT WITHOUT CONTRAS T [id number] RESULTInterpreted by:Alvarez Coffman MDEXAM: LEFT ANKLE MRI.INDICATION: [...] rce(s) Supporting Document(s) ID Date Data Source [id number] 12/17/2019 04:11:39 PM T [facility] Name Value Range Interpretation Code Description Data [facility] rce(s) Supporting Document(s) Progress Note [facility] [id number]/[id number]RL7UZuAFlZhCeHsJXI8 lbm [file] DQo= Procedure Social History Code Duration Value Status Description Data Source(s ) Smoking 12/16/2020 12:00:00 AM EDT Current Smoker completed Curre nt Smoker eCW1 ([facility]) Alcohol intake 11/29/2020 12:00:00 AM EDT Current non-d david of alcohol (finding) completed Current non-drinker of alcohol (finding) [facility] Tobacco use and exposure 11/29/2020 12:00:00 AM EDT Never used co mpleted Never used [facility] Cigarette pack-years 11/29/2020 12:00:00 AM EDT UNK completed [facility] Cigarettes smoked current (pack per day) - Reported 11/30/19 12:00:00 AM EDT UNK completed [facility] Smoking 11/29/2020 12:00:00 AM EDT Current every day smoker co mpleted Current every day smoker [facility] Smoking 11/16/2020 12:00:00 AM EDT Current Smoker completed Curre nt Smoker eCW1 ([facility]) Smoking 11/16/2020 12:00:00 AM EDT Current Smoker completed Curre nt Smoker eCW1 ([facility]) Smoking 11/16/2020 12:00:00 AM EDT Current Smoker completed Curre nt Smoker eCW1 ([facility]) Alcohol intake 10/19/2020 12:00:00 AM EDT Current non-d david of alcohol (finding) completed Current non-drinker of alcohol (finding) [facility] Alcohol intake 10/11/2020 12:00:00 AM EDT Current non-d david of alcohol (finding) completed Current non-drinker of alcohol (finding) [facility] Smoking 08/16/2020 12:00:00 AM EDT Current Smoker completed Curre nt Smoker eCW1 ([facility]) Smoking 08/16/2020 12:00:00 AM EDT Current Smoker completed Curre nt Smoker eCW1 ([facility]) Smoking 08/16/2020 12:00:00 AM EDT Current Smoker completed Curre nt Smoker eCW1 ([facility]) Smoking 08/16/2020 12:00:00 AM EDT Current Smoker completed Curre nt Smoker eCW1 ([facility]) Smoking 08/16/2020 12:00:00 AM EDT Current Smoker completed Curre nt Smoker eCW1 ([facility]) Smoking 08/16/2020 12:00:00 AM EDT Current Smoker completed Curre nt Smoker eCW1 ([facility]) Smoking 08/16/2020 12:00:00 AM EDT Current Smoker completed Curre nt Smoker eCW1 ([facility]) Smoking 08/16/2020 12:00:00 AM EDT Current Smoker completed Curre nt Smoker eCW1 ([facility]) Alcohol intake 07/09/2020 12:00:00 AM EDT Current non-d david of alcohol (finding) completed Current non-drinker of alcohol (finding) [facility] Smoking 06/28/2020 12:00:00 AM EDT Current Smoker completed Curre nt Smoker eCW1 ([facility]) Smoking 06/28/2020 12:00:00 AM EDT Current Smoker completed Curre nt Smoker eCW1 ([facility]) Smoking 06/28/2020 12:00:00 AM EDT Current Smoker completed Curre nt Smoker eCW1 ([facility]) Smoking 06/28/2020 12:00:00 AM EDT Current Smoker completed Curre nt Smoker eCW1 ([facility]) Smoking 06/28/2020 12:00:00 AM EDT Current Smoker completed Curre nt Smoker eCW1 ([facility]) Smoking 06/28/2020 12:00:00 AM EDT Current Smoker completed Curre nt Smoker eCW1 ([facility]) Smoking 05/17/2020 12:00:00 AM EDT Current Smoker completed Curre nt Smoker eCW1 ([facility]) Smoking 05/17/2020 12:00:00 AM EDT Current Smoker completed Curre nt Smoker eCW1 ([facility]) Alcohol intake 04/15/2020 12:00:00 AM EST Current non-d david of alcohol (finding) completed Current non-drinker of alcohol (finding) [facility] Smoking 03/15/2020 12:00:00 AM EST Current Smoker completed Curre nt Smoker eCW1 ([facility]) Smoking 03/15/2020 12:00:00 AM EST Current Smoker completed Curre nt Smoker eCW1 ([facility]) Alcohol intake 02/25/2020 12:00:00 AM EST Current non-d david of alcohol (finding) completed Current non-drinker of alcohol (finding) [facility] Smoking 02/05/2020 12:00:00 AM EST Current Smoker completed Curre nt Smoker eCW1 ([facility]) Smoking 02/05/2020 12:00:00 AM EST Current Smoker completed Curre nt Smoker eCW1 ([facility]) Smoking 02/05/2020 12:00:00 AM EST Current Smoker completed Curre nt Smoker eCW1 ([facility]) Smoking 12/30/2019 12:00:00 AM EDT Current Smoker completed Curre nt Smoker eCW1 ([facility]) Smoking 12/30/2019 12:00:00 AM EDT Current Smoker completed Curre nt Smoker eCW1 ([facility]) Alcohol intake 12/17/2019 12:00:00 AM EDT Current non-d david of alcohol (finding) completed Current non-drinker of alcohol (finding) [facility] Smoking 12/16/2019 12:00:00 AM EDT Current Smoker completed Curre nt Smoker eCW1 ([facility]) Smoking 12/16/2019 12:00:00 AM EDT Current Smoker completed Curre nt Smoker eCW1 ([facility]) Vital Signs ID Date Data Source UNK Name Value Range Interpretation Code Description Data Source(s) Body height 61 [in_i] 61 [in_i] [facility] ([facility], ) 5'1" Body weight 214.00 [lb_av] 214.00 [lb_av] LAVELLEEN T ([facility], ) Body mass index (BMI) [Ratio] 40.4 kg/m2 40.4 k g/m2 [facility] ([facility], ) [place] body weight 105 [lb_av] 105 [lb_av] MEDEN T ([facility], ) Body weight 97.070 kg 97.070 kg [facility] ([facility]) Body surface area Derived from formula 1.94 m2 1.94 m2 [facility] ([facility]) Body mass index (BMI) [Ratio] 40.4 kg/m2 40.4 k g/m2 [facility] ([facility]) Heart rate 94 /min 94 /min [facility] ([facility]) [place] body weight 105 [lb_av] 105 [lb_av] MEDEN T ([facility]) Body weight 97.070 kg 97.070 kg [facility] ([facility]) Body surface area Derived from formula 1.94 m2 1.94 m2 [facility] ([facility]) Systolic blood pressure 124 mm[Hg] 124 mm[Hg] [facility]) Diastolic blood pressure 72 mm[Hg] 72 mm[Hg] [facility] ([facility]) Oxygen saturation in Arterial blood by Pulse oximetry 98 % 98 % [facility] ([facility]) Body height 61 [in_i] 61 [in_i] [facility] ([facility]) 5'1" Body weight 214.00 [lb_av] 214.00 [lb_av] MEDEN T ([facility]) Body mass index (BMI) [Ratio] 40.2 kg/m2 40.2 k g/m2 [facility] ([facility]) Systolic blood pressure 133 mm[Hg] 133 mm[Hg] [facility]) Diastolic blood pressure 86 mm[Hg] 86 mm[Hg] [facility] ([facility]) Heart rate 94 /min 94 /min [facility] ([facility]) Oxygen saturation in Arterial blood by Pulse oximetry 96 % 96 % [facility] ([facility]) Body height 61 [in_i] 61 [in_i] [facility] ([facility]) 5'1" Body weight 213.00 [lb_av] 213.00 [lb_av] MEDEN T ([facility]) [place] body weight 105 [lb_av] 105 [lb_av] MEDEN T ([facility]) Body weight 96.617 kg 96.617 kg [facility] ([facility], ) Body surface area Derived from formula 1.94 m2 1.94 m2 [facility] ([facility], ) Body weight [lb_av] eCW1 ([facility]) Body weight 98.43 kg 98.43 kg eCW1 ([facility]) Body height 62 [in_i] 62 [in_i] eCW1 ([facility]) Body mass index (BMI) [Ratio] 39.69 kg/m2 39.69 kg/m2 eCW1 ([facility]) Heart rate 91 /min 91 /min eCW1 ([facility]) Respiratory rate 18 /min 18 /min eCW1 ([facility]) Body temperature 98.4 [degF] 98.4 [degF] eCW1 ( [facility]) Systolic blood pressure 133 mm[Hg] 133 mm[Hg] e CW1 ([facility]) Diastolic blood pressure 79 mm[Hg] 79 mm[Hg] eCW1 ([facility]) Body weight [lb_av] eCW1 ([facility]) Body weight 98.43 kg 98.43 kg eCW1 ([facility]) Body height 62 [in_i] 62 [in_i] eCW1 ([facility]) Body mass index (BMI) [Ratio] 39.69 kg/m2 39.69 kg/m2 eCW1 ([facility]) Heart rate 87 /min 87 /min eCW1 ([facility]) Respiratory rate 18 /min 18 /min eCW1 ([facility]) Body temperature 99.1 [degF] 99.1 [degF] eCW1 ( [facility]) Systolic blood pressure 125 mm[Hg] 125 mm[Hg] e CW1 ([facility]) Diastolic blood pressure 81 mm[Hg] 81 mm[Hg] eCW1 ([facility]) Diastolic blood pressure 91 mm[Hg] 91 mm[Hg] HORACIO ([facility]) Body height 61 [in_i] 61 [in_i] HORACIO ([facility]) Systolic blood pressure 142 mm[Hg] 142 mm[Hg] A THENA ([facility]) Diastolic blood pressure 91 mm[Hg] 91 mm[Hg] HORACIO ([facility]) Body height 61 [in_i] 61 [in_i] HORACIO ([facility]) Systolic blood pressure 142 mm[Hg] 142 mm[Hg] A THENA ([facility]) Systolic blood pressure--sitting 140 mm[Hg] 140 mm[Hg] MEDENT ([facility]) large cuff, Ra; 135/80 [place] Body weight 220.00 [lb_av] 220.00 [lb_av] MEDEN T ([facility]) Systolic blood pressure--supine 136 mm[Hg] 136 mm[Hg] MEDENT ([facility]) Ra Diastolic blood pressure--supine 76 mm[Hg] 76 mm[Hg] MEDENT ([facility]) Ra Body height 61 [in_i] 61 [in_i] MEDENT ([facility] 5'1" Body mass index (BMI) [Ratio] 41.6 kg/m2 41.6 k g/m2 MEDENT ([facility]) Heart rate 80 /min 80 /min MEDENT ([facility]) regular Respiratory rate 18 /min 18 /min MEDENT ( [facility]) Diastolic blood pressure--sitting 82 mm[Hg] 82 mm[Hg] MEDENT ([facility]) large cuff, Ra; 135/80 [place] Diastolic blood pressure 90 mm[Hg] 90 mm[Hg] HORACIO ([facility]) Body height 61 [in_i] 61 [in_i] HORACIO ([facility]) Systolic blood pressure 159 mm[Hg] 159 mm[Hg] A THENA ([facility]) Diastolic blood pressure 90 mm[Hg] 90 mm[Hg] HORACIO ([facility]) Body height 61 [in_i] 61 [in_i] HORACIO ([facility]) Systolic blood pressure 159 mm[Hg] 159 mm[Hg] A THENA ([facility]) Diastolic blood pressure 90 mm[Hg] 90 mm[Hg] HORACIO ([facility]) Body height 61 [in_i] 61 [in_i] HORACIO ([facility]) Systolic blood pressure 159 mm[Hg] 159 mm[Hg] A THENA ([facility]) Body weight [lb_av] eCW1 ([facility]) Body height 62 [in_i] 62 [in_i] eCW1 ([facility]) Body mass index (BMI) [Ratio] 40.05 kg/m2 40.05 kg/m2 eCW1 ([facility]) Heart rate 102 /min 102 /min eCW1 ([facility]) Respiratory rate 18 /min 18 /min eCW1 ([facility]) Body temperature 98.8 [degF] 98.8 [degF] eCW1 ( [facility]) Systolic blood pressure 143 mm[Hg] 143 mm[Hg] e CW1 ([facility]) Diastolic blood pressure 90 mm[Hg] 90 mm[Hg] eCW1 ([facility]) Body weight [lb_av] eCW1 ([facility]) Body height 62 [in_i] 62 [in_i] eCW1 ([facility]) Body mass index (BMI) [Ratio] 40.23 kg/m2 40.23 kg/m2 eCW1 ([facility]) Heart rate 87 /min 87 /min eCW1 ([facility]) Respiratory rate 18 /min 18 /min eCW1 ([facility]) Body temperature 98.3 [degF] 98.3 [degF] eCW1 ( [facility]) Systolic blood pressure 159 mm[Hg] 159 mm[Hg] e CW1 ([facility]) Diastolic blood pressure 93 mm[Hg] 93 mm[Hg] eCW1 ([facility]) Body weight 215 [lb_av] 215 [lb_av] eCW1 ([facility]) Body height 62 [in_i] 62 [in_i] eCW1 ([facility]) Body mass index (BMI) [Ratio] 39.32 kg/m2 39.32 kg/m2 eCW1 ([facility]) Heart rate 86 /min 86 /min eCW1 ([facility]) Respiratory rate 20 /min 20 /min eCW1 ([facility]) Body temperature 97.6 [degF] 97.6 [degF] eCW1 ( [facility]) Systolic blood pressure 128 mm[Hg] 128 mm[Hg] e CW1 ([facility]) Diastolic blood pressure 70 mm[Hg] 70 mm[Hg] eCW1 ([facility]) Body weight 215 [lb_av] 215 [lb_av] eCW1 ([facility]) Body height 62 [in_i] 62 [in_i] eCW1 ([facility]) Body mass index (BMI) [Ratio] 39.32 kg/m2 39.32 kg/m2 eCW1 ([facility]) Heart rate 98 /min 98 /min eCW1 ([facility]) Respiratory rate 18 /min 18 /min eCW1 ([facility]) Body temperature 97.4 [degF] 97.4 [degF] eCW1 ( [facility]) Systolic blood pressure 120 mm[Hg] 120 mm[Hg] e CW1 ([facility]) Diastolic blood pressure 77 mm[Hg] 77 mm[Hg] eCW1 ([facility]) Body height 61 [in_i] 61 [in_i] HORACIO ([facility]) Body height 61 [in_i] 61 [in_i] HORACIO ([facility]) Body height 61 [in_i] 61 [in_i] HORACIO ([facility]) Body height 61 [in_i] 61 [in_i] HORACIO ([facility]) Body height 61 [in_i] 61 [in_i] HORACIO ([facility]) Body height 61 [in_i] 61 [in_i] HORACIO ([facility]) Body height 61 [in_i] 61 [in_i] HORACIO ([facility]) Body height 61 [in_i] 61 [in_i] HORACIO ([facility]) Body height 61 [in_i] 61 [in_i] HORACIO ([facility]) Body height 61 [in_i] 61 [in_i] HORACIO ([facility]) Body height 61 [in_i] 61 [in_i] HORACIO ([facility]) Body height 61 [in_i] 61 [in_i] HORACIO ([facility]) Body weight [lb_av] eCW1 ([facility]) Body height 62 [in_i] 62 [in_i] eCW1 ([facility]) Body mass index (BMI) [Ratio] 39.14 kg/m2 39.14 kg/m2 eCW1 ([facility]) Heart rate 97 /min 97 /min eCW1 ([facility]) Respiratory rate 18 /min 18 /min eCW1 ([facility]) Body temperature 98.8 [degF] 98.8 [degF] eCW1 ( [facility]) Systolic blood pressure 124 mm[Hg] 124 mm[Hg] e CW1 ([facility]) Diastolic blood pressure 82 mm[Hg] 82 mm[Hg] eCW1 ([facility]) Diastolic blood pressure 89 mm[Hg] 89 mm[Hg] HORACIO ([facility]) Body height 61 [in_i] 61 [in_i] HORACIO ([facility]) Systolic blood pressure 140 mm[Hg] 140 mm[Hg] A THENA ([facility]) Diastolic blood pressure 89 mm[Hg] 89 mm[Hg] HORACIO ([facility]) Body height 61 [in_i] 61 [in_i] HORACIO ([facility]) Systolic blood pressure 140 mm[Hg] 140 mm[Hg] A THENA ([facility]) Systolic blood pressure 140 mm[Hg] 140 mm[Hg] A THENA ([facility]) Diastolic blood pressure 89 mm[Hg] 89 mm[Hg] HORACIO ([facility]) Body height 61 [in_i] 61 [in_i] HORACIO ([facility]) Diastolic blood pressure 89 mm[Hg] 89 mm[Hg] HORACIO ([facility]) Body height 61 [in_i] 61 [in_i] HORACIO ([facility]) Systolic blood pressure 140 mm[Hg] 140 mm[Hg] A THENA ([facility]) Diastolic blood pressure 89 mm[Hg] 89 mm[Hg] HORACIO ([facility]) Body height 61 [in_i] 61 [in_i] HORACIO ([facility]) Systolic blood pressure 140 mm[Hg] 140 mm[Hg] A THENA ([facility]) Diastolic blood pressure 89 mm[Hg] 89 mm[Hg] HORACIO ([facility]) Body height 61 [in_i] 61 [in_i] HORACIO ([facility]) Systolic blood pressure 140 mm[Hg] 140 mm[Hg] A THENA ([facility]) Diastolic blood pressure 89 mm[Hg] 89 mm[Hg] HORACIO ([facility]) Body height 61 [in_i] 61 [in_i] HORACIO ([facility]) Systolic blood pressure 140 mm[Hg] 140 mm[Hg] A THENA ([facility]) Diastolic blood pressure 89 mm[Hg] 89 mm[Hg] HORACIO ([facility]) Body height 61 [in_i] 61 [in_i] HORACIO ([facility]) Systolic blood pressure 140 mm[Hg] 140 mm[Hg] A THENA ([facility]) Diastolic blood pressure 89 mm[Hg] 89 mm[Hg] HORACIO ([facility]) Body height 61 [in_i] 61 [in_i] HORACIO ([facility]) Systolic blood pressure 140 mm[Hg] 140 mm[Hg] A THENA ([facility]) Diastolic blood pressure 89 mm[Hg] 89 mm[Hg] HOARCIO ([facility]) Body height 61 [in_i] 61 [in_i] HORACIO ([facility]) Systolic blood pressure 140 mm[Hg] 140 mm[Hg] A THENA ([facility]) Diastolic blood pressure 89 mm[Hg] 89 mm[Hg] HORACIO ([facility]) Body height 61 [in_i] 61 [in_i] HORACIO ([facility]) Systolic blood pressure 140 mm[Hg] 140 mm[Hg] A THENA ([facility]) Diastolic blood pressure 89 mm[Hg] 89 mm[Hg] HORACIO ([facility]) Body height 61 [in_i] 61 [in_i] HORACIO ([facility]) Systolic blood pressure 140 mm[Hg] 140 mm[Hg] A THENA ([facility]) Diastolic blood pressure 89 mm[Hg] 89 mm[Hg] HORACIO ([facility]) Body height 61 [in_i] 61 [in_i] HORACIO ([facility]) Systolic blood pressure 140 mm[Hg] 140 mm[Hg] A THENA ([facility]) Patient Treatment Plan of Care Planned Activity Planned Date Details Description Data Source (s) Amoxicillin 875 MG / Clavulanate 125 MG Oral Tablet 12/15/19 12:00:00 AM EDT eCW ([facility] methylPREDNISolone acetate (DEPO-MEDROL) injection 40 mg 10/11/2020 11:45:00 AM [facility] ospital Acetaminophen 500 MG Oral Tablet 09/12/2020 12:00:00 AM [facility] OmniPod Dash 5 Pack Pods 09/09/2020 12:00:00 AM [facility] OmniPod Dash 5 Pack Pods - 09/09/2020 12:00:00 AM EDT eC ([facility]) OmniPod Dash System - 09/09/2020 12:00:00 AM EDT eC ([facility]) OmniPod Dash 5 Pack Pods - 09/09/2020 12:00:00 AM EDT eC ([facility]) OmniPod Dash System - 09/09/2020 12:00:00 AM EDT eC ([facility]) Amlodipine 5 MG Oral Tablet 09/07/2020 12:00:00 AM [facility] 3 ML Insulin Glargine 100 UNT/ML Pen Injector [Lantus] 08/17/2020 12:00:00 AM EDT eCW1 ([facility]) PenTips 31G X 5 MM 08/17/2020 12:00:00 AM [facility] 3 ML Insulin Glargine 100 UNT/ML Pen Injector [Lantus] 08/17/2020 12:00:00 AM [facility] ospital 3 ML Insulin Glargine 100 UNT/ML Pen Injector [Lantus] 08/17/2020 12:00:00 AM EDT eCW1 ([facility]) Pen [place] 31G X 5 MM 08/17/2020 12:00:00 AM EDT eCW1 ([facility]) Pen [place] 31G X 5 MM 08/17/2020 12:00:00 AM EDT eCW1 ([facility]) 3 ML Insulin Glargine 100 UNT/ML Pen Injector [Lantus] 08/17/2020 12:00:00 AM EDT eCW1 ([facility]) Pen [place] 31G X 5 MM 08/17/2020 12:00:00 AM EDT eCW1 ([facility]) 3 ML Insulin Glargine 100 UNT/ML Pen Injector [Lantus] 08/17/2020 12:00:00 AM EDT eCW1 ([facility]) Pen [place] 31G X 5 MM 08/17/2020 12:00:00 AM EDT eCW1 ([facility]) 3 ML Insulin Glargine 100 UNT/ML Pen Injector [Lantus] 08/17/2020 12:00:00 AM EDT eCW1 ([facility]) Pen [place] 31G X 5 MM 08/17/2020 12:00:00 AM EDT eCW1 ([facility]) 3 ML Insulin Glargine 100 UNT/ML Pen Injector [Lantus] 08/17/2020 12:00:00 AM EDT eCW1 ([facility]) 3 ML Insulin Glargine 100 UNT/ML Pen Injector [Lantus] 08/17/2020 12:00:00 AM EDT eCW1 ([facility]) Pen [place] 31G X 5 MM 08/17/2020 12:00:00 AM EDT eCW1 ([facility]) Pen [place] 31G X 5 MM 08/17/2020 12:00:00 AM EDT eCW1 ([facility]) 3 ML Insulin Glargine 100 UNT/ML Pen Injector [Lantus] 08/17/2020 12:00:00 AM EDT eCW1 ([facility]) FreeStyle Ezra 14 Day Sensor [facility]16[facility]2020 [facility] 14 Day [place] Device 08/16/2020 12:00:00 AM [facility] FreeStyle Ezra Sensor System - 08/16/2020 12:00:00 AM EDT eCW1 ([facility]) [employer]Style [employer] [place] - 08/16/2020 12:00:00 AM EDT eCW1 ([facility]) [employer] [place] - 08/16/2020 12:00:00 AM EDT eCW1 ([facility]) [employer] Ezra Sensor System - 08/16/2020 12:00:00 AM EDT eCW1 ([facility]) [employer] [place] - 08/16/2020 12:00:00 AM EDT eCW1 ([facility]) [employer] Ezra Sensor System - 08/16/2020 12:00:00 AM EDT eCW1 ([facility]) [employer] [place] - 08/16/2020 12:00:00 AM EDT eCW1 ([facility]) [employer] Sensor System - 08/16/2020 12:00:00 AM EDT eCW1 ([facility]) [employer] [place] - 08/16/2020 12:00:00 AM EDT eCW1 ([facility]) [employer] Sensor System - 08/16/2020 12:00:00 AM EDT eCW1 ([facility]) [employer] Sensor System - 08/16/2020 12:00:00 AM EDT eCW1 ([facility]) [employer] [place] - 08/16/2020 12:00:00 AM EDT eCW1 ([facility]) [employer] [place] - 08/16/2020 12:00:00 AM EDT eCW1 ([facility]) [employer] Sensor System - 08/16/2020 12:00:00 AM EDT eCW1 ([facility]) Insulin Glargine 100 UNT/ML Injectable Solution [Lantu s] 08/16/2020 12:00:00 AM EDT eCW1 ([facility]) [employer]Style [employer] [place] - 08/16/2020 12:00:00 AM EDT eCW1 ([facility]) [employer] Sensor System - 08/16/2020 12:00:00 AM EDT eCW1 ([facility]) Amlodipine 5 MG Oral Tablet 06/28/2020 12:00:00 AM EDT eCW1 ([facility]) Amlodipine 5 MG Oral Tablet 06/28/2020 12:00:00 AM EDT eCW1 ([facility]) Amlodipine 5 MG Oral Tablet 06/28/2020 12:00:00 AM EDT eCW1 ([facility]) Amlodipine 5 MG Oral Tablet 06/28/2020 12:00:00 AM EDT eCW1 ([facility]) Amlodipine 5 MG Oral Tablet 06/28/2020 12:00:00 AM EDT eCW1 ([facility]) Amlodipine 5 MG Oral Tablet 06/28/2020 12:00:00 AM EDT eCW1 ([facility]) Amlodipine 5 MG Oral Tablet 06/28/2020 12:00:00 AM EDT eCW1 ([facility]) Amlodipine 5 MG Oral Tablet 06/28/2020 12:00:00 AM EDT eCW1 ([facility]) Amlodipine 5 MG Oral Tablet 06/28/2020 12:00:00 AM EDT eCW1 ([facility]) Amlodipine 5 MG Oral Tablet 06/28/2020 12:00:00 AM EDT eCW1 ([facility]) carbamide peroxide 65 MG/ML Otic Solution [Debrox] 05/17/2020 12 :00:00 AM EDT eCW1 ([facility]) carbamide peroxide 65 MG/ML Otic Solution [Debrox] 05/17/2020 12 :00:00 AM EDT eCW1 ([facility]) 0.5 ML dulaglutide 3 MG/ML Auto-Injector [Trulicity] 021 12:00:00 AM [facility] Aspirin 325 MG Delayed Release Oral Tablet 03/22/2020 12:00:00 AM E [facility] Albuterol Sulfate HFA 108 (90 Base) MCG/ ACT Inhalation Aerosol Solution (PROVENTIL HFA) 02/05/2020 12:00:00 AM EST [facility] Augmentin 875-125 MG 02/05/2020 12:00:00 AM EST eCW1 ([facility]) 200 ACTUAT Albuterol 0.09 MG/ACTUAT Metered Dose Inhal er [Ventolin] 02/05/2020 12:00:00 AM EST eCW1 ([facility]) Ofloxacin 3 MG/ML Ophthalmic Solution 02/05/2020 12:00:00 AM EST eCW1 ([facility]) Augmentin 875-125 MG 02/05/2020 12:00:00 AM EST eCW1 ([facility]) 200 ACTUAT Albuterol 0.09 MG/ACTUAT Metered Dose Inhal er [Ventolin] 02/05/2020 12:00:00 AM EST eCW1 ([facility]) Ofloxacin 3 MG/ML Ophthalmic Solution 02/05/2020 12:00:00 AM EST eCW1 ([facility]) Augmentin 875-125 MG 02/05/2020 12:00:00 AM EST eCW1 ([facility]) 200 ACTUAT Albuterol 0.09 MG/ACTUAT Metered Dose Inhal er [Ventolin] 02/05/2020 12:00:00 AM EST eCW1 ([facility]) Ofloxacin 3 MG/ML Ophthalmic Solution 02/05/2020 12:00:00 AM EST eCW1 ([facility]) pregabalin 150 MG Oral Capsule 02/02/2020 12:00:00 AM [facility] methylPREDNISolone acetate (DEPO-MEDROL) injection 40 mg 12/17/2019 03:00:00 PM EDT [facility] ospital Meclizine Hydrochloride 25 MG Oral Tablet 12/16/2019 12:00:00 AM ED T eCW1 [facility] [facility] Meclizine Hydrochloride 25 MG Oral Tablet 12/16/2019 12:00:00 AM ED T eCW1 ([facility]) Meclizine Hydrochloride 25 MG Oral Tablet 12/16/2019 12:00:00 AM ED T eCW1 ([facility]) Ofloxacin 3 MG/ML Otic Solution 12/16/2019 12:00:00 AM [facility] Amoxicillin 875 MG / Clavulanate 125 MG Oral Tablet 12/16/19 20 12:00:00 AM [facility] Meclizine Hydrochloride 25 MG Oral Tablet 12/16/2019 12:00:00 AM ED T eCW1 ([facility]) Ciprofloxacin 2 MG/ML Otic Solution 12/16/2019 12:00:00 AM EDT eCW1 ([facility]) Ofloxacin 3 MG/ML Ophthalmic Solution 12/16/2019 12:00:00 AM EDT eCW1 ([facility]) Amoxicillin 875 MG / Clavulanate 125 MG Oral Tablet 12/16/19 20 12:00:00 AM EDT eCW1 ([facility]) Meclizine Hydrochloride 25 MG Oral Tablet 12/16/2019 12:00:00 AM ED T eCW1 ([facility]) Ciprofloxacin 2 MG/ML Otic Solution 12/16/2019 12:00:00 AM EDT eCW1 ([facility]) Ofloxacin 3 MG/ML Ophthalmic Solution 12/16/2019 12:00:00 AM EDT eCW1 ([facility]) Amoxicillin 875 MG / Clavulanate 125 MG Oral Tablet 12/16/19 12:00:00 AM EDT eCW1 ([facility]) Meclizine Hydrochloride 25 MG Oral Tablet 12/16/2019 12:00:00 AM ED T eCW1 ([facility]) Ciprofloxacin 2 MG/ML Otic Solution 12/16/2019 12:00:00 AM EDT eCW1 ([facility]) Ofloxacin 3 MG/ML Ophthalmic Solution 12/16/2019 12:00:00 AM EDT eCW1 ([facility]) Amoxicillin 875 MG / Clavulanate 125 MG Oral Tablet 12/16/19 12:00:00 AM EDT eCW1 ([facility]) Meclizine Hydrochloride 25 MG Oral Tablet 12/16/2019 12:00:00 AM ED T eCW1 ([facility]) Ciprofloxacin 2 MG/ML Otic Solution 12/16/2019 12:00:00 AM EDT eCW1 ([facility]) Ofloxacin 3 MG/ML Ophthalmic Solution 12/16/2019 12:00:00 AM EDT eCW1 ([facility]) Amoxicillin 875 MG / Clavulanate 125 MG Oral Tablet 12/16/19 12:00:00 AM EDT eCW1 ([facility] hospital) pregabalin 100 MG Oral Capsule 09/03/2019 12:00:00 AM EDT [facility] famotidine 20 mg tabs ATHEN A ([facility]) duloxetine hydrochloride 60 mg cpep HORACIO ([facility]) duloxetine hcl 30 mg cpep A THENA ([facility]) celecoxib 200 mg caps ATHEN A ([facility]) celecoxib 100 mg caps ATHEN A ([facility]) atorvastatin calcium 10 mg tabs HORACIO ([facility]) Amoxicillin 875 MG / Clavulanate 125 MG Oral Tablet HORACIO ([facility]) trulicity 0.75 mg/0.5ml sopn HORACIO ([facility]) Steglatro 5 mg tablet HORACIO ([facility]) steglatro 5 mg tabs HORACIO ([facility]) pregabalin 75 MG Oral Capsule HORACIO ([facility]) pregabalin 100 MG Oral Capsule HORACIO ([facility]) pregabalin 75 mg caps ATHEN A ([facility]) pregabalin 100 mg caps ATHE NA ([facility]) Oxycodone Hydrochloride 5 MG Oral Tablet HORACIO ([facility]) oxybutynin chloride er 10 mg tb24 H[facility]ACIO ([facility]) omeprazole 20 mg cpdr ATHEN A ([facility]) Methocarbamol 750 MG Oral Tablet HORACIO ([facility]) Methocarbamol 500 MG Oral Tablet HORACIO ([facility]) methocarbamol 750 mg tabs A THENA ([facility]) methocarbamol 500 mg tabs A THENA ([facility]) meclizine hcl 25 mg tabs AT CEDRIC ([facility]) lisinopril 10 mg tabs ATHEN A ([facility]) gabapentin 300 mg caps ATHE NA ([facility]) fluticasone propionate 50 mcg/actuation nasal spray,suspension SPRAY ONE SPRAY IN EACH NOSTRIL DAILY [facility]AC[facility] ([facility]) fluticasone propionate 50 mcg/act susp HORACIO ([facility]) famotidine 20 mg tabs ATHEN A ([facility]) duloxetine hydrochloride 60 mg cpep HORACIO ([facility]) duloxetine hcl 30 mg cpep A THENA ([facility]) celecoxib 200 mg caps ATHEN A ([facility]) celecoxib 100 mg caps ATHEN A ([facility]) atorvastatin calcium 10 mg tabs HORACIO ([facility]) Amoxicillin 875 MG / Clavulanate 125 MG Oral Tablet HORACIO ([facility]) 0.5 ML dulaglutide 3 MG/ML Auto-Injector [Trulicity] HORACIO ([facility]) 0.5 ML dulaglutide 1.5 MG/ML Auto-Injector [Trulicity] HORACIO ([facility]) trulicity 0.75 mg/0.5ml sopn HORACIO ([facility]) Steglatro 5 mg tablet HORACIO ([facility]) steglatro 5 mg tabs HORACIO ([facility]) pregabalin 75 MG Oral Capsule HORACIO ([facility]) pregabalin 100 MG Oral Capsule [facility]IO ([facility]) pregabalin 75 mg caps ATHEN A ([facility]) pregabalin 100 mg caps ATHE NA ([facility]) Oxycodone Hydrochloride 5 MG Oral Tablet HORACIO ([facility]) oxybutynin chloride er 10 mg tb24 HORACIO ([facility]) gabapentin 300 mg caps ATHE NA ([facility]) fluticasone propionate 50 mcg/actuation nasal spray,suspension SPRAY ONE SPRAY IN EACH NOSTRIL DAILY [facility] ([facility]) fluticasone propionate 50 mcg/act susp HORACIO ([facility]) famotidine 20 mg tabs ATHEN A ([facility]) duloxetine hydrochloride 60 mg cpep HORACIO ([facility]) duloxetine hcl 30 mg cpep A THENA ([facility]) celecoxib 200 mg caps ATHEN A ([facility]) celecoxib 100 mg caps ATHEN A ([facility]) atorvastatin calcium 10 mg tabs HORACIO ([facility]) atorvastatin 20 MG Oral Tablet HORACIO ([facility] atorvastatin 10 MG Oral Tablet HORACIO ([facility]) Amoxicillin 875 MG / Clavulanate 125 MG Oral Tablet HORACIO ([facility]) 0.5 ML dulaglutide 3 MG/ML Auto-Injector [Trulicity] HORACIO ([facility]) 0.5 ML dulaglutide 1.5 MG/ML Auto-Injector [Trulicity] HORACIO ([facility]) trulicity 0.75 mg/0.5ml sopn HORACIO ([facility]) Steglatro 5 mg tablet HORACIO ([facility]) steglatro 5 mg tabs HORACIO ([facility]) pregabalin 75 MG Oral Capsule HORACIO ([facility]) pregabalin 100 MG Oral Capsule HORACIO ([facility]) pregabalin 75 mg caps ATHEN A ([facility]) pregabalin 100 mg caps ATHE NA ([facility]) Oxycodone Hydrochloride 5 MG Oral Tablet HORACIO ([facility]) oxybutynin chloride er 10 mg tb24 HORACIO ([facility]) omeprazole 20 mg cpdr ATHEN A ([facility]) Methocarbamol 750 MG Oral Tablet HORACIO ([facility]) Methocarbamol 500 MG Oral Tablet HORACIO ([facility]) methocarbamol 750 mg tabs A THENA ([facility]) methocarbamol 500 mg tabs A THENA ([facility]) meclizine hcl 25 mg tabs AT CEDRIC ([facility]) lisinopril 10 mg tabs ATHEN A ([facility]) gabapentin 300 mg caps ATHE NA ([facility]) fluticasone propionate 50 mcg/actuation nasal spray,suspension SPRAY ONE SPRAY IN EACH NOSTRIL DAILY [facility]AC[facility] ([facility]) fluticasone propionate 50 mcg/act susp HORACIO ([facility]) famotidine 20 mg tabs ATHEN A ([facility]) duloxetine hydrochloride 60 mg cpep HORACIO ([facility]) duloxetine hcl 30 mg cpep A THENA ([facility]) celecoxib 200 mg caps ATHEN A ([facility]) celecoxib 100 mg caps ATHEN A ([facility]) atorvastatin calcium 10 mg tabs HORACIO ([facility]) atorvastatin 20 MG Oral Tablet HORACIO ([facility]) atorvastatin 10 MG Oral Tablet HORACIO ([facility]) Amoxicillin 875 MG / Clavulanate 125 MG Oral Tablet HORACIO ([facility]) trulicity 0.75 mg/0.5ml sopn HORACIO ([facility]) Steglatro 5 mg tablet HORACIO ([facility]) steglatro 5 mg tabs HORACIO ([facility]) pregabalin 75 MG Oral Capsule HORACIO ([facility]) pregabalin 100 MG Oral Capsule HORACIO ([facility]) pregabalin 75 mg caps ATHEN A ([facility]) pregabalin 100 mg caps ATHE NA ([facility]) Oxycodone Hydrochloride 5 MG Oral Tablet HORACIO ([facility]) oxybutynin chloride er 10 mg tb24 HORACIO ([facility]) omeprazole 20 mg cpdr ATHEN A ([facility]) Methocarbamol 750 MG Oral Tablet HORACIO ([facility]) Methocarbamol 500 MG Oral Tablet HORACIO ([facility]) methocarbamol 750 mg tabs A THENA ([facility]) methocarbamol 500 mg tabs A THENA ([facility]) meclizine hcl 25 mg tabs AT CEDRIC ([facility]) lisinopril 10 mg tabs ATHEN A ([facility]) gabapentin 300 mg caps ATHE NA ([facility]) fluticasone propionate 50 mcg/actuation nasal spray,suspension SPRAY ONE SPRAY IN EACH NOSTRIL DAILY HORACIO ([facility]) fluticasone propionate 50 mcg/act susp HORACIO ([facility]) famotidine 20 mg tabs ATHEN A ([facility]) duloxetine hydrochloride 60 mg cpep HORACIO ([facility]) duloxetine hcl 30 mg cpep A THENA ([facility]) celecoxib 200 mg caps ATHEN A ([facility]) celecoxib 100 mg caps ATHEN A ([facility]) atorvastatin calcium 10 mg tabs HORACIO ([facility]) Amoxicillin 875 MG / Clavulanate 125 MG Oral Tablet HORACIO ([facility]) famotidine 20 mg tabs ATHEN A ([facility]) duloxetine hydrochloride 60 mg cpep HORACIO ([facility]) duloxetine hcl 30 mg cpep A THENA ([facility]) celecoxib 200 mg caps ATHEN A ([facility]) celecoxib 100 mg caps ATHEN A ([facility]) atorvastatin calcium 10 mg tabs HORACIO ([facility]) Amoxicillin 875 MG / Clavulanate 125 MG Oral Tablet HORACIO ([facility]) trulicity 0.75 mg/0.5ml sopn HORACIO ([facility]) Steglatro 5 mg tablet HORACIO ([facility]) steglatro 5 mg tabs HORACIO ([facility]) pregabalin 75 MG Oral Capsule HORACIO ([facility]) pregabalin 100 MG Oral Capsule HORACIO ([facility]) pregabalin 75 mg caps ATHEN A ([facility]) pregabalin 100 mg caps ATHE NA ([facility]) oxybutynin chloride er 10 mg tb24 HORACIO ([facility]) omeprazole 20 mg cpdr ATHEN A ([facility]) Methocarbamol 750 MG Oral Tablet HORACIO ([facility]) Methocarbamol 500 MG Oral Tablet HORACIO ([facility]) methocarbamol 750 mg tabs A THENA ([facility]) methocarbamol 500 mg tabs A THENA ([facility]) meclizine hcl 25 mg tabs AT CEDRIC ([facility]) lisinopril 10 mg tabs ATHEN A ([facility]) trulicity 0.75 mg/0.5ml sopn HORACIO ([facility]) Steglatro 5 mg tablet HORACIO ([facility]) steglatro 5 mg tabs HORACIO ([facility]) pregabalin 75 MG Oral Capsule HORACIO ([facility]) pregabalin 100 MG Oral Capsule HORACIO ([facility]) pregabalin 75 mg caps ATHEN A ([facility]) pregabalin 100 mg caps ATHE NA ([facility]) Oxycodone Hydrochloride 5 MG Oral Tablet HORACIO ([facility]) oxybutynin chloride er 10 mg tb24 HORACIO ([facility]) omeprazole 20 mg cpdr ATHEN A ([facility]) Methocarbamol 750 MG Oral Tablet HORACIO ([facility]) Methocarbamol 500 MG Oral Tablet HORACIO ([facility]) methocarbamol 750 mg tabs A THENA ([facility]) methocarbamol 500 mg tabs A THENA ([facility]) meclizine hcl 25 mg tabs AT CEDRIC ([facility]) lisinopril 10 mg tabs ATHEN A ([facility]) gabapentin 300 mg caps ATHE NA ([facility]) fluticasone propionate 50 mcg/actuation nasal spray,suspension SPRAY ONE SPRAY IN EACH NOSTRIL DAILY [facility]ORACIO ([facility]) fluticasone propionate 50 mcg/act susp HORACIO ([facility]) omeprazole 20 mg cpdr ATHEN A ([facility]) Methocarbamol 750 MG Oral Tablet HORACIO ([facility]) Methocarbamol 500 MG Oral Tablet HORACIO ([facility]) methocarbamol 750 mg tabs A THENA ([facility]) methocarbamol 500 mg tabs A THENA ([facility]) meclizine hcl 25 mg tabs AT CEDRIC ([facility]) lisinopril 10 mg tabs ATHEN A ([facility]) gabapentin 300 mg caps ATHE NA ([facility]) fluticasone propionate 50 mcg/actuation nasal spray,suspension SPRAY ONE SPRAY IN EACH NOSTRIL DAILY HORACIO ([facility]) fluticasone propionate 50 mcg/act susp HORACIO ([facility]) famotidine 20 mg tabs ATHEN A ([facility]) duloxetine hydrochloride 60 mg cpep HORACIO ([facility]) duloxetine hcl 30 mg cpep A THENA ([facility]) celecoxib 200 mg caps ATHEN A ([facility]) celecoxib 100 mg caps ATHEN A ([facility]) atorvastatin calcium 10 mg tabs HORACIO ([facility]) Amoxicillin 875 MG / Clavulanate 125 MG Oral Tablet HORACIO ([facility]) pregabalin 75 MG Oral Capsule HORACIO ([facility]) pregabalin 100 MG Oral Capsule HORACIO ([facility]) pregabalin 75 mg caps ATHEN A ([facility]) pregabalin 100 mg caps ATHE NA ([facility]) oxybutynin chloride er 10 mg tb24 HORACIO ([facility]) omeprazole 20 mg cpdr ATHEN A ([facility]) Methocarbamol 750 MG Oral Tablet HORACIO ([facility]) Methocarbamol 500 MG Oral Tablet HORACIO ([facility]) methocarbamol 750 mg tabs A THENA ([facility]) methocarbamol 500 mg tabs A THENA ([facility]) meclizine hcl 25 mg tabs AT CEDRIC ([facility]) lisinopril 10 mg tabs ATHEN A ([facility]) gabapentin 300 mg caps ATHE NA ([facility]) fluticasone propionate 50 mcg/actuation nasal spray,suspension SPRAY ONE SPRAY IN EACH NOSTRIL DAILY HORACIO ([facility]) fluticasone propionate 50 mcg/act susp HORACIO ([facility]) famotidine 20 mg tabs ATHEN A ([facility]) duloxetine hydrochloride 60 mg cpep HORACIO ([facility]) duloxetine hcl 30 mg cpep A THENA ([facility]) celecoxib 200 mg caps ATHEN A ([facility]) celecoxib 100 mg caps ATHEN A ([facility]) atorvastatin calcium 10 mg tabs HORACIO ([facility]) Amoxicillin 875 MG / Clavulanate 125 MG Oral Tablet HORACIO ([facility]) trulicity 0.75 mg/0.5ml sopn HORACIO ([facility]) Steglatro 5 mg tablet HORACIO ([facility]) steglatro 5 mg tabs HORACIO ([facility]) pregabalin 75 MG Oral Capsule HORAICO ([facility]) pregabalin 100 MG Oral Capsule HORACIO ([facility]) pregabalin 75 mg caps ATHEN A ([facility]) pregabalin 100 mg caps ATHE NA ([facility]) oxybutynin chloride er 10 mg tb24 HORACIO ([facility]) omeprazole 20 mg cpdr ATHEN A ([facility]) Methocarbamol 750 MG Oral Tablet HORACIO ([facility]) Methocarbamol 500 MG Oral Tablet HORACIO ([facility]) methocarbamol 750 mg tabs A THENA ([facility]) methocarbamol 500 mg tabs A THENA ([facility]) trulicity 0.75 mg/0.5ml sopn HORACIO ([facility]) Steglatro 5 mg tablet HORACIO ([facility]) steglatro 5 mg tabs HORACIO ([facility]) pregabalin 75 MG Oral Capsule HORACIO ([facility]) pregabalin 100 MG Oral Capsule HORACIO ([facility]) pregabalin 75 mg caps ATHEN A ([facility]) pregabalin 100 mg caps ATHE NA ([facility]) Oxycodone Hydrochloride 5 MG Oral Tablet HORACIO ([facility]) oxybutynin chloride er 10 mg tb24 HORACIO ([facility]) omeprazole 20 mg cpdr ATHEN A ([facility]) Methocarbamol 750 MG Oral Tablet HORACIO ([facility]) Methocarbamol 500 MG Oral Tablet HORACIO ([facility]) methocarbamol 750 mg tabs A THENA ([facility]) methocarbamol 500 mg tabs A THENA ([facility]) meclizine hcl 25 mg tabs AT CEDRIC ([facility]) lisinopril 10 mg tabs ATHEN A ([facility]) gabapentin 300 mg caps ATHE NA ([facility]) fluticasone propionate 50 mcg/actuation nasal spray,suspension SPRAY ONE SPRAY IN EACH NOSTRIL DAILY HORACIO ([facility]) fluticasone propionate 50 mcg/act susp HORACIO ([facility]) famotidine 20 mg tabs ATHEN A ([facility]) duloxetine hydrochloride 60 mg cpep HORACIO ([facility]) duloxetine hcl 30 mg cpep A THENA ([facility]) celecoxib 200 mg caps ATHEN A ([facility]) celecoxib 100 mg caps ATHEN A ([facility]) atorvastatin calcium 10 mg tabs HORACIO ([facility]) Amoxicillin 875 MG / Clavulanate 125 MG Oral Tablet HORCAIO ([facility]) trulicity 0.75 mg/0.5ml sopn HORACIO ([facility]) Steglatro 5 mg tablet HORACIO ([facility]) steglatro 5 mg tabs HORACIO ([facility]) pregabalin 75 MG Oral Capsule HORACIO ([facility]) pregabalin 100 MG Oral Capsule HORACIO ([facility]) pregabalin 75 mg caps ATHEN A ([facility]) pregabalin 100 mg caps ATHE NA ([facility]) oxybutynin chloride er 10 mg tb24 HORACIO ([facility]) omeprazole 20 mg cpdr ATHEN A ([facility]) Methocarbamol 750 MG Oral Tablet [facility] ([facility]) Methocarbamol 500 MG Oral Tablet [facility]AC[facility] ([facility]) methocarbamol 750 mg tabs A THENA ([facility]) methocarbamol 500 mg tabs A THENA ([facility]) meclizine hcl 25 mg tabs AT CEDRIC ([facility]) lisinopril 10 mg tabs ATHEN A ([facility]) gabapentin 300 mg caps ATHE NA ([facility]) fluticasone propionate 50 mcg/actuation nasal spray,suspension SPRAY ONE SPRAY IN EACH NOSTRIL DAILY [facility] ([facility]) fluticasone propionate 50 mcg/act susp H[facility]ACIO ([facility]) meclizine hcl 25 mg tabs AT CEDRIC ([facility]) lisinopril 10 mg tabs ATHEN A ([facility]) gabapentin 300 mg caps ATHE NA ([facility]) fluticasone propionate 50 mcg/actuation nasal spray,suspension SPRAY ONE SPRAY IN EACH NOSTRIL DAILY [facility]AC[facility] ([facility]) fluticasone propionate 50 mcg/act susp HORACIO ([facility]) famotidine 20 mg tabs ATHEN A ([facility]) duloxetine hydrochloride 60 mg cpep HORACIO ([facility]) duloxetine hcl 30 mg cpep A THENA ([facility]) celecoxib 200 mg caps ATHEN A ([facility]) celecoxib 100 mg caps ATHEN A ([facility]) atorvastatin calcium 10 mg tabs HORACIO ([facility]) Steglatro 5 mg tablet [facility]ACIO ([facility]) steglatro 5 mg tabs HORACIO ([facility]) pregabalin 75 MG Oral Capsule HORACIO ([facility]) pregabalin 75 mg caps ATHEN A ([facility]) pregabalin 100 mg caps ATHE NA ([facility]) oxybutynin chloride er 10 mg tb24 [facility]AC[facility] ([facility]) omeprazole 20 mg cpdr ATHEN A ([facility]) Methocarbamol 750 MG Oral Tablet [facility] ([facility]) Methocarbamol 500 MG Oral Tablet HORACIO ([facility]) methocarbamol 750 mg tabs A THENA ([facility]) methocarbamol 500 mg tabs A THENA ([facility]) meclizine hcl 25 mg tabs AT CEDRIC ([facility]) lisinopril 10 mg tabs ATHEN A ([facility]) gabapentin 300 mg caps ATHE NA ([facility]) fluticasone propionate 50 mcg/actuation nasal spray,suspension SPRAY ONE SPRAY IN EACH NOSTRIL DAILY [facility]AC[facility] ([facility]) fluticasone propionate 50 mcg/act susp [facility]ACIO ([facility]) Famotidine 20 MG Oral Tablet [facility]ACIO ([facility]) duloxetine hydrochloride 60 mg cpep [facility]AC[facility] ([facility]) celecoxib 100 mg caps ATHEN A ([facility]) atorvastatin 10 MG Oral Tablet [facility]AC[facility] ([facility]) trulicity 0.75 mg/0.5ml sopn [facility] ([facility]) Steglatro 5 mg tablet [facility]AC[facility] ([facility]) steglatro 5 mg tabs [facility]ORACIO ([facility]) duloxetine hydrochloride 60 mg cpep [facility]ORACIO ([facility]) duloxetine hcl 30 mg cpep A THENA ([facility]) celecoxib 200 mg caps ATHEN A ([facility]) celecoxib 100 mg caps ATHEN A ([facility]) atorvastatin calcium 10 mg tabs HORACIO ([facility]) Steglatro 5 mg tablet [facility]ACIO ([facility]) steglatro 5 mg tabs HORACIO ([facility]) pregabalin 75 MG Oral Capsule HORACIO ([facility]) pregabalin 75 mg caps ATHEN A ([facility]) pregabalin 100 mg caps ATHE NA ([facility]) oxybutynin chloride er 10 mg tb24 [facility]AC[facility] ([facility]) omeprazole 20 mg cpdr ATHEN A ([facility]) Methocarbamol 750 MG Oral Tablet [facility]ACIO ([facility]) Methocarbamol 500 MG Oral Tablet [facility] ([facility]) methocarbamol 750 mg tabs A THENA ([facility]) methocarbamol 500 mg tabs A THENA ([facility] meclizine hcl 25 mg tabs AT CEDRIC ([facility]) lisinopril 10 mg tabs ATHEN A ([facility]) gabapentin 300 mg caps ATHE NA ([facility]) fluticasone propionate 50 mcg/actuation nasal spray,suspension SPRAY ONE SPRAY IN EACH NOSTRIL DAILY [facility] ([facility]) fluticasone propionate 50 mcg/act susp HORACIO ([facility]) duloxetine hydrochloride 60 mg cpep HORACIO ([facility]) celecoxib 100 mg caps ATHEN A ([facility]) trulicity 0.75 mg/0.5ml sopn [facility]AC[facility] ([facility]) Steglatro 5 mg tablet [facility]AC[facility] ([facility]) steglatro 5 mg tabs HORACIO ([facility]) pregabalin 75 MG Oral Capsule HORACIO ([facility]) pregabalin 100 MG Oral Capsule HORACIO ([facility]) pregabalin 75 mg caps ATHEN A ([facility]) pregabalin 100 mg caps ATHE NA ([facility]) oxybutynin chloride er 10 mg tb24 HORACIO ([facility]) omeprazole 20 mg cpdr ATHEN A ([facility]) Methocarbamol 750 MG Oral Tablet [facility]ORACIO ([facility]) Methocarbamol 500 MG Oral Tablet [facility]ORACIO ([facility]) methocarbamol 750 mg tabs A THENA ([facility]) methocarbamol 500 mg tabs A THENA ([facility]) meclizine hcl 25 mg tabs AT CEDRIC ([facility]) lisinopril 10 mg tabs ATHEN A ([facility]) gabapentin 300 mg caps ATHE NA ([facility]) fluticasone propionate 50 mcg/actuation nasal spray,suspension SPRAY ONE SPRAY IN EACH NOSTRIL DAILY [facility] ([facility]) fluticasone propionate 50 mcg/act susp HORACIO ([facility]) famotidine 20 mg tabs ATHEN A ([facility])
[2021-01-05 14:17] VITALS: BP 145/72
[2021-01-05 14:22] LABS: BASO # 0.1 10^3/uL (0.0-0.2); BASO % 0.4 % (0.0-1.0); EOS # 0.3 10^3/uL (0.0-0.5); EOS % 2.4 % (0.0-3.0); HEMOGLOBIN 13.3 g/dl (12.0-15.5); LYMPH # 1.8 10^3/uL (1.5-5.0); LYMPH % 15.5 % (24.0-44.0); MEAN CORPUSCULAR HEMOGLOBIN 29.9 pg (27.0-33.0); MEAN CORPUSCULAR HGB CONC 33.3 g/dl (32.0-36.5); MEAN CORPUSCULAR VOLUME 89.9 fl (80.0-96.0); MONO % 8.6 % (2.0-8.0); NEUTROPHILS # 8.3 10^3/uL (1.5-8.5); NEUTROPHILS % 72.8 % (36.0-66.0); PLATELET COUNT, AUTOMATED 347 10^3/uL (150-450); RED BLOOD COUNT 4.45 10^6/uL (4.00-5.40); WHITE BLOOD COUNT 11.5 10^3/uL (4.0-10.0)
[2021-01-05] MEDS ORDERED: KETOROLAC 30 MG/ML 1ML VIAL IV ONE (14:30)
[2021-01-05 14:40] LABS: BLOOD UREA NITROGEN 8 MG/DL (7-18); C REACTIVE PROTEIN QUANTITATIV 3.05 MG/DL (0.00-0.30); CALCIUM LEVEL 9.1 MG/DL (8.5-10.1); CARBON DIOXIDE LEVEL 23 MEQ/L (21-32); CHLORIDE LEVEL 105 MEQ/L (98-107); CREATININE FOR GFR 0.69 MG/DL (0.55-1.30); GLOMERULAR FILTRATION RATE > 60.0 (>58); GLUCOSE, FASTING 186 MG/DL (70-100); SODIUM LEVEL 135 MEQ/L (136-145)
[2021-01-05 14:50] LABS: ERYTHROCYTE SEDIMENTATION RATE 30 mm/hr (0-20)
[2021-01-05] MEDS ORDERED: LIDOCAINE W/EPINEPHRINE 1% 20ML VIAL SC ONE (14:50)
[2021-01-05] MEDS ORDERED: LIDOCAINE W/EPINEPHRINE 1% 20ML VIAL As Ordered ONE (14:51)
[2021-01-05] MEDS ORDERED: cefTRIAXone SOD 1 GM in D5W MINI-BAG PLUS 50 ML IV ONE (15:30)
== END 2021-01-05 17:02 | disposition home or self-care (01) ==
LOC: M ED 09:58
DX: N76.4 Abscess of vulva (principal); N76.2 Acute vulvitis; E11.9 Type 2 diabetes mellitus without complications; I10 Essential (primary) hypertension; E78.5 Hyperlipidemia, unspecified; Z79.899 Other long term (current) drug therapy; Z86.69 Personal history of other diseases of the nervous system and sense organs; Z98.890 Other specified postprocedural states; Z90.49 Acquired absence of other specified parts of digestive tract; Z88.5 Allergy status to narcotic agent; Z88.8 Allergy status to other drugs, medicaments and biological substances
CPT/HCPCS: 80047; 80048; 83605; 85025; 85652; 86140; 87040; 96374; 96375; 99283; J0696; J1885

== ENCOUNTER → 2021-02-22 | Outpatient (REF) | payer BC, MEDICAID ==
[2021-02-22 16:08] LABS: BASO # 0.1 10^3/uL (0.0-0.2); BASO % 0.9 % (0.0-1.0); EOS # 0.4 10^3/uL (0.0-0.5); EOS % 3.6 % (0.0-3.0); HEMOGLOBIN 13.5 g/dl (12.0-15.5); LYMPH # 2.8 10^3/uL (1.5-5.0); LYMPH % 27.5 % (24.0-44.0); MEAN CORPUSCULAR HEMOGLOBIN 29.5 pg (27.0-33.0); MEAN CORPUSCULAR HGB CONC 32.9 g/dl (32.0-36.5); MEAN CORPUSCULAR VOLUME 89.7 fl (80.0-96.0); MONO # 0.7 10^3/uL (0.0-0.8); MONO % 6.9 % (2.0-8.0); NEUTROPHILS # 6.1 10^3/uL (1.5-8.5); NEUTROPHILS % 60.7 % (36.0-66.0); PLATELET COUNT, AUTOMATED 415 10^3/uL (150-450); RED BLOOD COUNT 4.57 10^6/uL (4.00-5.40); WHITE BLOOD COUNT 10.1 10^3/uL (4.0-10.0)
[2021-02-22 16:44] LABS: ALBUMIN 3.9 GM/DL (3.2-5.2); ALT/SGPT 36 U/L (12-78); BILIRUBIN,TOTAL 0.3 MG/DL (0.2-1.0); BLOOD UREA NITROGEN 14 MG/DL (7-18); CARBON DIOXIDE LEVEL 26 MEQ/L (21-32); CHLORIDE LEVEL 102 MEQ/L (98-107); CHOLESTEROL LEVEL 120 MG/DL (<200); CHOLESTEROL RISK RATIO 3.636 (<5); CREATININE FOR GFR 0.85 MG/DL (0.55-1.30); GLOMERULAR FILTRATION RATE > 60.0 (>58); GLUCOSE, FASTING 384 MG/DL (70-100); HDL CHOLESTEROL 33 MG/DL (>40); LDL CHOLESTEROL 38 MG/DL (<100); NON-HDL-C 87 MG/DL; POTASSIUM SERUM 4.7 MEQ/L (3.5-5.1); SODIUM LEVEL 134 MEQ/L (136-145); THYROID STIMULATING HORMONE 0.785 uIU/ML (0.358-3.740); TOTAL PROTEIN 7.5 GM/DL (6.4-8.2); TRIGLYCERIDES LEVEL 247 MG/DL (<150)
[2021-02-22 16:46] LABS: TOTAL 25(OH) VITAMIN D 72.7 NG/ML (30.0-100.0)
[2021-02-22 16:47] LABS: HEMOGLOBIN A1c 9.4 %
[2021-02-25 23:07] LABS: Alkaline Phosphatase Iso-Bone 22 % (14-68); Alkaline Phosphatase Iso-Intes 24 % (0-18); Alkaline Phosphatase Iso-Liver 54 % (18-85); TOTAL ALK PHOS 140 IU/L (44-121)
== END ==
LOC: M SFHCCAPE 08:10
PROVIDERS: ATTEND Physician Assistant
DX: E78.2 Mixed hyperlipidemia (principal); E55.9 Vitamin D deficiency, unspecified; R74.8 Abnormal levels of other serum enzymes

== ENCOUNTER → 2021-12-15 | Outpatient (REF) | payer BC, MEDICAID ==
[2021-12-15 12:08] LABS: HEMATOCRIT 40.3 % (36.0-47.0); HEMOGLOBIN 13.3 g/dl (12.0-15.5); MEAN CORPUSCULAR HEMOGLOBIN 29.9 pg (27.0-33.0); MEAN CORPUSCULAR VOLUME 90.6 fl (80.0-96.0); PLATELET COUNT, AUTOMATED 377 10^3/uL (150-450); RED BLOOD COUNT 4.45 10^6/uL (4.00-5.40); WHITE BLOOD COUNT 10.6 10^3/uL (4.0-10.0)
[2021-12-15 12:39] LABS: BLOOD UREA NITROGEN 11 MG/DL (7-18); CALCIUM LEVEL 8.8 MG/DL (8.5-10.1); CARBON DIOXIDE LEVEL 27 MEQ/L (21-32); CHLORIDE LEVEL 103 MEQ/L (98-107); CREATININE FOR GFR 0.69 MG/DL (0.55-1.30); GLOMERULAR FILTRATION RATE > 60.0 (>58); GLUCOSE, FASTING 243 MG/DL (70-100); POTASSIUM SERUM 4.7 MEQ/L (3.5-5.1); SODIUM LEVEL 134 MEQ/L (136-145)
== END ==
LOC: M SFHCCLAY 07:14
PROVIDERS: ATTEND Family Medicine
DX: K21.9 Gastro-esophageal reflux disease without esophagitis (principal); E11.69 Type 2 diabetes mellitus with other specified complication; E78.2 Mixed hyperlipidemia

== ENCOUNTER 2021-12-30 07:15 | Emergency (ER) | payer BC, MEDICAID ==
[~2021-12-30] VITALS: Ht 154.9 cm; Wt 93.9 kg
[2021-12-30 07:16] VITALS: BP 140/90
[2021-12-30] MEDS ORDERED: INSU100I34 SQ (07:31)
[2021-12-30 08:41] LABS: BASO # 0.1 10^3/uL (0.0-0.2); BASO % 0.7 % (0.0-1.0); EOS # 0.4 10^3/uL (0.0-0.5); EOS % 3.4 % (0.0-3.0); HEMATOCRIT 42.7 % (36.0-47.0); HEMOGLOBIN 13.6 g/dl (12.0-15.5); LYMPH # 2.2 10^3/uL (1.5-5.0); MEAN CORPUSCULAR HEMOGLOBIN 29.6 pg (27.0-33.0); MEAN CORPUSCULAR HGB CONC 31.9 g/dl (32.0-36.5); MEAN CORPUSCULAR VOLUME 92.8 fl (80.0-96.0); MONO # 0.7 10^3/uL (0.0-0.8); MONO % 6.5 % (2.0-8.0); NEUTROPHILS # 7.3 10^3/uL (1.5-8.5); NEUTROPHILS % 67.7 % (36.0-66.0); PLATELET COUNT, AUTOMATED 333 10^3/uL (150-450); WHITE BLOOD COUNT 10.7 10^3/uL (4.0-10.0)
[2021-12-30 09:34] LABS: ALBUMIN 3.6 GM/DL (3.2-5.2); ALT/SGPT 23 U/L (12-78); BILIRUBIN,DIRECT < 0.1 MG/DL (0.0-0.2); BILIRUBIN,TOTAL 0.3 MG/DL (0.2-1.0); BLOOD UREA NITROGEN 12 MG/DL (7-18); CALCIUM LEVEL 8.9 MG/DL (8.5-10.1); CARBON DIOXIDE LEVEL 26 MEQ/L (21-32); CHLORIDE LEVEL 106 MEQ/L (98-107); CREATININE FOR GFR 0.75 MG/DL (0.55-1.30); GLOMERULAR FILTRATION RATE > 60.0 (>58); GLUCOSE, FASTING 268 MG/DL (70-100); LIPASE 297 U/L (73-393); POTASSIUM SERUM 4.4 MEQ/L (3.5-5.1); SODIUM LEVEL 136 MEQ/L (136-145); TOTAL PROTEIN 7.4 GM/DL (6.4-8.2)
[2021-12-30] MEDS ORDERED: NS 1,000 ML IV ONE (09:50)
[2021-12-30] MEDS ORDERED: KETOROLAC 30 MG/ML 1ML VIAL IV ONE (09:50)
[2021-12-30] MEDS ORDERED: KETO10TAB PO (12:31)
== END 2021-12-30 12:42 | disposition home or self-care (01) ==
LOC: M ED 07:15
DX: M54.15 Radiculopathy, thoracolumbar region (principal); R16.0 Hepatomegaly, not elsewhere classified; I70.0 Atherosclerosis of aorta; F17.200 Nicotine dependence, unspecified, uncomplicated; Z88.6 Allergy status to analgesic agent; Z90.49 Acquired absence of other specified parts of digestive tract; Z90.710 Acquired absence of both cervix and uterus; Z79.4 Long term (current) use of insulin; Z79.899 Other long term (current) drug therapy
CPT/HCPCS: 74176; 80048; 80076; 81000; 83690; 85025; 96361; 96374; 99283; J1885

== ENCOUNTER → 2022-01-05 | Outpatient (CLI) | payer BC, MEDICAID ==
[~2022-01-05] MED LIST changes: +INSU100I34 SQ; +KETO10TAB PO
== END ==
LOC: M SOG 13:41
PROVIDERS: ATTEND Orthopaedic Surgery
DX: M25.571 Pain in right ankle and joints of right foot (principal)

== ENCOUNTER → 2022-05-17 | Outpatient (CLI) | payer BC, MEDICAID | LOC: M RAD 08:16 | PROVIDERS: ATTEND Internal Medicine Gastroenterology | DX: R10.11 Right upper quadrant pain (principal); R16.0 Hepatomegaly, not elsewhere classified ==

== ENCOUNTER 2022-07-07 06:49 | Day surgery (SDC) | payer BC, MEDICAID ==
[~2022-07-07] VITALS: Ht 154.9 cm; Wt 88.9 kg
[~2022-07-07 06:49] MED LIST changes: -ATOR1TAB19; +ATOR1TAB19 PO; +NS 1,000 ML IV ONE; -OMEP1CAP73; +OMEP1CAP73 PO
[2022-07-07] MEDS ORDERED: fentaNYL 100 MCG/2 ML INJECTION As Ordered ONE (07:31)
[2022-07-07] MEDS ORDERED: propofoL 200 MG/20 ML VIAL As Ordered ONE (07:31)
[2022-07-07] MEDS ORDERED: LIDOCAINE 2% 100MG/5ML SDV (FOR ANES.) As Ordered ONE (07:31)
[2022-07-07 08:40] VITALS: BP 150/72
== END 2022-07-07 08:54 | disposition home or self-care (01) ==
LOC: M OPP 06:49
PROVIDERS: ATTEND Internal Medicine Gastroenterology
DX: D12.3 Benign neoplasm of transverse colon (principal); D12.5 Benign neoplasm of sigmoid colon; K63.5 Polyp of colon; K31.89 Other diseases of stomach and duodenum; K29.70 Gastritis, unspecified, without bleeding; F17.200 Nicotine dependence, unspecified, uncomplicated; Z79.02 Long term (current) use of antithrombotics/antiplatelets; Z79.1 Long term (current) use of non-steroidal anti-inflammatories (NSAID); Z79.84 Long term (current) use of oral hypoglycemic drugs; Z79.899 Other long term (current) drug therapy; Z88.5 Allergy status to narcotic agent; Z88.8 Allergy status to other drugs, medicaments and biological substances
CPT/HCPCS: 43239; 45381; 45385; 88305; J3010

== ENCOUNTER → 2022-07-18 | Outpatient (CLI) | payer BC, MEDICAID ==
[~2022-07-18] MED LIST changes: -NS 1,000 ML IV ONE
== END ==
LOC: M RAD 08:24
PROVIDERS: ATTEND Internal Medicine Gastroenterology
DX: K31.84 Gastroparesis (principal)
CPT/HCPCS: 78264; A9541

== ENCOUNTER → 2022-08-30 | Outpatient (REF) | payer BC, MEDICAID ==
[2022-08-30 18:27] LABS: CREATININE, URINE 157.9 MG/DL; MAU/CREAT RATIO 6.3 MCG/MG (0.0-30.0)
[2022-08-30 18:35] LABS: BASO # 0.1 10^3/uL (0.0-0.2); BASO % 0.7 % (0.0-1.0); EOS # 0.5 10^3/uL (0.0-0.5); EOS % 4.2 % (0.0-3.0); HEMOGLOBIN 13.6 g/dl (12.0-15.5); LYMPH # 2.6 10^3/uL (1.5-5.0); LYMPH % 24.9 % (24.0-44.0); MEAN CORPUSCULAR HEMOGLOBIN 29.8 pg (27.0-33.0); MEAN CORPUSCULAR HGB CONC 31.6 g/dl (32.0-36.5); MEAN CORPUSCULAR VOLUME 94.3 fl (80.0-96.0); MONO # 0.8 10^3/uL (0.0-0.8); MONO % 7.8 % (2.0-8.0); NEUTROPHILS # 6.6 10^3/uL (1.5-8.5); PLATELET COUNT, AUTOMATED 355 10^3/uL (150-450); RED BLOOD COUNT 4.56 10^6/uL (4.00-5.40); WHITE BLOOD COUNT 10.6 10^3/uL (4.0-10.0)
[2022-08-30 18:37] LABS: ALBUMIN 4.1 G/DL (3.2-5.2); ALKALINE PHOSPHATASE 125 U/L (46-116); ALT/SGPT 21 U/L (7.0-40); AST/SGOT 10 U/L (<34); BILIRUBIN,TOTAL 0.5 MG/DL (0.3-1.2); BLOOD UREA NITROGEN 15 MG/DL (9-23); CALCIUM LEVEL 8.3 MG/DL (8.5-10.1); CARBON DIOXIDE LEVEL 28 MMOL/L (20-31); CHLORIDE LEVEL 106 MMOL/L (98-107); CHOLESTEROL LEVEL 169 MG/DL (<200); CHOLESTEROL RISK RATIO 5.46 (<5); GLOMERULAR FILTRATION RATE > 60.0 (>58); GLUCOSE, FASTING 191 MG/DL (60-100); HDL CHOLESTEROL 30.9 MG/DL (>40); LDL CHOLESTEROL 102.1 MG/DL (<100); NON-HDL-C 138.1 MG/DL; POTASSIUM SERUM 3.9 MMOL/L (3.5-5.1); SODIUM LEVEL 138 MMOL/L (136-145); TOTAL PROTEIN 6.9 G/DL (5.7-8.2); TRIGLYCERIDES LEVEL 180 MG/DL (<150)
[2022-08-30 19:45] LABS: HEMOGLOBIN A1c 7.6 % (4.0-6.0)
== END ==
LOC: M SFHCCAPE 07:18
PROVIDERS: ATTEND Physician Assistant
DX: E11.9 Type 2 diabetes mellitus without complications (principal)

== ENCOUNTER 2022-09-11 10:18 | Emergency (ER) | payer BC, MEDICAID ==
[~2022-09-11] VITALS: Ht 154.9 cm; Wt 90.5 kg
[2022-09-11] MEDS ORDERED: AMLO1TAB24 PO (10:32)
[2022-09-11] MEDS ORDERED: MORPHINE 2 MG/ML 1ML VIAL IV ONE (11:35)
[2022-09-11] MEDS ORDERED: LABETALOL 100MG/20ML VIAL IV STA ×2 (11:35→12:24)
[2022-09-11] MEDS ORDERED: ONDANSETRON 4MG 2ML VIAL IV ONE (11:35)
[2022-09-11 11:46] LABS: BASO # 0.1 10^3/uL (0.0-0.2); BASO % 0.7 % (0.0-1.0); EOS # 0.5 10^3/uL (0.0-0.5); EOS % 3.8 % (0.0-3.0); HEMATOCRIT 41.5 % (36.0-47.0); HEMOGLOBIN 13.8 g/dl (12.0-15.5); LYMPH # 2.7 10^3/uL (1.5-5.0); LYMPH % 22.9 % (24.0-44.0); MEAN CORPUSCULAR HEMOGLOBIN 30.1 pg (27.0-33.0); MEAN CORPUSCULAR HGB CONC 33.3 g/dl (32.0-36.5); MEAN CORPUSCULAR VOLUME 90.4 fl (80.0-96.0); MONO # 0.8 10^3/uL (0.0-0.8); MONO % 6.9 % (2.0-8.0); NEUTROPHILS # 7.7 10^3/uL (1.5-8.5); NEUTROPHILS % 65.4 % (36.0-66.0); PLATELET COUNT, AUTOMATED 343 10^3/uL (150-450); RED BLOOD COUNT 4.59 10^6/uL (4.00-5.40); WHITE BLOOD COUNT 11.8 10^3/uL (4.0-10.0)
[2022-09-11 12:18] LABS: LIPASE 28 U/L (12-53)
[2022-09-11 12:19] LABS: CK-MB VALUE MASS < 1.0 NG/ML (<3.6)
[2022-09-11 12:20] LABS: ALBUMIN 3.8 G/DL (3.2-5.2); ALKALINE PHOSPHATASE 133 U/L (46-116); ALT/SGPT < 9 U/L (7.0-40); AST/SGOT < 8 U/L (<34); BILIRUBIN,DIRECT < 0.1 MG/DL (<0.4); BILIRUBIN,TOTAL 0.3 MG/DL (0.3-1.2); BLOOD UREA NITROGEN 8 MG/DL (9-23); CALCIUM LEVEL 8.2 MG/DL (8.5-10.1); CARBON DIOXIDE LEVEL 26 MMOL/L (20-31); CHLORIDE LEVEL 106 MMOL/L (98-107); CREATININE FOR GFR 0.48 MG/DL (0.55-1.30); GLOMERULAR FILTRATION RATE > 60.0 (>58); GLUCOSE, FASTING 149 MG/DL (60-100); POTASSIUM SERUM 4.2 MMOL/L (3.5-5.1); SODIUM LEVEL 139 MMOL/L (136-145)
[2022-09-11 12:24] LABS: FREE T4 1.07 NG/DL (0.89-1.76); THYROID STIMULATING HORMONE 0.696 uIU/ML (0.55-4.78)
[2022-09-11 12:30] VITALS: BP 203/98
[2022-09-11 12:34] LABS: CPK CREATINE PHOSPHOKINASE 37 U/L (34-145)
[2022-09-11 13:22] LABS: CK-MB VALUE MASS < 1.0 NG/ML (<3.6)
[2022-09-11 13:23] LABS: CPK CREATINE PHOSPHOKINASE 29 U/L (34-145); MB/CK RELATIVE INDEX 3.44 (< OR =4)
[2022-09-11 13:39] VITALS: BP 153/85; TEMP 98; O2SAT 96
== END 2022-09-11 13:44 | disposition home or self-care (01) ==
LOC: M ED 10:18
DX: I16.0 Hypertensive urgency (principal); E11.9 Type 2 diabetes mellitus without complications; E78.5 Hyperlipidemia, unspecified; G51.0 Bell's palsy; K21.9 Gastro-esophageal reflux disease without esophagitis; Z87.442 Personal history of urinary calculi; F17.200 Nicotine dependence, unspecified, uncomplicated; Z79.899 Other long term (current) drug therapy; Z88.5 Allergy status to narcotic agent; Z88.8 Allergy status to other drugs, medicaments and biological substances; Z79.4 Long term (current) use of insulin
CPT/HCPCS: 36415; 70450; 80048; 80076; 82550; 82553; 83690; 84439; 84443; 84484; 85025; 93005; 93041; 94760; 96374; 96375; 96376; 99285; J2405

== ENCOUNTER 2024-03-07 11:16 | Inpatient (IN) | payer OTHER ==
[2024-03-07] VITALS (23 sets, daily range): BP systolic 120–174; BP diastolic 61–83; TEMP 97–98.6; O2SAT 93–97
[~2024-03-07] VITALS: Ht 154.9 cm; Wt 90.6 kg
[~2024-03-07 11:16] MED LIST changes: +AMLO1TAB24 PO; -INSU100I34 SQ; +INSU100I59 SQ; +MECL-209 PO; -MECL1TAB31 PO
[2024-03-07] MEDS ORDERED: ISOVUE-370 76% 100ML VIAL As Ordered ONE (11:31)
[2024-03-07 11:47] LABS: BASO # 0.1 10^3/uL (0.0-0.2); BASO % 0.7 % (0.0-1.0); EOS # 0.4 10^3/uL (0.0-0.5); HEMATOCRIT 45.6 % (36.0-47.0); HEMOGLOBIN 15.3 g/dl (12.0-15.5); LYMPH # 3.2 10^3/uL (1.5-5.0); LYMPH % 26.5 % (24.0-44.0); MEAN CORPUSCULAR HEMOGLOBIN 30.2 pg (27.0-33.0); MEAN CORPUSCULAR HGB CONC 33.6 g/dl (32.0-36.5); MEAN CORPUSCULAR VOLUME 89.9 fl (80.0-96.0); MONO # 0.8 10^3/uL (0.0-0.8); MONO % 6.9 % (2.0-8.0); NEUTROPHILS # 7.5 10^3/uL (1.5-8.5); NEUTROPHILS % 62.5 % (36.0-66.0); PLATELET COUNT, AUTOMATED 361 10^3/uL (150-450); RED BLOOD COUNT 5.07 10^6/uL (4.00-5.40)
[2024-03-07] MEDS ORDERED: ECOT81TA5 PO (12:07)
[2024-03-07 12:09] LABS: INR 0.99; PARTIAL THROMBOPLASTIN TIME 33.3 SECONDS (24.8-34.2); PROTHROMBIN TIME 13.4 SECONDS (12.5-14.5)
[2024-03-07 12:21] LABS: BLOOD UREA NITROGEN 18 MG/DL (9-23); CALCIUM LEVEL 9.6 MG/DL (8.5-10.1); CARBON DIOXIDE LEVEL 26 MMOL/L (20-31); CHLORIDE LEVEL 101 MMOL/L (98-107); CK-MB VALUE MASS < 1.0 NG/ML (<3.6); CREATININE FOR GFR 0.53 MG/DL (0.55-1.30); GLOMERULAR FILTRATION RATE > 60.0 (>58); GLUCOSE, FASTING 238 MG/DL (60-100); POTASSIUM SERUM 4.3 MMOL/L (3.5-5.1); SODIUM LEVEL 137 MMOL/L (136-145)
[2024-03-07 12:29] LABS: CPK CREATINE PHOSPHOKINASE 38 U/L (34-145); MB/CK RELATIVE INDEX 2.63 (< OR =4)
[2024-03-07] MEDS: SODIUM CHLORIDE 0.9% INJ 10 ML SYR IV ONE ×2 (12:40→12:43)
[2024-03-07] MEDS: TENECTEPLASE 50 MG/10 ML VIAL IVP ONE (12:42)
[2024-03-07] MEDS ORDERED: LISI20TA33 PO (14:06)
[2024-03-07] MEDS ORDERED: CLOP75TA2 PO (14:06)
[2024-03-07] MEDS ORDERED: EZET10TA21 PO (14:06)
[2024-03-07] MEDS ORDERED: ATOR80TA59 PO (14:06)
[2024-03-07] MEDS ORDERED: HUMA100I5 SC (14:08)
[2024-03-07] MEDS ORDERED: HOME MED LIST COMPLETE! XX SCH (14:15)
[2024-03-07] MEDS: PANTOPRAZOLE 40MG VIAL IV SCH (14:25)
[2024-03-07] MEDS: ACETAMINOPHEN 325 MG TAB PO PRN (17:28)
[2024-03-07] MEDS ORDERED: DEXTROSE 50% 50ML SYRINGE IV PRN (17:50)
[2024-03-07] MEDS ORDERED: GLUCOSE 4 GM CHEW PO PRN (17:50)
[2024-03-07] MEDS ORDERED: GLUCAGON INJ 1MG VIAL SC PRN (17:50)
[2024-03-07] MEDS: INSULIN LISPRO (NovoLOG) PER UNIT SC SCH (21:46)
[2024-03-08] VITALS (18 sets, daily range): BP systolic 120–150; BP diastolic 57–77; TEMP 97–98.5; O2SAT 94–97
[2024-03-08] MEDS: ACETAMINOPHEN 325 MG TAB PO ONE (05:04)
[2024-03-08 06:03] LABS: BASO # 0.1 10^3/uL (0.0-0.2); BASO % 0.7 % (0.0-1.0); EOS # 0.4 10^3/uL (0.0-0.5); HEMOGLOBIN 13.7 g/dl (12.0-15.5); LYMPH # 2.8 10^3/uL (1.5-5.0); LYMPH % 25.9 % (24.0-44.0); MEAN CORPUSCULAR HEMOGLOBIN 29.8 pg (27.0-33.0); MEAN CORPUSCULAR HGB CONC 33.4 g/dl (32.0-36.5); MEAN CORPUSCULAR VOLUME 89.3 fl (80.0-96.0); MONO # 0.9 10^3/uL (0.0-0.8); MONO % 8.5 % (2.0-8.0); NEUTROPHILS # 6.4 10^3/uL (1.5-8.5); NEUTROPHILS % 60.4 % (36.0-66.0); PLATELET COUNT, AUTOMATED 334 10^3/uL (150-450); RED BLOOD COUNT 4.59 10^6/uL (4.00-5.40); WHITE BLOOD COUNT 10.6 10^3/uL (4.0-10.0)
[2024-03-08 06:20] LABS: ALBUMIN 3.7 G/DL (3.2-5.2); ALKALINE PHOSPHATASE 106 U/L (35-104); ALT/SGPT 17 U/L (7.0-40); AST/SGOT 8 U/L (<34); BILIRUBIN,TOTAL 0.4 MG/DL (0.3-1.2); BLOOD UREA NITROGEN 17 MG/DL (9-23); CALCIUM LEVEL 8.9 MG/DL (8.5-10.1); CARBON DIOXIDE LEVEL 25 MMOL/L (20-31); CHLORIDE LEVEL 105 MMOL/L (98-107); CHOLESTEROL LEVEL 196 MG/DL (<200); CHOLESTEROL RISK RATIO 6.82 (<5); CREATININE FOR GFR 0.49 MG/DL (0.55-1.30); GLOMERULAR FILTRATION RATE > 60.0 (>58); GLUCOSE, FASTING 215 MG/DL (60-100); HDL CHOLESTEROL 28.7 MG/DL (>40); LDL CHOLESTEROL 127.5 MG/DL (<100); NON-HDL-C 167.3 MG/DL; PHOSPHORUS LEVEL 3.8 MG/DL (2.5-4.9); POTASSIUM SERUM 4.4 MMOL/L (3.5-5.1); SODIUM LEVEL 138 MMOL/L (136-145); TOTAL PROTEIN 6.9 G/DL (5.7-8.2); TRIGLYCERIDES LEVEL 199 MG/DL (<150)
[2024-03-08 06:24] LABS: THYROID STIMULATING HORMONE 1.789 uIU/ML (0.55-4.78)
[2024-03-08 06:33] LABS: HEMOGLOBIN A1c 9.7 % (4.0-6.0)
[2024-03-08] MEDS: INSULIN LISPRO (NovoLOG) PER UNIT SC SCH (08:40)
[2024-03-08] MEDS: ATORVASTATIN 20 MG TAB PO ONE (14:04)
[2024-03-08] MEDS: ASPIRIN 81MG ENTERIC TABLET PO SCH (14:05)
[2024-03-08] MEDS: CLOPIDOGREL 300 MG TAB (PLAVIX) PO STA (14:05)
[2024-03-08] MEDS ORDERED: INSULIN LISPRO (NovoLOG) PER UNIT SC SCH (17:30)
[2024-03-08] MEDS: LEVEMIR (INSULIN DETEMIR) 1 UNITS/0.01ML SC SCH (20:58)
[2024-03-09 04:00] VITALS: BP 134/64; TEMP 98.1; O2SAT 97
[2024-03-09 08:06] VITALS: BP 156/74; TEMP 98.5; O2SAT 96
[2024-03-09] MEDS: ATORVASTATIN 20 MG TAB PO SCH (08:39)
[2024-03-09] MEDS: CLOPIDOGREL 75 MG TAB PO SCH (08:39)
[2024-03-09] MEDS: amLODIPine 5 MG TAB PO SCH (08:56)
[2024-03-09] MEDS ORDERED: LANC30MI XX (12:12)
[2024-03-09] MEDS ORDERED: ECOT81TA5 PO (12:12)
[2024-03-09] MEDS ORDERED: BLOOKIT21 XX (12:12)
[2024-03-09] MEDS ORDERED: ALCOPAD25 TOP (12:12)
[2024-03-09] MEDS ORDERED: CLOP75TA2 PO (12:12)
[2024-03-09] MEDS ORDERED: HUMA100I5 SC (12:12)
[2024-03-09] MEDS ORDERED: ATOR80TA59 PO (12:12)
[2024-03-09] MEDS ORDERED: LISI20TA33 PO (12:12)
[2024-03-09] MEDS ORDERED: AMLO1TAB24 PO (12:12)
[2024-03-09] MEDS ORDERED: PEN-308 SC (12:12)
[2024-03-09] MEDS ORDERED: GLUC1TES2 XX (12:12)
[2024-03-09] MEDS ORDERED: EZET10TA21 PO (12:12)
[2025-03-07] MEDS ORDERED: INSULIN LISPRO (NovoLOG) PER UNIT SC SCH (17:30)
== END 2024-03-09 10:34 | disposition home or self-care (01) | DRG 45 ==
LOC: M ED 11:16 → M ED INP 14:03 → M ICU 15:47 → M PCU 03-08 15:45
PROVIDERS: ADMIT Internal Medicine Pulmonary Disease; ATTEND Internal Medicine Nephrology
DX: I63.9 Cerebral infarction, unspecified (principal); E11.65 Type 2 diabetes mellitus with hyperglycemia; I10 Essential (primary) hypertension; I69.354 Hemiplegia and hemiparesis following cerebral infarction affecting left non-dominant side; E66.9 Obesity, unspecified; F17.200 Nicotine dependence, unspecified, uncomplicated; G51.0 Bell's palsy; M54.31 Sciatica, right side; Z79.82 Long term (current) use of aspirin; Z79.4 Long term (current) use of insulin; Z79.02 Long term (current) use of antithrombotics/antiplatelets; Z79.899 Other long term (current) drug therapy; Z88.5 Allergy status to narcotic agent; Z88.8 Allergy status to other drugs, medicaments and biological substances; Z91.141 Patient's other noncompliance with medication regimen due to financial hardship; Z68.38 Body mass index [BMI] 38.0-38.9, adult

== ENCOUNTER → 2024-06-11 | Outpatient (REF) | payer OTHER ==
[~2024-06-11] MED LIST changes: +ALCOPAD25 TOP; +ATOR80TA59 PO; +BLOOKIT21 XX; +CLOP75TA2 PO; +ECOT81TA5 PO; +EZET10TA21 PO; +GLUC1TES2 XX; +HUMA100I5 SC; +LANC30MI XX; +LISI20TA33 PO; +PEN-308 SC
[2024-06-11 17:57] LABS: ALBUMIN 3.9 G/DL (3.2-5.2); ALKALINE PHOSPHATASE 105 U/L (35-104); ALT/SGPT 32 U/L (7.0-40); AST/SGOT 13 U/L (<34); BILIRUBIN,TOTAL 0.4 MG/DL (0.3-1.2); BLOOD UREA NITROGEN 13 MG/DL (9-23); CALCIUM LEVEL 9.2 MG/DL (8.5-10.1); CARBON DIOXIDE LEVEL 28 MMOL/L (20-31); CHLORIDE LEVEL 106 MMOL/L (98-107); CHOLESTEROL LEVEL 81 MG/DL (<200); CHOLESTEROL RISK RATIO 2.46 (<5); CREATININE FOR GFR 0.55 MG/DL (0.55-1.30); GLOMERULAR FILTRATION RATE > 90.0 (>58); GLUCOSE, FASTING 243 MG/DL (60-100); HDL CHOLESTEROL 32.8 MG/DL (>40); LDL CHOLESTEROL 31.4 MG/DL (<100); NON-HDL-C 48.2 MG/DL; POTASSIUM SERUM 4.2 MMOL/L (3.5-5.1); SODIUM LEVEL 139 MMOL/L (136-145); TOTAL PROTEIN 7.1 G/DL (5.7-8.2); TRIGLYCERIDES LEVEL 84 MG/DL (<150)
[2024-06-11 18:00] LABS: BASO # 0.1 10^3/uL (0.0-0.2); BASO % 0.9 % (0.0-1.0); EOS # 0.3 10^3/uL (0.0-0.5); EOS % 3.3 % (0.0-3.0); HEMATOCRIT 37.8 % (36.0-47.0); HEMOGLOBIN 12.4 g/dl (12.0-15.5); LYMPH # 2.4 10^3/uL (1.5-5.0); LYMPH % 27.3 % (24.0-44.0); MEAN CORPUSCULAR HEMOGLOBIN 30.2 pg (27.0-33.0); MEAN CORPUSCULAR HGB CONC 32.8 g/dl (32.0-36.5); MONO # 0.6 10^3/uL (0.0-0.8); NEUTROPHILS # 5.3 10^3/uL (1.5-8.5); NEUTROPHILS % 61.2 % (36.0-66.0); PLATELET COUNT, AUTOMATED 339 10^3/uL (150-450); RED BLOOD COUNT 4.11 10^6/uL (4.00-5.40); WHITE BLOOD COUNT 8.6 10^3/uL (4.0-10.0)
[2024-06-11 18:34] LABS: HEMOGLOBIN A1c 10.2 % (4.0-6.0)
== END ==
LOC: M SFHCCAPE 07:15
PROVIDERS: ATTEND Physician Assistant Medical
DX: Z86.73 Personal history of transient ischemic attack (TIA), and cerebral infarction without residual deficits (principal); E11.59 Type 2 diabetes mellitus with other circulatory complications; E78.2 Mixed hyperlipidemia

== ENCOUNTER → 2024-06-25 | Outpatient (REF) | payer OTHER ==
[~2024-06-25] MED LIST changes: +PREG-35 PO; -PREG100CA PO
[2024-06-25 18:03] LABS: ALBUMIN 3.9 G/DL (3.2-5.2); ALKALINE PHOSPHATASE 111 U/L (35-104); ALT/SGPT 33 U/L (7.0-40); AST/SGOT 15 U/L (<34); BILIRUBIN,TOTAL 0.5 MG/DL (0.3-1.2); BLOOD UREA NITROGEN 12 MG/DL (9-23); CALCIUM LEVEL 8.9 MG/DL (8.5-10.1); CARBON DIOXIDE LEVEL 25 MMOL/L (20-31); CHLORIDE LEVEL 101 MMOL/L (98-107); CHOLESTEROL LEVEL 87 MG/DL (<200); CHOLESTEROL RISK RATIO 2.55 (<5); CREATININE FOR GFR 0.53 MG/DL (0.55-1.30); GLOMERULAR FILTRATION RATE > 90.0 (>58); GLUCOSE, FASTING 334 MG/DL (60-100); LDL CHOLESTEROL 34.8 MG/DL (<100); POTASSIUM SERUM 4.5 MMOL/L (3.5-5.1); SODIUM LEVEL 136 MMOL/L (136-145); THYROID STIMULATING HORMONE 0.785 uIU/ML (0.55-4.78); TRIGLYCERIDES LEVEL 91 MG/DL (<150)
[2024-06-25 18:05] LABS: CREATININE, URINE 12.4 MG/DL
[2024-06-25 18:07] LABS: MALB URINE SIEMENS < 3.0 MG/L
[2024-06-28 11:57] LABS: C-PEPTIDE 2.84 ng/mL (0.80-3.85)
== END ==
LOC: M LABDRWCV 16:49
PROVIDERS: ATTEND Physician Assistant
DX: E11.65 Type 2 diabetes mellitus with hyperglycemia (principal); E55.9 Vitamin D deficiency, unspecified

== ENCOUNTER → 2024-07-22 | Outpatient (CLI) | payer OTHER | LOC: M WHC 08:26 | PROVIDERS: ATTEND Physician Assistant Medical | DX: Z12.31 Encounter for screening mammogram for malignant neoplasm of breast (principal); R92.333 Mammographic heterogeneous density, bilateral breasts ==

== ENCOUNTER → 2024-09-24 | Outpatient (REF) | payer OTHER ==
[2024-09-24 18:00] LABS: ALT/SGPT 33 U/L (7.0-40); AST/SGOT 19 U/L (<34); CALCIUM LEVEL 8.9 MG/DL (8.5-10.1); CARBON DIOXIDE LEVEL 25 MMOL/L (20-31); CHLORIDE LEVEL 106 MMOL/L (98-107); CREATININE FOR GFR 0.63 MG/DL (0.55-1.30); GLOMERULAR FILTRATION RATE > 90.0 (>58); POTASSIUM SERUM 4.2 MMOL/L (3.5-5.1); SODIUM LEVEL 143 MMOL/L (136-145)
[2024-09-24 18:01] LABS: BASO # 0.1 10^3/uL (0.0-0.2); BASO % 0.8 % (0.0-1.0); EOS # 0.3 10^3/uL (0.0-0.5); EOS % 3.6 % (0.0-3.0); LYMPH # 2.2 10^3/uL (1.5-5.0); LYMPH % 28.1 % (24.0-44.0); MONO # 0.6 10^3/uL (0.0-0.8); MONO % 7.1 % (2.0-8.0); NEUTROPHILS # 4.6 10^3/uL (1.5-8.5); NEUTROPHILS % 60.1 % (36.0-66.0); PLATELET COUNT, AUTOMATED 349 10^3/uL (150-450)
[2024-09-24 18:05] LABS: FREE T4 1.08 NG/DL (0.89-1.76)
== END ==
LOC: M SFHCCAPE 07:09
PROVIDERS: ATTEND Physician Assistant Medical
DX: R60.0 Localized edema (principal); R01.1 Cardiac murmur, unspecified

== ENCOUNTER → 2024-12-05 | Outpatient (CLI) | payer OTHER ==
[~2024-12-05] MED LIST changes: -EZET10TA21 PO; +EZET10TA57 PO
== END ==
LOC: M CARPUL 14:17
PROVIDERS: ATTEND Physician Assistant Medical
DX: R01.1 Cardiac murmur, unspecified (principal); Z86.73 Personal history of transient ischemic attack (TIA), and cerebral infarction without residual deficits

== ENCOUNTER → 2025-01-08 | Outpatient (REF) | payer OTHER ==
[2025-01-08 12:33] LABS: FREE T4 1.2 NG/DL (0.89-1.76); TOTAL T3 129.9 NG/DL (60.0-181.0)
== END ==
LOC: M LABDRAWC 11:51
PROVIDERS: ATTEND Physician Assistant
DX: R13.10 Dysphagia, unspecified (principal)

== ENCOUNTER → 2025-02-13 | Outpatient (CLI) | payer OTHER | LOC: M RAD 07:57 | PROVIDERS: ATTEND Physician Assistant | DX: R13.10 Dysphagia, unspecified (principal) ==